=== PATIENT | female | born 1950 | race Caucasian/White ===

== ENCOUNTER → 2019-03-15 | Outpatient (CLI) | payer BC, MEDICARE ==
[~2019-03-15] MED LIST: *MAMMOGRAM; /ZOLP6ER; ACET65TA; ADVA1AER2; ADVAIR100 INHALATION; ALBUTEROL INHALATION; AMBIEN5 PO; AMBIENCR PO; AMITRIP25 PO; AMITRIP50 PO; AMITRIP75 PO; AMOXIL875 PO; ATEN25TA; ATROVENTIN INHALATION; BACTRIMDS PO; CALCTAB22; CARDURA8 PO; CIPRO500 PO; COUM1TAB17; COUM1TAB18; COUMADIN5 PO; DARVOCET-N PO; DIGO0.257; DURATUSS-G PO; DYAZIDE PO; FLAGYL500 PO; FLEC50TA2; FLOVENT44 INHALATION; FLOVENT44 PO; FOSI; FOSI40TA; Fish oil; KLORCON20 PO; LASI40TA; LASI80TA; LASIX PO; LEXA1TAB; LEXAPRO10 PO; MONOPRIL40 PO; NORVASC10 PO; PHENERGA25 PO; POTA20TA; POTASSIU10 PO; PREMARIVAG VAGINALLY; PREMPRO2.5 PO; PRILOSEC40 PO; PROV90AE; RHINOAEROS; THERGRAN; TOPAMAX100 PO; TOPI100T; TUSSI12TAB PO; VAGIFEM VAGINALLY; VIOXX25 PO; ZOCOR10 PO
[2019-03-15 19:54] LABS: RED BLOOD COUNT 3.64 10^6/uL (4.00-5.40); WHITE BLOOD COUNT 7.1 10^3/uL (4.0-10.0)
[2019-03-15 19:55] LABS: BASO # 0.1 10^3/uL (0.0-0.2); EOS # 0.2 10^3/uL (0.0-0.50); EOS % 2.7 % (0.0-3.0); HEMATOCRIT 36.9 % (36.0-47.0); HEMOGLOBIN 11.6 g/dl (12.0-15.5); LYMPH # 2.3 10^3/uL (1.5-4.5); LYMPH % 32.4 % (24.0-44.0); MEAN CORPUSCULAR HEMOGLOBIN 31.9 pg (27.0-33.0); MEAN CORPUSCULAR HGB CONC 31.4 g/dl (32.0-36.5); MEAN CORPUSCULAR VOLUME 101.4 fl (80.0-96.0); MONO # 0.6 10^3/uL (0.0-0.8); MONO % 7.9 % (0.0-5.0); NEUTROPHILS % 55.7 % (36.0-66.0); PLATELET COUNT, AUTOMATED 276 10^3/uL (150-450)
[2019-03-15 20:21] LABS: C REACTIVE PROTEIN QUANTITATIV < 0.30 MG/DL (0.00-0.30); RHEUMATOID FACTOR QUANT < 10.0 IU/ML (<15.0)
[2019-03-15 21:30] LABS: ERYTHROCYTE SEDIMENTATION RATE 36 mm/hr (0-30)
== END ==
LOC: M LABDRWAD 13:42
PROVIDERS: ATTEND Physician Assistant
DX: M17.11 Unilateral primary osteoarthritis, right knee (principal)

== ENCOUNTER → 2019-04-19 | Outpatient (REF) | payer MEDICARE | LOC: M LABDRWAD 12:52 | PROVIDERS: ATTEND Physical Medicine & Rehabilitation | DX: M47.896 Other spondylosis, lumbar region (principal) ==

== ENCOUNTER → 2019-04-29 | Outpatient (CLI) | payer MEDICARE ==
--- NOTE | 2019-04-29 15:11 | REP ---
CT lumbar spine without contrast History: Spinal stenosis A diffuse disc bulge is present at the L1-2 level. There is minimal compression of the thecal sac. The L1 nerves exit the neural foramina without compression. A diffuse disc bulge is present at in the L2-3 level. There is minimal compression of the thecal sac. The L2 nerves exit the neural foramina without compression. A diffuse disc bulge is present at the L3-4 level. There is minimal compression of the thecal sac. There is hypertrophy of the posterior articulating facets. The L3 nerves exit the neural foramina without compression. A diffuse disc bulge is present at the L4-5 level. There is minimal compression of the thecal sac. There is hypertrophy of the ligamenta flava and posterior articulating facets. There are 12 mm of grade 2 spondylolisthesis of L4 and L5. This is associated with L4 pars defects. There is compression of the L4 nerves in the neural foramina. A diffuse disc bulge is present at the L5-L1 level. There is minimal compression of the thecal sac. There is hypertrophy of the posterior articulating facets. The L5 nerves exit the neural foramina without compression. The L1-2 and L4-5 intervertebral discs are decreased in height. Vacuum phenomenon is present at the L4-5 level. These findings are consistent with disc degeneration. Impression 1. Diffuse disc bulges at the L1-2 through L3-4 and L5-L1 levels with minimal thecal sac compression. 2. Diffuse disc bulge at the L4-5 level with minimal thecal sac compression. There is grade 2 spondylolisthesis of L4 and L5 with associated L4 pars defects. There is compression of the L5 nerves in the neural foramina. Electronically Signed by Delvis Moy MD 04/29/2019 03:02 P
== END ==
LOC: M RAD 14:21
PROVIDERS: ATTEND Physical Medicine & Rehabilitation
DX: M47.817 Spondylosis without myelopathy or radiculopathy, lumbosacral region (principal); M51.37 Other intervertebral disc degeneration, lumbosacral region; M48.07 Spinal stenosis, lumbosacral region; I73.9 Peripheral vascular disease, unspecified; G20 Parkinson's disease

== ENCOUNTER → 2019-04-29 | Outpatient (CLI) | payer MEDICARE ==
--- NOTE | 2019-04-29 14:46 | REP ---
CT Head without contrast HISTORY: Parkinson's disease COMPARISON: None Areas of decreased attenuation are present in the periventricular white matter. This represents small-vessel ischemic disease. There is no intraparenchymal hemorrhage, acute infarct, mass or midline shift. The ventricular system and cortical sulci are dilated consistent with minimal volume loss. There is no extra cerebral collection. There is no fracture. Mucosal thickening is present in the right ethmoid sinus. IMPRESSION: 1. Small vessel ischemic disease. 2. Minimal volume loss. Electronically Signed by Delvis Moy MD 04/29/2019 02:37 P
== END ==
LOC: M RAD 14:18
PROVIDERS: ATTEND Psychiatry & Neurology Neurology
DX: I73.9 Peripheral vascular disease, unspecified (principal); G20 Parkinson's disease

== ENCOUNTER → 2019-05-03 | Outpatient (REF) | payer MEDICARE ==
[2019-05-03 19:51] LABS: BASO # 0.1 10^3/uL (0.0-0.2); BASO % 0.8 % (0.0-1.0); EOS # 0.2 10^3/uL (0.0-0.50); EOS % 1.9 % (0.0-3.0); HEMOGLOBIN 12.5 g/dl (12.0-15.5); LYMPH # 2.1 10^3/uL (1.5-4.5); LYMPH % 22.1 % (24.0-44.0); MEAN CORPUSCULAR HEMOGLOBIN 31.4 pg (27.0-33.0); MEAN CORPUSCULAR HGB CONC 30.5 g/dl (32.0-36.5); MONO # 0.6 10^3/uL (0.0-0.8); MONO % 6.5 % (0.0-5.0); NEUTROPHILS # 6.6 10^3/uL (1.8-7.7); NEUTROPHILS % 68.2 % (36.0-66.0); PLATELET COUNT, AUTOMATED 411 10^3/uL (150-450); RED BLOOD COUNT 3.98 10^6/uL (4.00-5.40); WHITE BLOOD COUNT 9.6 10^3/uL (4.0-10.0)
[2019-05-03 19:55] LABS: ALBUMIN 3.6 GM/DL (3.2-5.2); ALT/SGPT 30 U/L (12-78); BILIRUBIN,TOTAL 0.3 MG/DL (0.2-1.0); BLOOD UREA NITROGEN 26 MG/DL (7-18); CALCIUM LEVEL 9.1 MG/DL (8.8-10.2); CARBON DIOXIDE LEVEL 24 MEQ/L (21-32); CHLORIDE LEVEL 110 MEQ/L (98-107); GLOMERULAR FILTRATION RATE 52.7 (>45); GLUCOSE, FASTING 87 MG/DL (70-100); POTASSIUM SERUM 4.1 MEQ/L (3.5-5.1); RHEUMATOID FACTOR QUANT < 10.0 IU/ML (<15.0); SODIUM LEVEL 143 MEQ/L (136-145); THYROID STIMULATING HORMONE 0.907 uIU/ML (0.358-3.740); TOTAL PROTEIN 7.5 GM/DL (6.4-8.2)
[2019-05-03 20:15] LABS: ERYTHROCYTE SEDIMENTATION RATE 77 mm/hr (0-30)
[2019-05-06 00:08] LABS: ANTINUCLEAR ANTIBODIES DIRECT Negative (Negative)
== END ==
LOC: M LABDRWAD 19:14
PROVIDERS: ATTEND Psychiatry & Neurology Neurology
DX: G40.909 Epilepsy, unspecified, not intractable, without status epilepticus (principal); E07.9 Disorder of thyroid, unspecified

== ENCOUNTER → 2019-05-19 | Outpatient (CLI) | payer MEDICARE ==
--- NOTE | 2019-05-19 14:41 | REP ---
Whole body radionuclide bone scan: The study is performed with 21.6 mCi of technetium 99m radiolabeled MDP. There are bilateral asymmetric foci of uptake in the mid cervical spine, nonspecific but likely degenerative. There is a bilaterally symmetric pattern of uptake in the shoulders, elbows and wrists, likely degenerative. Uptake in the thoracic spine, lumbar spine, pelvis and hips is unremarkable. There is increased uptake in the lateral condyle of the distal right femur, right patellofemoral articulation and right knee lateral compartment. There is increased uptake in the ankles and tarsal ossicles bilaterally, likely degenerative. Impression: There is a degenerative pattern of uptake in the shoulders, elbows, wrists, angles and tarsal ossicles. The uptake pattern in the cervical spine as likely degenerative. Depending on symptomatology consider follow-up MRI for more assurance. The there is increased uptake in the lateral compartment of the right knee including the lateral femoral condyle. Plain films and MRI follow-up might be considered. Electronically Signed by Angel Holman MD 05/19/2019 02:32 P
== END ==
LOC: M RAD 09:12
PROVIDERS: ATTEND Physical Medicine & Rehabilitation
DX: M48.061 Spinal stenosis, lumbar region without neurogenic claudication (principal); M47.896 Other spondylosis, lumbar region; M51.37 Other intervertebral disc degeneration, lumbosacral region
CPT/HCPCS: 78306; A9503

== ENCOUNTER → 2019-06-03 | Outpatient (REF) | payer MEDICARE ==
[2019-06-03 19:32] LABS: ALBUMIN 3.3 GM/DL (3.2-5.2); ALT/SGPT 36 U/L (12-78); BILIRUBIN,TOTAL 0.2 MG/DL (0.2-1.0); BLOOD UREA NITROGEN 32 MG/DL (7-18); CALCIUM LEVEL 9.1 MG/DL (8.8-10.2); CARBON DIOXIDE LEVEL 26 MEQ/L (21-32); CHLORIDE LEVEL 113 MEQ/L (98-107); CHOLESTEROL LEVEL 180 MG/DL (<200); CHOLESTEROL RISK RATIO 3.461 (<5); FREE T4 0.81 NG/DL (0.76-1.46); GLOMERULAR FILTRATION RATE 52.7 (>45); GLUCOSE, FASTING 89 MG/DL (70-100); HDL CHOLESTEROL 52 MG/DL (>40); LDL CHOLESTEROL 99 MG/DL (<100); NON-HDL-C 128 MG/DL; POTASSIUM SERUM 4.2 MEQ/L (3.5-5.1); SODIUM LEVEL 144 MEQ/L (136-145); TRIGLYCERIDES LEVEL 146 MG/DL (<150)
[2019-06-03 19:34] LABS: FOLATE > 24.0 NG/ML (>5.4); VITAMIN B12 LEVEL 1183 PG/ML (247-911)
[2019-06-07 11:49] LABS: ALBUMIN % 51.7 % (55.8-66.1); ALPHA-1-GLOBULIN % 6.1 % (2.9-4.9); BETA-2-GLOBULINS % 7.2 % (3.2-6.5)
[2019-06-07 11:50] LABS: ALBUMIN 3.62 GM/DL (3.29-5.55); ALPHA-1-GLOBULINS 0.43 GM/DL (0.17-0.41); ALPHA-2-GLOBULINS 1.12 GM/DL (0.42-0.99); BETA-1-GLOBULINS 0.42 GM/DL (0.28-0.60); GAMMA GLOBULINS 0.91 GM/DL (0.65-1.58)
[2019-06-08 00:06] LABS: FREE LAMBDA LIGHT CHAINS SERUM 30.3 mg/L (5.7-26.3); KAPPA/LAMBDA RATIO SERUM 1.32 (0.26-1.65)
== END ==
LOC: M SFHCADAM 16:14
PROVIDERS: ATTEND Family Medicine
DX: E78.5 Hyperlipidemia, unspecified (principal); F43.23 Adjustment disorder with mixed anxiety and depressed mood; D75.89 Other specified diseases of blood and blood-forming organs
CPT/HCPCS: 80053; 80061; 82607; 82746; 83883; 84165; 84439; 84443; G0463

== ENCOUNTER 2019-07-14 11:26 | Inpatient (IN) | payer MEDICARE ==
[2019-07-14] MEDS ORDERED: ROPI0.5T PO (12:01)
[2019-07-14] MEDS ORDERED: LAMO25TA4 PO (12:01)
[2019-07-14] MEDS ORDERED: METO25TA4 PO (12:01)
[2019-07-14] MEDS ORDERED: FLON1SPR NARES (12:01)
[2019-07-14] MEDS ORDERED: GABA-1171 PO (12:01)
[2019-07-14] MEDS ORDERED: FLUT1BLS INH (12:01)
[2019-07-14] MEDS ORDERED: VENTAER INH (12:01)
[2019-07-14] MEDS ORDERED: EZET10TA21 PO (12:01)
[2019-07-14] MEDS ORDERED: TOPI200T7 PO (12:01)
[2019-07-14] MEDS ORDERED: CITA40TA4 PO (12:01)
[2019-07-14] MEDS ORDERED: ELIQ5TAB PO (12:01)
[2019-07-14 13:00] LABS: BASO # 0.1 10^3/uL (0.0-0.2); BASO % 0.5 % (0.0-1.0); EOS # 0.1 10^3/uL (0.0-0.50); EOS % 1.1 % (0.0-3.0); HEMATOCRIT 34.3 % (36.0-47.0); LYMPH # 1.2 10^3/uL (1.5-4.5); LYMPH % 11.2 % (24.0-44.0); MEAN CORPUSCULAR HEMOGLOBIN 32.3 pg (27.0-33.0); MEAN CORPUSCULAR HGB CONC 32.1 g/dl (32.0-36.5); MEAN CORPUSCULAR VOLUME 100.6 fl (80.0-96.0); MONO # 0.9 10^3/uL (0.0-0.8); MONO % 7.8 % (0.0-5.0); NEUTROPHILS # 8.8 10^3/uL (1.8-7.7); PLATELET COUNT, AUTOMATED 193 10^3/uL (150-450); RED BLOOD COUNT 3.41 10^6/uL (4.00-5.40); WHITE BLOOD COUNT 11.1 10^3/uL (4.0-10.0)
[2019-07-14 13:38] LABS: BLOOD UREA NITROGEN 30 MG/DL (7-18); CALCIUM LEVEL 8.9 MG/DL (8.8-10.2); CARBON DIOXIDE LEVEL 23 MEQ/L (21-32); CHLORIDE LEVEL 114 MEQ/L (98-107); CK-MB VALUE MASS 1.1 NG/ML (<3.6); CPK CREATINE PHOSPHOKINASE 72 U/L (26-192); GLOMERULAR FILTRATION RATE > 60.0 (>45); GLUCOSE, FASTING 89 MG/DL (70-100); MB/CK RELATIVE INDEX 1.53 (< OR =4); POTASSIUM SERUM 3.7 MEQ/L (3.5-5.1); SODIUM LEVEL 141 MEQ/L (136-145); THYROID STIMULATING HORMONE 0.967 uIU/ML (0.358-3.740); TROPONIN I 0.03 NG/ML (< 0.10)
--- NOTE | 2019-07-14 13:45 | ECGEPIP ---
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
[2019-07-14] MEDS ORDERED: ROPI0.5T32 PO (13:57)
[2019-07-14] MEDS ORDERED: MULTCAP PO (13:57)
[2019-07-14] MEDS ORDERED: ROPI0.253 PO (13:57)
[2019-07-14] MEDS ORDERED: OMEG10002 PO (13:57)
[2019-07-14] MEDS ORDERED: GLUC750T13 PO (14:00)
--- NOTE | 2019-07-14 15:25 | REP ---
PA and lateral chest: Comparison is 08/24/2008. There are no infiltrates or pleural effusions. There are no masses or nodules. Lung saucedo otherwise clear and unchanged. Cardiac size is normal. There is a dual-chamber pacemaker. This is present previously, however, there appears to be a new pacemaker power pack. The hari, mediastinum, skeletal structures are unremarkable. Impression: There are no acute cardiopulmonary findings. Electronically Signed by Angel Holman MD 07/14/2019 03:16 P
[2019-07-14] MEDS ORDERED: ALBUTEROL 90 MCG/ACT 8GM HFA INHALER INH PRN (17:00)
[2019-07-14] MEDS ORDERED: FLUTICASONE PROP 0.05% NASAL SPRAY 16 GM (FLONASE) NARES PRN (17:00)
--- NOTE | 2019-07-14 17:07 | HPEPDOC ---
General Date of Admission 07/14/19. Date of Service: Jul 14, 2019 Primary Care Physician: Orlando Pacheco MD Chief Complaint The patient is a 69-year-old female admitted with a reason for visit of Tremors. History of Present Illness 69-year-old female with past medical history Parkinson's disease, asthma, degenerative joint disease, atrial fibrillation, diastolic heart failure presents to the ER with chief complaint of worsening tremors since 10 AM this morning. The patient has also endorsed generalized weakness during this time. She reports having a worsening cough over the last 3 days. She denies any sputum production. She also denies any fevers, chills, chest pain, palpitations, abdominal pain, orthopnea, or any N/V/D. She denied any dysuria. In the ER, the patient was noted to have an elevated white blood cell count. She was also noted to be significantly weak when working with physical therapy. She will be admitted under the [facility] service for treatment of possible URI vs PNA. Home Medications Scheduled Apixaban (Eliquis) 5 Mg Tablet, 5 MG PO BID, (Reported) Citalopram Hydrobromide (Citalopram HBr) 40 Mg Tablet, 40 MG PO DAILY, (Reported) Ezetimibe (Ezetimibe) 10 Mg Tablet, 10 MG PO DAILY, (Reported) Fluticasone Propion/Salmeterol ([place]ixela 100-50 Inhub) 1 Each Blst.w.dev, 1 PUFF INH BID, (Reported) Gabapentin (Gabapentin) 100 Mg Capsule, 100 MG PO DAILY, (Reported) TAKES @1500 DAILY Glucosa Ramos 2Kcl/Chondroitin Ramos (Glucosamine-Chondroitin Tablet) 1 Each Tablet, 2 TAB PO BID, (Reported) Lamotrigine (Lamotrigine) 25 Mg Tablet, 50 MG PO BID, (Reported) Metoprolol Tartrate (Metoprolol Tartrate) 25 Mg Tablet, 25 MG PO BID, (Reported) Multivitamin (Multivitamins) 1 Each Capsule, 1 CAP PO DAILY, (Reported) Byron-3/Dha/Epa/Fish Oil (Fish Oil 1,000 mg Softgel) 1 Each Capsule, 2 CAP PO DAILY, (Reported) Ropinirole HCl (Ropinirole HCl) 0.5 Mg Tablet, 0.5 MG PO TID, (Reported) TAKE ONE IM AM, @1500 AND HS Topiramate (Topiramate) 200 Mg Tablet, 200 MG PO BID, (Reported) Scheduled PRN Albuterol Sulfate (Ventolin Hfa) 18 Gm Hfa.aer.ad, 2 PUFF INH Q4-6HP PRN for wheezing, (Reported) Fluticasone Propionate (Flonase Allergy Relief) 9.9 Ml [place].susp, 2 SPRAY NARES DAILY PRN for SEASONAL ALLERGIES, (Reported) Allergies Coded Allergies: atorvastatin (Verified Allergy, Unknown, itch, 07/14/19) carbidopa (Verified Allergy, Unknown, severe diarrhea, 07/14/19) entacapone (Verified Allergy, Unknown, severe diarrhea, 07/14/19) levetiracetam (Verified Allergy, Unknown, muscle spasms, 07/14/19) pramipexole (Verified Allergy, Unknown, syncope, 07/14/19) simvastatin (Verified Allergy, Unknown, itch, 07/14/19) Past Medical History Medical History As noted in HPI. Surgical History LEFT KNEE 1997 LEFT ANKLE FUSION 1994 PACEMAKER 2007 TUBAL LIGATION 1980 Social History * Smoker: former Smoker Alcohol: Denies Drugs: denies Review of Systems Other systems 10 point review of systems negative unless otherwise specified in HPI. Physical Examination General Exam: Positive: Alert, Cooperative, No Acute Distress ENT Exam: Positive: Atraumatic, Mucous membr. moist/pink Chest Exam: Positive: Clear to auscultation, Normal air movement Heart Exam: Positive: Rate Normal, Normal S1, Normal S2 Abdomen Exam: Positive: Soft; Negative: Tenderness Extremity Exam: Negative: Tenderness, Swelling Vital Signs Vital Signs Date Time Temp Pulse Resp B/P (MAP) Pulse Ox O2 Delivery O2 Flow Rate FiO2 07/14/19 14:30 129/61 (83) 07/14/19 14:26 69 98 07/14/19 11:37 97.8 18 Room Air Laboratory Data Labs 24H Laboratory Tests 2 07/14/19 12:27: Urine Color YELLOW, Urine Appearance HAZY, Urine pH 6.0, Urine Specific [place] 1.019, Urine Protein NEGATIVE, Urine Glucose (UA) NEGATIVE, Urine Ketones NEGATIVE, Urine Blood NEGATIVE, Urine Nitrite NEGATIVE, Urine Bilirubin NEGATIVE, Urine Urobilinogen 0.2, Urine Leukocyte Esterase 1+H, Urine WBC (Auto) 12H, Urine RBC (Auto) 3, Urine Hyaline Casts (Auto) 0, Urine Bacteria (Auto) N EGATIVE, Urine Squamous Epithelial Cells 0, Urine Mucus (Auto) SMALL, Urine Sperm (Auto) 07/14/19 12:49: Immature Granulocyte % (Auto) 0.4, White Blood Count 11.1H, Red Blood Count 3.41L, Hemoglobin 11.0L, Hematocrit 34.3L, Mean Corpuscular Volume 100.6H, Mean Corpuscular Hemoglobin 32.3, Mean Corpuscular Hemoglobin Concent 32.1, Red Cell Distribution Width 13.9, Platelet Count 193, Neutrophils (%) (Auto) 79.0H, Lymphocytes (%) (Auto) 11.2L, Monocytes (%) (Auto) 7.8H, Eosinophils (%) (Auto) 1.1, Basophils (%) (Auto) 0.5, Neutrophils # (Auto) 8.8H, Lymphocytes # (Auto) 1.2L, Monocytes # (Auto) 0.9H, Eosinophils # (Auto) 0.1, Basophils # (Auto) 0.1, Nucleated Red Blood Cells % (auto) 0.0, Anion Gap 4L, Glomerular Filtration Rate > 60.0, Blood Urea Nitrogen 30H, Creatinine 0.90, Sodium Level 141, Potassium Level 3.7, Chloride Level 114H, Carbon Dioxide Level 23, Calcium Level 8.9, Total Creatine Kinase 72, Creatine Kinase MB 1.1, Creatine Kinase MB Relative Index 1.53, Troponin I 0.03, Thyroid Stimulating Hormone (TSH) 0.967 CBC/BMP Laboratory Tests 07/14/19 12:49 Red Blood Count 3.41 L, Mean Corpuscular Volume 100.6 H, Mean Corpuscular Hemo globin 32.3, Mean Corpuscular Hemoglobin Concent 32.1, Red Cell Distribution Width 13.9, Neutrophils (%) (Auto) 79.0 H, Lymphocytes (%) (Auto) 11.2 L, Monocytes (%) (Auto) 7.8 H, Eosinophils (%) (Auto) 1.1, Basophils (%) (Auto) 0.5, Neutrophils # (Auto) 8.8 H, Lymphocytes # (Auto) 1.2 L, Monocytes # (Auto) 0.9 H, Eosinophils # (Auto) 0.1, Basophils # (Auto) 0.1, Calcium Level 8.9, Total Creatine Kinase 72 Microbiology Microbiology 07/14/19 Urine Culture, Received Pending Plan / VTE VTE Prophylaxis Ordered?: Yes Plan Plan Generalized Weakness, Worsening Tremors in a Parkinson's Pt possibly 2/2 URI vs PNA CXR with no acute findings. CT Chest ordered for further evaluation Patient with no urinary symptoms Respiratory panel pending Rocephin ordered Physical therapy ordered functional optimization History of atrial fibrillation Cont Eliquis History of asthma, stable Chest x-ray with no acute findings CT of the chest ordered to rule out possible pneumonia History of degenerative joint disease DVT prophylaxis On DiquIVY Fragoso MD Jul 14, 2019 17:07
--- NOTE | 2019-07-14 17:48 | REPVR ---
EXAM: CT Chest Without Contrast EXAM DATE/TIME: 07/14/2019 5:04 PM CLINICAL HISTORY: 69 years old, female; Shortness of breath; Additional info: R/O pna TECHNIQUE: Imaging protocol: Computed tomography images of the chest without contrast. 3D rendering: MIP reconstructed images were created and reviewed. Radiation optimization: All CT scans at this facility use at least one of these dose optimization techniques: automated exposure control; mA and/or kV adjustment per patient size (includes targeted exams where dose is matched to clinical indication); or iterative reconstruction. COMPARISON: CR Chest, 2 view PA, Lat 07/14/2019 3:09 PM FINDINGS: Tubes, catheters and devices: A dual lead cardiac pacer is present with lead tips in the right atrium and right ventricle. Lungs: There is patchy consolidation within the medial basilar segment and anterior basilar segment of the left lower lobe consistent with multifocal pneumonia in the proper clinical setting. There is a pulmonary nodule measuring 7 mm in the lingula on axial image 63 of series 201. There is a small focal area of reticular opacities within the anterior right upper lobe on images 27 through 30 of series 201, nonspecific. Pleural space: Unremarkable. No pneumothorax. No pleural effusion. Heart: No cardiomegaly or pericardial effusion. Moderate coronary atherosclerosis is present. Aorta: There is mild atherosclerosis of the thoracic aorta without aneurysm. Lymph nodes: Unremarkable. No enlarged lymph nodes. Bones/joints: There are degenerative changes throughout the lower cervical and thoracic spine. No acute fracture or suspicious bone lesion. Soft tissues: Unremarkable. IMPRESSION: 1. Multifocal patchy consolidation within the left lower lobe consistent with multifocal pneumonia in the proper clinical setting. 2. 7 mm diameter pulmonary nodule within the lingula. Followup CT scan of the chest is recommended in 6 months as per Fleischner criteria guidelines. Consider shorter term followup CT scan of the chest for evaluation of the left lower lobe consolidation as clinically indicated. Fleischner criteria guidelines for solitary 7 mm diameter pulmonary nodule states: For patients at low risk (minimal or absent history of smoking and of other known risk factors), recommend CT at 6-12 months, then consider CT at 18-24 months. For patients at high risk (history of smoking or of other known risk factors), recommend CT at 6-12 months, then CT at 18-24 months. (Paulina et al., Fleischner Society, 2017). Electronically signed by: Harsh Banks On 07/14/2019 17:47:57 PM
[2019-07-14] MEDS: cefTRIAXone SOD 1 GM in D5W MINI-BAG PLUS 50 ML IV SCH (18:11)
[2019-07-14] MEDS: rOPINIRole 0.25 MG TAB(REQUIP) PO SCH ×2 (18:45→21:57)
[2019-07-14] MEDS: ADVAIR HFA 45/21MCG INHALER INH SCH (20:44)
[2019-07-14 20:48] VITALS: BP 120/51
[2019-07-14] MEDS ORDERED: FLUTICASONE HFA 110 MCG 12 GM INHALER (FLOVENT) INH SCH (21:00)
[2019-07-14] MEDS: TOPIRAMATE (TopAMAX) 100 MG TAB PO SCH (21:57)
[2019-07-14] MEDS: APIXABAN 5 MG TAB (ELIQUIS) PO SCH (21:57)
[2019-07-14] MEDS: lamoTRIgine 25 MG TAB PO SCH (21:57)
[2019-07-14] MEDS: METOPROLOL TART 25 MG TABLET PO SCH (22:54)
[2019-07-14] MEDS: GABAPENTIN 300 MG CAP PO SCH (23:07)
[2019-07-15 05:46] VITALS: BP 121/67
[2019-07-15 07:24] LABS: HEMATOCRIT 30.7 % (36.0-47.0); HEMOGLOBIN 9.7 g/dl (12.0-15.5); MEAN CORPUSCULAR HEMOGLOBIN 31.2 pg (27.0-33.0); MEAN CORPUSCULAR HGB CONC 31.6 g/dl (32.0-36.5); MEAN CORPUSCULAR VOLUME 98.7 fl (80.0-96.0); PLATELET COUNT, AUTOMATED 175 10^3/uL (150-450); RED BLOOD COUNT 3.11 10^6/uL (4.00-5.40); WHITE BLOOD COUNT 9.7 10^3/uL (4.0-10.0)
[2019-07-15 07:55] LABS: ALBUMIN 2.6 GM/DL (3.2-5.2); ALT/SGPT 21 U/L (12-78); BILIRUBIN,TOTAL 0.3 MG/DL (0.2-1.0); BLOOD UREA NITROGEN 24 MG/DL (7-18); CALCIUM LEVEL 8.3 MG/DL (8.8-10.2); CARBON DIOXIDE LEVEL 24 MEQ/L (21-32); CHLORIDE LEVEL 113 MEQ/L (98-107); CREATININE FOR GFR 0.94 MG/DL (0.55-1.30); GLOMERULAR FILTRATION RATE > 60.0 (>45); GLUCOSE, FASTING 89 MG/DL (70-100); MAGNESIUM LEVEL 2.2 MG/DL (1.8-2.4); POTASSIUM SERUM 3.6 MEQ/L (3.5-5.1); SODIUM LEVEL 144 MEQ/L (136-145)
[2019-07-15] MEDS: ADVAIR HFA 45/21MCG INHALER INH SCH ×2 (08:10→19:21)
[2019-07-15] MEDS: TOPIRAMATE (TopAMAX) 100 MG TAB PO SCH ×2 (08:31→21:44)
[2019-07-15] MEDS: OMEGA-3 1000MG CAPSULE PO SCH (08:31)
[2019-07-15] MEDS: MULTIVITAMINS/MINERALS THERAP 1 TAB PO SCH (08:31)
[2019-07-15] MEDS: GABAPENTIN 300 MG CAP PO SCH (08:31)
[2019-07-15] MEDS: METOPROLOL TART 25 MG TABLET PO SCH ×2 (08:32→21:47)
[2019-07-15] MEDS: CitaloPRAM (CeleXA) 20 MG TAB PO SCH (08:32)
[2019-07-15] MEDS: EZETIMIBE 10 MG TAB (ZETIA) PO SCH (08:32)
[2019-07-15] MEDS: rOPINIRole 0.25 MG TAB(REQUIP) PO SCH ×2 (08:32→16:33)
[2019-07-15] MEDS: APIXABAN 5 MG TAB (ELIQUIS) PO SCH ×2 (08:32→21:44)
[2019-07-15] MEDS: lamoTRIgine 25 MG TAB PO SCH ×2 (08:32→21:44)
[2019-07-15] MEDS ORDERED: GABAPENTIN 100 MG CAP PO SCH ×2 (09:00→15:00)
--- NOTE | 2019-07-15 09:11 | IPNPDOC ---
Subjective Date Seen The patient was seen on 07/15/19. Subjective Chief Complaint/HPI Slightly less tremor today. Constitutional: Denies: Chills, Fever Pulmonary: Denies: Dyspnea, Cough Cardiovascular: Denies: Chest Pain, Palpitations Gastrointestinal: Denies: Nausea, Vomiting, Abdominal Pain, Diarrhea, Constipation Objective Physical Examination General Exam: Positive: Alert, Cooperative, No Acute Distress ENT Exam: Positive: Atraumatic, Mucous membr. moist/pink Chest Exam: Positive: Clear to auscultation, Normal air movement Heart Exam: Positive: Rate Normal, Normal S1, Normal S2 Abdomen Exam: Positive: Soft; Negative: Tenderness Extremity Exam: Negative: Tenderness, Swelling Neuro Exam: Positive: Other (significant resting tremor right hand.) Assessment /Plan Problems (1) Multifocal pneumonia Status: Acute Problem Text: Cont Rocephin Resp status stable (2) Parkinson disease Status: Chronic Problem Text: Follows with Dr. Hampton Intolerant of Sinemet (diarrhea and depression) Recently started on REquip abot a month ago and has been titrating up the dose also started on Gabapentin a few weeks ago by Dr. Frye at ortho for her DDD L-S spine symptoms - I consulted Neurology (Dr. Garza) He recommends holding Gabapentin for now as her increased tremor may be side effect especially in combo with all her other meds. He will see her in consult this evening (3) Lung nodule Problem Text: Will need f/u as outpatient CT:multifocal pneumonia in the proper clinical setting. 2. 7 mm diameter pulmonary nodule within the lingula. Followup CT scan of the chest is recommended in 6 months as per Fleischner criteria guidelines. Consider shorter term followup CT scan of the chest for evaluation of the left lower lobe consolidation as clinically indicated. (4) Atrial fibrillation Status: Chronic Response to Treatment: Stable Problem Text: rate controlled on Metoprolol Cont Eliquis (5) DDD (degenerative disc disease), lumbosacral Status: Chronic Problem Text: See above (6) Asthma Status: Chronic Response to Treatment: Stable (7) Diastolic CHF, chronic Status: Chronic Response to Treatment: Stable (8) Tremors of nervous system Status: Acute Problem Text: see above (9) Physical deconditioning Status: Chronic Problem Text: Get PT/OT Plan/VTE VTE Prophylaxis Ordered?: Yes (Eliquis) Disposition Change to full admission status VS, I&O, 24H, Fishbone Vital Signs/I&O Vital Signs Date Time Temp Pulse Resp B/P (MAP) Pulse Ox O2 Delivery O2 Flow Rate FiO2 07/15/19 08:32 74 121/67 07/15/19 05:46 96.9 18 94 07/14/19 11:37 Room Air I&O- Last 24 Hours up to 6 AM 07/15/19 06:00 Intake Total 650 ml Output Total 0 ml Balance 650 ml Laboratory Data 24H LABS Laboratory Tests 2 07/14/19 12:27: Urine Color YELLOW, Urine Appearance HAZY, Urine pH 6.0, Urine Specific [place] 1.019, Urine Protein NEGATIVE, Urine Glucose (UA) NEGATIVE, Urine Ketones NEGATIVE, Urine Blood NEGATIVE, Urine Nitrite NEGATIVE, Urine Bilirubin NEGATIVE, Urine Urobilinogen 0.2, Urine Leukocyte Esterase 1+H, Urine WBC (Auto) 12H, Urine RBC (Auto) 3, Urine Hyaline Casts (Auto) 0, Urine Bacteria (Auto) NEGATIVE, Urine Squamous Epithelial Cells 0, Urine Mucus (Auto) SMALL, Urine Sperm (Auto) 07/14/19 12:49: Immature Granulocyte % (Auto) 0.4, White Blood Count 11.1H, Red Blood Count 3.41L, Hemoglobin 11.0L, Hematocrit 34.3L, Mean Corpuscular Volume 100.6H, Mean Corpuscular Hemoglobin 32.3, Mean Corpuscular Hemoglobin Concent 32.1, Red Cell Distribution Width 13.9, Platelet Count 193, Neutrophils (%) (Auto) 79.0H, Lymphocytes (%) (Auto) 11.2L, Monocytes (%) (Auto) 7.8H, Eosinophils (%) (Auto) 1.1, Basophils (%) (Auto) 0.5, Neutrophils # (Auto) 8.8H, Lymphocytes # (Auto) 1.2L, Monocytes # (Auto) 0.9H, Eosinophils # (Auto) 0.1, Basophils # (Auto) 0.1, Nucleated Red Blood Cells % (auto) 0.0, Anion Gap 4L, Glomerular Filtration Rate > 60.0, Blood Urea Nitrogen 30H, Creatinine 0.90, Sodium Level 141, Potassium Level 3.7, Chloride Level 114H, Carbon Dioxide Level 23, Calcium Level 8.9, Total Creatine Kinase 72, Creatine Kinase MB 1.1, Creatine Kinase MB Relative Index 1.53, Troponin I 0.03, Thyroid Stimulating Hormone (TSH) 0.967 07/15/19 06:50: Nucleated Red Blood Cells % (auto) 0.0, Anion Gap 7L, Glomerular Filtration Rate > 60.0, Blood Urea Nitrogen 24H, Creatinine 0.94, Sodium Level 144, Potassium Level 3.6, Chloride Level 113H, Carbon Dioxide Level 24, Calcium Level 8.3L, Aspartate Amino Transf (AST/SGOT) 20, Alanine Aminotransferase (ALT/SGPT) 21, Alkaline Phosphatase 85, Total Bilirubin 0.3, Total Protein 6.0L, Albumin 2.6L, Magnesium Level 2.2, Albumin/Globulin Ratio 0.76L CBC/BMP Laboratory Tests 07/14/19 12:49 Red Blood Count 3.41 L, Mean Corpuscular Volume 100.6 H, Mean Corpuscular Hemoglobin 32.3, Mean Corpuscular Hemoglobin Concent 32.1, Red Cell Distribution Width 13.9, Neutrophils (%) (Auto) 79.0 H, Lymphocytes (%) (Auto) 11.2 L, Monocytes (%) (Auto) 7.8 H, Eosinophils (%) (Auto) 1.1, Basophils (%) (Auto) 0.5, Neutrophils # (Auto) 8.8 H, Lymphocytes # (Auto) 1.2 L, Monocytes # (Auto) 0.9 H, Eosinophils # (Auto) 0.1, Basophils # (Auto) 0.1, Calcium Level 8.9, Total Creatine Kinase 72 07/15/19 06:50 Red Blood Count 3.11 L, Mean Corpuscular Volume 98.7 H, Mean Corpuscular Hemoglobin 31.2, Mean Corpuscular Hemoglobin Concent 31.6 L, Red Cell Distribution Width 14.1, Calcium Level 8.3 L, Aspartate Amino Transf (AST/SGOT) 20, Alanine Aminotransferase (ALT/SGPT) 21, Alkaline Phosphatase 85, Total Bilirubin 0.3, Total Protein 6.0 L, Albumin 2.6 L Microbiology Microbiology 07/14/19 Urine Culture - Final, Complete MAMADOU FORD PA-C Jul 15, 2019 09:11
[2019-07-15 12:00] VITALS: BP 118/57
[2019-07-15 14:00] VITALS: BP 120/58
[2019-07-15] MEDS: cefTRIAXone SOD 1 GM in D5W MINI-BAG PLUS 50 ML IV SCH (18:22)
[2019-07-15 20:53] VITALS: BP 114/60
[2019-07-15] MEDS: rOPINIRole 1MG TAB PO SCH (21:44)
[2019-07-16 06:01] VITALS: BP 112/56
[2019-07-16 06:09] LABS: HEMATOCRIT 30.4 % (36.0-47.0); HEMOGLOBIN 9.6 g/dl (12.0-15.5); MEAN CORPUSCULAR HEMOGLOBIN 31.2 pg (27.0-33.0); MEAN CORPUSCULAR HGB CONC 31.6 g/dl (32.0-36.5); MEAN CORPUSCULAR VOLUME 98.7 fl (80.0-96.0); PLATELET COUNT, AUTOMATED 181 10^3/uL (150-450); RED BLOOD COUNT 3.08 10^6/uL (4.00-5.40); WHITE BLOOD COUNT 8.6 10^3/uL (4.0-10.0)
[2019-07-16 06:34] LABS: CALCIUM LEVEL 8.4 MG/DL (8.8-10.2); CREATININE FOR GFR 1.19 MG/DL (0.55-1.30); GLOMERULAR FILTRATION RATE 48.2 (>45); POTASSIUM SERUM 3.8 MEQ/L (3.5-5.1)
[2019-07-16 06:35] LABS: ALBUMIN 2.6 GM/DL (3.2-5.2); BILIRUBIN,TOTAL 0.2 MG/DL (0.2-1.0)
[2019-07-16] MEDS: ADVAIR HFA 45/21MCG INHALER INH SCH ×2 (08:26→19:28)
[2019-07-16] MEDS: MULTIVITAMINS/MINERALS THERAP 1 TAB PO SCH (09:00)
[2019-07-16] MEDS ORDERED: PREVNAR 13 VACCINE SYRINGE (CPT CODE:90670) IM ONE (09:00)
--- NOTE | 2019-07-16 10:13 | IPN ---
DATE: 07/16/2019 Arlet's tremor seems to be a little better. She apparently saw Dr. Garza yesterday. We are waiting for his consultation. Medications have been adjusted. She is being treated for pneumonia. She denies significant shortness of breath, cough, or significant sputum production. She is on Rocephin for her pneumonia. PHYSICAL EXAM: Afebrile. Vital signs stable. Oxygen saturation 95%. LUNGS: Clear. HEART: Regular rate and rhythm. ABDOMEN: Soft. Nontender. No peripheral edema. She has coarse tremor both hands. LABS: CBC unremarkable electrolytes. Sodium is 146, potassium 3.8, BUN 30, creatinine 1.1, glucose 100. IMPRESSION: 1. Multifocal pneumonia. She is on Rocephin, which we will continue. 2. Parkinson disease with tremor. Waiting for Dr. Garza's consultation. Meds have been adjusted. 3. Lung nodule. Outpatient workup will be performed. 4. Atrial fibrillation. Continue metoprolol for rate control and Eliquis for thromboembolic prophylaxis. 5. History of diastolic congestive heart failure. She seems well compensated on exam. 6. Physical deconditioning. Physical therapy has been ordered.
[2019-07-16] MEDS: lamoTRIgine 25 MG TAB PO SCH ×2 (10:15→21:41)
[2019-07-16] MEDS: TOPIRAMATE (TopAMAX) 100 MG TAB PO SCH ×2 (10:15→21:41)
[2019-07-16] MEDS: OMEGA-3 1000MG CAPSULE PO SCH (10:15)
[2019-07-16] MEDS: CitaloPRAM (CeleXA) 20 MG TAB PO SCH (10:16)
[2019-07-16] MEDS: EZETIMIBE 10 MG TAB (ZETIA) PO SCH (10:16)
[2019-07-16] MEDS: rOPINIRole 1MG TAB PO SCH ×3 (10:16→21:43)
[2019-07-16] MEDS: APIXABAN 5 MG TAB (ELIQUIS) PO SCH ×2 (10:17→21:41)
[2019-07-16] MEDS: METOPROLOL TART 25 MG TABLET PO SCH ×2 (10:17→21:00)
--- NOTE | 2019-07-16 11:01 | CR ---
DATE OF CONSULTATION: 07/15/2019 REFERRING PHYSICIAN: Dr. Orlando Pacheco. REASON FOR CONSULTATION: Parkinsonism. HISTORY OF PRESENT ILLNESS: Arlet Camargo is a 69-year-old woman with history of parkinsonism, seizures, atrial fibrillation, diastolic heart failure who presented to [facility] due to worsening of tremor, decreased mobility, difficulty walking and freezing episodes lasting for up to 20 minutes. The patient states that she has history of seizures for many years. She used to fall down and pass out. She has been taking Topamax and Lamictal for a number of years. She has history of chronic back pain. She follows with orthopedics who has started her on gabapentin in addition to her Topamax and lamotrigine. She has off-and-on neck pain. She denies any headaches. She has been using a walker for last 2 years. The patient states that she was diagnosed with Parkinson's 3 years ago when she saw a neurologist in [place]. They tried Sinemet and then change it to Sinemet plus Entacapone which caused diarrhea so she stopped taking it. She also felt depressed at some point and thought that it was related to her medications. She is following with Dr. Hampton at our office who has started ropinirole slowly and is planning to titrate it up. The patient denies any hallucinations. She feels sometimes forgetful but is able to tell me day, date, month, year, name of city, state, country, president and day of week. She also has a pacemaker and cannot have MRI scan of brain. DIAGNOSTIC STUDIES: CT scan of her head showed small vessel ischemic disease of brain and atrophy. I will review this scan to see any evidence of multiple system atrophy. Hemoglobin was 9.7, platelet count 175 with normal metabolic profile. PAST MEDICAL HISTORY: Atrial fibrillation. Dyslipidemia. Chronic back pain. History of seizures. Hypertension. Depression. CURRENT MEDICATIONS: - Eliquis 5 mg by mouth twice daily - Celexa 40 mg by mouth daily - Zetia 10 mg by mouth daily - gabapentin 100 mg by mouth daily - lamotrigine 50 mg by mouth twice daily - Topamax 1 mg by mouth twice daily - Requip 0.5 mg by mouth three times daily - gabapentin 300+200+300 mg per day which was stopped due to concern for polypharmacy today. - metoprolol 25 mg by mouth twice daily - multivitamin one tablet by mouth daily - fish oil 2000 mg by mouth daily - Wixela one puff inhalation twice daily - Zetia 10 mg by mouth daily - Celexa 40 mg by mouth daily - Flonase nasal spray - albuterol inhaler ALLERGIES: ENTACAPONE caused diarrhea, KEPPRA caused muscles spasms, PRAMIPEXOLE, SIMVASTATIN, LIPITOR, CARBIDOPA-LEVODOPA as listed as allergy with severe diarrhea but I believe entacapone in the same capsule might have caused her diarrhea. REVIEW OF SYSTEMS: All systems were reviewed and found to be noncontributory except as mentioned is present illness. She is a former smoker. She denies alcohol or illicit drugs. PAST SURGICAL HISTORY: Pacemaker placement. Tubal ligation. Left ankle and knee surgery. Parkinson's disease. PHYSICAL EXAMINATION: Temperature 97.8, pulse 69, respiratory 18, blood pressure 129/61. Heart irregularly irregular. Lungs: Clear to auscultation. Abdomen: Soft, nontender, nondistended. No pedal edema. No musculoskeletal abnormalities. No rash. No signs of meningeal irritation. The patient is awake, alert, oriented to place, person and time. Normal speech, comprehension and repetition. Extraoral muscles are intact. No facial weakness. Tongue and uvula are midline. 5/5 strength in all four extremities. She has prominent resting and postural tremor of both arms. Her gait is shuffling and her posture is stooped while walking. She had a freezing episode when she stood up. She uses a walker for ambulation. She has bilateral cogwheeling rigidity. ASSESSMENT: 1. Suspected Parkinson's disease. 2. Parkinsonism due to multiple system atrophy is in differential diagnosis and is less likely to respond to treatment. The patient states that her left side was always more affected which does favor diagnosis of Parkinson's disease. 3. Atrial fibrillation and pacemaker placement. 4. History of seizures. 5. Chronic back pain due to lumbosacral disc disease. PLAN: 1. I had detailed discussion with the patient and Dr. Hampton. We plan to increase the Requip to 1 mg by mouth three times daily. 2. We will retry Sinemet 25/100 mg, half a tablet by mouth three times daily starting Thursday and slowly increase it.. I believe her diarrhea was due to an entacapone in a combination capsule that she had tried in [place]. Combination capsule contained entacapone and Sinemet. We can retry just Sinemet this time. 3. The patient asked what she can take for pain if gabapentin is stopped. I am concerned about three different antiepileptic medications. It is possible that we can discontinue Lamictal and use gabapentin for pain and add on for her seizures in addition to Topamax. In that case, we may start gabapentin 300 mg by mouth three times daily and discontinue Lamictal. 4. Physical and occupational therapy and rehabilitation. 5. Follow with orthopedics and Dr. Hampton as planned. NADEEM
[2019-07-16 14:00] VITALS: BP 134/63
[2019-07-16] MEDS: GABAPENTIN 300 MG CAP PO SCH ×2 (15:53→21:41)
[2019-07-16] MEDS: cefTRIAXone SOD 1 GM in D5W MINI-BAG PLUS 50 ML IV SCH (18:25)
[2019-07-16] MEDS: ACETAMINOPHEN TAB 650MG DOSE (2X325MG) PO PRN (21:42)
[2019-07-16 22:00] VITALS: BP 109/70
[2019-07-17 06:00] VITALS: BP 124/65
[2019-07-17] MEDS: ADVAIR HFA 45/21MCG INHALER INH SCH ×2 (07:35→19:47)
[2019-07-17] MEDS: lamoTRIgine 25 MG TAB PO SCH ×2 (09:24→21:52)
[2019-07-17] MEDS: GABAPENTIN 300 MG CAP PO SCH ×3 (09:26→21:52)
[2019-07-17] MEDS: OMEGA-3 1000MG CAPSULE PO SCH (09:26)
[2019-07-17] MEDS: rOPINIRole 1MG TAB PO SCH ×3 (09:26→21:52)
[2019-07-17] MEDS: ACETAMINOPHEN TAB 650MG DOSE (2X325MG) PO PRN ×2 (09:26→21:52)
[2019-07-17] MEDS: CitaloPRAM (CeleXA) 20 MG TAB PO SCH (09:26)
[2019-07-17] MEDS: TOPIRAMATE (TopAMAX) 100 MG TAB PO SCH ×2 (09:26→21:53)
[2019-07-17] MEDS: SINEMET 25-100 MG TAB PO SCH ×3 (09:27→22:56)
[2019-07-17] MEDS: EZETIMIBE 10 MG TAB (ZETIA) PO SCH (09:27)
[2019-07-17] MEDS: MULTIVITAMINS/MINERALS THERAP 1 TAB PO SCH (09:27)
[2019-07-17] MEDS: METOPROLOL TART 25 MG TABLET PO SCH ×2 (09:27→21:53)
[2019-07-17] MEDS: APIXABAN 5 MG TAB (ELIQUIS) PO SCH ×2 (09:28→21:53)
--- NOTE | 2019-07-17 11:00 | IPN ---
DATE OF SERVICE: 07/17/2019 Arlet is seen on [address]. She feels better, coughing less. She saw Dr. Garza. Medication adjustments were made for her Parkinson's. Overall she is feeling a little better each day. Afebrile. Vital signs stable. Lungs: Clear. Abdomen: Soft, nontender. No peripheral edema. Parkinsonian tremor noted. IMPRESSION: 1. Multifocal pneumonia, continue Rocephin. Probably will be ready for discharge in a day or two. 2. Parkinson's disease with tremor. Medication adjustments have been made. 3. Lung nodule, outpatient followup will be performed. 4. Atrial fibrillation on metoprolol and Eliquis.
[2019-07-17 14:00] VITALS: BP 132/60
[2019-07-17] MEDS: cefTRIAXone SOD 1 GM in D5W MINI-BAG PLUS 50 ML IV SCH (18:54)
[2019-07-17 21:51] VITALS: BP 126/58
[2019-07-18 06:00] VITALS: BP 121/61
[2019-07-18 06:12] LABS: HEMATOCRIT 31.6 % (36.0-47.0); HEMOGLOBIN 9.9 g/dl (12.0-15.5); MEAN CORPUSCULAR HEMOGLOBIN 31.7 pg (27.0-33.0); MEAN CORPUSCULAR HGB CONC 31.3 g/dl (32.0-36.5); MEAN CORPUSCULAR VOLUME 101.3 fl (80.0-96.0); PLATELET COUNT, AUTOMATED 184 10^3/uL (150-450); RED BLOOD COUNT 3.12 10^6/uL (4.00-5.40)
[2019-07-18 06:35] LABS: CALCIUM LEVEL 8.4 MG/DL (8.8-10.2); CREATININE FOR GFR 1.03 MG/DL (0.55-1.30); GLOMERULAR FILTRATION RATE 56.9 (>45); POTASSIUM SERUM 3.8 MEQ/L (3.5-5.1)
[2019-07-18] MEDS: rOPINIRole 1MG TAB PO SCH ×3 (08:22→20:59)
[2019-07-18] MEDS: OMEGA-3 1000MG CAPSULE PO SCH (08:22)
[2019-07-18] MEDS: GABAPENTIN 300 MG CAP PO SCH ×3 (08:22→20:59)
[2019-07-18] MEDS: CitaloPRAM (CeleXA) 20 MG TAB PO SCH (08:22)
[2019-07-18] MEDS: TOPIRAMATE (TopAMAX) 100 MG TAB PO SCH ×2 (08:22→20:59)
[2019-07-18] MEDS: lamoTRIgine 25 MG TAB PO SCH (08:23)
[2019-07-18] MEDS: SINEMET 25-100 MG TAB PO SCH ×3 (08:23→20:59)
[2019-07-18] MEDS: EZETIMIBE 10 MG TAB (ZETIA) PO SCH (08:23)
[2019-07-18] MEDS: APIXABAN 5 MG TAB (ELIQUIS) PO SCH ×2 (08:23→20:59)
[2019-07-18] MEDS: MULTIVITAMINS/MINERALS THERAP 1 TAB PO SCH (08:23)
[2019-07-18] MEDS: METOPROLOL TART 25 MG TABLET PO SCH ×2 (08:24→20:59)
[2019-07-18] MEDS: DOCUSATE SODIUM 100 MG CAP PO SCH (09:00)
[2019-07-18] MEDS: ADVAIR HFA 45/21MCG INHALER INH SCH ×2 (09:45→21:55)
--- NOTE | 2019-07-18 10:43 | IPNPDOC ---
Subjective Date Seen The patient was seen on 07/18/19. Subjective Chief Complaint/HPI shaky, weak Constitutional: Denies: Chills ENT: Denies: Head Aches Skin: Denies: Rash Pulmonary: Denies: Dyspnea, Cough Cardiovascular: Denies: Chest Pain, Orthopnea Gastrointestinal: Denies: Nausea, Vomiting Genitourinary: Denies: Dysuria Hematologic: Denies: Bruising Neurological: Reports: Weakness, Other Symptoms (tremors ) Objective Physical Examination General Exam: Positive: Alert, Cooperative, No Acute Distress ENT Exam: Positive: Atraumatic, Mucous membr. moist/pink Chest Exam: Positive: Clear to auscultation, Normal air movement Heart Exam: Positive: Rate Normal, Normal S1, Normal S2 Abdomen Exam: Positive: Soft; Negative: Tenderness Extremity Exam: Negative: Tenderness, Swelling Neuro Exam: Positive: Other (significant resting tremor right hand. B radykinesia, L>R) Assessment /Plan Problems (1) Multifocal pneumonia Status: Acute Response to Treatment: Stable Problem Text: Cont Rocephin Resp status stable (2) Parkinson disease Status: Chronic Problem Text: now back on sinemet and requip. Follows with Dr. Hampton Intolerant of Sinemet/entacapone (diarrhea and depression) Recently started on REquip abot a month ago and has been titrating up the dose also started on Gabapentin a few weeks ago by Dr. Frye at ortho for her DDD L-S spine symptoms - I consulted Neurology (Dr. Garza) He recommends holding Gabapentin for now as her increased tremor may be side effect especially in combo with all her other meds. He will see her in consult this evening (3) Lung nodule Problem Text: Will need f/u as outpatient CT:multifocal pneumonia in the proper clinical setting. 2. 7 mm diameter pulmonary nodule within the lingula. Followup CT scan of the chest is recommended in 6 months as per Fleischner criteria guidelines. Consider shorter term followup CT scan of the chest for evaluation of the left lower lobe consolidation as clinically indicated. (4) Atrial fibrillation Status: Chronic Response to Treatment: Stable Problem Text: rate controlled on Metoprolol Cont Eliquis (5) DDD (degenerative disc disease), lumbosacral Status: Chronic Problem Text: See above (6) Asthma Status: Chronic Response to Treatment: Stable (7) Diastolic CHF, chronic Status: Chronic Response to Treatment: Stable (8) Tremors of nervous system Status: Acute Response to Treatment: Stable Problem Text: see above (9) Physical deconditioning Status: Chronic Problem Text: Get PT/OT Plan/VTE VTE Prophylaxis Ordered?: Yes (Eliquis) VS, I&O, 24H, Fishbone Vital Signs/I&O Vital Signs Date Time Temp Pulse Resp B/P (MAP) Pulse Ox O2 Delivery O2 Flow Rate FiO2 07/18/19 08:24 77 121/61 07/18/19 06:00 99.0 18 93 07/14/19 11:37 Room Air I&O- Last 24 Hours up to 6 AM 07/18/19 06:00 Intake Total 1140 ml Output Total 300 ml Balance 840 ml Laboratory Data 24H LABS Laboratory Tests 2 07/18/19 05:48: Nucleated Red Blood Cells % (auto) 0.0, Anion Gap 7L, Glomerular Filtration Rate 56.9, Blood Urea Nitrogen 27H, Creatinine 1.03, Sodium Level 144, Potassium Level 3.8, Chloride Level 113H, Carbon Dioxide Level 24, Calcium Level 8.4L CBC/BMP Laboratory Tests 07/18/19 05:48 Red Blood Count 3.12 L, Mean Corpuscular Volume 101.3 H, Mean Corpuscular Hemoglobin 31.7, Mean Corpuscular Hemoglobin Concent 31.3 L, Red Cell Distribution Width 14.2, Calcium Level 8.4 L Microbiology Microbiology 07/14/19 Urine Culture - Final, Complete Ashkan Marroquin MD Jul 18, 2019 10:43
[2019-07-18 14:00] VITALS: BP 113/55
[2019-07-18] MEDS ORDERED: BISACODYL 10 MG SUPP PR PRN (17:15)
[2019-07-18] MEDS ORDERED: FLEET ENEMA PR PRN (17:15)
[2019-07-18] MEDS: cefTRIAXone SOD 1 GM in D5W MINI-BAG PLUS 50 ML IV SCH (18:28)
[2019-07-18 22:00] VITALS: BP 125/89
[2019-07-19] MEDS: ACETAMINOPHEN TAB 650MG DOSE (2X325MG) PO PRN ×2 (00:02→17:41)
[2019-07-19 06:00] VITALS: BP 114/52
[2019-07-19] MEDS: ADVAIR HFA 45/21MCG INHALER INH SCH ×2 (07:50→20:26)
[2019-07-19] MEDS: CitaloPRAM (CeleXA) 20 MG TAB PO SCH (09:06)
[2019-07-19] MEDS: TOPIRAMATE (TopAMAX) 100 MG TAB PO SCH ×2 (09:06→21:09)
[2019-07-19] MEDS: DOCUSATE SODIUM 100 MG CAP PO SCH (09:06)
[2019-07-19] MEDS: MULTIVITAMINS/MINERALS THERAP 1 TAB PO SCH (09:07)
[2019-07-19] MEDS: METOPROLOL TART 25 MG TABLET PO SCH ×2 (09:07→21:10)
[2019-07-19] MEDS: EZETIMIBE 10 MG TAB (ZETIA) PO SCH (09:07)
[2019-07-19] MEDS: SINEMET 25-100 MG TAB PO SCH ×3 (09:07→21:08)
[2019-07-19] MEDS: GABAPENTIN 300 MG CAP PO SCH ×3 (09:07→21:09)
[2019-07-19] MEDS: APIXABAN 5 MG TAB (ELIQUIS) PO SCH ×2 (09:07→21:09)
[2019-07-19] MEDS: rOPINIRole 1MG TAB PO SCH ×3 (09:07→21:08)
[2019-07-19] MEDS: OMEGA-3 1000MG CAPSULE PO SCH (12:32)
[2019-07-19 14:00] VITALS: BP 114/54
[2019-07-19] MEDS: cefTRIAXone SOD 1 GM in D5W MINI-BAG PLUS 50 ML IV SCH (17:40)
[2019-07-19 22:00] VITALS: BP 116/53
[2019-07-20] MEDS: ACETAMINOPHEN TAB 650MG DOSE (2X325MG) PO PRN ×2 (03:55→17:36)
[2019-07-20 06:00] VITALS: BP 123/80
[2019-07-20 06:51] LABS: BASO # 0.1 10^3/uL (0.0-0.2); BASO % 0.8 % (0.0-1.0); EOS # 0.3 10^3/uL (0.0-0.50); EOS % 3.6 % (0.0-3.0); HEMOGLOBIN 9.4 g/dl (12.0-15.5); LYMPH # 1.4 10^3/uL (1.5-4.5); LYMPH % 15.5 % (24.0-44.0); MEAN CORPUSCULAR HEMOGLOBIN 30.8 pg (27.0-33.0); MEAN CORPUSCULAR HGB CONC 31.3 g/dl (32.0-36.5); MEAN CORPUSCULAR VOLUME 98.4 fl (80.0-96.0); MONO # 0.9 10^3/uL (0.0-0.8); MONO % 9.9 % (0.0-5.0); NEUTROPHILS # 6.1 10^3/uL (1.8-7.7); NEUTROPHILS % 69.7 % (36.0-66.0); PLATELET COUNT, AUTOMATED 208 10^3/uL (150-450); RED BLOOD COUNT 3.05 10^6/uL (4.00-5.40); WHITE BLOOD COUNT 8.7 10^3/uL (4.0-10.0)
[2019-07-20 07:09] LABS: BLOOD UREA NITROGEN 26 MG/DL (7-18); CALCIUM LEVEL 8.3 MG/DL (8.8-10.2); CARBON DIOXIDE LEVEL 25 MEQ/L (21-32); CHLORIDE LEVEL 114 MEQ/L (98-107); CREATININE FOR GFR 0.82 MG/DL (0.55-1.30); GLOMERULAR FILTRATION RATE > 60.0 (>45); GLUCOSE, FASTING 80 MG/DL (70-100); POTASSIUM SERUM 4.2 MEQ/L (3.5-5.1); SODIUM LEVEL 143 MEQ/L (136-145)
[2019-07-20] MEDS: ADVAIR HFA 45/21MCG INHALER INH SCH ×2 (07:56→21:49)
--- NOTE | 2019-07-20 08:27 | IPNPDOC ---
Subjective Date Seen The patient was seen on 07/19/19. Subjective Chief Complaint/HPI Patient sitting in chair eating breakfast as I entered the room. Patient reports to be feeling well Constitutional: Denies: Chills, Fever Pulmonary: Denies: Dyspnea, Cough, Pleuritic Chest Pain Cardiovascular: Denies: Chest Pain, Palpitations, Orthopnea, Edema Gastrointestinal: Denies: Nausea, Vomiting, Abdominal Pain Psych: Reports: Mood Normal Objective Physical Examination General Exam: Positive: Alert, Cooperative, No Acute Distress ENT Exam: Positive: Atraumatic, Mucous membr. moist/pink Chest Exam: Positive: Clear to auscultation, Normal air movement Heart Exam: Positive: Rate Normal, Normal S1, Normal S2 Abdomen Exam: Positive: Soft; Negative: Tenderness Extremity Exam: Negative: Tenderness, Swelling Neuro Exam: Positive: Other (significant resting tremor right hand. Bradykinesia, L>R) Assessment /Plan Problems (1) Multifocal pneumonia Status: Acute Response to Treatment: Stable Problem Text: 07/19/19: Remains on Rocephin, D#6 Cont Rocephin Resp status stable (2) Parkinson disease Status: Chronic Problem Text: 07/19/19: Stable now back on sinemet and requip. Follows with Dr. Hampton Intolerant of Sinemet/entacapone (diarrhea and depression) Recently started on REquip abot a month ago and has been titrating up the dose also started on Gabapentin a few weeks ago by Dr. Frye at ortho for her DDD L-S spine symptoms - I consulted Neurology (Dr. Garza) He recommends holding Gabapentin for now as her increased tremor may be side effect especially in combo with all her other meds. He will see her in consult this evening (3) Lung nodule Problem Text: Will need f/u as outpatient CT:multifocal pneumonia in the proper clinical setting. 2. 7 mm diameter pulmonary nodule within the lingula. Followup CT scan of the chest is recommended in 6 months as per Fleischner criteria guidelines. Consider shorter term followup CT scan of the chest for evaluation of the left lower lobe consolidation as clinically indicated. (4) Atrial fibrillation Status: Chronic Response to Treatment: Stable Problem Text: rate controlled on Metoprolol Cont Eliquis (5) DDD (degenerative disc disease), lumbosacral Status: Chronic Problem Text: See above (6) Asthma Status: Chronic Response to Treatment: Stable (7) Diastolic CHF, chronic Status: Chronic Response to Treatment: Stable (8) Tremors of nervous system Status: Acute Response to Treatment: Stable Problem Text: see above (9) Physical deconditioning Status: Chronic Problem Text: 07/19/19: Continues to work with PT. She is not safe for discharge Plan/VTE VTE Prophylaxis Ordered?: Yes (Eliquis) VS, I&O, 24H, Fishbone Vital Signs/I&O Vital Signs Date Time Temp Pulse Resp B/P (MAP) Pulse Ox O2 Delivery O2 Flow Rate FiO2 07/19/19 06:00 98.6 70 18 114/52 (72) 94 07/14/19 11:37 Room Air I&O- Last 24 Hours up to 6 AM 07/19/19 06:00 Intake Total 1180 ml Output Total 700 ml Balance 480 ml Laboratory Data Microbiology Microbiology 07/14/19 Urine Culture - Final, Complete SHANI BARONE Jul 19, 2019 08:36
[2019-07-20] MEDS: CitaloPRAM (CeleXA) 20 MG TAB PO SCH (08:42)
[2019-07-20] MEDS: rOPINIRole 1MG TAB PO SCH ×3 (08:42→21:18)
[2019-07-20] MEDS: METOPROLOL TART 25 MG TABLET PO SCH ×2 (08:42→21:18)
[2019-07-20] MEDS: DOCUSATE SODIUM 100 MG CAP PO SCH (08:42)
[2019-07-20] MEDS: GABAPENTIN 300 MG CAP PO SCH ×3 (08:42→21:18)
[2019-07-20] MEDS: MULTIVITAMINS/MINERALS THERAP 1 TAB PO SCH (08:42)
[2019-07-20] MEDS: SINEMET 25-100 MG TAB PO SCH ×3 (08:42→21:18)
[2019-07-20] MEDS: OMEGA-3 1000MG CAPSULE PO SCH (08:43)
[2019-07-20] MEDS: TOPIRAMATE (TopAMAX) 100 MG TAB PO SCH ×2 (08:43→21:18)
[2019-07-20] MEDS: APIXABAN 5 MG TAB (ELIQUIS) PO SCH ×2 (08:43→21:18)
[2019-07-20] MEDS: EZETIMIBE 10 MG TAB (ZETIA) PO SCH (08:43)
--- NOTE | 2019-07-20 08:50 | IPNPDOC ---
Subjective Date Seen The patient was seen on 07/20/19. Subjective Chief Complaint/HPI Patient sitting in chair comfortably as I entered the room. She offers no complaints today. She continues to work with PT Constitutional: Denies: Chills, Fever Pulmonary: Denies: Dyspnea, Cough, Pleuritic Chest Pain Cardiovascular: Denies: Chest Pain, Palpitations, Orthopnea, Edema Gastrointestinal: Denies: Nausea, Vomiting, Abdominal Pain Psych: Reports: Mood Normal Objective Physical Examination General Exam: Positive: Alert, Cooperative, No Acute Distress ENT Exam: Positive: Atraumatic, Mucous membr. moist/pink Chest Exam: Positive: Clear to auscultation, Normal air movement Heart Exam: Positive: Rate Normal, Normal S1, Normal S2 Abdomen Exam: Positive: Soft; Negative: Tenderness Extremity Exam: Negative: Tenderness, Swelling Neuro Exam: Positive: Other (significant resting tremor right hand. Bradykinesia, L>R) Assessment /Plan Problems (1) Multifocal pneumonia Status: Acute Response to Treatment: Stable Problem Text: 07/20/19: D#7 Rocephin 07/19/19: Remains on Rocephin, D#6 Cont Rocephin Resp status stable (2) Parkinson disease Status: Chronic Problem Text: 07/20/19: Stable 07/19/19: Stable now back on sinemet and requip. Follows with Dr. Hampton Intolerant of Sinemet/entacapone (diarrhea and depression) Recently started on REquip abot a month ago and has been titrating up the dose also started on Gabapentin a few weeks ago by Dr. Frye at ortho for her DDD L-S spine symptoms - I consulted Neurology (Dr. Garza) He recommends holding Gabapentin for now as her increased tremor may be side effect especially in combo with all her other meds. He will see her in consult this evening (3) Lung nodule Problem Text: Will need f/u as outpatient CT:multifocal pneumonia in the proper clinical setting. 2. 7 mm diameter pulmonary nodule within the lingula. Followup CT scan of the chest is recommended in 6 months as per Fleischner criteria guidelines. Consider shorter term followup CT scan of the chest for evaluation of the left lower lobe consolidation as clinically indicated. (4) Atrial fibrillation Status: Chronic Response to Treatment: Stable Problem Text: rate controlled on Metoprolol Cont Eliquis (5) DDD (degenerative disc disease), lumbosacral Status: Chronic Problem Text: See above (6) Asthma Status: Chronic Response to Treatment: Stable (7) Diastolic CHF, chronic Status: Chronic Response to Treatment: Stable (8) Tremors of nervous system Status: Acute Response to Treatment: Stable Problem Text: see above (9) Physical deconditioning Status: Chronic Problem Text: 07/20/19: She has not been cleared for discharge. She will continue to work with PT. Hopefully patient will continue to progress and be ready for D/C tomorrow 07/19/19: Continues to work with PT. She is not safe for discharge Plan/VTE VTE Prophylaxis Ordered?: Yes (Kervin) VS, I&O, 24H, Fishbone Vital Signs/I&O Vital Signs Date Time Temp Pulse Resp B/P (MAP) Pulse Ox O2 Delivery O2 Flow Rate FiO2 07/20/19 08:42 74 123/80 07/20/19 06:00 97.9 18 97 07/14/19 11:37 Room Air I&O- Last 24 Hours up to 6 AM 07/20/19 06:00 Intake Total 2100 ml Output Total 950 ml Balance 1150 ml Laboratory Data 24H LABS Laboratory Tests 2 07/20/19 06:25: Immature Granulocyte % (Auto) 0.5, White Blood Count 8.7, Red Blood Count 3.05L, Hemoglobin 9.4L, Hematocrit 30.0L, Mean Corpuscular Volume 98.4H, Mean Corpuscular Hemoglobin 30.8, Mean Corpuscular Hemoglobin Concent 31.3L, Red Cell Distribution Width 14.1, Platelet Count 208, Neutrophils (%) (Auto) 69.7H, Lymphocytes (%) (Auto) 15.5L, Monocytes (%) (Auto) 9.9H, Eosinophils (%) (Auto) 3.6H, Basophils (%) (Auto) 0.8, Neutrophils # (Auto) 6.1, Lymphocytes # (Auto) 1.4L, Monocytes # (Auto) 0.9H, Eosinophils # (Auto) 0.3, Basophils # (Auto) 0.1, Nucleated Red Blood Cells % (auto) 0.0, Anion Gap 4L, Glomerular Filtration Rate > 60.0, Blood Urea Nitrogen 26H, Creatinine 0.82, Sodium Level 143, Potassium Level 4.2, Chloride Level 114H, Carbon Dioxide Level 25, Calcium Level 8.3L CBC/BMP Laboratory Tests 07/20/19 06:25 Red Blood Count 3.05 L, Mean Corpuscular Volume 98.4 H, Mean Corpuscular Hemoglobin 30.8, Mean Corpuscular Hemoglobin Concent 31.3 L, Red Cell Distribution Width 14.1, Neutrophils (%) (Auto) 69.7 H, Lymphocytes (%) (Auto) 15.5 L, Monocytes (%) (Auto) 9.9 H, Eosinophils (%) (Auto) 3.6 H, Basophils (%) (Auto) 0.8, Neutrophils # (Auto) 6.1, Lymphocytes # (Auto) 1.4 L, Monocytes # (Auto) 0.9 H, Eosinophils # (Auto) 0.3, Basophils # (Auto) 0.1, Calcium Level 8. 3 L Microbiology Microbiology 07/14/19 Urine Culture - Final, Complete SHANI BARONE [facility] Jul 20, 2019 08:50
[2019-07-20 14:41] VITALS: BP 134/72
[2019-07-20] MEDS: cefTRIAXone SOD 1 GM in D5W MINI-BAG PLUS 50 ML IV SCH (17:36)
[2019-07-20 21:18] VITALS: BP 134/72
[2019-07-20 22:00] VITALS: BP 133/67
[2019-07-21] MEDS: ACETAMINOPHEN TAB 650MG DOSE (2X325MG) PO PRN (00:26)
[2019-07-21 06:00] VITALS: BP 142/77
[2019-07-21 06:46] LABS: BASO # 0.1 10^3/uL (0.0-0.2); BASO % 0.8 % (0.0-1.0); EOS # 0.3 10^3/uL (0.0-0.50); EOS % 4.5 % (0.0-3.0); HEMATOCRIT 30.2 % (36.0-47.0); HEMOGLOBIN 9.6 g/dl (12.0-15.5); LYMPH # 1.5 10^3/uL (1.5-4.5); LYMPH % 20.4 % (24.0-44.0); MEAN CORPUSCULAR HEMOGLOBIN 31.1 pg (27.0-33.0); MEAN CORPUSCULAR HGB CONC 31.8 g/dl (32.0-36.5); MEAN CORPUSCULAR VOLUME 97.7 fl (80.0-96.0); MONO # 0.7 10^3/uL (0.0-0.8); MONO % 9.5 % (0.0-5.0); NEUTROPHILS # 4.8 10^3/uL (1.8-7.7); NEUTROPHILS % 64.1 % (36.0-66.0); PLATELET COUNT, AUTOMATED 262 10^3/uL (150-450); RED BLOOD COUNT 3.09 10^6/uL (4.00-5.40); WHITE BLOOD COUNT 7.5 10^3/uL (4.0-10.0)
[2019-07-21 07:14] LABS: BLOOD UREA NITROGEN 20 MG/DL (7-18); CALCIUM LEVEL 8.8 MG/DL (8.8-10.2); CARBON DIOXIDE LEVEL 24 MEQ/L (21-32); CHLORIDE LEVEL 115 MEQ/L (98-107); CREATININE FOR GFR 0.88 MG/DL (0.55-1.30); GLOMERULAR FILTRATION RATE > 60.0 (>45); GLUCOSE, FASTING 83 MG/DL (70-100); SODIUM LEVEL 145 MEQ/L (136-145)
[2019-07-21] MEDS: ADVAIR HFA 45/21MCG INHALER INH SCH (08:03)
[2019-07-21] MEDS: TOPIRAMATE (TopAMAX) 100 MG TAB PO SCH (09:17)
[2019-07-21] MEDS: APIXABAN 5 MG TAB (ELIQUIS) PO SCH (09:17)
[2019-07-21] MEDS: GABAPENTIN 300 MG CAP PO SCH (09:17)
[2019-07-21] MEDS: CitaloPRAM (CeleXA) 20 MG TAB PO SCH (09:17)
[2019-07-21] MEDS: OMEGA-3 1000MG CAPSULE PO SCH (09:17)
[2019-07-21] MEDS: rOPINIRole 1MG TAB PO SCH (09:17)
[2019-07-21] MEDS: MULTIVITAMINS/MINERALS THERAP 1 TAB PO SCH (09:17)
[2019-07-21] MEDS: EZETIMIBE 10 MG TAB (ZETIA) PO SCH (09:18)
[2019-07-21] MEDS: METOPROLOL TART 25 MG TABLET PO SCH (09:18)
[2019-07-21] MEDS: DOCUSATE SODIUM 100 MG CAP PO SCH (09:18)
[2019-07-21] MEDS: SINEMET 25-100 MG TAB PO SCH (09:18)
[2019-07-21] MEDS ORDERED: CARB25TA9 PO (11:50)
[2019-07-21] MEDS ORDERED: GABA-843 PO (11:50)
[2019-07-21] MEDS ORDERED: ROPI1TAB PO (11:50)
[2019-07-21] MEDS ORDERED: CEFD1CAP8 PO (11:50)
--- NOTE | 2019-07-21 14:24 | DS.PDOC ---
Discharge Summary General Date of Admission Jul 16, 2019 at 08:52 Date of Discharge 07/21/19 Primary Care Physician: Orlando Pacheco MD Attending Physician: Orlando Pacheco MD Specialist/Consultants Involve: GILMAR MILLS MD Discharge Summary PROCEDURES PERFORMED DURING STAY:None DIAGNOSES: 1. Mutilfocal Pneumonia 2. Parkinson disease 3. Lung Nodule 4. Diastolic CHF, chronic 5. Atrial Fibrillation 6. DDD 7. Asthma 8. Physical deconditioning COMPLICATIONS/CHIEF COMPLAINT: Tremors Of Nervous System. HISTORY OF PRESENT ILLNESS: 69-year-old female with past medical history Parkinson's disease, asthma, degenerative joint disease, atrial fibrillation, diastolic heart failure presented to the ER with chief complaint of worsening t remors since 10 AM the morning of admission. The patient has also endorsed generalized weakness during that time. She reported having a worsening cough over the last 3 days. She denied any sputum production. She also denied any fevers, chills, chest pain, palpitations, abdominal pain, orthopnea, or any N/V/D. She denied any dysuria. In the ER, the patient was noted to have an elevated white blood cell count. She was also noted to be significantly weak when working with physical therapy. She was admitted for treatment of pneumonia and weakness HOSPITAL COURSE: Her pneumonia was treated with Rocephin IV. She was transitioned to oral Cefdinir 300mg po bid for another 3 days upon discharge. Neurology was consulted and made adjustments in her parkinson medications. Sinemet 25/100 mg was restarted with a slow titration. Her Requip was increased to 1mg po tid. Her Lamictal was d/c and her Gabapentin was increased to 300mg TID. She worked with physical therapy. She will f/u with Neurology upon discharge. As of note, there was a 2. 7 mm diameter pulmonary nodule within the lingula. Followup CT scan of the chest is recommended in 6 months as per Fleischner criteria guidelines. Her rate remained well controlled. She remained on Eliquis for her a-fib. She worked with PT and was cleared to be discharged home with services on 07/21/19 DISCHARGE MEDICATIONS: Please see below. ALLERGIES: Please see below. PHYSICAL EXAMINATION ON DISCHARGE: VITAL SIGNS: Please see below. GENERAL: AOx3, NAD HEENT: unremarkable NECK: soft, supple CARDIOVASCULAR EXAMINATION:Regular rate RESPIRATORY EXAMINATION: CTA ABDOMINAL EXAMINATION:soft, non-tender, non-distended EXTREMITIES: no edema SKIN: warm, dry NEUROLOGICAL EXAMINATION:tremors noted LABORATORY DATA: Please see below. IMAGING: Chest CT: IMPRESSION: 1. Multifocal patchy consolidation within the left lower lobe consistent with multifocal pneumonia in the proper clinical setting. 2. 7 mm diameter pulmonary nodule within the lingula. Followup CT scan of the chest is recommended in 6 months as per Fleischner criteria guidelines. Consider shorter term followup CT scan of the chest for evaluation of the left lower lobe consolidation as clinically indicated. Fleischner criteria guidelines for solitary 7 mm diameter pulmonary nodule states: For patients at low risk (minimal or absent history of smoking and of other known risk factors), recommend CT at 6-12 months, then consider CT at 18-24 months. For patients at high risk (history of smoking or of other known risk factors), recommend CT at 6-12 months, then CT at 18-24 months. (Paulina et al., Fleischner Society, 2017). PROGNOSIS: Good ACTIVITY: As tolerated DIET: Regular DISCHARGE PLAN:Home with services DISCHARGE INSTRUCTIONS: 1. Follow-up with PCP within one week 2. Follow-up with Neurology upon discharge as scheduled by nursing 3. Home with services ITEMS TO FOLLOWUP ON ON OUTPATIENT: 1. Lung nodules-See CT scan report 2. There was an error on the discharge med list. Lamictal was discontinued during hospital admission. The medication was marked as "continued" at time of discharge. I did speak with the patient and her son Mandeep and clarified that error. He verbalized understanding that the Lamictal was to be stopped. DISCHARGE CONDITION: Stable Vital Signs/I&Os Vital Signs Date Time Temp Pulse Resp B/P (MAP) Pulse Ox O2 Delivery O2 Flow Rate FiO2 07/21/19 06:00 97.9 79 16 142/77 (98) 99 I&O- Last 24 Hours up to 6 AM 07/21/19 06:00 Intake Total 1310 ml Output Total 2250 ml Balance -940 ml Laboratory Data Labs 24H Laboratory Tests 2 07/21/19 06:33: Immature Granulocyte % (Auto) 0.7, White Blood Count 7.5, Red Blood Count 3.09L, Hemoglobin 9.6L, Hematocrit 30.2L, Mean Corpuscular Volume 97.7H, Mean Corpuscular Hemoglobin 31.1, Mean Corpuscular Hemoglobin Concent 31.8L, Red Cell Distribution Width 14.0, Platelet Count 262, Neutrophils (%) (Auto) 64.1, Lymphocytes (%) (Auto) 20.4L, Monocytes (%) (Auto) 9.5H, Eosinophils (%) (Auto) 4.5H, Basophils (%) (Auto) 0.8, Neutrophils # (Auto) 4.8, Lymphocytes # (Auto) 1.5, Monocytes # (Auto) 0.7, Eosinophils # (Auto) 0.3, Basophils # (Auto) 0.1, Nucleated Red Blood Cells % (auto) 0.0, Anion Gap 6L, Glomerular Filtration Rate > 60.0, Blood Urea Nitrogen 20H, Creatinine 0.88, Sodium Level 145, Potassium Level 4.0, Chloride Level 115H, Carbon Dioxide Level 24, Calcium Level 8.8 CBC/BMP Laboratory Tests 07/21/19 06:33 Red Blood Count 3.09 L, Mean Corpuscular Volume 97.7 H, Mean Corpuscular Hemoglobin 31.1, Mean Corpuscular Hemoglobin Concent 31.8 L, Red Cell Distribution Width 14.0, Neutrophils (%) (Auto) 64.1, Lymphocytes (%) (Auto) 20.4 L, Monocytes (%) (Auto) 9.5 H, Eosinophils (%) (Auto) 4.5 H, Basophils (%) (Auto) 0.8, Neutrophils # (Auto) 4.8, Lymphocytes # (Auto) 1.5, Monocytes # (Auto) 0.7, Eosinophils # (Auto) 0.3, Basophils # (Auto) 0.1, Calcium Level 8.8 Microbiology Microbiology 07/14/19 Urine Culture - Final, Complete Discharge Medications Scheduled Apixaban (Eliquis) 5 Mg Tablet, 5 MG PO BID, (Reported) Carbidopa/Levodopa (Carbidopa-Levodopa 25-100 Tab) 1 Each Tablet, 1 TAB PO TID Cefdinir (Cefdinir) 300 Mg Capsule, 1 CAP PO BID Citalopram Hydrobromide (Citalopram HBr) 40 Mg Tablet, 40 MG PO DAILY, (Report ed) Ezetimibe (Ezetimibe) 10 Mg Tablet, 10 MG PO DAILY, (Reported) Fluticasone Propion/Salmeterol (Wixela 100-50 Inhub) 1 Each Blst.w.dev, 1 PUFF I NH BID, (Reported) Gabapentin (Gabapentin) 300 Mg Capsule, 300 MG PO TID Glucosa Ramos 2Kcl/Chondroitin Ramos (Glucosamine-Chondroitin Tablet) 1 Each Tablet, 2 TAB PO BID, (Reported) Lamotrigine (Lamotrigine) 25 Mg Tablet, 50 MG PO BID, (Reported) Metoprolol Tartrate (Metoprolol Tartrate) 25 Mg Tablet, 25 MG PO BID, (Reported) Multivitamin (Multivitamins) 1 Each Capsule, 1 CAP PO DAILY, (Reported) Fluker-3/Dha/Epa/Fish Oil (Fish Oil 1,000 mg Softgel) 1 Each Capsule, 2 CAP PO DAILY, (Reported) Ropinirole HCl (Ropinirole HCl) 1 Mg Tablet, 1 MG PO TID Topiramate (Topiramate) 200 Mg Tablet, 200 MG PO BID, (Reported) Scheduled PRN Albuterol Sulfate (Ventolin Hfa) 18 Gm Hfa.aer.ad, 2 PUFF INH Q4-6HP PRN for wheezing, (Reported) Fluticasone Propionate (Flonase Allergy Relief) 9.9 Ml Osmond.susp, 2 SPRAY NARES DAILY PRN for SEASONAL ALLERGIES, (Reported) Allergies Coded Allergies: atorvastatin (Verified Allergy, Unknown, itch, 07/14/19) carbidopa (Verified Allergy, Unknown, severe diarrhea, 07/14/19) entacapone (Verified Allergy, Unknown, severe diarrhea, 07/14/19) levetiracetam (Verified Allergy, Unknown, muscle spasms, 07/14/19) pramipexole (Verified Allergy, Unknown, syncope, 07/14/19) simvastatin (Verified Allergy, Unknown, itch, 07/14/19) SHANI BARONE Jul 21, 2019 11:55
[2019-07-21] MEDS ORDERED: SINEMET 25-100 MG TAB PO SCH (16:00)
[2019-07-22] MEDS ORDERED: CEFD1CAP8 PO (01:34)
[2019-07-22] MEDS ORDERED: VENTAER INH (01:34)
[2019-07-22] MEDS ORDERED: VITMTA PO (01:34)
[2019-07-22] MEDS ORDERED: GABA-843 PO (01:34)
[2019-07-22] MEDS ORDERED: ROPI1TAB PO (01:34)
== END 2019-07-21 14:20 | disposition home health service (06) | DRG 194 ==
LOC: EDSEX 11:26 → M ED 11:26 → EDBD 11:26 → M ED INP 16:52 → M MS5PR 18:50 → OBSVTOIN 07-16 08:52
PROVIDERS: ADMIT Internal Medicine; ATTEND Family Medicine
DX: J18.9 Pneumonia, unspecified organism (principal); I50.32 Chronic diastolic (congestive) heart failure; G20 Parkinson's disease; I48.91 Unspecified atrial fibrillation; J45.909 Unspecified asthma, uncomplicated; R91.1 Solitary pulmonary nodule; Z79.899 Other long term (current) drug therapy; Z88.8 Allergy status to other drugs, medicaments and biological substances; Z79.01 Long term (current) use of anticoagulants; E78.5 Hyperlipidemia, unspecified; M51.26 Other intervertebral disc displacement, lumbar region; R25.1 Tremor, unspecified

== ENCOUNTER 2019-07-21 23:02 | Inpatient (IN) | payer MEDICARE ==
[~2019-07-21] VITALS: Ht 162.6 cm; Wt 66.8 kg
[~2019-07-21 23:02] MED LIST changes: +CARB25TA9 PO; +CEFD1CAP8 PO; +CITA40TA4 PO; +ELIQ5TAB PO; +EZET10TA21 PO; +FLON1SPR NARES; +FLUT1BLS INH; +GABA-1171 PO; +GABA-843 PO; +GLUC750T13 PO; +LAMO25TA4 PO; +METO25TA4 PO; +MULTCAP PO; +OMEG10002 PO; +ROPI0.253 PO; +ROPI0.5T PO; +ROPI0.5T32 PO; +ROPI1TAB PO; +TOPI200T7 PO; +VENTAER INH
[2019-07-22 01:20] LABS: BASO # 0.1 10^3/uL (0.0-0.2); BASO % 0.5 % (0.0-1.0); EOS # 0.2 10^3/uL (0.0-0.50); EOS % 1.5 % (0.0-3.0); HEMATOCRIT 32.4 % (36.0-47.0); HEMOGLOBIN 10.3 g/dl (12.0-15.5); LYMPH # 1.6 10^3/uL (1.5-4.5); LYMPH % 12.9 % (24.0-44.0); MEAN CORPUSCULAR HEMOGLOBIN 31.7 pg (27.0-33.0); MEAN CORPUSCULAR HGB CONC 31.8 g/dl (32.0-36.5); MEAN CORPUSCULAR VOLUME 99.7 fl (80.0-96.0); MONO # 1.2 10^3/uL (0.0-0.8); MONO % 9.2 % (0.0-5.0); NEUTROPHILS # 9.5 10^3/uL (1.8-7.7); NEUTROPHILS % 75.3 % (36.0-66.0); PLATELET COUNT, AUTOMATED 307 10^3/uL (150-450); RED BLOOD COUNT 3.25 10^6/uL (4.00-5.40); WHITE BLOOD COUNT 12.6 10^3/uL (4.0-10.0)
[2019-07-22] MEDS ORDERED: GABA-843 PO (01:34)
[2019-07-22] MEDS ORDERED: VENTAER INH (01:34)
[2019-07-22] MEDS ORDERED: ROPI1TAB PO (01:34)
[2019-07-22] MEDS ORDERED: CEFD1CAP8 PO (01:34)
[2019-07-22] MEDS ORDERED: VITMTA PO (01:34)
[2019-07-22 02:05] LABS: BLOOD UREA NITROGEN 28 MG/DL (7-18); CALCIUM LEVEL 8.3 MG/DL (8.8-10.2); CARBON DIOXIDE LEVEL 23 MEQ/L (21-32); CHLORIDE LEVEL 114 MEQ/L (98-107); CREATININE FOR GFR 0.97 MG/DL (0.55-1.30); GLOMERULAR FILTRATION RATE > 60.0 (>45); GLUCOSE, FASTING 94 MG/DL (70-100); POTASSIUM SERUM 4.4 MEQ/L (3.5-5.1); SODIUM LEVEL 144 MEQ/L (136-145)
[2019-07-22] MEDS ORDERED: ACETAMINOPHEN 500 MG TAB PO PRN (02:30)
[2019-07-22] MEDS ORDERED: ALBUTEROL 90 MCG/ACT 8GM HFA INHALER INH PRN (02:30)
[2019-07-22] MEDS ORDERED: FLUTICASONE PROP 0.05% NASAL SPRAY 16 GM (FLONASE) NARES PRN (02:30)
--- NOTE | 2019-07-22 02:58 | HPEPDOC ---
[facility] Medical History & Physical Date of Admission Jul 22, 2019 Date of Service: Jul 22, 2019 Primary Care Physician: Orlando Pacheco MD Attending Physician: AMELIA CALHOUN MD History and Physical PRIMARY CARE PROVIDER: Dr. Orlando Pacheco ATTENDING: Dr. Amelia Calhoun CHIEF COMPLAINT: Weakness HISTORY OF PRESENT ILLNESS: Patient is a 69 year old female who was discharged in the morning from [facility] on 07/21/19 and, per the patient, was at her normal baseline functioning without any of the complaints specified. Dates that sometime in the early evening she began to feel weak and tired. When asked for clarification on this she stated that she was unable to move from her bed to the bathroom because of pain in her bilateral knees. He states that this is a chronic issue and that intermittently her knee pain will become worse and take a day or 2 to self resolve. She notes that this particular occasion is not worse than any of the other prior occasions. She states that since this has happened pain in her knees has not gotten better or worse but has stayed the sa me. She continues to describe herself as feeling "tired and weak", but when pushed for further clarification this tiredness and weakness status from her knee pain. Date of her discharge, her baseline functional status consisted of her being able to walk independently with a walker. Her family became concerned about her ability to function on her own and brought her to the emergency department. PAST MEDICAL HISTORY: Multifocal Pneumonia Parkinson's disease Lung Nodule Chronic diastolic CHF Atrial Fibrillation DDD Asthma Seizures Chronic back pain due to Lumbosacral disc disease OA PAST SURGICAL HISTORY: Left knee replacement 1997 Left ankle fusion 1994 Pacemaker 2007 Tubal ligation 1980 SOCIAL HISTORY: Denies alcohol use, denies use of tobacco products, denies any m arijuana, heroin, cocaine, or PCP use. Lives alone. FAMILY HISTORY: Noncontributory ALLERGIES: Please see below. REVIEW OF SYSTEMS: GENERAL: Denies fevers, chills, recent unexpected weight change, night sweats, hemoptysis HEENT: Denies headache, dizziness, vision changes, hearing loss, sore throat CARDIOVASCULAR: Denies chest pain, palpitations, orthopnea RESPIRATORY: Denies shortness of breath, wheezing, cough GASTROINTESTINAL: denies nausea, vomiting, abdominal pain, constipation, diarrhea, bloody stool GENITOURINARY: Denies dysuria,urinary urgency, hematuria. MUSCULOSKELETAL: Denies stiffness. Admits to bilateral knee pain and bilateral lower extremity weakness NEUROLOGICAL: Denies any numbness/tingling, focal weakness, or syncope HOME MEDICATIONS: Please see below. PHYSICAL EXAMINATION: Vitals: (see below) General: No acute distress, laying comfortably in bed. HEENT: Normocephalic, atraumatic. EOMI. No scleral icterus. Moist mucous membranes. No pharyngeal erythema or uvular deviation. Neck: No JVD, lymphadenopathy, or thyromegaly. Cardiac: RRR, Normal S1 and S2, No murmurs, gallops, rubs. Pulm: Clear to auscultation b/l. Symmetric thorax. No wheezing, crackles, rhonchi Abd: Abdomen is soft, non-tender, non-distended. Bowel sounds normal Ext: No edema or cyanosis, bilateral lower extremities tender to palpation along calf. Positive Homans sign. Bilateral knees tender to palpation along anterior and posterior areas Neuro: Strength +5/5 BUE and BLE. CN 3-12 grossly intact. F to N intact. Sensation to fine touch intact in BLE and BUE. LABORATORY DATA: See below. IMAGING: None MICROBIOLOGY: Please see below. ASSESSMENT/PLAN: #. Bilateral knee pain - due to OA Starting patient on Tylenol and Flector for her knee pain. Consulted PT and OT for evaluation. tax services intern for potential placement if necessary Since patient also has calf pain and a Wells score for DVT of 1, we will order a d-dimer if it is positive we will get a bilateral ultrasound of the lower extremities. # Decreased Mobility -due to knee pain and Parkinson's disease and generalized physical deconditioning. -PT and OT eval #. 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 Asthma -Stable, continue with home medication #. Parkinson's disease with hallucinations. - Question about MSA causing Parinson's disease -Continue with neurology's recommendations (Sinemet, Requip) #. Resolving Pneumonia -Continue with cefdinir with stop date of 07/24 #. Degenerative disc disease -Continue with new gabapentin dosing #. Dyslipidemia Continue with ezetimibe # Seizure disorder -continue topamax and gabapentin. Lamictal recently stopped as per neurology recommendation during prior admission DVT prophy: Teds, on eliquis Vital Signs Vital Signs Date Time Temp Pulse Resp B/P (MAP) Pulse Ox O2 Delivery O2 Flow Rate FiO2 07/22/19 01:45 69 16 124/70 (88) 95 Room Air 07/21/19 23:03 97.9 Laboratory Data Labs 24H Laboratory Tests 2 07/22/19 01:11: Immature Granulocyte % (Auto) 0.6, White Blood Count 12.6H, Red Blood Count 3.25L, Hemoglobin 10.3L, Hematocrit 32.4L, Mean Corpuscular Volume 99.7H, Mean Corpuscular Hemoglobin 31.7, Mean Corpuscular Hemoglobin Concent 31.8L, Red Cell Distribution Width 14.0, Platelet Count 307, Neutrophils (%) (Auto) 75.3H, L ymphocytes (%) (Auto) 12.9L, Monocytes (%) (Auto) 9.2H, Eosinophils (%) (Auto) 1.5, Basophils (%) (Auto) 0.5, Neutrophils # (Auto) 9.5H, Lymphocytes # (Auto) 1.6, Monocytes # (Auto) 1.2H, Eosinophils # (Auto) 0.2, Basophils # (Auto) 0.1, Nucleated Red Blood Cells % (auto) 0.0, Anion Gap 7L, Glomerular Filtration Rate > 60.0, Blood Urea Nitrogen 28H, Creatinine 0.97, Sodium Level 144, Potassium Level 4.4, Chloride Level 114H, Carbon Dioxide Level 23, Calcium Level 8.3L CBC/BMP Laboratory Tests 07/22/19 01:11 Red Blood Count 3.25 L, Mean Corpuscular Volume 99.7 H, Mean Corpuscular Hemoglobin 31.7, Mean Corpuscular Hemoglobin Concent 31.8 L, Red Cell Distribution Width 14.0, Neutrophils (%) (Auto) 75.3 H, Lymphocytes (%) (Auto) 12.9 L, Monocytes (%) (Auto) 9.2 H, Eosinophils (%) (Auto) 1.5, Basophils (%) (Auto) 0.5, Neutrophils # (Auto) 9.5 H, Lymphocytes # (Auto) 1.6, Monocytes # (Auto) 1.2 H, Eosinophils # (Auto) 0.2, Basophils # (Auto) 0.1, Calcium Level 8.3 L Home Medications Scheduled Apixaban (Eliquis) 5 Mg Tablet, 5 MG PO BID Cefdinir (Cefdinir) 300 Mg Capsule, 300 MG PO BID FOR 3 DAYS: STARTING 07/21/19 Citalopram Hydrobromide (Citalopram HBr) 40 Mg Tablet, 40 MG PO DAILY Ezetimibe (Ezetimibe) 10 Mg Tablet, 10 MG PO QHS Fluticasone Propion/Salmeterol (Wixela 100-50 Inhub) 1 Each Blst.w.dev, 1 PUFF INH BID Gabapentin (Gabapentin) 300 Mg Capsule, 300 MG PO TID Glucosa Ramos 2Kcl/Chondroitin Ramos (Glucosamine-Chondroitin Tablet) 1 Each Tablet, 2 TAB PO BID Lamotrigine (Lamotrigine) 25 Mg Tablet, 50 MG PO BID Metoprolol Tartrate (Metoprolol Tartrate) 25 Mg Tablet, 25 MG PO BID Multivitamins (Thera M Plus Tablet) 1 Each Tablet, 1 TAB PO DAILY Volcano-3/Dha/Epa/Fish Oil (Fish Oil 1,000 mg Softgel) 1 Each Capsule, 1 CAP PO BID Ropinirole HCl (Ropinirole HCl) 1 Mg Tablet, 1 MG PO TID Topiramate (Topiramate) 200 Mg Tablet, 200 MG PO BID Scheduled PRN Albuterol Sulfate (Ventolin Hfa) 18 Gm Hfa.aer.ad, 2 PUFF INH Q4H PRN for SHORTNESS OF BREATH Fluticasone Propionate (Flonase Allergy Relief) 9.9 Ml Ragan.susp, 2 SPRAY NARES DAILY PRN for SEASONAL ALLERGIES Allergies Coded Allergies: atorvastatin (Verified Allergy, Unknown, itch, 07/22/19) entacapone (Verified Allergy, Unknown, severe diarrhea, 07/22/19) levetiracetam (Verified Allergy, Unknown, muscle spasms, 07/22/19) pramipexole (Verified Allergy, Unknown, syncope, 07/22/19) simvastatin (Verified Allergy, Unknown, itch, 07/22/19) A-FIB/CHADSVASC A-FIB History Current/History of A-Fib/PAF?: Yes Current PO Anticoag Therapy: Yes GME ATTESTATION GME ATTESTATION My faculty preceptor for this patient encounter was physically present during the encounter and was fully available. All aspects of the patient interview, examination, medical decision making process, and medical care plan development were reviewed and approved by the faculty preceptor. The faculty preceptor is aware and concurs with the plan as stated in the body of this note and will attest to such by his/her cosignature. ATTENDING NOTE I personally performed a history and physical examination of the patient and discussed the management with the resident. I reviewed the resident's note and agree with the documented findings and plan of care. YENI TRIVEDI DO Jul 22, 2019 02:58 AMELIA CALHOUN MD Jul 22, 2019 05:49
[2019-07-22 03:42] VITALS: BP 127/67
[2019-07-22 06:00] VITALS: BP 123/58
[2019-07-22] MEDS: DICLOFENAC EPOLAMINE 1.3 % PATCH TOP SCH ×2 (06:04→17:31)
[2019-07-22] MEDS: ADVAIR HFA 115/21MCG INHALER INH SCH ×2 (08:15→19:45)
[2019-07-22] MEDS: GABAPENTIN 300 MG CAP PO SCH ×3 (09:35→21:10)
[2019-07-22] MEDS: rOPINIRole 1MG TAB PO SCH ×3 (09:35→21:10)
[2019-07-22] MEDS: CitaloPRAM (CeleXA) 20 MG TAB PO SCH (09:35)
[2019-07-22] MEDS: SINEMET 25-100 MG TAB PO SCH ×3 (09:35→21:10)
[2019-07-22] MEDS: CEFDINIR 300 MG CAP (OMNICEF) PO SCH ×2 (09:35→21:10)
[2019-07-22] MEDS: TOPIRAMATE (TopAMAX) 100 MG TAB PO SCH ×2 (09:35→21:10)
[2019-07-22] MEDS: APIXABAN 5 MG TAB (ELIQUIS) PO SCH ×2 (09:35→21:10)
[2019-07-22] MEDS: ACETAMINOPHEN 500 MG TAB PO SCH ×2 (09:36→21:12)
[2019-07-22] MEDS: METOPROLOL TART 25 MG TABLET PO SCH ×2 (09:38→21:11)
--- NOTE | 2019-07-22 11:48 | IPN ---
DATE: 07/22/2019 This note supplements the note by Altagracia Mesa NP today. Arlet was readmitted basically as a social admission. She was stable on discharge yesterday, passed her home safety evaluation and told me that she felt ready for discharge. She does have visual hallucinations and this reflects her Parkinson's disease, as well as her Sinemet therapy. I had spoken to her yesterday that unfortunately visual hallucinations are a troubling aspect of advancing Parkinson's disease and we really do not have any way to prevent them other than reducing the dose of the medicine that she needs for Parkinson's disease. She did have an elevated D-dimer. Sign out from the admitting provider indicated that she had ultrasound of her legs and that was done on , but I do not see a report anywhere so we will have to get that this morning.
[2019-07-22 14:00] VITALS: BP 129/65
--- NOTE | 2019-07-22 15:34 | REP ---
Bilateral lower extremity deep vein duplex ultrasound: The deep veins demonstrate normal compression, normal Doppler color flow and normal Doppler waveforms with respiration and augmentation from the popliteal veins to the common femoral veins laterally . 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 Impression: There is no deep vein thrombus. The right or left lower extremities. Electronically Signed by Angel Holman MD 07/22/2019 03:26 P
[2019-07-22] MEDS: EZETIMIBE 10 MG TAB (ZETIA) PO SCH (21:09)
[2019-07-22 22:00] VITALS: BP 131/65
[2019-07-23] MEDS: DICLOFENAC EPOLAMINE 1.3 % PATCH TOP SCH ×2 (05:57→17:57)
[2019-07-23 06:00] VITALS: BP 105/39
[2019-07-23 06:24] LABS: HEMATOCRIT 30.5 % (36.0-47.0); HEMOGLOBIN 9.4 g/dl (12.0-15.5); MEAN CORPUSCULAR HEMOGLOBIN 30.1 pg (27.0-33.0); MEAN CORPUSCULAR HGB CONC 30.8 g/dl (32.0-36.5); MEAN CORPUSCULAR VOLUME 97.8 fl (80.0-96.0); PLATELET COUNT, AUTOMATED 281 10^3/uL (150-450); RED BLOOD COUNT 3.12 10^6/uL (4.00-5.40); WHITE BLOOD COUNT 9.4 10^3/uL (4.0-10.0)
[2019-07-23 06:41] LABS: BLOOD UREA NITROGEN 26 MG/DL (7-18); CARBON DIOXIDE LEVEL 25 MEQ/L (21-32); CHLORIDE LEVEL 114 MEQ/L (98-107); CREATININE FOR GFR 0.86 MG/DL (0.55-1.30); GLOMERULAR FILTRATION RATE > 60.0 (>45); GLUCOSE, FASTING 71 MG/DL (70-100); POTASSIUM SERUM 4.5 MEQ/L (3.5-5.1); SODIUM LEVEL 144 MEQ/L (136-145)
[2019-07-23] MEDS: ADVAIR HFA 115/21MCG INHALER INH SCH ×2 (08:02→19:46)
[2019-07-23] MEDS: GABAPENTIN 300 MG CAP PO SCH ×3 (09:36→21:18)
[2019-07-23] MEDS: CitaloPRAM (CeleXA) 20 MG TAB PO SCH (09:36)
[2019-07-23] MEDS: SINEMET 25-100 MG TAB PO SCH ×3 (09:36→21:19)
[2019-07-23] MEDS: ACETAMINOPHEN 500 MG TAB PO SCH ×2 (09:36→21:19)
[2019-07-23] MEDS: CEFDINIR 300 MG CAP (OMNICEF) PO SCH ×2 (09:36→21:19)
[2019-07-23] MEDS: TOPIRAMATE (TopAMAX) 100 MG TAB PO SCH ×2 (09:36→21:18)
[2019-07-23] MEDS: APIXABAN 5 MG TAB (ELIQUIS) PO SCH ×2 (09:36→21:18)
[2019-07-23] MEDS: rOPINIRole 1MG TAB PO SCH ×3 (09:37→21:19)
[2019-07-23] MEDS: METOPROLOL TART 25 MG TABLET PO SCH ×2 (09:37→21:34)
[2019-07-23 14:00] VITALS: BP 111/59
--- NOTE | 2019-07-23 16:50 | IPN ---
DATE: 07/23/2019 SUBJECTIVE: Patient is alert, pleasant, conversant. No acute distress. She denies discomfort. At this time she is not experiencing any hallucinations. OBJECTIVE: Vital signs: 114/54 pressure, pulse 71 and irregular, oxygen saturation 96% on room air, and she is afebrile with a temperature of 98.0. Bilateral tremors are noted as are bilateral cogwheel rigidity and bradykinesia in general. Lungs are clear. Heart: Irregular rhythm. No murmurs. She has Parkinson's disease, which has been complicated by hallucinatory behavior at home, likely side effect of her antiparkinsonian drug regimen. At this point we are facing really a conundrum of whether to sustain her treatments so she can be mobile or reduce her treatments, which would impair mobility but might relieve the hallucinations. I think the better part future care would be to have her learn to cope with the hallucinations and keep her medicines at current dosing level so that she can move successfully. ASSESSMENT: 1. Parkinson's disease with hallucinatory side effects. 2. Atrial fibrillation, on anticlotting regimen to prevent stroke. PLAN: Continue current antiparkinsonian regimen. Continue cefdinir for resolving pneumonia with a stop date tomorrow. Physical therapy (PT)/occupational therapy (OT) have been consulted. Consider neurology consult.
[2019-07-23] MEDS: EZETIMIBE 10 MG TAB (ZETIA) PO SCH (21:18)
[2019-07-23 22:00] VITALS: BP 120/60
[2019-07-24 06:00] VITALS: BP 115/57
[2019-07-24] MEDS: DICLOFENAC EPOLAMINE 1.3 % PATCH TOP SCH ×2 (06:18→17:27)
[2019-07-24] MEDS: ADVAIR HFA 115/21MCG INHALER INH SCH ×2 (08:00→19:49)
[2019-07-24] MEDS: rOPINIRole 1MG TAB PO SCH ×3 (08:10→20:50)
[2019-07-24] MEDS: CEFDINIR 300 MG CAP (OMNICEF) PO SCH ×2 (08:10→20:50)
[2019-07-24] MEDS: METOPROLOL TART 25 MG TABLET PO SCH ×2 (08:11→20:51)
[2019-07-24] MEDS: ACETAMINOPHEN 500 MG TAB PO SCH ×2 (08:11→20:52)
[2019-07-24] MEDS: APIXABAN 5 MG TAB (ELIQUIS) PO SCH ×2 (08:11→20:51)
[2019-07-24] MEDS: GABAPENTIN 300 MG CAP PO SCH ×3 (08:11→20:51)
[2019-07-24] MEDS: SINEMET 25-100 MG TAB PO SCH ×3 (08:11→20:51)
[2019-07-24] MEDS: TOPIRAMATE (TopAMAX) 100 MG TAB PO SCH ×2 (08:11→20:51)
[2019-07-24] MEDS: CitaloPRAM (CeleXA) 20 MG TAB PO SCH (08:11)
[2019-07-24 14:00] VITALS: BP 129/61
--- NOTE | 2019-07-24 18:56 | IPNPDOC ---
Subjective Date Seen The patient was seen on 07/24/19. Subjective Chief Complaint/HPI baseline MS Constitutional: Denies: Chills Eyes: Denies: Pain ENT: Denies: Head Aches Skin: Denies: Rash Pulmonary: Denies: Dyspnea, Cough Cardiovascular: Denies: Chest Pain Gastrointestinal: Denies: Nausea, Vomiting Genitourinary: Denies: Dysuria Objective Physical Examination General Exam: Positive: Alert Eye Exam: Positive: PERRLA ENT Exam: Positive: Atraumatic Neck Exam: Negative: JVD Chest Exam: Positive: Clear to auscultation Heart Exam: Positive: Irregular Rhythm Abdomen Exam: Positive: Normal bowel sounds Extremity Exam: Negative: Edema Skin Exam: Negative: Rash Psych Exam: Positive: Mental status NL Assessment /Plan Problems (1) Anemia Status: Chronic Problem Text: caution on DOAC 07/24 9.4 baseline hgb 10s 05/2019 SPEP s M spike, B12 1183 (2) Diastolic CHF, chronic Status: Chronic Problem Text: Euvolemic (3) Unable to ambulate Status: Acute Problem Text: 07/22 PT not safe to dc home, [facility] home [facility] services (4) Atrial fibrillation Status: Chronic Problem Text: AC apix RC met tar 25 BID (5) Parkinson disease Status: Chronic Problem Text: as per ataxia (6) Multifocal pneumonia Status: Chronic Problem Text: D3 cefdinir (prior 7D ceftriaxone) 07/25 CXR P 07/14 CT chest: IMPRESSION: 1. Multifocal patchy consolidation within the left lower lobe consistent with multifocal pneumonia in the proper clinical setting. 2. 7 mm diameter pulmonary nodule within the lingula. Followup CT scan of the chest is recommended in 6 months as per Fleischner criteria guidelines. Consider shorter term followup CT scan of the chest for evaluation of the left lower lobe consolidation as clinically indicated. (7) Seizure disorder Status: Chronic Response to Treatment: Stable Problem Text: stable on HD topir, don Plan/VTE VTE Prophylaxis Ordered?: Yes VS, I&O, 24H, Fishbone Vital Signs/I&O Vital Signs Date Time Temp Pulse Resp B/P (MAP) Pulse Ox O2 Delivery O2 Flow Rate FiO2 07/24/19 14:00 97.4 72 17 129/61 (83) 98 07/22/19 03:26 Room Air I&O- Last 24 Hours up to 6 AM 07/24/19 05:59 Intake Total 1420 ml Output Total 700 ml Balance 720 ml Lam Combs M.D. Jul 24, 2019 18:56
[2019-07-24] MEDS: EZETIMIBE 10 MG TAB (ZETIA) PO SCH (20:51)
[2019-07-24 22:00] VITALS: BP 125/55
[2019-07-25] MEDS: DICLOFENAC EPOLAMINE 1.3 % PATCH TOP SCH ×2 (05:29→17:19)
[2019-07-25 06:00] VITALS: BP 140/75
--- NOTE | 2019-07-25 08:31 | REP ---
Clinical: Chest pain. Pneumonia. Technique: PA and lateral. Comparison: 07/14/2019. Findings: Left lower lobe infiltrate compatible with acute pneumonia. Chronic COPD/interstitial changes. No effusion. No pneumothorax. Mediastinum is within normal limits and stable. Dual lead pacemaker in satisfactory stable position. Skeletal structures are intact. Impression: Left lower lobe pneumonia. Follow-up to resolution recommended. Electronically Signed by Bradley Miles MD 07/25/2019 08:22 A
[2019-07-25] MEDS: CitaloPRAM (CeleXA) 20 MG TAB PO SCH (09:35)
[2019-07-25] MEDS: APIXABAN 5 MG TAB (ELIQUIS) PO SCH ×2 (09:36→20:49)
[2019-07-25] MEDS: METOPROLOL TART 25 MG TABLET PO SCH ×2 (09:36→20:49)
[2019-07-25] MEDS: rOPINIRole 1MG TAB PO SCH ×3 (09:36→20:49)
[2019-07-25] MEDS: GABAPENTIN 300 MG CAP PO SCH ×3 (09:36→20:49)
[2019-07-25] MEDS: TOPIRAMATE (TopAMAX) 100 MG TAB PO SCH ×2 (09:36→20:49)
[2019-07-25] MEDS: ACETAMINOPHEN 500 MG TAB PO SCH ×2 (09:36→20:50)
[2019-07-25] MEDS: SINEMET 25-100 MG TAB PO SCH ×3 (09:37→20:49)
[2019-07-25] MEDS: CEFDINIR 300 MG CAP (OMNICEF) PO SCH ×2 (09:40→20:49)
[2019-07-25] MEDS: ADVAIR HFA 115/21MCG INHALER INH SCH ×2 (11:09→20:50)
--- NOTE | 2019-07-25 12:53 | IPNPDOC ---
Subjective Date Seen The patient was seen on 07/25/19. Subjective Chief Complaint/HPI inability to ambulate Events since last encounter Feeling well. denies c/o. Constitutional: Denies: Chills, Fever, Night Sweats Pulmonary: Denies: Dyspnea, Cough Cardiovascular: Denies: Chest Pain, Palpitations, Orthopnea, Paroxysmal Noc. Dyspnea, Lt Headedness Gastrointestinal: Denies: Nausea, Vomiting, Abdominal Pain, Diarrhea, Constipation Psych: Reports: Mood Normal; Denies: Depression, Memory Issues Objective Physical Examination General Exam: Positive: Alert Eye Exam: Positive: PERRLA ENT Exam: Positive: Atraumatic Neck Exam: Negative: JVD Chest Exam: Positive: Clear to auscultation Heart Exam: Positive: Irregular Rhythm Abdomen Exam: Positive: Normal bowel sounds Extremity Exam: Negative: Edema Skin Exam: Negative: Rash Psych Exam: Positive: Mental status NL Assessment /Plan Problems (1) Anemia Status: Chronic Problem Text: caution on DOAC 07/24 9.4 baseline hgb 10s 05/2019 SPEP s M spike, B12 1183 (2) Diastolic CHF, chronic Status: Chronic Problem Text: Euvolemic (3) Unable to ambulate Status: Acute Problem Text: 07/22 PT not safe to dc home, [place] [facility] c [facility] (4) Atrial fibrillation Status: Chronic Problem Text: AC apix RC met tar 25 BID (5) Parkinson disease Status: Chronic Problem Text: as per ataxia (6) Multifocal pneumonia Status: Chronic Problem Text: D3 cefdinir (prior 7D ceftriaxone) 07/25 CXR P 07/14 CT chest: IMPRESSION: 1. Multifocal patchy consolidation within the left lower lobe consistent with multifocal pneumonia in the proper clinical setting. 2. 7 mm diameter pulmonary nodule within the lingula. Followup CT scan of the chest is recommended in 6 months as per Fleischner criteria guidelines. Consider shorter term followup CT scan of the chest for evaluation of the left lower lobe consolidation as clinically indicated. (7) Seizure disorder Status: Chronic Response to Treatment: Stable Problem Text: stable on HD topir, don Plan/VTE VTE Prophylaxis Ordered?: Yes VS, I&O, 24H, Fishbone Vital Signs/I&O Vital Signs Date Time Temp Pulse Resp B/P (MAP) Pulse Ox O2 Delivery O2 Flow Rate FiO2 07/25/19 09:36 72 140/75 9/2/19 06:00 98.3 16 100 07/22/19 03:26 Room Air I&O- Last 24 Hours up to 6 AM 07/25/19 06:00 Intake Total 900 ml Output Total 1200 ml Balance -300 ml Jayne Greene CENTER ADMINISTRATOR Jul 25, 2019 12:53
[2019-07-25] MEDS: EZETIMIBE 10 MG TAB (ZETIA) PO SCH (20:49)
[2019-07-25 22:00] VITALS: BP 145/77
[2019-07-26] MEDS: DICLOFENAC EPOLAMINE 1.3 % PATCH TOP SCH ×2 (05:30→17:13)
[2019-07-26 06:00] VITALS: BP 146/74
[2019-07-26] MEDS: CitaloPRAM (CeleXA) 20 MG TAB PO SCH (08:25)
[2019-07-26] MEDS: rOPINIRole 1MG TAB PO SCH ×3 (08:26→21:42)
[2019-07-26] MEDS: APIXABAN 5 MG TAB (ELIQUIS) PO SCH ×2 (08:26→21:40)
[2019-07-26] MEDS: SINEMET 25-100 MG TAB PO SCH ×3 (08:26→21:41)
[2019-07-26] MEDS: TOPIRAMATE (TopAMAX) 100 MG TAB PO SCH ×2 (08:26→21:42)
[2019-07-26] MEDS: GABAPENTIN 300 MG CAP PO SCH ×3 (08:26→21:40)
[2019-07-26] MEDS: CEFDINIR 300 MG CAP (OMNICEF) PO SCH ×2 (08:26→21:42)
[2019-07-26] MEDS: ACETAMINOPHEN 500 MG TAB PO SCH ×2 (08:26→21:42)
[2019-07-26] MEDS: METOPROLOL TART 25 MG TABLET PO SCH ×2 (08:26→21:41)
[2019-07-26] MEDS: ADVAIR HFA 115/21MCG INHALER INH SCH ×2 (08:59→20:20)
--- NOTE | 2019-07-26 11:14 | IPNPDOC ---
Subjective Date Seen The patient was seen on 07/26/19. Subjective Chief Complaint/HPI Parkinson's disease Events since last encounter Didn't pass PT eval today, unsafe for DC home. Patient denies c/o Constitutional: Denies: Chills, Fever, Malaise, Night Sweats, Weakness, Fat igue, Weight Loss, Lethargy, Other Pulmonary: Denies: Dyspnea, Cough Cardiovascular: Denies: Chest Pain, Palpitations, Orthopnea, Paroxysmal Noc. Dyspnea, Lt Headedness Gastrointestinal: Denies: Nausea, Vomiting, Abdominal Pain, Diarrhea, Constipation Objective Physical Examination General Exam: Positive: Alert Eye Exam: Positive: PERRLA ENT Exam: Positive: Atraumatic Neck Exam: Negative: JVD Chest Exam: Positive: Clear to auscultation Heart Exam: Positive: Irregular Rhythm Abdomen Exam: Positive: Normal bowel sounds Extremity Exam: Negative: Edema Skin Exam: Negative: Rash Psych Exam: Positive: Mental status NL Assessment /Plan Problems (1) Anemia Status: Chronic Problem Text: caution on DOAC 07/24 9.4 baseline hgb 10s 05/2019 SPEP s M spike, B12 1183 (2) Diastolic CHF, chronic Status: Chronic Problem Text: Euvolemic (3) Unable to ambulate Status: Acute Problem Text: 07/22 PT not safe to dc home, [facility] (4) Atrial fibrillation Status: Chronic Problem Text: AC apix RC met tar 25 BID (5) Parkinson disease Status: Chronic Problem Text: as per ataxia (6) Multifocal pneumonia Status: Chronic Problem Text: D3 cefdinir (prior 7D ceftriaxone) 07/25 CXR P 07/14 CT chest: IMPRESSION: 1. Multifocal patchy consolidation within the left lower lobe consistent with multifocal pneumonia in the proper clinical setting. 2. 7 mm diameter pulmonary nodule within the lingula. Followup CT scan of the chest is recommended in 6 months as per Fleischner criteria guidelines. Consider shorter term followup CT scan of the chest for evaluation of the left lower lobe consolidation as clinically indicated. (7) Seizure disorder Status: Chronic Response to Treatment: Stable Problem Text: stable on HD topir, don Plan/VTE VTE Prophylaxis Ordered?: Yes VS, I&O, 24H, Fishbone Vital Signs/I&O Vital Signs Date Time Temp Pulse Resp B/P (MAP) Pulse Ox O2 Delivery O2 Flow Rate FiO2 07/26/19 08:26 75 147/80 07/26/19 06:00 97.7 20 96 07/22/19 03:26 Room Air I&O- Last 24 Hours up to 6 AM 07/26/19 06:00 Intake Total 1410 ml Output Total 2000 ml Balance -590 ml Jayne Greene RN VISITING Jul 26, 2019 11:14
[2019-07-26] MEDS: EZETIMIBE 10 MG TAB (ZETIA) PO SCH (21:40)
[2019-07-26 21:41] VITALS: BP 138/57
[2019-07-26 22:00] VITALS: BP 138/57
[2019-07-26 23:20] VITALS: BP 146/64
[2019-07-27] MEDS: DICLOFENAC EPOLAMINE 1.3 % PATCH TOP SCH (05:13)
[2019-07-27 06:00] VITALS: BP 123/67
[2019-07-27] MEDS: ADVAIR HFA 115/21MCG INHALER INH SCH (07:41)
[2019-07-27] MEDS: METOPROLOL TART 25 MG TABLET PO SCH (09:00)
[2019-07-27] MEDS: CEFDINIR 300 MG CAP (OMNICEF) PO SCH (09:32)
[2019-07-27] MEDS: ACETAMINOPHEN 500 MG TAB PO SCH (09:34)
[2019-07-27] MEDS: SINEMET 25-100 MG TAB PO SCH (09:35)
[2019-07-27] MEDS: CitaloPRAM (CeleXA) 20 MG TAB PO SCH (09:35)
[2019-07-27] MEDS: APIXABAN 5 MG TAB (ELIQUIS) PO SCH (09:36)
[2019-07-27] MEDS: GABAPENTIN 300 MG CAP PO SCH (09:36)
[2019-07-27] MEDS: TOPIRAMATE (TopAMAX) 100 MG TAB PO SCH (09:36)
[2019-07-27] MEDS: rOPINIRole 1MG TAB PO SCH (09:36)
--- NOTE | 2019-07-27 18:32 | DSES ---
DATE OF ADMISSION: 07/23/2019 DATE OF DISCHARGE: 07/27/2019 PRIMARY CARE PROVIDER: Dr. Orlando Pacheco ATTENDING PHYSICIAN: Dr. Orlando Pacheco HISTORY OF PRESENT ILLNESS: This is a 69-year-old female who had a prior admission and was discharged on 07/21/2019, was at her normal functioning baseline with no complaints specified and presented back to [facility] Emergency Department (ED) on 07/22/2019 for complaints of inability to ambulate and severe weakness and fatigue. The patient was subsequently admitted to the family medicine service. Physical therapy was consulted. The patient was noted to have significant weakness and unsafe for discharge to home. The patient has continued to progress well throughout her hospitalization and has been determined safe for discharge to home with physical therapy today. Occupational therapy (OT) is providing the patient with assistive devices within the home as well today. The patient is agreeable to home with home health. PHYSICAL EXAMINATION: VITAL SIGNS: Stable. She is afebrile. CARDIOVASCULAR: Heart rate and rhythm are regular. PULMONARY: Lungs are clear. ASSESSMENT: 1. Parkinson's disease. 2. Inability to ambulate. 3. Chronic anemia. 4. Chronic diastolic congestive heart failure (CHF). 5. Atrial fibrillation. 6. Multifocal pneumonia, treatment finished. PLAN: The patient had finished her prior antibiotic course while she was inpatient. She will not need any further cefdinir after discharge. It was noted on CT scan of the chest that she did have a 7 mm pulmonary nodule that will need to be followed up within the next six months and the patient can followup with her primary care provider (PCP) regarding this. Diet is as tolerated. Activity is as tolerated. Followup with PCP within the next 5-7 days. The patient will have home health within the home. MEDICATIONS: Are as follows: - albuterol sulfate HFA every four hours as needed for shortness of breath - Eliquis 5 mg by mouth twice a day - citalopram 40 mg daily - Zetia 10 mg at bedtime - fluticasone with salmeterol 100/50 one puff twice a day - Flonase two sprays to each nostril daily - gabapentin 300 mg by mouth three times a day - glucosamine chondroitin two tablets by mouth twice a day - metoprolol tartrate 25 mg by mouth twice a day - multivitamin one tablet daily - omega-3 one capsule by mouth twice a day - ropinirole 1 mg by mouth three times a day - topiramate 200 mg by mouth twice a day Medications that were stopped include the cefdinir as already stated and her lamotrigine which was stopped by neurology prior to this admission. The patient is discharged in stable and satisfactory condition with no further questions at the time of discharge
== END 2019-07-27 15:30 | disposition home health service (06) | DRG 56 ==
LOC: M ED 23:02 → M ED INP 07-22 01:49 → M MSPAV 07-22 03:37
PROVIDERS: ADMIT Internal Medicine Nephrology; ATTEND Family Medicine
DX: G20 Parkinson's disease (principal); J18.9 Pneumonia, unspecified organism; I50.32 Chronic diastolic (congestive) heart failure; M25.561 Pain in right knee; M25.562 Pain in left knee; R53.1 Weakness; I48.91 Unspecified atrial fibrillation; Z79.899 Other long term (current) drug therapy; Z79.01 Long term (current) use of anticoagulants; R91.1 Solitary pulmonary nodule; J45.909 Unspecified asthma, uncomplicated; M51.36 Other intervertebral disc degeneration, lumbar region; Z95.0 Presence of cardiac pacemaker; Z96.652 Presence of left artificial knee joint; E78.5 Hyperlipidemia, unspecified; G40.909 Epilepsy, unspecified, not intractable, without status epilepticus; Z88.8 Allergy status to other drugs, medicaments and biological substances

== ENCOUNTER → 2019-08-17 | Outpatient (CLI) | payer MEDICARE ==
[~2019-08-17] MED LIST changes: +VITMTA PO
--- NOTE | 2019-08-18 07:50 | REP ---
Bar spine five views: Comparison is a lumbar spine CT dated 04/29/2019. Vertebral body heights are normal. There are is advanced degenerative disc disease with disc vacuum phenomenon L4-5. The there are bilateral L4 pars interarticularis defects and there is grade II spondylolisthesis of L4-5. There is moderate degenerative disc disease at T12-L1, and L1-2. There is osteoarthritis in the posterior facets, particularly at the lower lumbar levels. The pedicles and sacroiliac articulations are unremarkable. Impression: Degenerative disc disease as described. Bilateral spondylolysis of L4. Grade 2 spondylolisthesis at L4-5. Facet osteoarthritis, vertically at the lower lumbar levels. Electronically Signed by Angel Holman MD 08/18/2019 07:42 A
--- NOTE | 2019-08-18 07:50 | REP ---
AP pelvis: There are no comparisons. The sacroiliac articulations are not left hip articulations are unremarkable. There are pelvic calcifications, likely phleboliths. There is advanced degenerative disc disease at L4-5. Right hip two views: There is no joint space narrowing. There is no femoral head deformity. There is no fracture or dislocation. There is demineralization. There are no calcifications. Impression: Demineralization, otherwise negative right hip. Electronically Signed by Angel Holman MD 08/18/2019 07:42 A
--- NOTE | 2019-08-18 07:51 | REP ---
Right hip two views: There is demineralization. There is no joint space narrowing or femoral head deformity. No calcifications. There is no fracture or dislocation. Impression: Demineralization, otherwise negative right hip. Electronically Signed by Angel Holman MD 08/18/2019 07:43 A
== END ==
LOC: M ADAMS 16:27
PROVIDERS: ATTEND Physician Assistant
DX: M51.36 Other intervertebral disc degeneration, lumbar region (principal); M43.16 Spondylolisthesis, lumbar region; M53.3 Sacrococcygeal disorders, not elsewhere classified
CPT/HCPCS: 72110; 72170; 73502; G0463

== ENCOUNTER → 2019-10-05 | Outpatient (CLI) | payer MEDICARE ==
--- NOTE | 2019-10-05 13:19 | REP ---
Two-view chest: 10/05/2019. Indication: Pulmonary mass. Comparison: 07/25/2019. Findings: The left lower lobe air space consolidation has resolved. The recently described left lingular 7 mm pulmonary nodule is better demonstrated on the recent CT. There is no new air space consolidation. There is no pleural effusion or pneumothorax. Left-sided dual lead pacer is unchanged. Impression: Resolution of the new left lower lobe pneumonia. Electronically Signed by Dion Barroso DO 10/05/2019 01:11 P
== END ==
LOC: M ADAMS 10:31
PROVIDERS: ATTEND Physician Assistant
DX: J45.20 Mild intermittent asthma, uncomplicated (principal); R91.1 Solitary pulmonary nodule

== ENCOUNTER → 2019-10-31 | Outpatient (REF) | payer MEDICARE ==
[2019-10-31 13:01] LABS: BASO # 0.1 10^3/uL (0.0-0.2); EOS # 0.3 10^3/uL (0.0-0.5); EOS % 4.1 % (0.0-3.0); HEMATOCRIT 38.4 % (36.0-47.0); HEMOGLOBIN 11.5 g/dl (12.0-15.5); LYMPH # 1.8 10^3/uL (1.5-5.0); LYMPH % 21.7 % (24.0-44.0); MEAN CORPUSCULAR HEMOGLOBIN 29.9 pg (27.0-33.0); MEAN CORPUSCULAR HGB CONC 29.9 g/dl (32.0-36.5); MEAN CORPUSCULAR VOLUME 99.7 fl (80.0-96.0); MONO # 0.7 10^3/uL (0.0-0.8); MONO % 8.9 % (0.0-5.0); NEUTROPHILS # 5.3 10^3/uL (1.5-8.5); NEUTROPHILS % 63.8 % (36.0-66.0); PLATELET COUNT, AUTOMATED 319 10^3/uL (150-450); RED BLOOD COUNT 3.85 10^6/uL (4.00-5.40); WHITE BLOOD COUNT 8.3 10^3/uL (4.0-10.0)
[2019-10-31 13:10] LABS: ALBUMIN 3.1 GM/DL (3.2-5.2); ALT/SGPT 12 U/L (12-78); BILIRUBIN,TOTAL 0.3 MG/DL (0.2-1.0); BLOOD UREA NITROGEN 26 MG/DL (7-18); C REACTIVE PROTEIN QUANTITATIV 0.58 MG/DL (0.00-0.30); CALCIUM LEVEL 8.9 MG/DL (8.8-10.2); CARBON DIOXIDE LEVEL 26 MEQ/L (21-32); CHLORIDE LEVEL 111 MEQ/L (98-107); GLOMERULAR FILTRATION RATE > 60.0 (>45); GLUCOSE, FASTING 74 MG/DL (70-100); SODIUM LEVEL 142 MEQ/L (136-145); TOTAL PROTEIN 7.2 GM/DL (6.4-8.2)
[2019-10-31 13:19] LABS: URINE TOTAL PROTEIN 28.5 MG/DL (0-12)
[2019-10-31 14:04] LABS: ERYTHROCYTE SEDIMENTATION RATE 69 mm/hr (0-30)
[2019-11-01 10:38] LABS: ALBUMIN 3.68 GM/DL (3.29-5.55); ALBUMIN % 51.1 % (55.8-66.1); ALPHA-1-GLOBULIN % 5.7 % (2.9-4.9); ALPHA-1-GLOBULINS 0.41 GM/DL (0.17-0.41); ALPHA-2-GLOBULINS 1.04 GM/DL (0.42-0.99); ALPHA-2-GLOBULINS % 14.4 % (7.1-11.8); BETA-1-GLOBULINS % 5.5 % (4.7-7.2); BETA-2-GLOBULINS % 7.6 % (3.2-6.5); GAMMA GLOBULIN % 15.7 % (11.1-18.8); GAMMA GLOBULINS 1.13 GM/DL (0.65-1.58)
== END ==
LOC: M SFHCADAM 09:23
PROVIDERS: ATTEND Internal Medicine Rheumatology
DX: R89.9 Unspecified abnormal finding in specimens from other organs, systems and tissues (principal); M15.9 Polyosteoarthritis, unspecified

== ENCOUNTER → 2019-11-01 | Outpatient (REF) | payer MEDICARE ==
[2019-11-04 00:06] LABS: FREE LAMBDA LIGHT CHAINS URINE 11.2 mg/L (0.24-6.66); KAPPA/LAMBDA RATIO URINE 27.59 (2.04-10.37)
== END ==
LOC: M SFHCADAM 17:24
PROVIDERS: ATTEND Physician Assistant
DX: R70.0 Elevated erythrocyte sedimentation rate (principal)
CPT/HCPCS: 83883; 86335; G0463

== ENCOUNTER → 2019-12-07 | Outpatient (REF) | payer MEDICARE ==
[2019-12-07 18:11] LABS: C REACTIVE PROTEIN QUANTITATIV 1.17 MG/DL (0.00-0.30); RHEUMATOID FACTOR QUANT < 10.0 IU/ML (<15.0)
== END ==
LOC: M SFHCRHEU 15:14
PROVIDERS: ATTEND Internal Medicine
DX: M35.3 Polymyalgia rheumatica (principal)

== ENCOUNTER → 2019-12-07 | Outpatient (REF) | payer MEDICARE | LOC: M LAB REF 16:59 | PROVIDERS: ATTEND Physician Assistant Medical | DX: R56.9 Unspecified convulsions (principal); Z51.81 Encounter for therapeutic drug level monitoring; M35.3 Polymyalgia rheumatica ==

== ENCOUNTER → 2019-12-23 | Outpatient (CLI) | payer MEDICARE ==
[~2019-12-23] MED LIST changes: -ROPI0.5T PO; +ROPI0.5T3 PO; -ROPI1TAB PO; +ROPI1TAB3 PO
--- NOTE | 2019-12-23 09:04 | REP ---
RIGHT FOOT: 12/23/2019. Clinical history: No recent injury. Pain right foot. Findings: Four views were provided. There are no prior studies. The bones are demineralized. There is a fracture of the distal shaft and diametaphysis of the fifth metatarsal. There is no involvement of the joint. I do not see any angulation or displacement. The other metatarsals are intact. Phalanges show degenerative changes at all of the IP joints with narrowing and marginal osteophytes. There are degenerative changes at the TMT joints without tarsal bone fracture. There is a plantar calcaneal heal spur. There are advanced degenerative changes at the ankle. Subtalar joint evaluation is difficult as the lateral view is angled. Impression: 1. Nondisplaced fracture of the distal shaft and metadiaphysis of the fifth metatarsal without angulation. 2. Bones demineralized with advanced degenerative changes at the ankle and some in the midfoot. IP joints also with degenerative change. Electronically Signed by Edwardo Bustamante MD 12/23/2019 08:56 A
--- NOTE | 2019-12-23 09:07 | REP ---
RIGHT KNEE, COMPLETE: 12/23/2019. Clinical history: Right knee pain. No recent injury. Findings: Five views are provided. There are advanced degenerative changes with marginal osteophytes laterally and tibial spines. Smaller marginal osteophytes medial joint line and large patellofemoral joint spurs. There is narrowing of the patellofemoral joint. I do not see a definite suprapatellar joint effusion. There is severe demineralization. The medial compartment shows no joint space narrowing. No loose body or osteochondral defect. There are some scattered areas with soft tissue calcification as benign findings. Impression: 1. Severe osteoporosis with advanced tricompartment osteoarthritis and chondromalacia, greatest in the patellofemoral joint, least in the medial compartment. No visible or displaced fracture, avulsion, loose body or other acute finding. Electronically Signed by Edwardo Bustamante MD 12/23/2019 08:59 A
== END ==
LOC: M ADAMS 08:02
PROVIDERS: ATTEND Physician Assistant
DX: S92.354A Nondisplaced fracture of fifth metatarsal bone, right foot, initial encounter for closed fracture (principal); X58.XXXA Exposure to other specified factors, initial encounter; Y92.9 Unspecified place or not applicable; M80.071A Age-related osteoporosis with current pathological fracture, right ankle and foot, initial encounter for fracture; M25.561 Pain in right knee; M79.671 Pain in right foot
CPT/HCPCS: 73564; 73620; 80053; 84550; 85025; G0463

== ENCOUNTER → 2019-12-23 | Outpatient (REF) | payer MEDICARE ==
[~2019-12-23] MED LIST changes: +ROPI0.5T PO; -ROPI0.5T3 PO; +ROPI1TAB PO; -ROPI1TAB3 PO
[2019-12-23 13:37] LABS: BASO # 0.1 10^3/uL (0.0-0.2); BASO % 0.8 % (0.0-1.0); EOS # 0.3 10^3/uL (0.0-0.5); EOS % 3.1 % (0.0-3.0); HEMATOCRIT 40.4 % (36.0-47.0); HEMOGLOBIN 12.2 g/dl (12.0-15.5); LYMPH # 2.5 10^3/uL (1.5-5.0); LYMPH % 22.9 % (24.0-44.0); MEAN CORPUSCULAR HEMOGLOBIN 30.2 pg (27.0-33.0); MEAN CORPUSCULAR HGB CONC 30.2 g/dl (32.0-36.5); MONO # 0.9 10^3/uL (0.0-0.8); MONO % 7.9 % (0.0-5.0); NEUTROPHILS % 64.3 % (36.0-66.0); PLATELET COUNT, AUTOMATED 337 10^3/uL (150-450); RED BLOOD COUNT 4.04 10^6/uL (4.00-5.40); WHITE BLOOD COUNT 10.9 10^3/uL (4.0-10.0)
[2019-12-23 13:57] LABS: ALBUMIN 3.4 GM/DL (3.2-5.2); BILIRUBIN,TOTAL 0.3 MG/DL (0.2-1.0); CALCIUM LEVEL 8.8 MG/DL (8.8-10.2); CREATININE FOR GFR 1.01 MG/DL (0.55-1.30); GLOMERULAR FILTRATION RATE 58.2 (>45); POTASSIUM SERUM 3.5 MEQ/L (3.5-5.1); TOTAL PROTEIN 7.5 GM/DL (6.4-8.2); URIC ACID 3.7 MG/DL (2.6-6.0)
== END ==
LOC: M SFHCADAM 07:50
PROVIDERS: ATTEND Physician Assistant
DX: M79.671 Pain in right foot (principal)

== ENCOUNTER → 2019-12-26 | Outpatient (REF) | payer MEDICARE | LOC: M LABDRAW1 13:27 | PROVIDERS: ATTEND Orthopaedic Surgery | DX: M79.671 Pain in right foot (principal); Z79.51 Long term (current) use of inhaled steroids; Z79.899 Other long term (current) drug therapy ==

== ENCOUNTER → 2020-01-31 | Outpatient (CLI) | payer MEDICARE ==
[~2020-01-31] MED LIST changes: -ROPI0.5T PO; +ROPI0.5T3 PO; -ROPI1TAB PO; +ROPI1TAB3 PO
--- NOTE | 2020-01-31 13:35 | REP ---
CT CHEST WITHOUT CONTRAST: HISTORY: Followup nodule seen on imaging study. Comparison chest x-ray October 05, 2019. Comparison CT study July 14, 2019. CT FINDINGS: Preliminary digital compliance field technician radiograph demonstrates a multilead pacemaker. Hyperinflated lungs are evident. Bibasilar streaky fibrotic or atelectatic changes are noted. On axial CT images. This patient has bronchiectasis in the lower lobes particularly but also in the upper lobes and the right middle lobe. There are bilateral lower lobe areas of atelectasis with air bronchograms. There is some bronchial wall thickening. There are atelectatic and nodular changes in the lingula which actually appear to obscure the previously noted nodular opacity. Indeed the previously noted nodular opacity may have been inflammatory also. There is tree-in-bud type nodularity in the left lower lobe and lingula suggesting inflammatory and atelectatic change. Similar changes are noted anteriorly in the right middle lobe where there are air bronchograms. There is atelectasis with chronic air bronchograms in the right lower lobe anteromedially. No lung mass lesion is seen. There is no mediastinal or hilar adenopathy. Vascular calcification is observed. No pleural or pericardial effusion is seen. Normal adrenal glands are noted. Visualized upper abdominal structures are unremarkable. IMPRESSION: Hyperinflation. Bronchiectasis with inflammatory changes in the lung bases bilaterally including the lingula. These are more prominent than on the July 14, 2019 study. No lung mass lesion is seen. The area where the prior study showed a 7 mm lingular nodule shows inflammatory changes now. Electronically Signed by Edwin Man MD 01/31/2020 03:44 P
== END ==
LOC: M RAD 10:02
PROVIDERS: ATTEND Physician Assistant
DX: R91.1 Solitary pulmonary nodule (principal)

== ENCOUNTER → 2020-04-02 | Outpatient (CLI) | payer MEDICARE ==
[~2020-04-02] MED LIST changes: +MEDR4TAB PO
== END ==
LOC: M LABSMTC 09:26
PROVIDERS: ATTEND Anesthesiology
DX: Z01.818 Encounter for other preprocedural examination (principal); Z11.59 Encounter for screening for other viral diseases
CPT/HCPCS: C9803; U0003

== ENCOUNTER 2020-04-05 06:54 | Day surgery (SDC) | payer MEDICARE ==
[~2020-04-05] VITALS: Ht 157.5 cm; Wt 63.0 kg
[2020-04-05] MEDS: NS 1,000 ML IV ONE (07:14)
[2020-04-05] MEDS ORDERED: propofoL 500 MG/50 ML VIAL As Ordered ONE (08:05)
[2020-04-05] MEDS ORDERED: LIDOCAINE 2% 100MG/5ML SDV (FOR ANES.) As Ordered ONE (08:05)
--- NOTE | 2020-04-05 08:25 | ROOR ---
Patient Name: Arlet Camargo Procedure Date: 04/05/2020 8:00 AM Date of : 1950 Age: 69 Room: [facility] Gender: Female Note Status: Finalized Procedure: Colonoscopy Indications: High risk colon cancer surveillance: Personal history of colonic polyps, Family history of colon cancer Providers: Mandeep BARTHOLOMEW MD Referring MD: Orlando Pacheco MD Requesting Provider: Medicines: Monitored Anesthesia Care Complications: No immediate complications. Procedure: Pre-Anesthesia Assessment: - The heart rate, respiratory rate, oxygen saturations, blood pressure, adequacy of pulmonary ventilation, and response to care were monitored throughout the procedure. The Colonoscope was introduced through the anus and advanced to the cecum, identified by appendiceal orifice and ileocecal valve. The colonoscopy was performed without difficulty. The patient tolerated the procedure well. The quality of the bowel preparation was good. Findings: The perianal and digital rectal examinations were normal. A diminutive polyp was found in the splenic flexure. The polyp was sessile. The polyp was removed with a jumbo cold forceps. Resection and retrieval were complete. Mild sigmoid diverticulosis and small internal hemorrhoids. The exam was otherwise without abnormality on direct and retroflexion views. Impression: - One diminutive polyp at the splenic flexure, removed with a jumbo cold forceps. Resected and retrieved. - Mild sigmoid diverticulosis and small internal hemorrhoids. - The examination was otherwise normal on direct and retroflexion views. Recommendation: - Repeat colonoscopy in 5 years for surveillance. Mandeep Bartholomew MD Mandeep BARTHOLOMEW MD 04/05/2020 8:24:51 AM Electronically signed by Mandeep BARTHOLOMEW MD Number of Addenda: 0 Note Initiated On: 04/05/2020 8:00 AM Estimated Blood Loss: Estimated blood loss: none.
[2020-04-05 08:55] VITALS: BP 171/77
== END 2020-04-05 09:05 | disposition home or self-care (01) ==
LOC: M OPP 06:54
PROVIDERS: ATTEND Internal Medicine Gastroenterology
DX: D12.3 Benign neoplasm of transverse colon (principal); K64.8 Other hemorrhoids; K57.30 Diverticulosis of large intestine without perforation or abscess without bleeding; Z86.010 Personal history of colon polyps; Z80.0 Family history of malignant neoplasm of digestive organs; I50.9 Heart failure, unspecified; I48.91 Unspecified atrial fibrillation; Z09 Encounter for follow-up examination after completed treatment for conditions other than malignant neoplasm; Z95.0 Presence of cardiac pacemaker; Z79.899 Other long term (current) drug therapy; Z88.8 Allergy status to other drugs, medicaments and biological substances

== ENCOUNTER → 2020-06-04 | Outpatient (REF) | payer MEDICARE ==
[~2020-06-04] MED LIST changes: +ULTR50TA8 PO
[2020-06-04 13:33] LABS: BASO # 0.1 10^3/uL (0.0-0.2); BASO % 0.5 % (0.0-1.0); EOS # 0.2 10^3/uL (0.0-0.5); EOS % 1.2 % (0.0-3.0); HEMATOCRIT 36.5 % (36.0-47.0); LYMPH # 1.7 10^3/uL (1.5-5.0); LYMPH % 13.2 % (24.0-44.0); MEAN CORPUSCULAR HEMOGLOBIN 31.3 pg (27.0-33.0); MEAN CORPUSCULAR HGB CONC 30.1 g/dl (32.0-36.5); MONO # 1.2 10^3/uL (0.0-0.8); NEUTROPHILS # 9.7 10^3/uL (1.5-8.5); NEUTROPHILS % 75.2 % (36.0-66.0); PLATELET COUNT, AUTOMATED 283 10^3/uL (150-450); RED BLOOD COUNT 3.51 10^6/uL (4.00-5.40); WHITE BLOOD COUNT 12.9 10^3/uL (4.0-10.0)
[2020-06-04 14:02] LABS: ERYTHROCYTE SEDIMENTATION RATE 79 mm/hr (0-30)
[2020-06-04 14:52] LABS: ALBUMIN 2.9 GM/DL (3.2-5.2); BILIRUBIN,TOTAL 0.4 MG/DL (0.2-1.0); C REACTIVE PROTEIN QUANTITATIV 4.04 MG/DL (0.00-0.30); CALCIUM LEVEL 8.9 MG/DL (8.8-10.2); CREATININE FOR GFR 1.04 MG/DL (0.55-1.30); FREE T4 0.82 NG/DL (0.76-1.46); GLOMERULAR FILTRATION RATE 56.1 (>45); THYROID STIMULATING HORMONE 0.936 uIU/ML (0.358-3.740)
== END ==
LOC: M SFHCADAM 09:44 → M SFHCRHEU 09:44
PROVIDERS: ATTEND Internal Medicine
DX: R53.82 Chronic fatigue, unspecified (principal); M35.3 Polymyalgia rheumatica

== ENCOUNTER 2020-07-18 12:02 | Emergency (ER) | payer MEDICARE ==
[~2020-07-18] VITALS: Ht 157.5 cm; Wt 62.3 kg
[~2020-07-18 12:02] MED LIST changes: -ULTR50TA8 PO
--- NOTE | 2020-07-18 13:21 | REPVR ---
PROCEDURE INFORMATION: Exam: US Duplex Left Lower Extremity Veins, Limited Exam date and time: 07/18/2020 1:13 PM Age: 70 years old Clinical indication: Screening exam; R/O dvt TECHNIQUE: Imaging protocol: Real-time Duplex ultrasound of the Left Lower Extremity with 2-D jones scale, color Doppler flow and spectral waveform analysis with image documentation. Limited exam focused on the left lower extremity veins. COMPARISON: US Duplex, Ext LOWER veins, bilat 07/22/2019 2:12 PM FINDINGS: Left deep veins: Unremarkable. The common femoral, femoral, proximal profunda femoral and popliteal veins are patent without thrombus. Normal Doppler waveforms. Normal compressibility and/or augmentation response. Left superficial veins: Unremarkable as visualized. Saphenofemoral junction is patent without thrombus. Soft tissues: Unremarkable. IMPRESSION: No sonographic evidence of deep vein thrombosis. Electronically signed by: Angela Moser On 07/18/2020 13:21:32 PM
[2020-07-18 13:48] LABS: BASO # 0.1 10^3/uL (0.0-0.2); BASO % 0.6 % (0.0-1.0); EOS # 0.1 10^3/uL (0.0-0.5); EOS % 0.9 % (0.0-3.0); LYMPH # 1.8 10^3/uL (1.5-5.0); LYMPH % 15.5 % (24.0-44.0); MEAN CORPUSCULAR HEMOGLOBIN 31.7 pg (27.0-33.0); MEAN CORPUSCULAR HGB CONC 31.6 g/dl (32.0-36.5); MEAN CORPUSCULAR VOLUME 100.5 fl (80.0-96.0); MONO # 0.8 10^3/uL (0.0-0.8); MONO % 6.7 % (0.0-5.0); NEUTROPHILS # 8.8 10^3/uL (1.5-8.5); NEUTROPHILS % 75.6 % (36.0-66.0); PLATELET COUNT, AUTOMATED 292 10^3/uL (150-450); RED BLOOD COUNT 3.78 10^6/uL (4.00-5.40); WHITE BLOOD COUNT 11.7 10^3/uL (4.0-10.0)
[2020-07-18 14:14] LABS: BLOOD UREA NITROGEN 34 MG/DL (7-18); C REACTIVE PROTEIN QUANTITATIV 1.06 MG/DL (0.00-0.30); CALCIUM LEVEL 9.6 MG/DL (8.8-10.2); CARBON DIOXIDE LEVEL 26 MEQ/L (21-32); CHLORIDE LEVEL 111 MEQ/L (98-107); GLOMERULAR FILTRATION RATE > 60.0 (>45); GLUCOSE, FASTING 83 MG/DL (70-100); POTASSIUM SERUM 3.9 MEQ/L (3.5-5.1); SODIUM LEVEL 142 MEQ/L (136-145)
--- NOTE | 2020-07-18 14:32 | REPVR ---
PROCEDURE INFORMATION: Exam: CT Left Lower Extremity Without Contrast, Knee Exam date and time: 07/18/2020 1:56 PM Age: 70 years old Clinical indication: Pain; Knee; Left; Additional info: Pain and swelling TECHNIQUE: Imaging protocol: CT of the Left lower extremity without contrast was performed. Exam focused on the knee. Radiation optimization: All CT scans at this facility use at least one of these dose optimization techniques: automated exposure control; mA and/or kV adjustment per patient size (includes targeted exams where dose is matched to clinical indication); or iterative reconstruction. COMPARISON: DX KNEE COMPLETE 12/23/2019 8:03 AM FINDINGS: Bones/joints: Bones are diffusely osteopenic. Curvilinear band of sclerosis in the posterolateral tibial plateau extending slightly across midline with overlying minimal periosteal reaction most likely reflects a stress fracture, less likely a slightly impacted acute or subacute posttraumatic fracture. No other evidence of fracture. There is tricompartmental osteoarthritis which is moderate to severe in degree. Chondrocalcinosis is seen in the medial and lateral femorotibial compartments. There are multiple small corticated bodies measuring 1-3 mm within the knee joint. Mild lateral patellar tilt without lateral subluxation. Soft tissues: Minimal hypodense knee joint fluid. Small popliteal cyst. Mild fatty atrophy in the proximal soleus muscle and distal vastus medialis and vastus lateralis muscles. Mild soft tissue swelling anteriorly at the knee. Vasculature: Atherosclerotic vascular calcifications are present. IMPRESSION: 1. Incomplete stress fracture primarily in the posterolateral tibial plateau, less likely an acute or subacute impacted posttraumatic fracture. 2. Osteopenia. 3. Tricompartmental osteoarthritis. Electronically signed by: Angela Moser On 07/18/2020 14:32:52 PM
[2020-07-18 15:35] LABS: ERYTHROCYTE SEDIMENTATION RATE 68 mm/hr (0-30)
[2020-07-18] MEDS ORDERED: ULTR50TA8 PO (15:53)
[2020-07-18 16:19] VITALS: BP 147/72
== END 2020-07-18 16:15 | disposition home or self-care (01) ==
LOC: M ED 12:02
DX: M84.362A Stress fracture, left tibia, initial encounter for fracture (principal); I11.0 Hypertensive heart disease with heart failure; I50.9 Heart failure, unspecified; J45.909 Unspecified asthma, uncomplicated; I48.91 Unspecified atrial fibrillation; G20 Parkinson's disease; Z95.0 Presence of cardiac pacemaker; Z79.899 Other long term (current) drug therapy; Z79.01 Long term (current) use of anticoagulants; Z88.8 Allergy status to other drugs, medicaments and biological substances

== ENCOUNTER → 2020-10-09 | Outpatient (CLI) | payer MEDICARE ==
[~2020-10-09] MED LIST changes: +ULTR50TA8 PO
--- NOTE | 2020-10-09 16:29 | REP ---
INDICATION: DYSPNEA ON EXERTION. COMPARISON: None. FINDINGS: The superior mediastinal structures are midline. The cardiac silhouette is unremarkable in size, shape, and position. The diaphragmatic surfaces of the lungs are regular, and the costophrenic angles are clear. The lung saucedo are hyperexpanded. There are no new abnormal opacities. The dual chamber bipolar pacemaker devices unchanged.. The imaged osseous structures are intact. IMPRESSION: There is no acute cardiopulmonary disease. <Electronically signed by Arsh Mariano > 10/09/20 [id number]
== END ==
LOC: M ADAMS 15:42
PROVIDERS: ATTEND Family Medicine
DX: R06.00 Dyspnea, unspecified (principal); M35.3 Polymyalgia rheumatica; E78.5 Hyperlipidemia, unspecified; R23.2 Flushing; I48.20 Chronic atrial fibrillation, unspecified; D89.89 Other specified disorders involving the immune mechanism, not elsewhere classified; Z95.0 Presence of cardiac pacemaker
CPT/HCPCS: 71046; 80053; 80061; 83883; 84439; 84443; 85027; 85652; G0463

== ENCOUNTER → 2020-10-09 | Outpatient (REF) | payer MEDICARE ==
[2020-10-09 19:12] LABS: HEMATOCRIT 39.4 % (36.0-47.0); HEMOGLOBIN 11.7 g/dl (12.0-15.5); MEAN CORPUSCULAR HEMOGLOBIN 30.9 pg (27.0-33.0); MEAN CORPUSCULAR HGB CONC 29.7 g/dl (32.0-36.5); PLATELET COUNT, AUTOMATED 276 10^3/uL (150-450); RED BLOOD COUNT 3.79 10^6/uL (4.00-5.40); WHITE BLOOD COUNT 8.1 10^3/uL (4.0-10.0)
[2020-10-09 19:45] LABS: ALBUMIN 3.4 GM/DL (3.2-5.2); BILIRUBIN,TOTAL 0.3 MG/DL (0.2-1.0); CALCIUM LEVEL 9.2 MG/DL (8.8-10.2); CHOLESTEROL RISK RATIO 3.359 (<5); CREATININE FOR GFR 1.15 MG/DL (0.55-1.30); FREE T4 0.71 NG/DL (0.76-1.46); POTASSIUM SERUM 4.5 MEQ/L (3.5-5.1); THYROID STIMULATING HORMONE 1.15 uIU/ML (0.358-3.740); TOTAL PROTEIN 7.3 GM/DL (6.4-8.2)
[2020-10-09 19:47] LABS: ERYTHROCYTE SEDIMENTATION RATE 59 mm/hr (0-30)
== END ==
LOC: M SFHCADAM 15:36
PROVIDERS: ATTEND Family Medicine
DX: M35.3 Polymyalgia rheumatica (principal); E78.5 Hyperlipidemia, unspecified; R23.2 Flushing; I48.20 Chronic atrial fibrillation, unspecified; D89.89 Other specified disorders involving the immune mechanism, not elsewhere classified

== ENCOUNTER → 2020-10-25 | Outpatient (CLI) | payer MEDICARE ==
--- NOTE | 2020-10-25 16:31 | DEXAMM ---
INDICATION: Z13.820 SCR FOR OSTEOPOROSIS. COMPARISON: None. TECHNIQUE: Bone density was measured using dual-energy x-ray absorptionmetry (DEXA). FINDINGS: AP SPINE L1-L4 BMD 1.011 g/cm2 Young Adult T-Score -1.5 Age Matched Z-Score 0.2. LT FEMUR, TOTAL BMD 0.568 g/cm2 Young Adult T-Score -3.5 Age Matched Z-Score -2.1. LT NECK BMD 0.592 g/cm2 Young Adult T-Score -3.2 Age Matched Z-Score -1.6. RT FEMUR, TOTAL BMD 0.546 g/cm2 Young Adult T-Score -3.7 Age Matched Z-Score -2.3. RT NECK BMD 0.610 g/cm2 Young Adult T-Score -3.1 Age Matched Z-Score -1.5. IMPRESSION: There is low bone density of the spine. There is osteoporosis of the left hip. There is osteoporosis of the right hip. FOLLOW-UP: Recommendation for the next bone density exam: 2 years. <Electronically signed by Owen Man > 10/25/20 [id number]
== END ==
LOC: M WHC 12:46
PROVIDERS: ATTEND Family Medicine
DX: Z13.820 Encounter for screening for osteoporosis (principal); M85.88 Other specified disorders of bone density and structure, other site; M85.851 Other specified disorders of bone density and structure, right thigh; M85.852 Other specified disorders of bone density and structure, left thigh

== ENCOUNTER → 2020-12-10 | Outpatient (REF) | payer MEDICARE ==
[~2020-12-10] MED LIST changes: +ACET-653 PO; +CALCTAB41 PO; +GABA-282 PO; -GABA-843 PO; +[UNRECOGNIZED DRUG - CODE] PO
[2020-12-10 14:10] LABS: CALCIUM LEVEL 9.4 MG/DL (8.8-10.2); CREATININE FOR GFR 1.15 MG/DL (0.55-1.30)
[2020-12-10 15:34] LABS: TOTAL 25(OH) VITAMIN D 35.7 NG/ML (30.0-100.0)
== END ==
LOC: M LABDRWAD 12:36
PROVIDERS: ATTEND Internal Medicine Endocrinology, Diabetes & Metabolism
DX: M81.0 Age-related osteoporosis without current pathological fracture (principal); E55.9 Vitamin D deficiency, unspecified

== ENCOUNTER 2020-12-17 12:31 | Outpatient (CLI) | payer MEDICARE ==
[~2020-12-17 12:31] MED LIST changes: -ACET-653 PO; -CALCTAB41 PO; -[UNRECOGNIZED DRUG - CODE] PO
[2020-12-17 12:45] VITALS: BP 116/63
[2020-12-17] MEDS ORDERED: ZOLEDRONIC ACID 5 MG in IV 1 EA IV ONE (13:00)
[2020-12-17] MEDS ORDERED: CALCTAB41 PO (13:20)
[2020-12-17] MEDS ORDERED: [UNRECOGNIZED DRUG - CODE] PO (13:30)
[2020-12-17 14:00] VITALS: BP 135/66
== END 2020-12-17 14:00 | disposition home or self-care (01) ==
LOC: M INFU 12:31
PROVIDERS: ATTEND Internal Medicine Endocrinology, Diabetes & Metabolism
DX: M81.0 Age-related osteoporosis without current pathological fracture (principal); Z88.8 Allergy status to other drugs, medicaments and biological substances
CPT/HCPCS: 96365; J3489

== ENCOUNTER 2020-12-20 13:54 | Emergency (ER) | payer MEDICARE ==
[~2020-12-20] VITALS: Ht 157.5 cm; Wt 62.3 kg
[~2020-12-20 13:54] MED LIST changes: +CALCTAB41 PO; +[UNRECOGNIZED DRUG - CODE] PO
--- OUTSIDE RECORDS SUMMARY | 2020-12-20 13:59 | CCD | Continuity of Care Document ---
Author Author Arlet BOATENG MD Organization Unknown Address [address] [place] [address], [address] [address] Phone [phone] Care Team Providers Care Lock Stitch Channeler Name Role Phone Lo Lilly MD AUTM [phone] Orlando Pacheco MD AUTM [phone] Problems Active Problems Provider Date Pure hypercholesterolemia Onset: 020 Osteoporosis Leia Boateng MD Onset: 11/20/2020 Vitamin D deficiency Leia Boateng MD Onset: 11/20/2020 Long-term current use of systemic steroid Gallito Lemus Onset: 11/20/2020 Social History Type Date Description Comments Sex Unknown Cigarette Use Former Cigarette Smoker 3 Packs Daily quit: 1979 ETOH Use Never used alcohol Allergies, Adverse Reactions, Alerts Active Allergies Reaction Severity Comments Date Mirapex pass out 11/14/2020 Keppra muscle spasms 11/14/2020 Simvastatin itching 11/14/2020 Lipitor ithcing 11/14/2020 Medications Active Medications SIG Qnty Indications Ordering Provide r Date Zoledronic Acid 5mg/100ML Solution once yearly at [facility] infusion center M81.0 Gallito Lemus 11/20/2020 Proair HFA 108(90Base) mcg/Act Aer osol prn Unknown Topiramate 200mg Tablets 1 po bid Unknown Carbidopa-Levodopa 25-100mg Tablet s 2 po bid Unknown Metoprolol Tartrate 25mg Tablets 1 po bid Unknown Ezetimibe 10mg Tablets 1 po q d Unknown Glucosamine Chondroitin Advanced Triple Strength Tablets 2 po qd Unknown Methylprednisolone 4mg Tablets 1 po qd Unknown Citalopram Hydrobromide 40mg Table ts 1 po qd Unknown Fish Oil 1000mg Capsules 1 by mouth every day Unknown Ropinirole HCL 1mg Tablets 1 po tid Unknown Eliquis 5mg Tablets 1 po bid Unknown Stool Softener 100mg Capsules 1 by mouth every day Unknown Wixela Inhub 250-50mcg/Dose Aeroso l 1 puff twice daily Unknown [facility] Senior Women 50+ 1 po qd Unknown 0 Immunizations Description No Information Available Vital Signs Date Vital Result Comment 11/20/2020 2:52pm BP Systolic 124 mmHg BP Diastolic 60 mmHg Heart Rate 122 /min Body Temperature 97.1 F Height 62 inches 5'2" Weight 140.12 lb BMI (Body Mass Index) 25.6 kg/m2 O2 % BldC Oximetry 74 % Results Test Acquired Date Facility Test Result H/L Range Note Basic Metabolic Profile 12/10/2020 [facility] [address] [place] [address] [phone])- - Glucose, Fasting 95 mg/dL Normal 70-100 Blood Urea Nitrogen 41 mg/dL High 7-18 Creatinine For GFR 1.15 mg/dL Normal 0.55-1.30 Glomerular Filtration Rate 50.0 Normal >45 1 Sodium Level 143 mEq/L Normal 136-145 Potassium Serum 4.0 mEq/L Normal 3.5-5.1 Chloride Level 111 mEq/L High 98-107 Carbon Dioxide Level 26 mEq/L Normal 21-32 Anion Gap 6 mEq/L Low 8-16 Calcium Level 9.4 mg/dL Normal 8.8-10.2 Laboratory test finding 12/10/2020 [facility] [address] [place] [address] (315)- - Total 25(Oh) Vitamin D 35.7 NG/ML Normal 30.0-100.0 1 Units are mL/min/1.73 m2 Chronic Kidney Disease Staging per NKF: Stage I & II GFR >=60 Normal to Mildly Decreased Stage III GFR 30-59 Moderately Decreased Stage IV GFR 15-29 Severely Decreased Stage V GFR <15 Very Little GFR Left ESRD GFR <15 on 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 Leia Boateng MD M 81.0 Age- related osteoporosis w/o current pathological fracture Z79.52 parts counterman (current) use of s ystemic steroids E55.9 Vitamin D deficiency, unspec ified E58 Dietary calcium deficiency D47.2 Monoclonal gammopathy Assessments Date Code Description Provider 11/20/2020 M81.0 Age-related osteoporosis without current pathological fracture Leia Boateng MD 11/20/2020 Z79.52 parts counterman (current) use of syste kristi steroids Leia Boateng MD 11/20/2020 E55.9 Vitamin D deficiency, unspecifie d Leia Boateng MD 11/20/2020 E58 Dietary calcium deficiency Gavin Boateng MD 11/20/2020 D47.2 Monoclonal gammopathy Leia Boateng MD Plan of Treatment Future Appointment(s):* 03/19/2021 1:45 pm - Leia Boateng MD at DR. Leia Boateng 11/20/2020 - Leia Boateng MD* M81.0 Age-related osteoporosis without current pathological fracture* New Medication:* Zoledronic Acid 5 mg/100ML - once yearly at [facility] infusion center * Comments:* Patient has multiple medical problems including PMR for which she is taking Medrol and has been for greater than 12 months. She suffered a spontaneous fracture of the right foot, a tibial plateau fracture on the left. She is having chronic right-sided girdle and low back pain. She has been unable to reduce her steroids.She just had her first bone density test which shows marked osteoporosis.She was initially prescribed once monthly oral Boniva by her PCP but rheumatology felt she should have consideration given to taking the drug Prolia.Unfortunately she does not have adequate medical coverage for Prolia. She would have a greater than $500 out of pocket expense for that medication.I do not think she is a great candidate for oral bisphosphonates in light of the potential for GERD, ulcer disease, erosive esophagitis.I recommend that she consider once yearly IV zoledronic acid which will be much easier past for her and give her the same clinical benefit and decrease in future fractures.She agrees to receive once yearly IV t herapy.Written instructions provided. Patient advised that she may have total body pain and she is to take Tylenol the morning of the procedure and a couple days thereafter.In addition she needs to start taking calcium supplements which she has not been doing. Written instructions were provided. * Z79.52 parts counterman (current) use of systemic steroids* Comments:* Patient reports that she has been on 4 mg of Medrol since 2019. This is treatment for her PMR. She's been unable to decrease on the dose without increase in s ymptoms. * E55.9 Vitamin D deficiency, unspecified* Comments:* Patient was instructed to immediately start 5000 units of vitamin D daily. There is decreased absorption of vitamin D and patient's on chronic steroid therapy.We will also check a baseline vitamin D level.Written instructions provided. * E58 Dietary calcium deficiency* Comments:* Was instructed to take in a minimum of 1000 mg of calcium in divided doses with food. * D47.2 Monoclonal gammopathy* Comments:* Per records reviewed from her PCP off the [facility] website and also we reviewed her rheumatology notes. She has a kapa 's light chain monoclonal gammopathy. Functional Status Description No Information Available Mental Status Description No Information Available Referrals Refer to Reason for Referral Status Appt Date Leia Boateng MD RECLAST NO AUTH REQUIRED PER WEB. LS Create d [facility], [address] [place] [address] [phone]
--- OUTSIDE RECORDS SUMMARY | 2020-12-20 14:00 | CCD | Continuity of Care Document ---
Author Author Arlet RIZZO P.A.-C. Organization Unknown Address [address] [place] [address] Phone [phone] Care Team Providers Care Brake Operator Heavy Duty Name Role Phone Orlando Pacheco M.D. AUTM [phone] Problems Description No Information Available Social History Type Date Description Comments Sex Unknown Allergies, Adverse Reactions, Alerts Active Allergies Reaction Severity Comments Date Comtan 08/12/2019 Keppra muscle spasm 08/12/2019 Lipitor itch 08/12/2019 Zocor itch 08/12/2019 Mirapex syncope 11/25/2019 Medications Active Medications SIG Qnty Indications Ordering Provide r Date Topiramate 200mg Tablets Take 1 Tablet By Mouth Twice A Day. Max Of 2 Tablets Per Day 180tabs G40.89 Ab srinivas Hampton M.D. 03/27/2020 Ropinirole HCL 1mg Tablets Take 1 Tablet By Mouth 3 Times Daily 270tabs G20 Nicholas Hampton M.D. Carbidopa-Levodopa 25-100mg Tablet s 1 1/2 tabs po qid 540tabs G20 Nicholas Hampton M.D. Immunizations Description No Information Available Vital Signs Date Vital Result Comment 09/06/2020 6:19am BP Systolic 110 mmHg BP Diastolic 64 mmHg Heart Rate 64 /min Respiratory Rate 16 /min 06/05/2020 6:31am BP Systolic 110 mmHg BP Diastolic 60 mmHg Heart Rate 64 /min Respiratory Rate 16 /min Height 62 inches 5'2" Weight 143.00 lb BMI (Body Mass Index) 26.2 kg/m2 [place] Body Weight 110 lb Results Description No Information Available Procedures Description No Information Available Medical Devices Description No Information Available Encounters Type Date Location Provider Dx Diagnosis Office Visit 09/06/2020 1:45p Main office - [place] Rosangela haskins P.A.-C. G20 Parkinson's disease G43.709 Chronic migraine w/o aura, n ot intractable, w/o stat migr G40.89 Other seizures G47.8 Other sleep disorders K59.09 Other constipation Assessments Date Code Description Provider 12/10/2020 G40.89 Other seizures Gonzales Alatorre.A.-CMay 12/10/2020 G43.709 Chronic migraine wit hout aura, not intractable, without status migrainosus Rosangela Rizzo P.A.-C. 12/10/2020 G20 Parkinson's disease Gonzales Ugalde.A.-C. 12/10/2020 K59.09 Other constipation Rosangela delcid P.A.-C. 09/06/2020 G20 Parkinson's disease Rosangela haskins P.A.-C. 09/06/2020 G43.709 Chronic migraine wit hout aura, not intractable, without status migrainosus Rosangela Rizzo P.A.-C. 09/06/2020 G40.89 Other seizures Rosangela Rizzo P.A.-C. 09/06/2020 G47.8 Other sleep disorders Rosangela leger P.A.-C. 09/06/2020 K59.09 Other constipation Rosangela delcid P.A.-C. Plan of Treatment No Information Available Functional Status Description No Information Available Mental Status Description No Information Available Referrals Description No Information Available
--- OUTSIDE RECORDS SUMMARY | 2020-12-20 14:00 | CCD | Continuity of Care Document ---
Author Author Arlet RIZZO P.A.-C. Organization Unknown Address [address] [place] [address] Phone [phone] Care Team Providers Care Stock Lifter Name Role Phone Orlando Pacheco M.D. AUTM [phone] Problems Description No Information Available Social History [...] Nicholas Hampton M.D. Carbidopa-Levodopa 25-100mg Tablet s tabs po qid G20 Nicholas Hampton M.D. Immunizations Description No [...] lb BMI (Body Mass Index) 26.2 kg/m2 [place] Body Weight 110 lb Results Description No Information Available Procedures Description No Information Available Medical Devices Description No Information Available Encounters Type Date Location Provider Dx Diagnosis Office Visit 12/10/2020 1:30p Main office - [place] Gonzales Ugaled.A.-C. G40.89 Other seizures G43.709 Chronic migraine w/o aura, n ot intractable, w/o stat migr G20 Parkinson's disease K59.09 Other constipation M54.5 Low back pain Office Visit 09/06/2020 1:45p Main office - [place] Rosangela haskins P.A.-C. G20 Parkinson's disease G43.709 Chronic migraine w/o aura, n ot intractable, w/o stat migr G40.89 Other seizures G47.8 Other sleep disorders K59.09 Other constipation Assessments Date Code Description Provider 12/10/2020 G40.89 Other seizures Rosangela Rizzo P.A.-C. 12/10/2020 G43.709 Chronic migraine wit hout aura, not intractable, without status migrainosus Rosangela Rizzo P.A.-C. 12/10/2020 G20 Parkinson's disease Gonzales Ugalde.A.-C. 12/10/2020 K59.09 Other constipation Rosangela delcid P.A.-C. 12/10/2020 M54.5 Low back pain Rosangela Rizzo P.A.-C. 09/06/2020 G20 Parkinson's disease Rosangela haskins P.A.-C. 09/06/2020 G43.709 Chronic migraine wit hout aura, not intractable, without status migrainosus Rosangela Rizzo P.A.-C. 09/06/2020 G40.89 Other seizures Rosangela Rizzo P.A.-C. 09/06/2020 G47.8 Other sleep disorders Rosangela leger P.A.-CMay 09/06/2020 K59.09 Other constipation Gonzales Griffin.A.-CMay Plan of Treatment Future Appointment(s):* 03/14/2021 2:30 pm - Kathy Alatorre.-CMay at Main office - [place] 12/10/2020 - Gonzales Alatorre.A.-C.* G40.89 Other seizures* Comments:* Controlled. Continue Topamax. Repeat level at next appt. * G43.709 Chronic migraine without aura, not intractable, without status migrainosus* Comments:* Controlled with Topamax. * G20 Parkinson's disease* Comments:* She will try to slowly increase Sinemet to 2 tabs qid. Continue Requip. * K59.09 Other constipation* Comments:* Continue Colace. * M54.5 Low back pain* Comments:* She declines lumbar CT at this time. She cannot have MRI due to pacemaker. * Follow up:* 3 months Functional Status Description No Information Available Mental Status Description No Information Available Referrals Description No Information Available
--- OUTSIDE RECORDS SUMMARY | 2020-12-20 14:00 | CCD ---
Author Author [facility] Organization [facility] Address Unknown Phone Unavailable Care Team Providers Care Upkeep Worker Name Role Phone Lo Lilly Unavailable PROBLEMS Type Condition ICD9-CM Code [id number] Code Onset Dates Condition S tatus SNOMED Code Notes Problem Adjustment disorder with mixed anxiety and depressed mood F43.23 Active 590046107 Problem Macrocytosis without anemia D75.89 Active 2343 95539 Problem Acquired hyperlipoproteinemia E78.5 Active 37 31909 intolerant of several statins Problem Other chronic pain G89.29 Active 88730809 Problem Parkinsons disease G20 Active 47214164 Problem Degenerative disc disease, lumbar M51.36 Active 21877632 Problem Other secondary kyphosis, 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 Active 396715932 Problem Unsteady gait R26.81 Active 511312640 Problem Parkinson disease G20 Active 86559575 Problem Trochanteric bursitis of right hip M70.61 Activ e 3054692 Problem Lung nodule seen on imaging study R91.1 Active 217322778 Problem Osteoarthritis of multiple joints, unspecified o steoarthritis type M15.9 Active 634832086 Problem Abnormal laboratory test R89.9 Active 9317814 00 Problem PMR (polymyalgia rheumatica) M35.3 Active 653 53098 Problem [place]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 20 Active 056855890 Problem Chronic fatigue R53.82 Active 70665205 Problem Primary osteoarthritis of right knee M17.11 Act haile [id number] Problem Lumbar spondylosis M47.816 Active 590236496 Problem Osteoporosis without current pathological fracture, unspecified osteoporosis type M81.0 Active 57188844 ALLERGIES Allergen (clinical drug ingredient) Drug/Non Drug Allergy do cumented on EMR Reaction Allergy Type Onset Date Status Mirapex syncope Non Drug Allergy Active statins (simva, atorva) myalgias, itching Non Drug Allergy Active Keppra muscle cramps Non Drug Allergy Activ e carbidopa/levadopa diarrhea, depression Non Drug Allergy Active ENCOUNTERS from 1950 to 2020-11-14 Encounter Location Date Provider Diagnosis [facility] Rheumatology [address] [place] [address] Oct, Lo Lilly PMR (polymyalgia rheumatica) M35.3 ; Lois timoteo osteoarthritis of right knee M17.11 ; Lumbar spondylosis M47.816 and Osteoporosis without current pathological fracture, unspecified osteoporosis type M81.0 IMMUNIZATIONS No Information SOCIAL HISTORY Tobacco Use: Social History Observation Description Date Details (start date - stop date) Former Smoker Sex Assigned At : Social History Observation Description Sex Assigned At Unknown Audit Question Answer Notes Total Score: 0 Interpretation: Alcohol Education Presybeterian: Question Answer Notes Presybeterian No anglican beliefs that would impact health care. Drug and Alcohol Question Answer Notes Total Score: 0 Interpretation: No problems reported Alcohol Screening: Question Answer Notes Did you have a drink containing alcohol in the past year? No Points 0 Interpretation Negative Tobacco Use: Question Answer Notes Are you a: former smoker How long has it been since you last smoked? > 10 years REASON FOR REFERRAL No Information VITAL SIGNS Weight 140.4 lbs Oct, Weight-kg 63.4 kg Oct, Height 62 in Oct, BMI 25.68 kg/m2 Oct, Heart Rate 74 /min Oct, Respiratory Rate 18 /min Oct, Temperature 98.2 degrees Fahrenheit Oct, Oximetry 97% Oct, Blood pressure systolic 128 mm Hg Oct, Blood pressure diastolic 82 mm Hg Oct, MEDICATIONS Medication SIG (Take, Route, Frequency, Duration) Notes Start Da te End Date Status Topiramate 200 MG 1 tablet Orally twice daily Active Ventolin HFA 90 MCG/ACT 2 puffs as needed Inhalation every 4 hrs Active Flonase 50 MCG/DOSE 1 spray in each nostril Nasally Once a day as nee ded Active PredniSONE 5 MG TAKE TWO TABLETS BY MOUTH EV CHASITY MORNING AFTER BREAKFAST Oral for 30 Not-Taking Glucosamine Chondro Complex - 1 capsule Orally twice a day Active Medrol 4 MG 2 tablet in the morning with food or milk Orally Daily fo r 30 Not-Taking Ibandronate Sodium 150 MG 1 tablet Orally monthly for 90 day(s) Oct, Active Tylenol Arthritis Pain 650 mg 2 capsules orally every 8 hours as needed for pain. no more than 6 capsules in 24 hours. Active Carbidopa-Levodopa 25-100 MG 1 1/2 tablet Orally four times a day Active Ropinirole HCl 1 MG 2 tab Orally three times daily Active Wixela Inhub 250-50 MCG/DOSE 1 puff Inhalation Twice a day for 90 Active Metoprolol Tartrate 25 mg 1 tablet with food Orally Twice a day Active Gabapentin 100 MG 3 capsules in am, 2 in jeremy, 3 at hs Orally Active Medrol 4 MG 1 tab Orally Daily May, Act haile Colace Active Fish Oil 1000 MG 1 capsule Orally Twice a day Active Ezetimibe 10 MG 1 tablet Orally before bedtime Active Glucosamine Chondr Complex 500-400 MG 2 capsules with a meal Orally twice daily Active Citalopram Hydrobromide 40 MG 1 tablet Orally Once a day for 90 Active Multi Complete - 1 cap Orally Daily Active Colchicine 0.6 MG 1 tablet Orally twice a day for 5 day(s) Nov, Not-Taking Eliquis 5 MG as directed Orally twice daily Active PROCEDURES No Information RESULTS No Results REASON FOR VISIT October f/u MEDICAL (GENERAL) HISTORY Type Description Date Medical History Parkinsons-- sees Dr Jerry Hampton/[facility] Medical History asthma Medical History degenerative joint disease-- alejandro rt hip/knee; bone scan for [facility] 05/11 (lots of atrthritis, no mets) Medical History atrial fib Medical History diastolic CHF-- echo 12/12: E F 70%, aortic sclerosis w/o stenosis Medical History pacemaker Medical History DDD/DJD L/s spine 05/11 Medical History CKD 3, GFR 50s (stable 3417-8745) Medical History L/S DDD/DJD, sees ortho [facility] Medical History bronciectasis CT chest 12/12 Medical History ?. PMR--seen by rheum 12/12, started on Medrol, weaning intiated 06/11 by rheum, on Medrol 11/11 Medical History abnl light chain assay 12/12, referred to heme/onc Medical History osteoporos, DEXA 11/11, started rx 11/11 Surgical History left knee 1997 Surgical History left ankle fusion 1994 Surgical History pacemaker 2007 Surgical History tubal ligation 1980 Surgical History Colonoscopy-- tubulovillous adenoma 04/11 20 Hospitalization History pneumonia 07/2019 Goals Section No Information Health Concerns No Information MEDICAL EQUIPMENT No Information MENTAL STATUS No Information FUNCTIONAL STATUS No Information ASSESSMENTS Encounter Date Diagnosis Assessment Notes Treatment Notes Treatm ent Clinical Notes Oct, PMR (polymyalgia rheumatica) (ICD-10 - M35.3) Right now, I think the steroids are treating mechanical back pain, I'm not sure that PMR is very active despite the high ESR which is a nonspecific test. For now, she can continue Medrol 4 mg daily since when she reduced previously she had a lot more pain. Follow-up visit in late December with lab before. Oct, Primary osteoarthritis of right knee (ICD-10 - M 17.11) She has significant tricompartmental right knee osteoarthritis. She has not had response previously to Visco supplementation or steroid injections. her knee is really bothering her a lot, so I suggested that she see orthopedics again to review this issue and determine if she might be a candidate for total knee replacement. We reviewed that given her comorbidities, her recovery time from total knee replacement would be longer, and she would need to have medical clearance from her PCP if she were to have any operation. She prefers to see a different orthopedic provider, so I'm referring her to see Dr. Calderon. Oct, Lumbar spondylosis (ICD-10 - M47.816) She has a long history of degenerative arthritis at the spine, she states she was previously offered back surgery. She had injections previously that were helpful, and then others that were not as helpful. Right now, I think the main pain that she is experiencing is coming from the lumbar spine, I would like to see if orthopedics can treat that with some local injections. If so, I may be able to taper her off the Medrol, because I think she is currently experiencing pain that is strictly related to lumbar issues. I note that she cannot have MRI because she has a pacemaker, she thinks she had a back CT fairly recently. I will hold off on rechecking any other imaging at this time. Oct, Osteoporosis without current pathological fracture, unspecified osteoporosis type (ICD-10 - M81.0) She has severe osteoporosis with T-scores in the 3's at the hips. PCP prescribed Boniva, but she was told she needs to have a dental exam before initiating this. That would be a financial burden for her. I suggested that she have a consultation with endocrinology to clarify what the best treatment for her might be, and also to determine if she really needs a dental exam before initiating therapy. Given the severity of her issues, I wonder if Prolia would be a better choice than Boniva. Oct, Other Patient instructions : Refer to endocrine re - severe osteoporosis - PCP started Boniva but told her she needs to have dental exam first which is a financial burden - please evaluate and treat with the agent you think will be best for the patient's severe OP Refer to orthopedics - re back and knee - requests to see Dr. Calderon only Continue Medrol 4 mg daily for now Follow up late December with lab before PLAN OF TREATMENT Treatment Notes Assessment Notes Clinical Notes PMR (polymyalgia rheumatica) Right now, I think the [facility] are treating mechanical back pain, I'm not sure that PMR is very active despite the high ESR which is a nonspecific test.For now, she can continue Medrol 4 mg daily since when she reduced previously she had a lot more pain.Follow-up visit in late December with lab before. Primary osteoarthritis of right knee She has significa nt tricompartmental right knee osteoarthritis.She has not had response previously to Visco supplementation or steroid injections.her knee is really bothering her a lot, so I suggested t hat she see orthopedics again to review this issue and determine if she might be a candidate for total knee replacement.We reviewed that given her comorbidities, her recovery time from total knee replacement would be longer, and she would need to have medical clearance from her PCP if she were to have any operation.She prefers to see a different orthopedic provider, so I'm referring her to see Dr. Calderon. Lumbar spondylosis She has a long history of de generative arthritis at the spine, she states she was previously offered back surgery.She had injections previously that were helpful, and then others that were not as helpful.Right now, I think the main pain that she is experiencing is coming from the lumbar spine, I would like to see if orthopedics can treat that with some local injections.If so, I may be able to taper her off the Medrol, because I think she is currently experiencing pain that is strictly related to lumbar issues.I note that she cannot have MRI because she has a pacemaker, she thinks she had a back CT fairly recently.I will hold off on rechecking any other imaging at this time. Osteoporosis without current pathologica l fracture, unspecified osteoporosis type She has severe osteoporosis with T-score s in the 3's at the hips.PCP prescribed Boniva, but she was told she needs to have a dental exam before initiating this. That would be a financial burden for her.I suggested that she have a consultation with endocrinology to clarify what the best treatment for her might be, and also to determine if she really needs a dental exam before initiating therapy.Given the severity of her issues, I wonder if Prolia would be a better choice than Boniva. Future Test Test Name Order Date C REACTIVE PROTEIN QUANTITATIV (At [facility]) [id number] ERYTHROCYTE SEDIMENTATION RATE [id number] Next Appt Details late December Reason: Provider Name:Lo Lilly, 2020-12 01:00:00 PM, [address] [place] [address], [address], Insurance Providers Payer Name Payer Address Payer Phone Insured Name Patient Relati onship to Insured Coverage Start Date Coverage End Date MEDICARE COMPLETE [employer] [address] [address] [facility] [id number] HAKAN TAYLOR self
--- OUTSIDE RECORDS SUMMARY | 2020-12-20 14:00 | CCD ---
Author Author [facility] Organization [facility] Address Unknown Phone Unavailable Care Team Providers Care Vegetable Buncher Name Role Phone Orlando Pacheco Unavailable PROBLEMS Type Condition ICD9-CM Code [id number] Code Onset Dates Condition S tatus SNOMED Code Notes Problem Other secondary kyphosis, 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 Active 072306936 Problem Screening for osteoporosis Z13.820 Active 83118 8001 Problem Degenerative disc disease, lumbar M51.36 Active 71824249 Problem Mild intermittent asthma without complication J45. 20 Active 124050924 Problem Parkinson disease G20 Active 44122167 Problem Adjustment disorder with mixed anxiety and depressed mood F43.23 Active 200431886 Problem Lung nodule seen on imaging study R91.1 Active 218117123 Problem Unsteady gait R26.81 Active 748820346 Problem Osteoarthritis of multiple joints, unspecified o steoarthritis type M15.9 Active 856488392 Problem PMR (polymyalgia rheumatica) M35.3 Active 653 41940 Problem Parkinsons disease G20 Active 47548574 Problem Chronic fatigue R53.82 Active 37365490 Problem Abnormal laboratory test R89.9 Active 1652447 00 Problem Macrocytosis without anemia D75.89 Active 2343 23587 Problem Chronic atrial fibrillation I48.20 Active 4267 08552 Problem Trochanteric bursitis of right hip M70.61 Activ e 0846031 Problem Acquired hyperlipoproteinemia E78.5 Active 37 50675 intolerant of several statins Problem Generalized osteoarthrosis, involving multiple sites M15.9 Active 724359012 Problem Other chronic pain G89.29 Active 84932579 Problem [place]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 Active 471208 07 Problem Elevated sed rate R70.0 Active 819319172 Problem Primary osteoarthritis of right knee M17.11 Act haile [id number] ALLERGIES Allergen (clinical drug ingredient) Drug/Non Drug Allergy do cumented on EMR Reaction Allergy Type Onset Date Status Mirapex syncope Non Drug Allergy Active statins (simva, atorva) myalgias, itching Non Drug Allergy Active Keppra muscle cramps Non Drug Allergy Activ e carbidopa/levadopa diarrhea, depression Non Drug Allergy Active ENCOUNTERS from 1950 to 2020-10-11 Encounter Location Date Provider Diagnosis [facility] [address] [place] [address] Sep, Ian Pacheco Encounter for Medicare annual wellness exam Z00.00 ; ORDAZ (dyspnea on exertion) R06.00 ; Hot flashes R23.2 ; Chronic atrial fibrillation I48.20 ; Acquired hyperlipoproteinemia E78.5 ; Parkinson disease G20 ; Screening for osteoporosis Z13.820 ; [place]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 Drug [...] FOR REFERRAL No Information VITAL SIGNS Weight 142 lbs Sep, Height 62 in Sep, BMI 25.97 kg/m2 Sep, Heart Rate 76 /min Sep, Respiratory Rate 18 /min Sep, Temperature 97.4 degrees Fahrenheit Sep, Oximetry 97 Sep, Blood pressure systolic 132 mm Hg Sep, Blood pressure diastolic 74 mm Hg Sep, MEDICATIONS Medication SIG (Take, Route, Frequency, Duration) Notes Start Da te End Date Status Medrol 4 MG 1 tab Orally Daily May, Act haile Ezetimibe 10 MG 1 tablet Orally before bedtime Active Multi Complete - 1 cap Orally Daily Active Glucosamine Chondr Complex 500-400 MG 2 capsules with a meal Orally twice daily Active Ventolin HFA 90 MCG/ACT 2 puffs as needed Inhalation every 4 hrs Active Topiramate 200 MG 1 tablet Orally twice daily Active Citalopram Hydrobromide 40 MG 1 tablet Orally Once a day for 90 Active Carbidopa-Levodopa 25-100 MG 1 1/2 tablet Orally four times a day Active Eliquis 5 MG as directed Orally twice daily Active Tylenol Arthritis Pain 650 mg 2 capsules orally every 8 hours as needed for pain. no more than 6 capsules in 24 hours. Active Gabapentin 100 MG 3 capsules in am, 2 in jeremy, 3 at hs Orally Active Colace Active Glucosamine Chondro Complex - 1 capsule Orally twice a day Active Fish Oil 1000 MG 1 capsule Orally Twice a day Active Wixela Inhub 250-50 MCG/DOSE 1 puff Inhalation Twice a day for 90 Active PredniSONE 5 MG TAKE TWO TABLETS BY MOUTH EV CHASITY MORNING AFTER BREAKFAST Oral for 30 Not-Taking Medrol 4 MG 2 tablet in the morning with food or milk Orally Daily fo r 30 Not-Taking Metoprolol Tartrate 25 mg 1 tablet with food Orally Twice a day Active Ropinirole HCl 1 MG 2 tab Orally three times daily Active Flonase 50 MCG/DOSE 1 spray in each nostril Nasally Once a day as nee ded Active Colchicine 0.6 MG 1 tablet Orally twice a day for 5 day(s) Nov, Not-Taking PROCEDURES No Information RESULTS REASON FOR VISIT 3 month MEDICAL (GENERAL) HISTORY Type Description Date Medical [...] Medical History CKD 3, GFR 50s (stable 1799-5645) Medical History L/S DDD/DJD, sees ortho [facility] Medical History bronciectasis CT chest 12/12 Medical History ?. PMR--seen by rheum 12/12, started on Medrol, weaning intiated 06/11 by rheum Medical History abnl light chain assay 12/12, referred to heme/onc Surgical History left knee 1997 Surgical History left ankle fusion 1994 Surgical History pacemaker 2007 Surgical History tubal ligation 1980 Surgical History Colonoscopy-- tubulovillous adenoma 04/11 20 Hospitalization History pneumonia 07/2019 Goals Section No Information Health Concerns No Information MEDICAL EQUIPMENT No Information MENTAL STATUS No Information FUNCTIONAL STATUS No Information ASSESSMENTS Encounter Date Diagnosis Assessment Notes Treatment Notes Treatm ent Clinical Notes Sep, Encounter for Medicare annual wellness exam (ICD -10 - Z00.00) Sep, ORDAZ (dyspnea on exertion) (ICD-10 - R06.00) Sep, Hot flashes (ICD-10 - R23.2) Sep, Chronic atrial fibrillation (ICD-10 - I48.20) Sep, Acquired hyperlipoproteinemia (ICD-10 - E78.5) intolerant of several statins Sep, Parkinson disease (ICD-10 - G20) Sep, Screening for osteoporosis (ICD-10 - Z13.820) Sep, [place] light chain disease (ICD-10 - D89.89) Sep, PMR (polymyalgia rheumatica) (ICD-10 - M35.3) PLAN OF TREATMENT Treatment Notes Test Name Order Date Chest X-ray PA and lateral 2020-10-11 FREE KAPPA & LAMBDA LT CHAIN S 2020-10-11 Future Test Test Name Order Date DEXA Hip and Spine [id number] Next Appt Details 2-3 months Reason: Provider Name:Lo Lilly, 2020-10 01:00:00 PM, [address] [place] [address], [address], Provider Name:Orlando Pacheco, 2020-12 03:45:00 PM, [address], [address], Insurance Providers Payer Name Payer Address Payer Phone Insured Name Patient Relati onship to Insured Coverage Start Date Coverage End Date MEDICARE COMPLETE [employer] [address] [address] [facility] [phone] HAKAN TAYLOR self
--- OUTSIDE RECORDS SUMMARY | 2020-12-20 14:00 | CCD ---
Author Author [facility] Organization [facility] Address Unknown Phone Unavailable Care Team Providers Care Band Nailer Name Role Phone Orlando Pacheco Unavailable PROBLEMS Type Condition ICD9-CM Code [id number] Code Onset Dates Condition S tatus SNOMED Code Notes Problem Other secondary kyphosis, 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 Active 926603341 Problem Screening for osteoporosis Z13.820 Active 16742 8001 Problem Degenerative disc disease, lumbar M51.36 Active 83281574 Problem Mild intermittent asthma without complication J45. 20 Active 516688963 Problem Parkinson disease G20 Active 92076141 Problem Adjustment disorder with mixed anxiety and depressed mood F43.23 Active 410634880 Problem Lung nodule seen on imaging study R91.1 Active 582913872 Problem Unsteady gait R26.81 Active 418041513 Problem Osteoarthritis of multiple joints, unspecified o steoarthritis type M15.9 Active 046774932 Problem PMR (polymyalgia rheumatica) M35.3 Active 653 07410 Problem Parkinsons disease G20 Active 26698848 Problem Chronic fatigue R53.82 Active 14675646 Problem Abnormal laboratory test R89.9 Active 5489857 00 Problem Macrocytosis without anemia D75.89 Active 2343 01066 Problem Chronic atrial fibrillation I48.20 Active 4267 46762 Problem Trochanteric bursitis of right hip M70.61 Activ e 0455847 Problem Acquired hyperlipoproteinemia E78.5 Active 37 26337 intolerant of several statins Problem Generalized osteoarthrosis, involving multiple sites M15.9 Active 174587227 Problem Other chronic pain G89.29 Active 10945791 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 Active 168581 07 Problem Elevated sed rate R70.0 Active 396517304 Problem Primary osteoarthritis of right knee M17.11 Act haile [id number] ALLERGIES Allergen (clinical drug ingredient) Drug/Non Drug Allergy do cumented on EMR Reaction Allergy Type Onset Date Status Mirapex syncope Non Drug Allergy Active statins (simva, atorva) myalgias, itching Non Drug Allergy Active Keppra muscle cramps Non Drug Allergy Activ e carbidopa/levadopa diarrhea, depression Non Drug Allergy Active ENCOUNTERS from 1950 to 2020-10-27 Encounter Location Date Provider Diagnosis [facility] [address] [place] [address] Sep, Ian elis Wetterlaura IMMUNIZATIONS No Information SOCIAL HISTORY Tobacco Use: Social History Observation Description Date Details (start date - stop date) Former Smoker Sex Assigned At : Social History Observation Description Sex Assigned At Unknown Audit Question Answer Notes Total Score: 0 Interpretation: Alcohol Education Oriental Orthodox: Question Answer Notes Oriental Orthodox No baptist beliefs that would impact health care. Drug [...] REASON FOR REFERRAL No Information VITAL SIGNS No information MEDICATIONS Medication SIG (Take, Route, Frequency, Duration) [...] day(s) Nov, Not-Taking PROCEDURES No Information RESULTS No Results REASON FOR VISIT call back MEDICAL (GENERAL) HISTORY Type Description Date Medical [...] Medical History CKD 3, GFR 50s (stable 8172-2497) Medical History L/S DDD/DJD, sees [facility] [...] No Information FUNCTIONAL STATUS No Information ASSESSMENTS No Information PLAN OF TREATMENT Next Appt Details Provider Name:Orlando Pacheco, 2020-10 01:00:00 PM, [address] [place] [address], [phone], Provider Name:Lo Lilly 2020-10 01:00:00 PM, [address] [place] [address], [address], Provider Name:Orlando Pacheco, 2020-12 03:45:00 PM, [address], [place], [address], Insurance Providers Payer Name Payer Address Payer Phone Insured Name Patient Relati onship to Insured Coverage Start Date Coverage End Date MEDICARE COMPLETE [facility] [address] [address] [facility] [id number] HAKAN TAYLOR self
--- OUTSIDE RECORDS SUMMARY | 2020-12-20 14:00 | CCD | Continuity of Care Document ---
Author Author Arlet BOATENG MD Organization Unknown Address [address] [place] [address], [address] [address] Phone [phone] Care Team Providers Care Mortgage Protection Specialist Name Role Phone Lo Lilly MD AUTM [phone] Orlando Pacheco MD AUTM [phone] Problems Active Problems Provider Date Pure hypercholesterolemia [...] SIG Qnty Indications Ordering Provide r Date Proair HFA 108(90Base) mcg/Act Aer osol prn [...] O2 % BldC Oximetry 74 % Results Description No Information Available Procedures Description No Information Available Medical Devices Description No Information Available Encounters Description No Information Available Assessments Date Code Description Provider 11/20/2020 M81.0 Age-related osteoporosis without current pathological fracture Leia Boateng MD 11/20/2020 Z79.52 longterm (current) use of syste kristi steroids Leia Boateng MD 11/20/2020 E55.9 Vitamin D deficiency, unspecifie d Leia Boateng MD Plan of Treatment No Information Available Functional Status Description No Information Available Mental Status Description No Information Available Referrals Description No Information Available
--- OUTSIDE RECORDS SUMMARY | 2020-12-20 14:00 | CCD ---
Author Author [facility] Organization [facility] Address Unknown Phone Unavailable Care Team Providers Care Extension Clerk Name Role Phone Orlando Pacheco Unavailable PROBLEMS Type Condition ICD9-CM Code [id number] Code Onset Dates Condition S tatus SNOMED Code Notes Problem Adjustment disorder with mixed anxiety and depressed mood F43.23 Active 168440505 Problem Macrocytosis without anemia D75.89 Active 2343 78477 Problem Acquired hyperlipoproteinemia E78.5 Active 37 88377 intolerant of several statins Problem Other chronic pain G89.29 Active 39494710 Problem Parkinsons disease G20 Active 74034905 Problem Degenerative disc disease, lumbar M51.36 Active 18265600 Problem Other secondary kyphosis, 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 Active 406162442 Problem Unsteady gait R26.81 Active 363211833 Problem Parkinson disease G20 Active 26215130 Problem Trochanteric bursitis of right hip M70.61 Activ e 5601902 Problem Lung nodule seen on imaging study R91.1 Active 444600237 Problem Osteoarthritis of multiple joints, unspecified o steoarthritis type M15.9 Active 078350914 Problem Abnormal laboratory test R89.9 Active 2171322 00 Problem PMR (polymyalgia rheumatica) M35.3 Active 653 85579 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 20 Active 703950326 Problem Chronic fatigue R53.82 Active 51984096 Problem Primary osteoarthritis of right knee M17.11 Act haile 040007221312280 Problem Lumbar spondylosis M47.816 Active 149744224 Problem Osteoporosis without current pathological fracture, unspecified osteoporosis type M81.0 Active 19815717 ALLERGIES Allergen (clinical drug ingredient) Drug/Non Drug Allergy do cumented on EMR Reaction Allergy Type Onset Date Status Mirapex syncope Non Drug Allergy Active statins (simva, atorva) myalgias, itching Non Drug Allergy Active Keppra muscle cramps Non Drug Allergy Activ e carbidopa/levadopa diarrhea, depression Non Drug Allergy Active ENCOUNTERS from 1950 to 2020-12-04 Encounter Location Date Provider Diagnosis [facility] [address] [place] [address] Nov, Ian Pacheco IMMUNIZATIONS No Information SOCIAL HISTORY Tobacco Use: Social History Observation Description Date Details (start date - stop date) Former Smoker Sex Assigned At : Social History Observation Description Sex Assigned At Unknown Audit Question Answer Notes Total Score: 0 Interpretation: Alcohol Education Evangelical: Question Answer Notes Evangelical No adventist beliefs that would impact health care. Drug [...] Notes Start Da te End Date Status Glucosamine Chondro Complex - 1 capsule Orally twice a day Active Topiramate 200 MG 1 tablet Orally twice daily Active Citalopram Hydrobromide 40 MG 1 tablet Orally Once a day for 90 Active PredniSONE 5 MG TAKE TWO TABLETS BY MOUTH EV CHASITY MORNING AFTER BREAKFAST Oral for 30 Not-Taking Wixela Inhub 250-50 MCG/DOSE 1 puff Inhalation Twice a day for 90 Active Medrol 4 MG 2 tablet in the morning with food or milk Orally Daily fo r 30 Not-Taking Flonase 50 MCG/DOSE 1 spray in each nostril Nasally Once a day as nee ded Active Tylenol Arthritis Pain 650 mg 2 capsules orally every 8 hours as needed for pain. no more than 6 capsules in 24 hours. Active Carbidopa-Levodopa 25-100 MG 1 1/2 tablet Orally four times a day Active Ropinirole HCl 1 MG 2 tab Orally three times daily Active Ezetimibe 10 MG 1 tablet Orally before bedtime Active Metoprolol Tartrate 25 mg 1 tablet with food Orally Twice a day Active Gabapentin 100 MG 3 capsules in am, 2 in jeremy, 3 at hs Orally Active Eliquis 5 MG as directed Orally twice daily Active Glucosamine Chondr Complex 500-400 MG 2 capsules with a meal Orally twice daily Active Fish Oil 1000 MG 1 capsule Orally Twice a day Active Medrol 4 MG 1 tab Orally Daily May, Act haile Ibandronate Sodium 150 MG 1 tablet Orally monthly for 90 day(s) Oct, Active Colace Active Multi Complete - 1 cap Orally Daily Active Colchicine 0.6 MG 1 tablet Orally twice a day for 5 day(s) Nov, Not-Taking Ventolin HFA 90 MCG/ACT 2 puffs as needed Inhalation every 4 hrs Active PROCEDURES No Information RESULTS No Results REASON FOR VISIT siezure history/C19 vacc MEDICAL (GENERAL) HISTORY Type Description Date Medical [...] Medical History CKD 3, GFR 50s (stable 3903-8823) Medical History L/S DDD/DJD, sees ortho [facility] [...] Information ASSESSMENTS No Information PLAN OF TREATMENT Medication Medication Name Sig Start Date Stop Date Citalopram Hydrobromide 40 MG 1 tablet Orally Once a day for 90 Wixela Inhub 250-50 MCG/DOSE 1 puff Inhalation Twice a day for 9 0 Next Appt Details Provider Name:Lo Lilly, 2020-12 01:00:00 PM, [address] [place] [address], [id number], Insurance Providers Payer Name Payer Address Payer Phone Insured Name Patient Relati onship to Insured Coverage Start Date Coverage End Date MEDICARE COMPLETE UNITED [employer] [address] [address] [facility] [phone] HAKAN TAYLOR self
--- OUTSIDE RECORDS SUMMARY | 2020-12-20 14:00 | CCD | Continuity of Care Document ---
Author Author Arlet BOATENG MD Organization Unknown Address [address] [place] [address], [address] [address] Phone [phone] Care Team Providers Care Rabbler Name Role Phone Lo Lilly MD AUTM [phone] Orlando Pacheco MD AUTM [phone] Problems Active Problems Provider Date Pure hypercholesterolemia [...] Zoledronic Acid 5mg/100ML Solution once yearly at [facility] infusion center M81.0 Gallito Lemus 11/20/2020 Proair [...] Aeroso l 1 puff twice daily Unknown [facility] Senior Women 50+ 1 po qd Unknown [...] related osteoporosis w/o current pathological fracture Z79.52 joint terminal attack controller (current) use of s ystemic steroids E55.9 Vitamin D deficiency, unspec ified E58 Dietary calcium deficiency D47.2 Monoclonal gammopathy Assessments Date Code Description Provider 11/20/2020 M81.0 Age-related osteoporosis without current pathological fracture Leia Boateng MD 11/20/2020 Z79.52 prison (current) use of syste kristi steroids Leia Boateng MD 11/20/2020 E55.9 Vitamin D deficiency, unspecifie d Leia Boateng MD 11/20/2020 E58 Dietary calcium deficiency Gavin Boateng MD 11/20/2020 D47.2 Monoclonal gammopathy Leia Boateng MD Plan of Treatment 11/20/2020 - Leia Boateng MD* M81.0 Age-related osteoporosis without current pathological fracture* New Medication:* Zoledronic Acid 5 mg/100ML - once yearly at [facility] infusion center * New Labs:* Basic Metabolic Profile, Ordered: 11/20/20 * Comments:* Patient has multiple medical problems [...] doing. Written instructions were provided. * Z79.52 prison (current) use of systemic steroids* Comments:* Patient reports that she has been on 4 mg of Medrol since 2019. This is treatment for her PMR. She's been unable to decrease on the dose without increase in s ymptoms. * E55.9 Vitamin D deficiency, unspecified* New Labs:* Vitamin D 25-Hydroxy, Ordered: 11/20/20 * Comments:* Patient was instructed to immediately start [...] records reviewed from her PCP off the [facility] website and also we reviewed her rheumatology notes. She has a kapa 's light chain monoclonal gammopathy. Functional Status Description No Information Available Mental Status Description No Information Available Referrals Description No Information Available
--- OUTSIDE RECORDS SUMMARY | 2020-12-20 14:00 | CCD ---
Author Author [facility] Organization [facility] Address Unknown Phone Unavailable Care Team Providers Care Shake Splitter Name Role Phone Orlando Pacheco Unavailable PROBLEMS Type Condition ICD9-CM Code ODD48-PG Code Onset Dates Condition S tatus SNOMED Code Notes Problem Adjustment disorder with mixed anxiety and depressed mood F43.23 Active 973311258 Problem Macrocytosis without anemia D75.89 Active 2343 66247 Problem Acquired hyperlipoproteinemia E78.5 Active 37 79927 intolerant of several statins Problem Other chronic pain G89.29 Active 57611198 Problem Parkinsons disease G20 Active 84864040 Problem Degenerative disc disease, lumbar M51.36 Active 77151484 Problem Other secondary kyphosis, 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 Active 027227656 Problem Unsteady gait R26.81 Active 070611307 Problem Parkinson disease G20 Active 98462096 Problem Trochanteric bursitis of right hip M70.61 Activ e 5382462 Problem Lung nodule seen on imaging study R91.1 Active 008924873 Problem Osteoarthritis of multiple joints, unspecified o steoarthritis type M15.9 Active 860826808 Problem Abnormal laboratory test R89.9 Active 2901230 00 Problem PMR (polymyalgia rheumatica) M35.3 Active 653 91904 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 20 Active 890159084 Problem Chronic fatigue R53.82 Active 28374275 Problem Primary osteoarthritis of right knee M17.11 Act haile 125247886572549 Problem Lumbar spondylosis M47.816 Active 015093059 Problem Osteoporosis without current pathological fracture, unspecified osteoporosis type M81.0 Active 56814647 ALLERGIES Allergen (clinical drug ingredient) Drug/Non Drug Allergy do cumented on EMR Reaction Allergy Type Onset Date Status Mirapex syncope Non Drug Allergy Active statins (simva, atorva) myalgias, itching Non Drug Allergy Active Keppra muscle cramps Non Drug Allergy Activ e carbidopa/levadopa diarrhea, depression Non Drug Allergy Active ENCOUNTERS from 1950 to 2020-11-20 Encounter Location Date Provider Diagnosis [facility] [address] [place] [address] Oct, Ian Pacheco Other osteoporosis without current pathological fracture M81.8 ; Chronic atrial fibrillation I48.20 ; Acquired hyperlipoproteinemia E78.5 ; Parkinson disease G20 ; [place]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 Drug [...] Information RESULTS No Results REASON FOR VISIT discuss Dexa and new order MEDICAL (GENERAL) HISTORY Type Description Date Medical [...] Medical History CKD 3, GFR 50s (stable 9900-6828) Medical History L/S DDD/DJD, sees ortho [facility] [...] Treatment Notes Treatm ent Clinical Notes Oct, Other osteoporosis without c urrent pathological fracture (ICD-10 - M81.8) Medication instuctions and Education provided to patient, and pt verbalized understanding of same. I advised a dental evaluation before initiating tx, she understands Oct, Chronic atrial fibrillation (ICD-10 - I48.20) Oct, Acquired hyperlipoproteinemia (ICD-10 - E78.5) intolerant of several statins Oct, Parkinson disease (ICD-10 - G20) Oct, [place] light chain disease (ICD-10 - D89.89) Oct, PMR (polymyalgia rheumatica) (ICD-10 - M35.3) PLAN OF TREATMENT Treatment Notes Assessment Notes Clinical Notes Other osteoporosis without current pathological fracture Medication instuctions and Education provided to patient, and pt verbalized understanding of same. I advised a dental evaluation before initiating tx, she understands Future Test Test Name Order Date VITAMIN D 25-HYDROXY [id number] PTH INTACT [id number] Next Appt Details 4 Months Reason: Provider Name:Lo Lilly, 2020-12 01:00:00 PM, [address] [place] [address], [id number], Insurance Providers Payer Name Payer Address Payer Phone Insured Name Patient Relati onship to Insured Coverage Start Date Coverage End Date MEDICARE COMPLETE UNITED [employer] [address] [address] [facility] [phone] HAKAN TAYLOR self
--- OUTSIDE RECORDS SUMMARY | 2020-12-20 14:01 | CCD ---
Author Author [facility] Organization [facility] Address Unknown Phone Unavailable Care Team Providers Care Sales Assistant Name Role Phone Trickey, J Rosangela PA Unavailable Unavailable Trickey, J Rosangela PA Unavailable Unavailable Trickey, J Rosangela PA Unavailable Unavailable Trickey, J Rosangela PA Unavailable Unavailable Trickey, J Rosangela PA Unavailable Unavailable Trickey, J Rosangela PA Unavailable Unavailable Trickey, J Rosangela PA Unavailable Unavailable Trickey, J Rosangela PA Unavailable Unavailable Trickey, J Rosangela PA Unavailable Unavailable Trickey, J Rosangela PA Unavailable Unavailable Trickey, J Rosangela PA Unavailable Unavailable Trickey, J Rosangela PA Unavailable Unavailable Trickey, J Rosangela PA Unavailable Unavailable Trickey, J Rosangela PA Unavailable Unavailable Trickey, J Rosangela PA Unavailable Unavailable Trickey, J Rosangela PA Unavailable Unavailable Trickey, J Rosangela PA Unavailable Unavailable Trickey, J Rosangela PA Unavailable Unavailable Trickey, J Rosangela PA Unavailable Unavailable Trickey, J Rosangela PA Unavailable Unavailable Trickey, J Rosangela PA Unavailable Unavailable Trickey, J Rosangela PA Unavailable Unavailable Trickey, J Rosangela PA Unavailable Unavailable Trickey, J Rosangela PA Unavailable Unavailable Trickey, J Rosangela PA Unavailable Unavailable Trickey, J Rosangela PA Unavailable Unavailable Trickey, J Rosangela PA Unavailable Unavailable Trickey, J Rosangela PA Unavailable Unavailable Trickey, J Rosangela PA Unavailable Unavailable Trickey, J Rosangela PA Unavailable Unavailable Trickey, J Rosangela PA Unavailable Unavailable Trickey, J Rosangela PA Unavailable Unavailable Trickey, J Rosangela PA Unavailable Unavailable Trickey, J Rosangela PA Unavailable Unavailable Trickey, J Rosangela PA Unavailable Unavailable Trickey, J Rosangela PA Unavailable Unavailable Trickey, J Rosangela PA Unavailable Unavailable Trickey, J Rosangela PA Unavailable Unavailable Trickey, J Rosangela PA Unavailable Unavailable Trickey, J Rosangela PA Unavailable Unavailable Trickey, J Rosangela PA Unavailable Unavailable Trickey, J Rosangela PA Unavailable Unavailable Trickey, J Rosangela PA Unavailable Unavailable Trickey, J Rosangela PA Unavailable Unavailable Trickey, J Rosangela PA Unavailable Unavailable Trickey, J Rosangela PA Unavailable Unavailable Trickey, J Rosangela PA Unavailable Unavailable Trickey, J Rosangela PA Unavailable Unavailable Trickey, J Roasngela PA Unavailable Unavailable Trickey, J Rosangela PA Unavailable Unavailable Trickey, J Rosangela PA Unavailable Unavailable Trickey, J Rosangela PA Unavailable Unavailable Fish B Leia LEE Unavailable Unavailable Fish B Leia LEE Unavailable Unavailable Fish B Leia LEE Unavailable Unavailable Fish B Leia LEE Unavailable Unavailable Fish B Leia LEE Unavailable Unavailable Fish B Leia LEE Unavailable Unavailable Fish B Leia LEE Unavailable Unavailable Fish B Leia LEE Unavailable Unavailable Fish B Leia LEE Unavailable Unavailable Satya B Leia LEE Unavailable Unavailable Satya B Leia LEE Unavailable Unavailable Fish B Leia LEE Unavailable Unavailable Fish B Leia LEE Unavailable Unavailable Fish B Leia LEE Unavailable Unavailable Fish B Leia LEE Unavailable Unavailable Fish B Leia LEE Unavailable Unavailable Fish B Leia LEE Unavailable Unavailable Fish B Leia LEE Unavailable Unavailable Fish B Leia LEE Unavailable Unavailable Fish B Leia LEE Unavailable Unavailable Fish B Leia LEE Unavailable Unavailable Fish B Leia LEE Unavailable Unavailable Fish B Leia LEE Unavailable Unavailable Fish B Leia LEE Unavailable Unavailable Fish B Leia LEE Unavailable Unavailable Fish B Leia LEE Unavailable Unavailable Fish B Leia LEE Unavailable Unavailable Fish B Leia LEE Unavailable Unavailable Fish B Leia LEE Unavailable Unavailable Fish B Leia LEE Unavailable Unavailable Fish B Leia LEE Unavailable Unavailable Fish B Leia MD Unavailable Unavailable Fish, B Leia MD Unavailable Unavailable Fish, B Leia MD Unavailable Unavailable Fish, B Leia MD Unavailable Unavailable Fish, B Leia MD Unavailable Unavailable Fish, B Leia MD Unavailable Unavailable Fish, B Leia MD Unavailable Unavailable Fish, B Leia MD Unavailable Unavailable Fish, B Leia MD Unavailable Unavailable Fish, B Leia MD Unavailable Unavailable Fish, B Leia MD Unavailable Unavailable Fish, B Leia MD Unavailable Unavailable Fish, B Leia MD Unavailable Unavailable Fish, B Leia MD Unavailable Unavailable Fish, B Leia MD Unavailable Unavailable Fish, B Leia MD Unavailable Unavailable Fish, B Leia MD Unavailable Unavailable Fish, B Leia MD Unavailable Unavailable Fish, B Leia MD Unavailable Unavailable Fish, B Leia MD Unavailable Unavailable Fish, B Leia MD Unavailable Unavailable Fish, B Leia MD Unavailable Unavailable Fish, B Leia MD Unavailable Unavailable Fish, B Leia MD Unavailable Unavailable Fish, B Leia MD Unavailable Unavailable Fish, B Leia MD Unavailable Unavailable Fish, B Leia MD Unavailable Unavailable Fish, B Leia MD Unavailable Unavailable Fish, B Leia MD Unavailable Unavailable Fish, B Leia MD Unavailable Unavailable Fish, B Leia MD Unavailable Unavailable Fish, B Leia MD Unavailable Unavailable Fish, B Leia MD Unavailable Unavailable Re-disclosure Warning The records that you are about to access may contain information from federally-assisted alcohol or drug abuse programs. If such information is present, then the following federally mandated warning applies: This information has been disclosed to you from records protected by federal confidentiality rules (42 CFR part 2). The federal rules prohibit you from making any further disclosure of this information unless further disclosure is expressly permitted by the written consent of the person to whom it pertains or as otherwise permitted by 42 CFR part 2. A general authorization for the release of medical or other information is NOT sufficient for this purpose. The Federal rules restrict any use of the information to criminally investigate or prosecute any alcohol or drug abuse patient.The records that you are about to access may contain highly sensitive health information, the redisclosure of which is protected by Article 27-F of the [facility] Public Health law. If you continue you may have access to information: Regarding HIV / AIDS; Provided by facilities licensed or operated by the [facility] Office of Mental Health; or Provided by the [facility] Office for People With Developmental Disabilities. If such information is present, then the following [facility] mandated warning applies: This information has been disclosed to you from confidential records which are protected by state law. State law prohibits you from making any further disclosure of this information without the specific written consent of the person to whom it pertains, or as otherwise permitted by law. Any unauthorized further disclosure in violation of state law may result in a fine or prison sentence or both. A general authorization for the release of medical or other information is NOT sufficient authorization for further disc losure. Allergies and Adverse Reactions Type Description Substance Reaction Status Data Source(s ) carbidopa/levadopa carbidopa/levadopa carbidopa/levadopa diarrhea, depression Active eCW1 ([facility]) statins (simva, atorva) statins (simva, atorva) statins (simva, atorva) myalgias, itching Active eCW1 ([facility]) Keppra Keppra Levetiracetam 100 MG/ML Injectab le Solution [Keppra] muscle cramps Active eCW1 ([facility]) Mirapex Mirapex Pramipexole dihydrochloride 0.75 MG Oral Tablet [Mirapex] syncope Active eCW1 ([facility]) carbidopa/levadopa carbidopa/levadopa carbidopa/levadopa diarrhea, depression Active eCW1 ([facility]) statins (simva, atorva) statins (simva, atorva) statins (simva, atorva) myalgias, itching Active eCW1 ([facility]) Keppra Keppra Levetiracetam 100 MG/ML Injectab le Solution [Keppra] muscle cramps Active eCW1 ([facility]) Mirapex Mirapex Pramipexole dihydrochloride 0.75 MG Oral Tablet [Mirapex] syncope Active eCW1 ([facility]) statins (simva, atorva) statins (simva, atorva) statins (simva, atorva) myalgias, itching Active eCW1 ([facility]) Keppra Keppra Levetiracetam 100 MG/ML Injectab le Solution [Keppra] muscle cramps Active eCW1 ([facility]) Mirapex Mirapex Pramipexole dihydrochloride 0.75 MG Oral Tablet [Mirapex] syncope Active eCW1 ([facility]) carbidopa/levadopa carbidopa/levadopa carbidopa/levadopa diarrhea, depression Active eCW1 ([facility]) statins (simva, atorva) statins (simva, atorva) statins (simva, atorva) myalgias, itching Active eCW1 ([facility]) Keppra Keppra Levetiracetam 100 MG/ML Injectab le Solution [Keppra] muscle cramps Active eCW1 ([facility]) Mirapex Mirapex Pramipexole dihydrochloride 0.75 MG Oral Tablet [Mirapex] syncope Active eCW1 ([facility]) carbidopa/levadopa carbidopa/levadopa carbidopa/levadopa diarrhea, depression Active eCW1 ([facility]) carbidopa/levadopa carbidopa/levadopa carbidopa/levadopa diarrhea, depression Active eCW1 ([facility]) statins (simva, atorva) statins (simva, atorva) statins (simva, atorva) myalgias, itching Active eCW1 ([facility]) Keppra Keppra Levetiracetam 100 MG/ML Injectab le Solution [Keppra] muscle cramps Active eCW1 ([facility]) Mirapex Mirapex Pramipexole dihydrochloride 0.75 MG Oral Tablet [Mirapex] syncope Active eCW1 ([facility]) Family History Family Member Name Family Member Gender Family Member Status Date o f Status Description Data Source(s) Unknown Unknown Problem [facility] ([facility]) Encounters Encounter Providers Location Date Indications Data Source(s ) Office Visit Attender: Rosangela AGUILAR Main office [facility] 12/10/2020 12:30:00 PM EST MEDENT ([facility]) [place] [address] [facility] [address] 12/03/2020 12:00:00 AM EST eCW1 [facility]) Outpatient Attender: Leia Hernadez MD Physical Therapy 11/20 01:45:00 PM EST MEDENT ([facility]) Office Visit, Est Pt., Level 4 PC [address] [place] [address] 11/12/2020 12:00:00 AM EST eCW1 ([facility]) TeleMedicine Est. Pt. Level 3 [address] [place] [address] 11/08/2020 12:00:00 AM EST eCW1 ([facility]) Unknown [address] [facility] [place] [address] 10/22/2020 12:00:00 AM EST eCW1 ([facility]) Outpatient [address] [facility] [id number] 10/09/2020 12:00:00 AM EST eCW1 ([facility]) Outpatient Attender: Rosangela AGUILAR [facility] office - [facility] 09/06/2020 01:45:00 PM EDT MEDENT ([facility]) Outpatient [address] [facility] [place] [address] 06/07/2020 12:00:00 AM EDT eCW1 ([facility]) Outpatient Attender: Rosangela AGUILAR Main office - [facility] 06/05/2020 01:30:00 PM EDT MEDENT ([facility]) Outpatient [address] [facility] [place] [address] 05/29/2020 12:00:00 AM EDT eCW1 ([facility]) [facility] [address] [facility] [place] [address] 03/05/2020 12:00:00 AM EDT eCW1 ([facility]) Outpatient 02/23/2020 05:38:00 AM EDT [facility] [address] [facility] [place] [address] 02/09/2020 12:00:00 AM EDT eCW1 ([facility]) [facility] Rheumatology Center [address] [place] [phone] 01/19/2020 12:00:00 AM EST eCW1 ([facility]) Outpatient 01/03/2020 01:51:00 PM EST [facility] Rheumatology [address] [place] [phone] 12/30/2019 12:00:00 AM EST eCW1 ([facility]) [facility] [address] [place] [address] Y [address] 12/27/2019 12:00:00 AM EST eCW1 ([facility]) [facility] [address] [place] [address] Y [address] 12/23/2019 12:00:00 AM EST eCW1 ([facility]) [facility] [address] [place] [address] N [place] [address] 12/23/2019 12:00:00 AM EST eCW1 ([facility]) [address] [place] [address] 12/21/2019 12:00:00 AM EST eCW1 ([facility]) [facility] Rheumatology [address] [place] [phone] 12/07/2019 12:00:00 AM EST eCW1 ([facility]) Outpatient Attender: Rosangela Rizzo [facility] office [facility] 11/25/2019 11:15:00 AM EST MEDENT ([facility]) [facility] Rheumatology Center [address] [place] [phone] 11/10/2019 12:00:00 AM EST eCW1 ([facility]) [address] [place] [address] 11/08/2019 12:00:00 AM EST eCW1 ([facility]) [facility] Rheumatology [address] [place] [phone] 11/01/2019 12:00:00 AM EST eCW1 ([facility]) [facility] [address] [facility] [place] [address] 11/01/2019 12:00:00 AM EST eCW1 ([facility]) [facility] [address] [facility] [place] [address] 11/01/2019 12:00:00 AM EST eCW1 ([facility]) [facility] Rheumatology [address] [place] [address] 10/27/2019 12:00:00 AM EST eCW1 ([facility]) [facility] [address] [facility] [place] [address] 10/24/2019 12:00:00 AM EST eCW1 ([facility]) Medications Medication Brand Name Start Date Product Form Dose Route Admi nistrative Instructions Pharmacy Instructions Status Indications Reaction Description Data Source(s) zoledronic acid 0.05 MG/ML Injectable Solution Zoledronic Ac id 11/20/2020 12:00:00 AM EST active M EDENT ([facility]) ibandronic acid 150 MG Oral Tablet Ibandronate Sodium 150 MG Ibandronate Sodium 150 MG 11/08/2020 12:00:00 AM EST 1.0 {tablet} activ e Ibandronate Sodium 150 MG eCW1 ([facility]) ibandronic acid 150 MG Oral Tablet Ibandronate Sodium 150 MG Ibandronate Sodium 150 MG 11/08/2020 12:00:00 AM EST 1.0 {tablet} activ e Ibandronate Sodium 150 MG eCW1 ([facility]) ibandronic acid 150 MG Oral Tablet Ibandronate Sodium 150 MG Ibandronate Sodium 150 MG 11/08/2020 12:00:00 AM EST 1.0 {tablet} activ e Ibandronate Sodium 150 MG eCW1 ([facility]) 50 mg 07/25/2020 12:00:00 AM EDT tablet 20 TAKE ONE TABLET BY MOUTH EVERY 4 TO 6 HOURS NEEDED FOR PAIN MAXIMUM DAILY DOSE = 4 TABLETS TAKE ONE TABLET BY MOUTH EVERY 4 TO 6 HOURS NEEDED FOR PAIN MAXIMUM DAILY DOSE = 4 TABLETS SOLD: 07/25/2020 [facility] tramadol hydrochloride 50 MG Oral Tablet Tramadol HCL 07/24/2020 12:00:00 AM EDT active [facility] 50 mg 07/18/2020 12:00:00 AM EDT tablet 15 TAKE ONE TABLET BY MOUTH EVERY 8 HOURS NEEDED FOR PAIN * MAXIMUM DAILY DOSE = 3 TAKE ONE TABLET BY MOUTH EVERY 8 HOURS NEEDED FOR PAIN * MAXIMUM DAILY DOSE = 3 SOLD: 07/18/2020 [facility] 4 mg 07/13/2020 12:00:00 AM EDT tablet 90 TAKE ONE TABLET BY MOUTH ONCE DAILY TAKE ONE TABLET BY MOUTH ONCE DAILY SOLD: 10/12/2020 [facility] 4 mg 07/13/2020 12:00:00 AM EDT tablet 90 TAKE ONE TABLET BY MOUTH ONCE DAILY TAKE ONE TABLET BY MOUTH ONCE DAILY SOLD: 07/15/2020 [facility] 4 mg 07/02/2020 12:00:00 AM EDT tablet 28 TAKE ONE TABLET BY MOUTH TWO TIMES A DAY FOR 14 DAYS TAKE ONE TABLET BY MOUTH TWO TIMES A DAY FOR 14 DAYS S OLD: 07/03/2020 [facility] Rolling Walker With Seat And Hand Brakes 06/05/2020 12:00:00 AM EDT completed MEDENT ([facility]) Methylprednisolone 4 MG Oral Tablet Methylprednisolone 05/2020 12:00:00 AM EDT ORAL active MEDENT ([facility]) docosahexaenoic acid 120 MG / Eicosapentaenoic Acid 18 0 MG Oral Capsule Fish Oil 05/29/2020 12:00:00 AM EDT ORAL active MEDENT ([facility]) gabapentin 100 MG Oral Capsule Gabapentin 05/29/2020 12:00:00 AM EDT ORAL active MEDENT ([facility]) Wixela Inhub Wixela Inhub 05/29/2020 12:00:00 AM EDT RESPIR ATORY active MEDENT ([facility]) Methylprednisolone 4 MG Oral Tablet [Medrol] Medrol 4 MG Med rol 4 MG 05/23/2020 12:00:00 AM EDT active Medrol 4 MG eCW1 ([facility]) Methylprednisolone 4 MG Oral Tablet [Medrol] Medrol 4 MG Med rol 4 MG 05/23/2020 12:00:00 AM EDT active Medrol 4 MG eCW1 ([facility]) 4 mg 05/23/2020 12:00:00 AM EDT tablet 60 TAKE 1-2 TABLETS BY MOUTH DAILY NEEDED TAKE 1-2 TABLETS BY MOUTH DAILY NEEDED SOLD: 05/25/2020 [facility] Methylprednisolone 4 MG Oral Tablet [Medrol] Medrol 4 MG Med rol 4 MG 05/23/2020 12:00:00 AM EDT active Medrol 4 MG eCW1 ([facility]) Methylprednisolone 4 MG Oral Tablet [Medrol] Medrol 4 MG Med rol 4 MG 05/23/2020 12:00:00 AM EDT active Medrol 4 MG eCW1 ([facility]) Methylprednisolone 4 MG Oral Tablet [Medrol] Medrol 4 MG Med rol 4 MG 05/23/2020 12:00:00 AM EDT active Medrol 4 MG eCW1 ([facility]) Methylprednisolone 4 MG Oral Tablet [Medrol] Medrol 4 MG Med rol 4 MG 05/23/2020 12:00:00 AM EDT active Medrol 4 MG eCW1 ([facility]) Methylprednisolone 4 MG Oral Tablet [Medrol] Medrol 4 MG Med rol 4 MG 05/23/2020 12:00:00 AM EDT active Medrol 4 MG eCW1 ([facility]) topiramate 200 MG Oral Tablet Topiramate 03/27/2020 12:00:00 AM EDT active MEDENT ([facility] ) 100 mg 02/08/2020 12:00:00 AM EDT capsule 240 TAKE THREE CAPSULES BY MOUTH EVERY MORNING 2 IN THE AFTERNOON AND THREE AT BEDTIME TAKE THREE CAPSULES BY MOUTH EVERY MORNING 2 IN THE AFTERNOON AND THREE AT BEDTIME SOLD: 02/13/2020 [facility] POLYETHYLENE GLYCOL 3350 142 MG/ML Oral Solution [Miralax] M iralax 01/16/2020 12:00:00 AM EST active M EDENT ([facility] ) Bisacodyl 5 MG Delayed Release Oral Tablet [Dulcolax] Dulcol ax 01/16/2020 12:00:00 AM EST ORAL active M EDENT ([facility] ) Colchicine 0.6 MG Oral Tablet Colchicine 0.6 MG 12/23/2019 12:00:00 AM EST 1.0 {tablet} suspended Colchicine 0.6 MG eC W1 ([facility]) Colchicine 0.6 MG Oral Tablet Colchicine 0.6 MG 12/23/2019 12:00:00 AM EST 1.0 {tablet} suspended Colchicine 0.6 MG eC W1 ([facility]) 0.6 mg 12/23/2019 12:00:00 AM EST tablet 10 TAKE ONE TABLET BY MOUTH TWICE A DAY FOR 5 DAYS TAKE ONE TABLET BY MOUTH TWICE A DAY FOR 5 DAYS SOLD: 12/23/2019 [facility] Colchicine 0.6 MG Oral Tablet Colchicine 0.6 MG 12/23/2019 12:00:00 AM EST 1.0 {tablet} suspended Colchicine 0.6 MG eC W1 ([facility]) Colchicine 0.6 MG Oral Tablet Colchicine 0.6 MG 12/23/2019 12:00:00 A M EST active 1 tablet eCW1 ([facility]) Colchicine 0.6 MG Oral Tablet Colchicine 0.6 MG 12/23/2019 12:00:00 AM EST 1.0 {tablet} suspended Colchicine 0.6 MG eC W1 ([facility]) Colchicine 0.6 MG Oral Tablet Colchicine 0.6 MG 12/23/2019 12:00:00 AM EST 1.0 {tablet} suspended Colchicine 0.6 MG eC W1 ([facility]) Colchicine 0.6 MG Oral Tablet Colchicine 0.6 MG 12/23/2019 12:00:00 AM EST 1.0 {tablet} suspended Colchicine 0.6 MG eC W1 ([facility]) Colchicine 0.6 MG Oral Tablet Colchicine 0.6 MG 12/23/2019 12:00:00 AM EST 1.0 {tablet} suspended Colchicine 0.6 MG eC W1 ([facility]) Colchicine 0.6 MG Oral Tablet Colchicine 0.6 MG 12/23/2019 12:00:00 A M EST active 1 tablet eCW1 ([facility]) Methylprednisolone 4 MG Oral Tablet [Medrol] Medrol 4 MG Med rol 4 MG 12/07/2019 12:00:00 AM EST suspended 2 tablet in the morning with food or milk eCW1 ([facility]) Methylprednisolone 4 MG Oral Tablet [Medrol] Medrol 4 MG Med rol 4 MG 12/07/2019 12:00:00 AM EST active 2 tablet in the morning with food or milk eCW1 ([facility]) Methylprednisolone 4 MG Oral Tablet [Medrol] Medrol 4 MG Med rol 4 MG 12/07/2019 12:00:00 AM EST suspended 2 tablet in the morning with food or milk eCW1 ([facility]) topiramate 200 MG Oral Tablet [Topamax] Topamax 11/25/2019 12:00:0 0 AM EST ORAL active [facility] 5 mg 11/01/2019 12:00:00 AM EST tablet 60 TAKE TWO TABLETS BY MOUTH EVERY MORNING AFTER BREAKFAST TAKE TWO TABLETS BY MOUTH EVERY MORNING AFTER BREAKFAS T SOLD: 11/30/2019 [facility] Wixela Inhub 250-50 MCG/DOSE Wixela Inhub 250-50 MCG/DOSE 12:00:00 AM EST active 1 puff eCW1 ([facility]) Wixela Inhub 250-50 MCG/DOSE Wixela Inhub 250-50 MCG/DOSE 12:00:00 AM EST active 1 puff eCW1 ([facility]) 5 mg 11/01/2019 12:00:00 AM EST tablet 60 TAKE TWO TABLETS BY MOUTH EVERY MORNING AFTER BREAKFAST TAKE TWO TABLETS BY MOUTH EVERY MORNING AFTER BREAKFAS T SOLD: 11/04/2019 [facility] PredniSONE 5 MG UNK 11/01/2019 12:00:00 AM EST ac tive 2 tablets eCW1 ([facility]) Wixela Inhub 250-50 MCG/DOSE Wixela Inhub 250-50 MCG/DOSE 12:00:00 AM EST active 1 puff eCW1 ([facility]) Wixela Inhub 250-50 MCG/DOSE Wixela Inhub 250-50 MCG/DOSE 12:00:00 AM EST active 1 puff eCW1 ([facility]) Prednisone 5 MG Oral Tablet PredniSONE 5 MG PredniSONE 5 MG 11/01/2019 12:00:00 AM EST active 2 tablets eCW1 ([facility]) Insurance Providers Payer name Policy type / Coverage type Policy ID Covered alliance party ID Covered alliance party's relationship to lacy Policy Lacy Plan Information MEDICARE COMPLETE [id number] SP [id number] MEDICARE COMPLETE [id number] SP [id number] MEDICARE COMPLETE [id number] SP [id number] MEDICARE COMPLETE-UHC O [id number] S [id number] MEDICARE COMPLETE [id number] SP [id number] MEDICARE COMPLETE-UHC O [id number] S [id number] MEDICARE COMPLETE [id number] SP [id number] MEDICARE [id number] SP [id number] MEDICARE COMPLETE-UHC O [id number] S [id number] [facility] MCRHMO [id number] SP [id number] MEDICARE COMPLETE [id number] SP [id number] [facility]) Commercial [id number] Self [id number] ANSI-Medicare Part B [id number] ANSI-Medicare Part B [id number] ANSI-Medicare Part B [id number] [facility] MCRO [id number] SP [id number] [facility] MCRO [id number] SP [id number] [facility] (MCR) Commercial [id number] Self [id number] [facility] (MCR) Commercial [id number] Self [id number] [facility] MCRO [id number] SP [id number] [facility] MCRO [id number] SP [id number] [facility] ([facility]) Commercial [id number] Self [id number] Blue Ppo Medigap Part B [id number] Self [id number] BCBS Excellus U/W Medigap Part B [id number] Self [id number] [facility] Commercial [id number] Self [id number] [employer] Commercial [id number] Self [id number] Blue Ppo Medigap Part B [id number] Self ZF [id number] BC[employer] Excell[employer] U/W Medigap Part B [id number] Self [id number] [facility] Commercial [id number] Self [id number] BC[employer] OF [place] WATN [id number] SP [id number] Problems, Conditions, and Diagnoses Code Display Name Description Problem Type Effective Dates Data Source(s) [id number] Long-term current use of systemic steroi d Long-term current use of systemic steroid Problem 11/20/2020 12:00:00 AM EST MED[facility] ([facility] ) [id number] Vitamin D deficiency Vitamin D deficiency Problem 11/20/2020 12:00:00 AM EST [facility] ([facility] ) 19193864 Osteoporosis Osteoporosis Problem 11/20/2020 12:00:00 A M EST [facility] ([facility] ) [id number] Pure hypercholesterolemia Pure hypercholesterolemia Pr oblem 11/14/2020 12:00:00 AM EST MED[facility] ([facility] ) M81.0 85453202 Osteoporosis without current pathological fracture, unspecified osteoporosis type Problem 11/12/2020 12:00:00 AM EST eCW1 ([facility]) M47.816 331665994 Lumbar spondylosis Problem 11/12/2020 12:00: 00 AM EST eCW1 ([facility]) M81.8 [id number] Other osteoporosis without current pathol ogical fracture Problem 11/08/2020 12:00:00 AM EST eCW1 ([facility]) I48.20 195546678 Chronic atrial fibrillation Problem 10/09/20 20 12:00:00 AM EST eCW1 ([facility]) M17.11 [id number] Primary osteoarthritis of right knee P roblem 05/29/2020 12:00:00 AM EDT eCW1 ([facility]) R53.82 61844846 Chronic fatigue Problem 05/29/2020 12:00:00 AM EDT eCW1 ([facility]) 26941711 Allergic asthma without status asthmatic us Allergic asthma without status asthmaticus Problem 01/16/2020 12:00:00 AM EST [facility] 77053102 Essential hypertension Essential hypertension Problem 01/16/2020 12:00:00 AM EST [facility] ([facility] ) G89.29 93207078 Other chronic pain Problem 12/07/2019 12:00: 00 AM EST eCW1 ([facility]) M35.3 48556777 PMR (polymyalgia rheumatica) Problem 12:00:00 AM EST eCW1 ([facility]) M35.3 26440703 PMR (polymyalgia rheumatica) Problem 020 12:00:00 AM EST eCW1 ([facility]) G20 87190975 Parkinsons disease Problem 12/07/2019 12:00: 00 AM EST eCW1 ([facility]) G89.29 67420115 Other chronic pain Problem 12/07/2019 12:00: 00 AM EST eCW1 ([facility]) R70.0 267737981 Elevated sed rate Problem 11/08/2019 12:00:0 0 AM EST eCW1 ([facility]) 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 Problem 11/08/2019 12:00:00 AM EST eCW1 ([facility]) R70.0 936954006 Elevated sed rate Problem 11/08/2019 12:00:0 0 AM EST eCW1 ([facility]) 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 Problem 11/08/2019 12:00:00 AM EST eCW1 ([facility]) R91.1 045319014 Lung nodule seen on imaging study Problem 11/01/2019 12:00:00 AM EST eCW1 ([facility]) R91.1 485682363 Lung nodule seen on imaging study Problem 11/01/2019 12:00:00 AM EST eCW1 ([facility]) R89.9 379972081 Abnormal laboratory test Problem 10/27/2019 12:00:00 AM EST eCW1 ([facility]) M70.61 2054102 Trochanteric bursitis of right hip Proble m 10/27/2019 12:00:00 AM EST eCW1 ([facility]) R89.9 529431015 Abnormal laboratory test Problem 10/27/2019 12:00:00 AM EST eCW1 ([facility]) M15.9 085611131 Osteoarthritis of mu ltiple joints, unspecified osteoarthritis type Problem 10/27/2019 12:00:00 AM EST eCW1 ([facility]) M70.61 4128649 Trochanteric bursitis of right hip Proble m 10/27/2019 12:00:00 AM EST eCW1 ([facility]) Surgeries/Procedures Procedure Description Date Indications Data Source(s) RADIOLOGIC EXAM KNEE COMPLETE 4/MORE VIEWS 07/23/2020 12:00:00 AM EDT MED[facility] ([facility] ) RADIOLOGIC EXAM KNEE COMPLETE 4/MORE VIEWS 07/23/2020 12:00:00 AM EDT MED[facility] ([facility] ) INTERROGATION EVAL REMOTE </90 D 1/2/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 TREE FARMER LEAD PM 04/17 12:00:00 AM EDT MED[facility] ([facility]) INTERROGATION REMOTE </90 D URBAN PLANNING 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 REVIEW 04/17/20 12:00:00 AM EDT MED[facility] ([facility]) Colonoscopy Flexible Proximal To Splenic Flexure W/Biopsy Si ngle/ 04/05/2020 12:00:00 AM EDT [facility] ([facility]) Remote Evaluation with Patient by an MD/QHP 02/09/2020 12:00:00 AM EDT eCW1 ([facility]) RADEX FOOT COMPLETE MINIMUM 3 VIEWS 02/08/2020 12:00:0 0 AM EDT MED[facility] ([facility] ) RADEX FOOT COMPLETE MINIMUM 3 VIEWS 01/18/2020 12:00:0 0 AM EST MEDENT ([facility]) INTERROGATION EVAL REMOTE </90 D 1/2/CHRISTMAS TREE FARMER LEAD PM 01/17 12:00:00 AM EST MED[facility] ([facility]) INTERROGATION REMOTE </90 D URBAN PLANNING PROFESSOR REVIEW 02/25/20 20 12:00:00 AM EST [facility] ([facility]) RADEX FOOT COMPLETE MINIMUM 3 VIEWS 01/04/2020 12:00:0 0 AM EST MED[facility] ([facility] ) FX Metatarsal W/O Manipulation 12/26/2019 12:00:00 AM EST MED[facility] ([facility] ) Office Visit, Est Pt., Level 4 PC 12/23/2019 12:00:00 AM EST eCW1 ([facility]) Office Visit, Est Pt., Level 2 FC 12/23/2019 12:00:00 AM EST eCW1 ([facility]) Office Visit, Est Pt., Level 3 FC 12/07/2019 12:00:00 AM EST eCW1 ([facility]) VENIPUNCT, ROUTINE* 12/07/2019 12:00:00 AM EST eCW1 ([facility]) ECHO TTHRC R-T 2D W/WOM-MODE COMPL SPEC&COLR DOP 12/06 12:00:00 AM EST MED[facility] ([facility]) Office Visit, New Pt., Level 4 PC 10/27/2019 12:00:00 AM EST eCW1 ([facility]) Results ID Date Data Source [id number] 12/10/2020 10:40:00 AM EST [facility] ([facility] ) Name Value Range Interpretation Code Description Data Mary rce(s) Supporting Document(s) Calcidiol [Mass/volume] in Serum or Plasma 35.7 ng/mL 30.0-100.0 [facility] ([facility] ) ID Date Data Source [id number] 12/10/2020 10:40:00 AM EST [facility] ([facility] ) Name Value Range Interpretation Code Description Data Mary rce(s) Supporting Document(s) Glucose, Fasting 95 mg/dL 70-100 MED[facility] ([facility] ) Glomerular Filtration Rate 50.0 MED ENT ([facility] ) <content>Units are mL/min/1.73 m2</content>
<content></content>
<content>Chronic Kidney Disease Staging per NKF:</content>
<content></content>
<content>Stage I & II GFR >=60 Normal to Mildly Decreased</content>
<content>Stage III GFR 30- 59 Moderately Decreased</content>
<content>Stage IV GFR 15-29 Severely Decreased</content>
<content>Stage V GFR <15 Very Little GFR Left</content>
<content>ESRD GFR <15 on BUS TRANSPORTATION MANAGER</content>
<content></content> Creatinine For GFR 1.15 mg/dL 0.55-1.30 [facility] ([facility]) Blood Urea Nitrogen 41 mg/dL 7-18 [facility] ([facility]) Chloride Level 111 meq/L 98-107 [facility] ([facility]) Sodium Level 143 meq/L 136-145 [facility] ([facility]) Potassium Serum 4.0 meq/L 3.5-5.1 [facility] ([facility]) Carbon Dioxide Level 26 meq/L 21-32 [facility] ([facility]) Anion Gap 6 meq/L 8-16 [facility] ([facility]) Calcium Level 9.4 mg/dL 8.8-10.2 [facility] ([facility]) ID Date Data Source FREE T4 & TSH PANEL 10/09/2020 12:00:00 AM EST eCW1 ([facility]) Name Value Range Interpretation Code Description Data Mary rce(s) Supporting Document(s) 1.150 0.358-3.740 THYROID STIMULATING HORM ONE eCW1 ([facility]) 0.71 0.76-1.46 FREE T4 eCW1 ([facility]) ID Date Data Source LIPID PANEL (CARDIAC RISK) 10/09/2020 12:00:00 AM EST eCW1 ( [facility]) Name Value Range Interpretation Code Description Data Mary rce(s) Supporting Document(s) Triglyceride [Mass/volume] in Serum or Plasma by calculation 115 <150 TRIGLYCERIDES LEVEL eCW1 ([facility]) Cholesterol [Moles/volume] in Serum or Plasma 215 <200 CHOLESTEROL LEVEL eCW1 ([facility]) 151 NON-HDL-C eCW1 ([facility]) Cholesterol in LDL [Mass/volume] in Serum or Plasma by calculation 128 <100 LDL CHOLESTEROL eCW1 ([facility]) 3.359 <5 CHOLESTEROL RISK RATIO eCW1 ([facility]) Cholesterol in HDL [Moles/volume] in Serum or Plasma 64 >40 HDL CHOLESTEROL eCW1 ([facility]) ID Date Data Source ERYTHROCYTE SEDIMENTATION RATE 10/09/2020 12:00:00 AM EST eC W1 ([facility]) Name Value Range Interpretation Code Description Data Mary rce(s) Supporting Document(s) 59 0-30 ERYTHROCYTE SEDIMENTATION RATE eCW1 ([facility]) ID Date Data Source Comprehensive Metabolic Profile (CMP) 10/09/2020 12:00:00 AM EST eCW1 ([facility]) Name Value Range Interpretation Code Description Data Mary rce(s) Supporting Document(s) 86 70-100 GLUCOSE, FASTING eCW1 ([facility]) 50.0 >45 GLOMERULAR FILTRATION RATE eCW 1 ([facility]) 31 7-18 BLOOD UREA NITROGEN eCW1 ([facility]) 1.15 0.55-1.30 CREATININE FOR GFR eCW1 ([facility]) 143 136-145 SODIUM LEVEL eCW1 ([facility]) 111 98-107 CHLORIDE LEVEL eCW1 ([facility]) 28 21-32 CARBON DIOXIDE LEVEL eCW1 ([facility]) 4.5 3.5-5.1 POTASSIUM SERUM eCW1 ([facility]) 9.2 8.8-10.2 CALCIUM LEVEL eCW1 ([facility]) 8 12-78 ALT/SGPT eCW1 ([facility]) 0.3 0.2-1.0 BILIRUBIN,TOTAL eCW1 ([facility]) 17 7-37 AST/SGOT eCW1 ([facility]) 7.3 6.4-8.2 TOTAL PROTEIN eCW1 ([facility]) 96 45-117 ALKALINE PHOSPHATASE eCW1 ([facility]) 0.9 1.2-2.2 ALBUMIN/GLOBULIN RATIO eCW1 ([facility]) 3.4 3.2-5.2 ALBUMIN eCW1 ([facility]) ID Date Data Source CBC - Complete Blood Count 10/09/2020 12:00:00 AM EST eCW1 ( [facility]) Name Value Range Interpretation Code Description Data Mary rce(s) Supporting Document(s) 3.79 4.00-5.40 eCW1 ([facility]) 8.1 4.0-10.0 eCW1 ([facility]) 11.7 12.0-15.5 eCW1 ([facility]) 104.0 80.0-96.0 eCW1 ([facility]) 39.4 36.0-47.0 eCW1 ([facility]) 30.9 27.0-33.0 eCW1 ([facility]) 29.7 32.0-36.5 eCW1 ([facility]) 276 150-450 eCW1 ([facility]) 14.6 11.5-14.5 eCW1 ([facility]) ID Date Data Source C REACTIVE PROTEIN QUANTITATIV (At [facility]) 08/21/2020 05:27 :19 AM EDT eCW1 ([facility]) Name Value Range Interpretation Code Description Data Mary rce(s) Supporting Document(s) 4.04 C REACTIVE PROTEIN QUANTITATIV eCW1 ([facility]) ID Date Data Source CBC with Differential 08/21/2020 05:27:18 AM EDT eCW1 ([facility]) Name Value Range Interpretation Code Description Data Mary rce(s) Supporting Document(s) 12.9 WHITE BLOOD COUNT eCW1 ([facility]) 36.5 HEMATOCRIT eCW1 ([facility]) 11.0 HEMOGLOBIN eCW1 ([facility]) 3.51 RED BLOOD COUNT eCW1 ([facility]) 30.1 MEAN CORPUSCULAR HGB CONC eCW1 ([facility]) 31.3 MEAN CORPUSCULAR HEMOGLOBIN eC W1 ([facility]) 14.2 RED CELL DISTRIBUTION WIDTH eC W1 ([facility]) 104.0 MEAN CORPUSCULAR VOLUME eCW1 ( [facility]) 13.2 LYMPH % eCW1 ([facility]) 283 PLATELET COUNT, AUTOMATED eCW1 ([facility]) 75.2 NEUTROPHILS % eCW1 ([facility]) 9.0 MONO % eCW1 ([facility]) 1.2 EOS % eCW1 ([facility]) 9.7 NEUTROPHILS # eCW1 ([facility]) 1.7 LYMPH # eCW1 ([facility]) 0.5 BASO % eCW1 ([facility]) 0.1 BASO # eCW1 ([facility]) 0.2 EOS # eCW1 ([facility]) 1.2 MONO # eCW1 ([facility]) ID Date Data Source [id number] 08/01/2020 12:00:00 AM EDT [facility] AGUILAR Patient Name: HAKAN TAYLOR [id number] [facility] Date of : 1950[place] [address] Date of Exam: 08/01/2020#: Fax: [phone] EXAM: CT LOWER EXTREMITY W/O CONTRASTCLINICAL INFORMATION: Chronic pain.There are no prior right knee CT's for comparison.Low dose 64 slice helical scanning through the right knee was obtainedusing 2 mm increments and reconstructed in both coronal and sagittalplanes. 3D reconstructions were also obtained. Post processing wasperformed at the physician's workstation.There is heavy tricompartmental marginal osteophytosis. There istricompartmental narrowing particularly affecting the patellofemoral jointand lateral compartment. The cortical margins of both femoral and tibialcomponents of the lateral compartment are markedly irregular particularlyaffecting the lateral femoral condyle. Subchondral cyst formation is seeninvolving all three compartments; but again, particularly affecting thelateral compartment. 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 The loose int raarticular bodies are too numerous tocount or individually assess. There is evidence of a slight jointeffusion. CT parameters cannot accurately assess for ligamentous ormeniscal integrity.IMPRESSION:Advanced chronic changes as described above.Accredited by the [place] in [place].BRIAN Hall/Anyi you for referring HAKAN TAYLOR to our office. Electronically Signed - DANIELA HENNESSY DO 08/02/20 14:10 Name Value Range Interpretation Code Description Data Mary rce(s) Supporting Document(s) ID Date Data Source [id number] 04/05/2020 08:18:[facility] Name Value Range Interpretation Code Description Data Mary rce(s) Supporting Document(s) Surgical pathology study Laboratory test result [facility] ([facility], ) FINAL DIAGNOSIS Splenic flexure, polyp, polypectomy: Tubulovillous adenoma fragments. 04/06/2020 - 1542 CLINICAL DIAGNOSIS Colon polyps, family history of colon polyp 04/05/2020 - 1520 GROSS DIAGNOSIS Received in formalin labeled "biopsy polyp @ splenic flexure" is a 0.4 x 0.4 x 0.2 cm aggregate of mucosal fragme nts. All in one. -ERIC 04/05/2020 - 1520 Signed Ashley Grayson MD 04/06/2020 1550 ID Date Data Source [id number] 04/02/2020 09:40:00 AM EDT [facility] Name Value Range Interpretation Code Description Data Mary rce(s) Supporting Document(s) SARS CORONAVIRUS 2 RNA [facility] This lab was ordered by [facility] and reported by [facility]. ID Date Data Source [id number] 12/26/2019 09:07:00 AM EST MED[facility] ([facility]) Name Value Range Interpretation Code Description Data Mary rce(s) Supporting Document(s) Calcitriol [Mass/volume] in Serum or Plasma 56.4 pg/mL 19.9-79.3 [facility] ([facility]) Performed at: [facility] [id number] [employer]vey[employer] Belt Repairer: Dona Fierro MD, Phone: [phone] ID Date Data Source URIC ACID 12/23/2019 12:00:00 AM EST eCW1 ([facility]) Name Value Range Interpretation Code Description Data Mary rce(s) Supporting Document(s) 3.7 2.6-6.0 URIC ACID eCW1 ([facility]) ID Date Data Source [id number] 12/07/2019 03:22:00 PM EST MED[facility] ([facility]) Name Value Range Interpretation Code Description Data Mary rce(s) Supporting Document(s) Topiramate [Mass/volume] in Serum or Plasma 15.8 ug/mL 2.0-25.0 MED[facility] ([facility]) This test was developed and its performa nce characteristics determined by [facility]. It has not been cleared or approved by the Food and Drug Administration. Detection Limit = 1.0 Performed at: [facility] [id number] Conveyor Belt Repairer: Dona Fierro MD, Phone: [phone] ID Date Data Source RHEUMATOID FACTOR QUANT 12/07/2019 12:00:00 AM EST eCW1 ([facility]) Name Value Range Interpretation Code Description Data Mary rce(s) Supporting Document(s) < 10.0 <15.0 RHEUMATOID FACTOR QUANT eCW1 ( [facility]) ID Date Data Source CYCLIC CITRULLINATED PEPTIDE 12/07/2019 12:00:00 AM EST eCW1 ([facility]) Name Value Range Interpretation Code Description Data Mary rce(s) Supporting Document(s) 14 0-19 CYCLIC CITRULLINATED PEPTIDE e CW1 ([facility]) ID Date Data Source FREE KAPPA & LAMBDA LT CHAIN U 11/01/2019 12:00:00 AM EST eC W1 ([facility]) Name Value Range Interpretation Code Description Data Mary rce(s) Supporting Document(s) 309.00 1.35-24.19 FREE KAPPA LIGHT CHAINS U RINE eCW1 ([facility]) 11.20 0.24-6.66 FREE LAMBDA LIGHT CHAINS URINE eCW1 ([facility]) 27.59 2.04-10.37 KAPPA/LAMBDA RATIO URINE eCW1 ([facility]) Procedure Social History Code Duration Value Status Description Data Source(s ) Smoking 11/12/2020 12:00:00 AM EST Former Smoker completed Former Smoker eCW1 ([facility]) Smoking 11/12/2020 12:00:00 AM EST Former Smoker completed Former Smoker eCW1 ([facility]) Smoking 11/12/2020 12:00:00 AM EST Former Smoker completed Former Smoker eCW1 ([facility]) Smoking 10/09/2020 12:00:00 AM EST Former Smoker completed Former Smoker eCW1 ([facility]) Smoking 10/09/2020 12:00:00 AM EST Former Smoker completed Former Smoker eCW1 ([facility]) Smoking 06/07/2020 12:00:00 AM EDT Former Smoker completed Former Smoker eCW1 ([facility]) Smoking 06/07/2020 12:00:00 AM EDT Former Smoker completed Former Smoker eCW1 ([facility]) Smoking 05/30/2020 12:00:00 AM EDT Patient is a former smoker completed Patient is a former smoker [facility] ([facility]) Vital Signs ID Date Data Source UNK Name Value Range Interpretation Code Description Data Source(s) Oxygen saturation in Arterial blood by Pulse oximetry 74 % 74 % [facility] ([facility]) Body mass index (BMI) [Ratio] 25.6 kg/m2 25.6 k g/m2 MED[facility] ([facility]) Body weight 140.12 [lb_av] 140.12 [lb_av] MEDEN T ([facility]) Body height 62 [in_i] 62 [in_i] MED[facility] ([facility]) 5'2" Body temperature 97.1 [degF] 97.1 [degF] [facility] ([facility]) Heart rate 122 /min 122 /min [facility] ([facility]) Diastolic blood pressure 60 mm[Hg] 60 mm[Hg] MED[facility] ([facility]) Systolic blood pressure 124 mm[Hg] 124 mm[Hg] M EDENT ([facility]) Diastolic blood pressure 82 mm[Hg] 82 mm[Hg] eCW1 ([facility]) Systolic blood pressure 128 mm[Hg] 128 mm[Hg] e CW1 ([facility]) Body temperature 98.2 [degF] 98.2 [degF] eCW1 ( [facility]) Respiratory rate 18 /min 18 /min eCW1 ([facility]) Heart rate 74 /min 74 /min eCW1 ([facility]) Body mass index (BMI) [Ratio] 25.68 kg/m2 25.68 kg/m2 W1 ([facility]) Body height 62 [in_i] 62 [in_i] eCW1 ([facility]) Body weight 63.4 kg 63.4 kg W1 ([facility]) Body weight 140.4 [lb_av] 140.4 [lb_av] eCW1 ([facility]) Diastolic blood pressure 74 mm[Hg] 74 mm[Hg] eCW1 ([facility]) Systolic blood pressure 132 mm[Hg] 132 mm[Hg] e CW1 ([facility]) Body temperature 97.4 [degF] 97.4 [degF] eCW1 ( [facility]) Respiratory rate 18 /min 18 /min eCW1 ([facility]) Heart rate 76 /min 76 /min eCW1 ([facility]) Body mass index (BMI) [Ratio] 25.97 kg/m2 25.97 kg/m2 eCW1 ([facility]) Body height 62 [in_i] 62 [in_i] eCW1 ([facility]) Body weight 142 [lb_av] 142 [lb_av] eCW1 ([facility]) Respiratory rate 16 /min 16 /min MEDENT ( [facility] ) Heart rate 64 /min 64 /min MEDENT ([facility] ) Diastolic blood pressure 64 mm[Hg] 64 mm[Hg] MEDENT ([facility] ) Systolic blood pressure 110 mm[Hg] 110 mm[Hg] M EDENT ([facility], ) Body temperature 96.8 [degF] 96.8 [degF] eCW1 ( [facility]) Respiratory rate 18 /min 18 /min eCW1 ([facility]) Heart rate 78 /min 78 /min eCW1 ([facility]) Body mass index (BMI) [Ratio] 26.70 kg/m2 26.70 kg/m2 eCW1 ([facility]) Body height 62 [in_i] 62 [in_i] eCW1 ([facility]) Body weight 146 [lb_av] 146 [lb_av] eCW1 ([facility]) [place] body weight 110 [lb_av] 110 [lb_av] MEDEN T ([facility] ) Body mass index (BMI) [Ratio] 26.2 kg/m2 26.2 k g/m2 MEDENT ([facility] ) Body weight 143.00 [lb_av] 143.00 [lb_av] MEDEN T ([facility] ) Body height 62 [in_i] 62 [in_i] MEDENT ([facility] ) 5'2" Respiratory rate 16 /min 16 /min MED[facility] ( [facility] ) Heart rate 64 /min 64 /min MED[facility] ([facility] ) Diastolic blood pressure 60 mm[Hg] 60 mm[Hg] MEDENT ([facility] ) Systolic blood pressure 110 mm[Hg] 110 mm[Hg] M EDENT ([facility] ) Diastolic blood pressure--sitting 46 mm[Hg] 46 mm[Hg] MEDENT ([facility]) large cuff, Ra Systolic blood pressure--sitting 98 mm[Hg] 98 mm[Hg] MEDENT ([facility]) large cuff, Ra Heart rate 70 /min 70 /min [facility] ([facility]) Body mass index (BMI) [Ratio] 26.3 kg/m2 26.3 k g/m2 MED[facility] ([facility]) Body height 62 [in_i] 62 [in_i] MED[facility] ([facility]) 5'2" Body weight 144.00 [lb_av] 144.00 [lb_av] MEDEN T ([facility]) Diastolic blood pressure 70 mm[Hg] 70 mm[Hg] eCW1 ([facility]) Systolic blood pressure 124 mm[Hg] 124 mm[Hg] e CW1 ([facility]) Body mass index (BMI) [Ratio] 26.77 kg/m2 26.77 kg/m2 eCW1 ([facility]) Body height 62 [in_i] 62 [in_i] eCW1 ([facility]) Body weight 66.4 kg 66.4 kg eCW1 ([facility]) Body weight 146.4 [lb_av] 146.4 [lb_av] eCW1 ([facility]) Body mass index (BMI) [Ratio] 26.6 kg/m2 26.6 k g/m2 MEDENT ([facility] ) Body weight 149.12 [lb_av] 149.12 [lb_av] MEDEN T ([facility]) Body height 62.75 [in_i] 62.75 [in_i] MEDENT ([facility]) 5'2.75" Body temperature 97.8 [degF] 97.8 [degF] MEDENT ([facility]) Diastolic blood pressure 74 mm[Hg] 74 mm[Hg] eCW1 ([facility]) Systolic blood pressure 124 mm[Hg] 124 mm[Hg] e CW1 ([facility]) Body temperature 96.8 [degF] 96.8 [degF] eCW1 ( [facility]) Respiratory rate 18 /min 18 /min eCW1 ([facility]) Heart rate 83 /min 83 /min eCW1 ([facility]) Body mass index (BMI) [Ratio] 26.74 kg/m2 26.74 kg/m2 eCW1 ([facility]) Body height 62 [in_us] 62 [in_us] eCW1 ([facility]) Body weight Measured 146.2 [lb_av] 146.2 [lb_av ] eCW1 ([facility]) Diastolic blood pressure 68 mm[Hg] 68 mm[Hg] eCW1 ([facility]) Systolic blood pressure 112 mm[Hg] 112 mm[Hg] e CW1 ([facility]) Body temperature 97.7 [degF] 97.7 [degF] eCW1 ( [facility]) Respiratory rate 18 /min 18 /min eCW1 ([facility]) Heart rate 72 /min 72 /min eCW1 ([facility]) Body mass index (BMI) [Ratio] 27.58 kg/m2 27.58 kg/m2 eCW1 ([facility]) Body height 62 [in_us] 62 [in_us] eCW1 ([facility]) Body weight Measured 150.8 [lb_av] 150.8 [lb_av ] eCW1 ([facility]) Respiratory rate 20 /min 20 /min MEDENT ( [facility]) Heart rate 76 /min 76 /min MEDENT ([facility] ) Diastolic blood pressure 80 mm[Hg] 80 mm[Hg] MEDENT ([facility]) Systolic blood pressure 110 mm[Hg] 110 mm[Hg] M EDENT ([facility] ) Diastolic blood pressure 62 mm[Hg] 62 mm[Hg] eCW1 ([facility]) Systolic blood pressure 120 mm[Hg] 120 mm[Hg] e CW1 ([facility]) Body temperature 97 [degF] 97 [degF] eCW1 ([facility]) Respiratory rate 18 /min 18 /min eCW1 ([facility]) Heart rate 76 /min 76 /min eCW1 ([facility]) Body mass index (BMI) [Ratio] 27.51 kg/m2 27.51 kg/m2 eCW1 ([facility]) Body height 62 [in_us] 62 [in_us] eCW1 ([facility]) Body weight Measured 150.4 [lb_av] 150.4 [lb_av ] eCW1 ([facility]) Diastolic blood pressure 68 mm[Hg] 68 mm[Hg] eCW1 ([facility]) Systolic blood pressure 112 mm[Hg] 112 mm[Hg] e CW1 ([facility]) Body temperature 97.8 [degF] 97.8 [degF] eCW1 ( [facility]) Respiratory rate 18 /min 18 /min eCW1 ([facility]) Heart rate 75 /min 75 /min eCW1 ([facility]) Body mass index (BMI) [Ratio] 27.47 kg/m2 27.47 kg/m2 eCW1 ([facility]) Body height 62 [in_us] 62 [in_us] eCW1 ([facility]) Body weight Measured 150.2 [lb_av] 150.2 [lb_av ] eCW1 ([facility]) Patient Treatment Plan of Care Planned Activity Planned Date Details Description Data Source (s) Colchicine 0.6 MG Oral Tablet 12/23/2019 12:00:00 AM EST eCW1 ([facility]) Methylprednisolone 4 MG Oral Tablet [Medrol] 12/07/2019 12:00:00 AM EST eCW1 ([facility]) PredniSONE 5 MG 11/01/2019 12:00:00 AM EST eCW1 ([facility]) Wixela Inhub 250-50 MCG/DOSE 11/01/2019 12:00:00 AM EST eCW1 ([facility])
--- NOTE | 2020-12-20 15:11 | REP ---
INDICATION: osteoporosis/cant walk/knee pain/. COMPARISON: 23 December 2019. TECHNIQUE: Eight views. No sunrise view is included on either side. FINDINGS: Four views of the each knee demonstrate advanced diffuse osteopenia. There is 3 compartment osteoarthritis bilaterally. This is most pronounced on the right particularly laterally and in the patellofemoral compartment where severe osteoarthritis is present. There is bilateral chondrocalcinosis. Vascular calcification is observed. No fracture is seen. Clothing artifact is noted over the distal thighs.. . No opaque foreign body noted. IMPRESSION: Bilateral 3 compartment osteoarthritis most pronounced on the right. Diffuse osteoporosis. No fracture or other acute abnormality seen. Changes on the right appears stable compared to the 23 December 2019 study.. <Electronically signed by Owen Man > 12/20/20 1649
[2020-12-20] MEDS ORDERED: NORCO, ANEXSIA 5/325MG TABLET (HYDROcodone/ACETAMINOPHEN) PO ONE (15:30)
--- NOTE | 2020-12-20 16:14 | REP ---
INDICATION: pain. COMPARISON: None. TECHNIQUE: Five views. FINDINGS: Five views of the left femur demonstrate diffuse osteopenia. Patellofemoral osteoarthritis is seen at the knee with joint space narrowing. There is superior acetabular spurring as well at the hip. Vascular calcifications noted.. No fracture or subluxation is seen. No opaque foreign body noted. IMPRESSION: No fracture is seen. Diffuse osteopenia and vascular calcification. Osteoarthritic changes.. <Electronically signed by Owen Man > 12/20/20 [id number]
--- NOTE | 2020-12-20 16:16 | REP ---
INDICATION: pain. COMPARISON: None. TECHNIQUE: Four views FINDINGS: Four views of the left tib fib demonstrate diffuse osteopenia. Chondrocalcinosis and osteoarthritis is seen at the knee. Vascular calcification is noted. There is orthopedic hardware in the distal tibia and fibula at the ankle. There appears to be ankle arthrodesis. Old incompletely united distal fibular fracture is seen above the arthrodesis. There is some clothing artifact.. No acute fracture or subluxation is seen.. . IMPRESSION: No acute fracture seen. Old open reduction internal fixation with pinning of the distal tibia and fibula and tibiotalar arthrodesis. Old incompletely united distal fibular fracture and vascular calcification seen.. <Electronically signed by Owen Man > 12/20/20 [id number]
[2020-12-20] MEDS ORDERED: ACET-653 PO (17:17)
[2020-12-20] MEDS ORDERED: NORCO 5/325MG TABLET (BULK FOR ED) PO ONE (17:30)
[2020-12-20 17:47] VITALS: BP 125/63
== END 2020-12-20 17:50 | disposition home or self-care (01) ==
LOC: M ED 13:54
DX: M85.9 Disorder of bone density and structure, unspecified (principal); I11.0 Hypertensive heart disease with heart failure; J45.909 Unspecified asthma, uncomplicated; I50.9 Heart failure, unspecified; G20 Parkinson's disease; F33.9 Major depressive disorder, recurrent, unspecified; F41.9 Anxiety disorder, unspecified; I48.91 Unspecified atrial fibrillation; K21.9 Gastro-esophageal reflux disease without esophagitis; Z88.8 Allergy status to other drugs, medicaments and biological substances; Z79.01 Long term (current) use of anticoagulants

== ENCOUNTER → 2020-12-24 | Outpatient (REF) | payer MEDICARE ==
[~2020-12-24] MED LIST changes: +ACET-653 PO
== END ==
LOC: M SFHCADAM 10:11
PROVIDERS: ATTEND Internal Medicine
DX: M35.3 Polymyalgia rheumatica (principal)

== ENCOUNTER → 2021-01-01 | Outpatient (REF) | payer MEDICARE ==
[2021-01-01 16:36] LABS: APPEARANCE, URINE HAZY (CLEAR); BACTERIA, URINE AUTO NEGATIVE (NEGATIVE); BILIRUBIN, URINE AUTO NEGATIVE (NEGATIVE); BLOOD, URINE BLOOD NEGATIVE (NEGATIVE); COLOR, URINE YELLOW (YELLOW); GLUCOSE, URINE (UA) AUTO NEGATIVE (NEGATIVE); KETONE, URINE AUTO TRACE mg/dL (NEGATIVE); LEUKOCYTE ESTERASE, URINE AUTO 2+ (NEGATIVE); MUCUS, URINE SMALL (NEGATIVE); NITRITE, URINE AUTO NEGATIVE (NEGATIVE); PROTEIN, URINE AUTO NEGATIVE (NEGATIVE); RBC, URINE AUTO 1 /HPF (0-3); SPECIFIC GRAVITY URINE AUTO 1.021 (1.002-1.035); SQUAMOUS EPITHELIAL CELL UR AU 1 /HPF (0-6); UROBILINOGEN, URINE AUTO 0.2 mg/dL (0.0-2.0); WBC, URINE AUTO 17 /HPF (0-3)
[2021-01-01 16:39] LABS: BASO # 0.1 10^3/uL (0.0-0.2); BASO % 0.6 % (0.0-1.0); EOS # 0.1 10^3/uL (0.0-0.5); EOS % 0.7 % (0.0-3.0); HEMOGLOBIN 12.2 g/dl (12.0-15.5); LYMPH # 2.1 10^3/uL (1.5-5.0); LYMPH % 13.6 % (24.0-44.0); MEAN CORPUSCULAR HEMOGLOBIN 32.1 pg (27.0-33.0); MEAN CORPUSCULAR HGB CONC 31.3 g/dl (32.0-36.5); MEAN CORPUSCULAR VOLUME 102.6 fl (80.0-96.0); MONO % 6.5 % (0.0-5.0); NEUTROPHILS # 11.9 10^3/uL (1.5-8.5); PLATELET COUNT, AUTOMATED 371 10^3/uL (150-450)
[2021-01-01 16:51] LABS: WHITE BLOOD COUNT 15.3 10^3/uL (4.0-10.0)
[2021-01-01 17:07] LABS: TOTAL 25(OH) VITAMIN D 36.1 NG/ML (30.0-100.0)
== END ==
LOC: M SFHCADAM 14:35
PROVIDERS: ATTEND Physician Assistant
DX: M81.8 Other osteoporosis without current pathological fracture (principal); R35.0 Frequency of micturition; D89.89 Other specified disorders involving the immune mechanism, not elsewhere classified
CPT/HCPCS: 81001; 82306; 83970; 85025; 87086; G0463

== ENCOUNTER → 2021-03-04 | Outpatient (REF) | payer MEDICARE ==
[~2021-03-04] MED LIST changes: +CALCCAP4 PO; +COLA100C5 PO; +COVI100V IM; +D31000TA2 PO; +PROA1AER2 INH
[2021-03-04 17:02] LABS: CALCIUM LEVEL 9.7 MG/DL (8.8-10.2); CREATININE FOR GFR 1.04 MG/DL (0.55-1.30); GLOMERULAR FILTRATION RATE 56.1 (>45); POTASSIUM SERUM 4.7 MEQ/L (3.5-5.1)
== END ==
LOC: M LABDRWAD 15:54
PROVIDERS: ATTEND Internal Medicine Endocrinology, Diabetes & Metabolism
DX: M81.0 Age-related osteoporosis without current pathological fracture (principal)

== ENCOUNTER → 2021-03-04 | Outpatient (CLI) | payer MEDICARE ==
--- NOTE | 2021-03-04 15:10 | REP ---
INDICATION: KAPPA DISEASE. COMPARISON: None. FINDINGS: AP and lateral views of the cervical spine: There is degenerative disc disease seen at every level particularly C5-6 and C6-7. There is 3.9 mm of anterolisthesis of C3 on C4. Degenerative facet and uncovertebral joint changes are present at every level bilaterally. There is no evidence of a lytic or blastic osseous lesion. AP and lateral views of the thoracic spine: There is moderate to advanced disc space narrowing at every level and particularly anteriorly seen in conjunction with anterior lipping. The bones are demineralized. There is no evidence of a significant compression deformity, lytic, or blastic lesion. Bridging and near bridging marginal osteophyte formation is seen at multiple levels bilaterally. AP and lateral views of the lumbar spine: There is disc space narrowing at every level. There is a grade 2 L4 upon L5 spondylolisthesis seen in conjunction with marked disc space narrowing at that level. There is no evidence of a definite lytic or blastic osseous lesion. Left femur: No lytic or blastic osseous lesion. Degenerative changes seen involving the hip and knee. Right femur: No evidence of a lytic or blastic osseous lesion. Degenerative changes seen involving the hip and knee. AP and lateral views of the skull: Hyperostosis frontalis interna without evidence of a lytic or blastic osseous lesion. Humerus bilateral: No evidence of a lytic or blastic osseous lesion. IMPRESSION: Skeletal survey as described above. <Electronically signed by Arsh Mariano > 03/04/21 [id number]
== END ==
LOC: M ADAMS 13:11
PROVIDERS: ATTEND Internal Medicine Medical Oncology
DX: D80.8 Other immunodeficiencies with predominantly antibody defects (principal); M81.0 Age-related osteoporosis without current pathological fracture; M50.322 Other cervical disc degeneration at C5-C6 level; M50.323 Other cervical disc degeneration at C6-C7 level; M51.34 Other intervertebral disc degeneration, thoracic region; M51.36 Other intervertebral disc degeneration, lumbar region; M16.0 Bilateral primary osteoarthritis of hip; M17.0 Bilateral primary osteoarthritis of knee

== ENCOUNTER 2021-03-29 17:30 | Emergency (ER) | payer MEDICARE, OTHER ==
--- NOTE | 2021-03-29 20:07 | REP ---
INDICATION: trauma. COMPARISON: None. FINDINGS: No acute fracture or destructive osseous lesion. Bones are demineralized there are degenerative changes IMPRESSION: As above <Electronically signed by Arsh Mariano > 03/29/212003
--- NOTE | 2021-03-29 20:08 | REP ---
INDICATION: trauma COMPARISON: None TECHNIQUE: Four views FINDINGS: The bones are demineralized. There is tricompartmental marginal osteophytosis and tricompartment narrowing. There is no acute fracture. Subchondral sclerosis seen laterally. IMPRESSION: Chronic changes <Electronically signed by Arsh Mariano > 03/29/212003
--- NOTE | 2021-03-29 20:09 | REP ---
INDICATION: trauma. COMPARISON: None. TECHNIQUE: Five views FINDINGS: Degenerative change seen throughout the lumbar spine. There is a grade 2 L4 upon L5 spondylolisthesis. Heavy degenerative facet joint changes are seen bilaterally at L4-5 responsible for the spondylolisthesis. The bones are demineralized. Vertebral body height is within normal limits. There is anterior lipping at every level. There is disc space narrowing at every level. Scattered bilateral marginal osteophytosis is present. IMPRESSION: Chronic changes <Electronically signed by Arsh Mariano > 03/29/212004
--- NOTE | 2021-03-29 20:10 | REP ---
INDICATION: trauma TECHNIQUE: . Technique AP pelvis two views left hip FINDINGS: There are degenerative changes. The bones are demineralized. There is no acute fracture. IMPRESSION: Degenerative changes <Electronically signed by Arsh Mariano > 03/29/212005
[2021-03-29 20:54] VITALS: BP 98/54
== END 2021-03-29 21:25 | disposition home or self-care (01) ==
LOC: M ED 17:30
DX: S63.502A Unspecified sprain of left wrist, initial encounter (principal); S83.91XA Sprain of unspecified site of right knee, initial encounter; W01.0XXA Fall on same level from slipping, tripping and stumbling without subsequent striking against object, initial encounter; Y92.511 Restaurant or cafe as the place of occurrence of the external cause; I11.0 Hypertensive heart disease with heart failure; I50.9 Heart failure, unspecified; J45.909 Unspecified asthma, uncomplicated; I48.91 Unspecified atrial fibrillation; F33.9 Major depressive disorder, recurrent, unspecified; F41.9 Anxiety disorder, unspecified; G20 Parkinson's disease; Z88.8 Allergy status to other drugs, medicaments and biological substances; Z79.899 Other long term (current) drug therapy

== ENCOUNTER → 2021-04-11 | Outpatient (REF) | payer MEDICARE ==
[2021-04-15 15:14] LABS: TOPIRAMATE LEVEL 19.8 ug/mL (2.0-25.0)
== END ==
LOC: M LABDRWAD 16:22
PROVIDERS: ATTEND Physician Assistant Medical
DX: R56.9 Unspecified convulsions (principal); Z51.81 Encounter for therapeutic drug level monitoring
CPT/HCPCS: 36415; 80299; 85652; 86140; G0463

== ENCOUNTER → 2021-04-11 | Outpatient (REF) | payer MEDICARE | LOC: M SFHCADAM 14:08 | PROVIDERS: ATTEND Internal Medicine Rheumatology | DX: M35.3 Polymyalgia rheumatica (principal) ==

== ENCOUNTER → 2021-05-23 | Outpatient (REF) | payer MEDICARE ==
[2021-05-23 17:24] LABS: BASO # 0.1 10^3/uL (0.0-0.2); BASO % 0.6 % (0.0-1.0); EOS # 0.1 10^3/uL (0.0-0.5); HEMATOCRIT 39.2 % (36.0-47.0); HEMOGLOBIN 11.9 g/dl (12.0-15.5); LYMPH # 2.3 10^3/uL (1.5-5.0); LYMPH % 16.2 % (24.0-44.0); MEAN CORPUSCULAR HEMOGLOBIN 30.7 pg (27.0-33.0); MEAN CORPUSCULAR HGB CONC 30.4 g/dl (32.0-36.5); MEAN CORPUSCULAR VOLUME 101.3 fl (80.0-96.0); MONO # 0.8 10^3/uL (0.0-0.8); MONO % 5.8 % (2.0-8.0); NEUTROPHILS # 10.9 10^3/uL (1.5-8.5); NEUTROPHILS % 75.6 % (36.0-66.0); PLATELET COUNT, AUTOMATED 336 10^3/uL (150-450); RED BLOOD COUNT 3.87 10^6/uL (4.00-5.40); WHITE BLOOD COUNT 14.4 10^3/uL (4.0-10.0)
[2021-05-23 17:52] LABS: ALBUMIN 3.5 GM/DL (3.2-5.2); BILIRUBIN,TOTAL 0.4 MG/DL (0.2-1.0); C REACTIVE PROTEIN QUANTITATIV 1.53 MG/DL (0.00-0.30); CALCIUM LEVEL 9.4 MG/DL (8.8-10.2); CREATININE FOR GFR 1.1 MG/DL (0.55-1.30); GLOMERULAR FILTRATION RATE 52.4 (>45); POTASSIUM SERUM 4.4 MEQ/L (3.5-5.1); TOTAL PROTEIN 7.6 GM/DL (6.4-8.2)
[2021-05-23 17:53] LABS: ERYTHROCYTE SEDIMENTATION RATE 65 mm/hr (0-30)
== END ==
LOC: M SFHCADAM 13:33
PROVIDERS: ATTEND Internal Medicine Rheumatology
DX: M35.3 Polymyalgia rheumatica (principal)

== ENCOUNTER → 2021-07-10 | Outpatient (CLI) | payer MEDICARE ==
[~2021-07-10] MED LIST changes: +SPIR12.9
--- NOTE | 2021-07-10 15:53 | REP ---
INDICATION: ORDAZ. COMPARISON: 10/09/2020 the latest prior TECHNIQUE: PA and lateral FINDINGS: A subtle patchy opacity has developed in the left lower lobe partially silhouetting out the left heart border and diaphragmatic surface of the left lung. The pleural angles are sharp. The heart is not enlarged. The dual chamber bipolar pacemaker device is unchanged. The osseous structures are stable. IMPRESSION: New left lower lobe opacity. Subsegmental atelectasis versus developing pneumonia. Follow-up is suggested. <Electronically signed by Arsh Mariano > 07/10/21 [id number]
--- NOTE | 2021-07-10 16:09 | REP ---
INDICATION: RIGHT HIP PAIN. COMPARISON: AP pelvis of 03/29/2021 TECHNIQUE: AP frog-lateral views right hip FINDINGS: There is mild asymmetric right hip joint space narrowing with acetabular marginal osteophytosis status quo. There is no significant buttressing. There is no acute fracture, dislocation, or subluxation. IMPRESSION: Degenerative changes as described above. <Electronically signed by Arsh Mariano > 07/10/21 [id number]
== END ==
LOC: M ADAMS 14:50
PROVIDERS: ATTEND Family Medicine
DX: R91.8 Other nonspecific abnormal finding of lung field (principal); M25.551 Pain in right hip; R06.00 Dyspnea, unspecified; Z95.0 Presence of cardiac pacemaker; Z23 Encounter for immunization
CPT/HCPCS: 71046; 73502; 90732; G0009; G0463

== ENCOUNTER → 2021-07-12 | Outpatient (CLI) | payer MEDICARE | LOC: M RAD 16:32 | PROVIDERS: ATTEND Physician Assistant | DX: R91.8 Other nonspecific abnormal finding of lung field (principal); J47.9 Bronchiectasis, uncomplicated; Z95.0 Presence of cardiac pacemaker ==

== ENCOUNTER → 2021-07-12 | Outpatient (CLI) | payer MEDICARE ==
[2021-07-12 17:09] LABS: BASO # 0.1 10^3/uL (0.0-0.2); BASO % 0.5 % (0.0-1.0); EOS # 0.2 10^3/uL (0.0-0.5); EOS % 1.6 % (0.0-3.0); HEMATOCRIT 36.5 % (36.0-47.0); HEMOGLOBIN 11.4 g/dl (12.0-15.5); LYMPH # 1.9 10^3/uL (1.5-5.0); LYMPH % 18.2 % (24.0-44.0); MEAN CORPUSCULAR HEMOGLOBIN 31.1 pg (27.0-33.0); MEAN CORPUSCULAR HGB CONC 31.2 g/dl (32.0-36.5); MEAN CORPUSCULAR VOLUME 99.5 fl (80.0-96.0); MONO # 0.8 10^3/uL (0.0-0.8); MONO % 7.1 % (2.0-8.0); NEUTROPHILS # 7.7 10^3/uL (1.5-8.5); NEUTROPHILS % 72.1 % (36.0-66.0); PLATELET COUNT, AUTOMATED 305 10^3/uL (150-450); RED BLOOD COUNT 3.67 10^6/uL (4.00-5.40); WHITE BLOOD COUNT 10.6 10^3/uL (4.0-10.0)
[2021-07-12 17:28] LABS: ALBUMIN 3.1 GM/DL (3.2-5.2); ALT/SGPT 7 U/L (12-78); BILIRUBIN,TOTAL 0.6 MG/DL (0.2-1.0); BLOOD UREA NITROGEN 37 MG/DL (7-18); C REACTIVE PROTEIN QUANTITATIV 1.13 MG/DL (0.00-0.30); CALCIUM LEVEL 8.8 MG/DL (8.8-10.2); CARBON DIOXIDE LEVEL 24 MEQ/L (21-32); CHLORIDE LEVEL 113 MEQ/L (98-107); CREATININE FOR GFR 0.95 MG/DL (0.55-1.30); GLOMERULAR FILTRATION RATE > 60.0 (>45); GLUCOSE, FASTING 70 MG/DL (70-100); POTASSIUM SERUM 3.9 MEQ/L (3.5-5.1); SODIUM LEVEL 141 MEQ/L (136-145); TOTAL PROTEIN 7.3 GM/DL (6.4-8.2)
[2021-07-12 17:34] LABS: ERYTHROCYTE SEDIMENTATION RATE 72 mm/hr (0-30)
--- NOTE | 2021-07-12 17:53 | REP ---
INDICATION: OPACITY OF LUNG COMPARISON: None TECHNIQUE: Axial noncontrast images from the thoracic inlet to the upper abdomen with coronal and sagittal reformations. This CT examination was performed using the following dose reduction techniques: Automated exposure control, adjustment of mA and/or kv according to the patient's size, and use of iterative reconstruction technique. FINDINGS: [id number] patchy airspace disease primarily noted in the bilateral lower lobes and lingula consistent with multifocal pneumonia. COVID related pulmonary disease cannot be excluded. No effusion. No pneumothorax. Underlying mild emphysematous changes and bronchiectasis noted. Mediastinum demonstrates stable thoracic aorta and heart/pericardium with atherosclerotic disease and evidence for pacemaker. No cardiomegaly or pericardial effusion. Few reactive mediastinal and hilar lymph nodes are suggested. Musculoskeletal structures intact. IMPRESSION: Findings consistent with multifocal pneumonia. Follow-up to resolution recommended. COVID related lung disease cannot be excluded. <Electronically signed by Bradley Miles > 07/12/21 3022
== END ==
LOC: M LAB 16:36
PROVIDERS: ATTEND Internal Medicine Rheumatology
DX: R91.8 Other nonspecific abnormal finding of lung field (principal); J47.9 Bronchiectasis, uncomplicated; M35.3 Polymyalgia rheumatica; Z95.0 Presence of cardiac pacemaker

== ENCOUNTER 2021-07-14 21:56 | Emergency (ER) | payer MEDICARE ==
[~2021-07-14] VITALS: Ht 157.5 cm; Wt 59.1 kg
--- NOTE | 2021-07-15 01:24 | REPVR ---
PROCEDURE INFORMATION: Exam: XR Chest Exam date and time: 07/15/2021 1:09 AM Age: 71 years old Clinical indication: Cough; Additional info: Dyspnea/cough TECHNIQUE: Imaging protocol: XR of the chest. Views: 1 view. COMPARISON: CT Chest without contrast 07/12/2021 5:02 PM FINDINGS: Tubes, catheters and devices: Pacemaker in position from the left. Lungs: Minimal left base infiltrates and atelectasis which is similar to the prior study. Pleural spaces: Unremarkable. No pleural effusion. No pneumothorax. Heart/Mediastinum: Unremarkable. No cardiomegaly. Bones/joints: Unremarkable. IMPRESSION: There has been little change from 07/12/2021 with minimal left base infiltrate and atelectasis. Electronically signed by: Palomo Lawrence On 07/15/2021 01:23:31 AM
[2021-07-15 01:30] LABS: BASO # 0.1 10^3/uL (0.0-0.2); BASO % 0.7 % (0.0-1.0); EOS # 0.2 10^3/uL (0.0-0.5); EOS % 2.3 % (0.0-3.0); HEMATOCRIT 34.2 % (36.0-47.0); HEMOGLOBIN 10.8 g/dl (12.0-15.5); LYMPH # 2.4 10^3/uL (1.5-5.0); LYMPH % 24.8 % (24.0-44.0); MEAN CORPUSCULAR HEMOGLOBIN 30.9 pg (27.0-33.0); MEAN CORPUSCULAR HGB CONC 31.6 g/dl (32.0-36.5); MEAN CORPUSCULAR VOLUME 97.7 fl (80.0-96.0); MONO # 0.8 10^3/uL (0.0-0.8); MONO % 8.6 % (2.0-8.0); NEUTROPHILS % 62.7 % (36.0-66.0); PLATELET COUNT, AUTOMATED 294 10^3/uL (150-450); WHITE BLOOD COUNT 9.5 10^3/uL (4.0-10.0)
[2021-07-15 02:07] LABS: ALT/SGPT 7 U/L (12-78); BILIRUBIN,DIRECT < 0.1 MG/DL (0.0-0.2); BILIRUBIN,TOTAL 0.3 MG/DL (0.2-1.0); BLOOD UREA NITROGEN 36 MG/DL (7-18); CALCIUM LEVEL 8.6 MG/DL (8.8-10.2); CARBON DIOXIDE LEVEL 22 MEQ/L (21-32); CHLORIDE LEVEL 114 MEQ/L (98-107); CK-MB VALUE MASS 1.4 NG/ML (<3.6); CPK CREATINE PHOSPHOKINASE 65 U/L (26-192); CREATININE FOR GFR 1.01 MG/DL (0.55-1.30); GLOMERULAR FILTRATION RATE 57.9 (>45); GLUCOSE, FASTING 95 MG/DL (70-100); MB/CK RELATIVE INDEX 2.15 (< OR =4); NT-PRO BNP 405 PG/ML (<125); POTASSIUM SERUM 3.9 MEQ/L (3.5-5.1); SODIUM LEVEL 142 MEQ/L (136-145); TROPONIN I < 0.02 NG/ML (< 0.10)
[2021-07-15 02:36] VITALS: BP 133/80
--- NOTE | 2021-07-15 05:39 | ECGEPIP ---
[facility] - ED Test Date: 2021-07-15 Pat Name: HAKAN TAYLOR Department: Room: - Gender: Female Line Service Person: EMRE DONNELLY : 1950 Requested By: FARRAH Arredondo Order Number: [id number] Reading MD: Cr Ruiz Measurements Intervals [place] Rate: 74 P: NC: 208 QRS: 51 QRSD: 80 T: 49 QT: 392 QTc: 435 Interpretive Statements Atrial-paced rhythm with premature atrial complexes Low voltage QRS SIMILAR TO 07/14/19 Electronically Signed on 07-15-2021 5:39:17 EDT by Cr Ruiz
== END 2021-07-15 02:50 | disposition home or self-care (01) ==
LOC: M ED 21:56
DX: R06.02 Shortness of breath (principal); I51.9 Heart disease, unspecified; G20 Parkinson's disease; J45.909 Unspecified asthma, uncomplicated; Z95.0 Presence of cardiac pacemaker; Z87.891 Personal history of nicotine dependence; Z79.01 Long term (current) use of anticoagulants; Z79.899 Other long term (current) drug therapy; Z88.8 Allergy status to other drugs, medicaments and biological substances

== ENCOUNTER → 2021-08-22 | Outpatient (REF) | payer MEDICARE ==
[2021-08-22 17:21] LABS: HEMATOCRIT 36.5 % (36.0-47.0); HEMOGLOBIN 11.3 g/dl (12.0-15.5); MEAN CORPUSCULAR HEMOGLOBIN 30.8 pg (27.0-33.0); MEAN CORPUSCULAR VOLUME 99.5 fl (80.0-96.0); PLATELET COUNT, AUTOMATED 310 10^3/uL (150-450); RED BLOOD COUNT 3.67 10^6/uL (4.00-5.40); WHITE BLOOD COUNT 8.2 10^3/uL (4.0-10.0)
[2021-08-22 17:59] LABS: C REACTIVE PROTEIN QUANTITATIV 1.06 MG/DL (0.00-0.30); CHOLESTEROL RISK RATIO 3.226 (<5); FREE T4 0.82 NG/DL (0.76-1.46); THYROID STIMULATING HORMONE 0.834 uIU/ML (0.358-3.740)
== END ==
LOC: M SFHCADAM 14:55
PROVIDERS: ATTEND Family Medicine
DX: M35.3 Polymyalgia rheumatica (principal); R53.82 Chronic fatigue, unspecified; I48.20 Chronic atrial fibrillation, unspecified; E78.5 Hyperlipidemia, unspecified
CPT/HCPCS: 80061; 84439; 84443; 85027; 86140; G0463

== ENCOUNTER → 2021-11-21 | Outpatient (REF) | payer MEDICARE ==
[~2021-11-21] MED LIST changes: +ALBU83IN NEB; +SODI3NEB NEB
[2021-11-21 13:49] LABS: BASO # 0.1 10^3/uL (0.0-0.2); BASO % 0.8 % (0.0-1.0); EOS # 0.2 10^3/uL (0.0-0.5); EOS % 2.2 % (0.0-3.0); HEMATOCRIT 35.4 % (36.0-47.0); HEMOGLOBIN 10.9 g/dl (12.0-15.5); LYMPH # 1.8 10^3/uL (1.5-5.0); LYMPH % 19.4 % (24.0-44.0); MEAN CORPUSCULAR HEMOGLOBIN 30.4 pg (27.0-33.0); MEAN CORPUSCULAR HGB CONC 30.8 g/dl (32.0-36.5); MEAN CORPUSCULAR VOLUME 98.6 fl (80.0-96.0); MONO # 0.8 10^3/uL (0.0-0.8); MONO % 8.7 % (2.0-8.0); NEUTROPHILS # 6.5 10^3/uL (1.5-8.5); NEUTROPHILS % 68.3 % (36.0-66.0); PLATELET COUNT, AUTOMATED 267 10^3/uL (150-450); RED BLOOD COUNT 3.59 10^6/uL (4.00-5.40); WHITE BLOOD COUNT 9.5 10^3/uL (4.0-10.0)
[2021-11-21 14:07] LABS: PERCENT SATURATION 28.8 % (13.2-45.0)
== END ==
LOC: M LAB REF 13:09 → M LABDRWAD 13:09
PROVIDERS: ATTEND Internal Medicine Medical Oncology
DX: R76.8 Other specified abnormal immunological findings in serum (principal)

== ENCOUNTER → 2022-01-20 | Outpatient (REF) | payer MEDICARE ==
[~2022-01-20] MED LIST changes: -CEFD1CAP8 PO; +CEFD300C41 PO; -CITA40TA4 PO; +CITA40TA7 PO
[2022-01-20 17:34] LABS: BASO # 0.1 10^3/uL (0.0-0.2); BASO % 0.9 % (0.0-1.0); EOS # 0.1 10^3/uL (0.0-0.5); EOS % 1.4 % (0.0-3.0); HEMATOCRIT 36.5 % (36.0-47.0); HEMOGLOBIN 11.1 g/dl (12.0-15.5); LYMPH # 2.4 10^3/uL (1.5-5.0); LYMPH % 26.4 % (24.0-44.0); MEAN CORPUSCULAR HEMOGLOBIN 29.5 pg (27.0-33.0); MEAN CORPUSCULAR HGB CONC 30.4 g/dl (32.0-36.5); MEAN CORPUSCULAR VOLUME 97.1 fl (80.0-96.0); MONO # 0.7 10^3/uL (0.0-0.8); MONO % 7.2 % (2.0-8.0); NEUTROPHILS # 5.8 10^3/uL (1.5-8.5); NEUTROPHILS % 63.5 % (36.0-66.0); PLATELET COUNT, AUTOMATED 296 10^3/uL (150-450); RED BLOOD COUNT 3.76 10^6/uL (4.00-5.40); WHITE BLOOD COUNT 9.1 10^3/uL (4.0-10.0)
[2022-01-20 18:06] LABS: ALBUMIN 3.3 GM/DL (3.2-5.2); BILIRUBIN,TOTAL 0.3 MG/DL (0.2-1.0); C REACTIVE PROTEIN QUANTITATIV 1.15 MG/DL (0.00-0.30); CALCIUM LEVEL 9.3 MG/DL (8.8-10.2); CREATININE FOR GFR 1.02 MG/DL (0.55-1.30); GLOMERULAR FILTRATION RATE 57.2 (>45); POTASSIUM SERUM 4.5 MEQ/L (3.5-5.1); TOTAL PROTEIN 7.2 GM/DL (6.4-8.2)
[2022-01-20 18:28] LABS: ERYTHROCYTE SEDIMENTATION RATE 67 mm/hr (0-30)
== END ==
LOC: M SFHCADAM 15:53
PROVIDERS: ATTEND Internal Medicine Rheumatology
DX: M35.3 Polymyalgia rheumatica (principal); M81.8 Other osteoporosis without current pathological fracture; M17.11 Unilateral primary osteoarthritis, right knee

== ENCOUNTER → 2022-02-11 | Outpatient (CLI) | payer MEDICARE ==
[~2022-02-11] MED LIST changes: -D31000TA2 PO; +VITA100093 PO
== END ==
LOC: M RAD 13:36
PROVIDERS: ATTEND Internal Medicine Pulmonary Disease
DX: R91.8 Other nonspecific abnormal finding of lung field (principal); J44.9 Chronic obstructive pulmonary disease, unspecified

== ENCOUNTER → 2022-02-20 | Outpatient (CLI) | payer MEDICARE | LOC: M RAD 10:58 | PROVIDERS: ATTEND Internal Medicine Medical Oncology | DX: N18.9 Chronic kidney disease, unspecified (principal); D64.9 Anemia, unspecified ==

== ENCOUNTER → 2022-04-07 | Outpatient (CLI) | payer MEDICARE | LOC: M WHC 12:25 | PROVIDERS: ATTEND Family Medicine | DX: Z12.31 Encounter for screening mammogram for malignant neoplasm of breast (principal); M81.0 Age-related osteoporosis without current pathological fracture ==

== ENCOUNTER → 2022-05-28 | Outpatient (REF) | payer MEDICARE ==
[~2022-05-28] MED LIST changes: +ALBU2.5V10 NEB; -ALBU83IN NEB; +OSTETAB2 PO
[2022-05-28 17:47] LABS: BASO # 0.1 10^3/uL (0.0-0.2); BASO % 0.7 % (0.0-1.0); EOS # 0.2 10^3/uL (0.0-0.5); EOS % 2.4 % (0.0-3.0); HEMOGLOBIN 11.1 g/dl (12.0-15.5); LYMPH # 2.3 10^3/uL (1.5-5.0); LYMPH % 25.7 % (24.0-44.0); MEAN CORPUSCULAR HEMOGLOBIN 30.8 pg (27.0-33.0); MEAN CORPUSCULAR HGB CONC 30.8 g/dl (32.0-36.5); MONO # 0.6 10^3/uL (0.0-0.8); MONO % 7.3 % (2.0-8.0); NEUTROPHILS # 5.6 10^3/uL (1.5-8.5); NEUTROPHILS % 63.4 % (36.0-66.0); PLATELET COUNT, AUTOMATED 258 10^3/uL (150-450); WHITE BLOOD COUNT 8.8 10^3/uL (4.0-10.0)
[2022-05-28 18:13] LABS: ALBUMIN 3.2 GM/DL (3.2-5.2); BILIRUBIN,TOTAL 0.3 MG/DL (0.2-1.0); C REACTIVE PROTEIN QUANTITATIV 0.76 MG/DL (0.00-0.30); CALCIUM LEVEL 9.1 MG/DL (8.8-10.2); CHOLESTEROL RISK RATIO 2.982 (<5); CREATININE FOR GFR 1.03 MG/DL (0.55-1.30); FREE T4 0.77 NG/DL (0.76-1.46); GLOMERULAR FILTRATION RATE 56.4 (>39); POTASSIUM SERUM 4.4 MEQ/L (3.5-5.1); THYROID STIMULATING HORMONE 1.07 uIU/ML (0.358-3.740); TOTAL PROTEIN 7.1 GM/DL (6.4-8.2)
[2022-05-28 18:28] LABS: ERYTHROCYTE SEDIMENTATION RATE 63 mm/hr (0-30)
== END ==
LOC: M SFHCADAM 14:14
PROVIDERS: ATTEND Family Medicine
DX: M35.3 Polymyalgia rheumatica (principal); M81.8 Other osteoporosis without current pathological fracture; M17.11 Unilateral primary osteoarthritis, right knee; I48.20 Chronic atrial fibrillation, unspecified; E78.5 Hyperlipidemia, unspecified

== ENCOUNTER 2022-06-06 07:57 | Day surgery (SDC) | payer MEDICARE ==
[~2022-06-06] VITALS: Ht 154.9 cm; Wt 52.3 kg
[2022-06-06] MEDS ORDERED: LR 1,000 ML IV SCH (08:20)
[2022-06-06 09:21] LABS: INR 1.01; PROTHROMBIN TIME 13.7 SECONDS (12.7-14.5)
[2022-06-06] MEDS ORDERED: EPINEPHrine 1MG/10ML SYRINGE 1.5IN As Ordered ONE (09:24)
[2022-06-06] MEDS ORDERED: THROMBIN SOLN 5,000 UNITS VIAL As Ordered ONE (09:25)
[2022-06-06] MEDS ORDERED: CETACAINE SPRAY 5GM As Ordered ONE (09:25)
[2022-06-06] MEDS ORDERED: ALBUTEROL SULFATE 2.5 MG/0.5 ML INH NEB SOLN INH ONE (09:35)
[2022-06-06] MEDS ORDERED: LIDOCAINE 4% INJ 5ML AMP INH ONE (09:35)
[2022-06-06] MEDS ORDERED: LIDOCAINE VISCOUS 2% SOLN 15ML UDC As Ordered ONE (10:10)
[2022-06-06] MEDS ORDERED: LIDOCAINE 1% SDV 30ML VIAL As Ordered ONE (10:13)
[2022-06-06] MEDS ORDERED: LIDOCAINE 4% TOPICAL SOLN 50 ML BTL As Ordered ONE (10:13)
[2022-06-06 11:20] VITALS: BP 101/54
[2022-06-06] MEDS ORDERED: fentaNYL 100 MCG/2 ML INJECTION As Ordered ONE (11:37)
[2022-06-06] MEDS ORDERED: MIDAZOLAM INJ 2MG/2ML VIAL (J2250 PER 1MG) As Ordered ONE (11:37)
== END 2022-06-06 11:39 | disposition home or self-care (01) ==
LOC: M SDC 07:57
PROVIDERS: ATTEND Internal Medicine Pulmonary Disease
DX: R91.8 Other nonspecific abnormal finding of lung field (principal); I48.91 Unspecified atrial fibrillation; Z95.0 Presence of cardiac pacemaker; I10 Essential (primary) hypertension; E78.5 Hyperlipidemia, unspecified; G20 Parkinson's disease; G40.909 Epilepsy, unspecified, not intractable, without status epilepticus; Z79.01 Long term (current) use of anticoagulants; Z79.899 Other long term (current) drug therapy; J45.909 Unspecified asthma, uncomplicated; Z79.51 Long term (current) use of inhaled steroids; K57.92 Diverticulitis of intestine, part unspecified, without perforation or abscess without bleeding; K21.9 Gastro-esophageal reflux disease without esophagitis; Z88.8 Allergy status to other drugs, medicaments and biological substances
CPT/HCPCS: 31624; 36415; 85610; 87070; 87077; 87102; 87116; 87186; 87205; 87206; J2250; J3010

== ENCOUNTER → 2022-06-10 | Outpatient (CLI) | payer MEDICARE | LOC: M CARPUL 14:38 | PROVIDERS: ATTEND Internal Medicine Pulmonary Disease | DX: R91.8 Other nonspecific abnormal finding of lung field (principal) ==

== ENCOUNTER → 2022-06-30 | Outpatient (REF) | payer MEDICARE ==
[2022-06-30 16:20] LABS: BASO # 0.1 10^3/uL (0.0-0.2); BASO % 0.9 % (0.0-1.0); EOS # 0.2 10^3/uL (0.0-0.5); EOS % 2.4 % (0.0-3.0); HEMATOCRIT 37.5 % (36.0-47.0); HEMOGLOBIN 11.3 g/dl (12.0-15.5); LYMPH # 2.3 10^3/uL (1.5-5.0); LYMPH % 30.5 % (24.0-44.0); MEAN CORPUSCULAR HEMOGLOBIN 29.5 pg (27.0-33.0); MEAN CORPUSCULAR HGB CONC 30.1 g/dl (32.0-36.5); MEAN CORPUSCULAR VOLUME 97.9 fl (80.0-96.0); MONO # 0.6 10^3/uL (0.0-0.8); MONO % 8.4 % (2.0-8.0); NEUTROPHILS # 4.2 10^3/uL (1.5-8.5); NEUTROPHILS % 57.4 % (36.0-66.0); PLATELET COUNT, AUTOMATED 256 10^3/uL (150-450); RED BLOOD COUNT 3.83 10^6/uL (4.00-5.40); WHITE BLOOD COUNT 7.4 10^3/uL (4.0-10.0)
[2022-06-30 17:35] LABS: ERYTHROCYTE SEDIMENTATION RATE 49 mm/hr (0-30)
[2022-06-30 23:13] LABS: ALBUMIN 3.4 GM/DL (3.2-5.2); BILIRUBIN,TOTAL 0.3 MG/DL (0.2-1.0); C REACTIVE PROTEIN QUANTITATIV 0.3 MG/DL (0.00-0.30); CALCIUM LEVEL 9.5 MG/DL (8.8-10.2); CREATININE FOR GFR 1.07 MG/DL (0.55-1.30); POTASSIUM SERUM 4.2 MEQ/L (3.5-5.1); TOTAL PROTEIN 6.8 GM/DL (6.4-8.2)
== END ==
LOC: M LABDRWAD 15:51
PROVIDERS: ATTEND Internal Medicine Rheumatology
DX: M35.3 Polymyalgia rheumatica (principal); M81.8 Other osteoporosis without current pathological fracture; M17.11 Unilateral primary osteoarthritis, right knee

== ENCOUNTER 2022-08-02 23:57 | Inpatient (IN) | payer MEDICARE ==
[~2022-08-02] VITALS: Ht 162.6 cm; Wt 51.2 kg
[2022-08-03] MEDS ORDERED: NS 1,000 ML IV ONE (01:15)
[2022-08-03 01:57] LABS: VENOUS HCO3 25.3 MEQ/L (23.0-27.0); VENOUS O2 SATURATION 54.5 % (60.0-80.0); VENOUS PARTIAL PRESSURE CO2 48.6 mmHg (38.0-50.0); VENOUS PARTIAL PRESSURE O2 28.1 mmHg (30.0-50.0); VENOUS PH 7.334 UNITS (7.330-7.430); VENOUS STANDARD HCO3 22.7 MEQ/L; VENOUS TOTAL CO2 26.8 MEQ/L (24.0-28.0)
[2022-08-03 02:15] LABS: BASO # 0.1 10^3/uL (0.0-0.2); BASO % 0.5 % (0.0-1.0); EOS % 0.3 % (0.0-3.0); HEMATOCRIT 36.9 % (36.0-47.0); HEMOGLOBIN 11.9 g/dl (12.0-15.5); LYMPH # 1.9 10^3/uL (1.5-5.0); LYMPH % 13.5 % (24.0-44.0); MEAN CORPUSCULAR HEMOGLOBIN 31.3 pg (27.0-33.0); MEAN CORPUSCULAR HGB CONC 32.2 g/dl (32.0-36.5); MEAN CORPUSCULAR VOLUME 97.1 fl (80.0-96.0); MONO # 1.2 10^3/uL (0.0-0.8); MONO % 8.6 % (2.0-8.0); NEUTROPHILS # 10.5 10^3/uL (1.5-8.5); NEUTROPHILS % 76.7 % (36.0-66.0); PLATELET COUNT, AUTOMATED 266 10^3/uL (150-450); WHITE BLOOD COUNT 13.7 10^3/uL (4.0-10.0)
[2022-08-03 02:52] LABS: ALBUMIN 3.2 GM/DL (3.2-5.2); BILIRUBIN,DIRECT 0.1 MG/DL (0.0-0.2); BILIRUBIN,TOTAL 0.3 MG/DL (0.2-1.0); CALCIUM LEVEL 9.4 MG/DL (8.8-10.2); CK-MB VALUE MASS 11.8 NG/ML (<3.6); CREATININE FOR GFR 1.23 MG/DL (0.55-1.30); MB/CK RELATIVE INDEX 0.51 (< OR =4); POTASSIUM SERUM 3.6 MEQ/L (3.5-5.1); THYROID STIMULATING HORMONE 1.19 uIU/ML (0.358-3.740); TOTAL PROTEIN 6.7 GM/DL (6.4-8.2)
[2022-08-03 04:02] LABS: CK-MB VALUE MASS 10.2 NG/ML (<3.6); MB/CK RELATIVE INDEX 0.51 (< OR =4)
[2022-08-03] MEDS ORDERED: SINEMET 25-100 MG TAB PO ONE (04:30)
[2022-08-03] MEDS ORDERED: FLUT1BLS5 IH (05:10)
[2022-08-03] MEDS ORDERED: HOME MED LIST COMPLETE! XX SCH (05:15)
[2022-08-03] MEDS ORDERED: NS 1,000 ML IV SCH (05:55)
[2022-08-03 06:26] LABS: RSV AMPLIFICATION NEGATIVE (NEGATIVE)
[2022-08-03] MEDS: ACETAMINOPHEN TAB 650MG DOSE (2X325MG) PO PRN ×3 (06:51→20:22)
[2022-08-03] MEDS ORDERED: KETOROLAC 30 MG/ML 1ML VIAL IV ONE (07:00)
[2022-08-03] MEDS: METOPROLOL TART 25 MG TABLET PO SCH ×2 (09:00→20:22)
[2022-08-03] MEDS ORDERED: ACETAMINOPHEN 650MG ER TAB (TYLENOL ARTHRITIS) PO SCH (09:45)
[2022-08-03] MEDS ORDERED: DOCUSATE SODIUM 100MG CAPSULE PO PRN (09:45)
[2022-08-03] MEDS ORDERED: ALBUTEROL 90 MCG/ACT 8GM HFA INHALER INH PRN (09:45)
[2022-08-03 10:06] VITALS: BP 111/47
[2022-08-03] MEDS: OMEGA-3 1000MG CAPSULE PO SCH ×2 (11:06→20:22)
[2022-08-03] MEDS: CitaloPRAM (CeleXA) 20 MG TAB PO SCH (11:06)
[2022-08-03] MEDS: TOPIRAMATE (TopAMAX) 100 MG TAB PO SCH ×2 (11:06→20:23)
[2022-08-03] MEDS: APIXABAN 5 MG TAB (ELIQUIS) PO SCH ×2 (11:07→20:22)
[2022-08-03] MEDS: rOPINIRole 1MG TAB PO SCH ×3 (11:07→20:22)
[2022-08-03] MEDS: VITAMIN D 1,000 INTERNATIONAL UNITS TABLET PO SCH (11:07)
[2022-08-03] MEDS: KCL 20MEQ IN 0.45NS 1000ML 1,000 ML IV SCH ×2 (11:07→23:09)
[2022-08-03] MEDS: SYMBICORT 80/4.5MCG INHALER 6GM INH SCH ×2 (11:12→20:18)
[2022-08-03] MEDS: SINEMET 25-100 MG TAB PO SCH ×3 (13:02→20:22)
[2022-08-03] MEDS: EZETIMIBE 10MG TABLET (ZETIA) PO SCH (20:22)
[2022-08-03 21:43] VITALS: BP 112/46
[2022-08-04 06:00] VITALS: BP 111/60
[2022-08-04 07:11] LABS: HEMATOCRIT 28.4 % (36.0-47.0); MEAN CORPUSCULAR HEMOGLOBIN 31.4 pg (27.0-33.0); MEAN CORPUSCULAR HGB CONC 32.4 g/dl (32.0-36.5); MEAN CORPUSCULAR VOLUME 96.9 fl (80.0-96.0); PLATELET COUNT, AUTOMATED 169 10^3/uL (150-450); RED BLOOD COUNT 2.93 10^6/uL (4.00-5.40); WHITE BLOOD COUNT 9.8 10^3/uL (4.0-10.0)
[2022-08-04 07:18] LABS: HEMOGLOBIN 9.2 g/dl (12.0-15.5)
[2022-08-04] MEDS: SYMBICORT 80/4.5MCG INHALER 6GM INH SCH ×2 (07:30→20:00)
[2022-08-04 07:58] LABS: BLOOD UREA NITROGEN 30 MG/DL (7-18); CALCIUM LEVEL 7.9 MG/DL (8.8-10.2); CARBON DIOXIDE LEVEL 20 MEQ/L (21-32); CHLORIDE LEVEL 116 MEQ/L (98-107); CREATININE FOR GFR 0.82 MG/DL (0.55-1.30); GLOMERULAR FILTRATION RATE > 60.0 (>39); GLUCOSE, FASTING 121 MG/DL (70-100); POTASSIUM SERUM 3.9 MEQ/L (3.5-5.1); SODIUM LEVEL 142 MEQ/L (136-145)
[2022-08-04] MEDS: APIXABAN 5 MG TAB (ELIQUIS) PO SCH ×2 (08:19→21:40)
[2022-08-04] MEDS: VITAMIN D 1,000 INTERNATIONAL UNITS TABLET PO SCH (08:19)
[2022-08-04] MEDS: CitaloPRAM (CeleXA) 20 MG TAB PO SCH (08:19)
[2022-08-04] MEDS: OMEGA-3 1000MG CAPSULE PO SCH ×2 (08:19→21:39)
[2022-08-04] MEDS: rOPINIRole 1MG TAB PO SCH ×3 (08:19→21:40)
[2022-08-04] MEDS: TOPIRAMATE (TopAMAX) 100 MG TAB PO SCH ×2 (08:19→21:40)
[2022-08-04] MEDS: METOPROLOL TART 25 MG TABLET PO SCH ×2 (08:19→21:00)
[2022-08-04] MEDS: SINEMET 25-100 MG TAB PO SCH ×4 (08:20→21:40)
[2022-08-04 14:14] VITALS: BP 101/53
[2022-08-04] MEDS: ACETAMINOPHEN TAB 650MG DOSE (2X325MG) PO PRN (16:27)
[2022-08-04] MEDS ORDERED: AZITHROMYCIN 250MG TABLET PO SCH (21:00)
[2022-08-04] MEDS: EZETIMIBE 10MG TABLET (ZETIA) PO SCH (21:39)
[2022-08-04 22:00] VITALS: BP 105/56
[2022-08-05 05:34] LABS: HEMATOCRIT 29.7 % (36.0-47.0); HEMOGLOBIN 9.6 g/dl (12.0-15.5); MEAN CORPUSCULAR HEMOGLOBIN 30.9 pg (27.0-33.0); MEAN CORPUSCULAR HGB CONC 32.3 g/dl (32.0-36.5); MEAN CORPUSCULAR VOLUME 95.5 fl (80.0-96.0); PLATELET COUNT, AUTOMATED 193 10^3/uL (150-450); RED BLOOD COUNT 3.11 10^6/uL (4.00-5.40); WHITE BLOOD COUNT 9.5 10^3/uL (4.0-10.0)
[2022-08-05 06:17] LABS: BLOOD UREA NITROGEN 23 MG/DL (7-18); CALCIUM LEVEL 8.3 MG/DL (8.8-10.2); CARBON DIOXIDE LEVEL 22 MEQ/L (21-32); CHLORIDE LEVEL 114 MEQ/L (98-107); CREATININE FOR GFR 0.72 MG/DL (0.55-1.30); GLOMERULAR FILTRATION RATE > 60.0 (>39); GLUCOSE, FASTING 77 MG/DL (70-100); POTASSIUM SERUM 4.1 MEQ/L (3.5-5.1); SODIUM LEVEL 139 MEQ/L (136-145)
[2022-08-05 06:19] VITALS: BP 111/50
[2022-08-05 07:07] LABS: IMMUNOGLOBULIN G 719 MG/DL (681-1648)
[2022-08-05 07:31] LABS: ERYTHROCYTE SEDIMENTATION RATE 70 mm/hr (0-30)
[2022-08-05] MEDS: SYMBICORT 80/4.5MCG INHALER 6GM INH SCH ×2 (07:43→20:27)
[2022-08-05 08:00] LABS: IMMUNOGLOBULIN M 18.4 MG/DL (40-230)
[2022-08-05] MEDS: METOPROLOL TART 25 MG TABLET PO SCH ×2 (09:00→21:00)
[2022-08-05] MEDS: OMEGA-3 1000MG CAPSULE PO SCH ×2 (09:11→21:14)
[2022-08-05] MEDS: rOPINIRole 1MG TAB PO SCH ×3 (09:11→21:16)
[2022-08-05] MEDS: CitaloPRAM (CeleXA) 20 MG TAB PO SCH (09:11)
[2022-08-05] MEDS: VITAMIN D 1,000 INTERNATIONAL UNITS TABLET PO SCH (09:11)
[2022-08-05] MEDS: ACETAMINOPHEN TAB 650MG DOSE (2X325MG) PO PRN (09:11)
[2022-08-05] MEDS: APIXABAN 5 MG TAB (ELIQUIS) PO SCH ×2 (09:11→21:15)
[2022-08-05] MEDS: SINEMET 25-100 MG TAB PO SCH ×4 (09:12→21:11)
[2022-08-05] MEDS: TOPIRAMATE (TopAMAX) 100 MG TAB PO SCH ×2 (09:12→21:15)
[2022-08-05 09:15] VITALS: BP 93/75
[2022-08-05 10:00] VITALS: BP 93/45
[2022-08-05] MEDS: NS 0.45% 1,000 ML IV SCH (10:36)
[2022-08-05 10:38] LABS: HIV 1&2 SCREEN CENTAUR NEGATIVE (NEGATIVE)
[2022-08-05 14:00] VITALS: BP 120/66
[2022-08-05 20:23] VITALS: BP 125/39
[2022-08-05] MEDS: EZETIMIBE 10MG TABLET (ZETIA) PO SCH (21:13)
[2022-08-06] MEDS: ACETAMINOPHEN TAB 650MG DOSE (2X325MG) PO PRN ×2 (00:04→14:58)
[2022-08-06] MEDS: NS 0.45% 1,000 ML IV SCH (00:04)
[2022-08-06 04:31] VITALS: BP 128/66
[2022-08-06] MEDS: SYMBICORT 80/4.5MCG INHALER 6GM INH SCH ×2 (07:15→20:08)
[2022-08-06 07:36] LABS: BASO # 0.1 10^3/uL (0.0-0.2); BASO % 0.6 % (0.0-1.0); EOS # 0.2 10^3/uL (0.0-0.5); EOS % 1.8 % (0.0-3.0); HEMATOCRIT 31.4 % (36.0-47.0); HEMOGLOBIN 10.1 g/dl (12.0-15.5); LYMPH # 2.2 10^3/uL (1.5-5.0); LYMPH % 25.5 % (24.0-44.0); MEAN CORPUSCULAR HGB CONC 32.2 g/dl (32.0-36.5); MEAN CORPUSCULAR VOLUME 96.3 fl (80.0-96.0); MONO # 0.9 10^3/uL (0.0-0.8); MONO % 10.5 % (2.0-8.0); NEUTROPHILS # 5.2 10^3/uL (1.5-8.5); PLATELET COUNT, AUTOMATED 250 10^3/uL (150-450); RED BLOOD COUNT 3.26 10^6/uL (4.00-5.40); WHITE BLOOD COUNT 8.5 10^3/uL (4.0-10.0)
[2022-08-06 07:55] LABS: CALCIUM LEVEL 8.6 MG/DL (8.8-10.2); CREATININE FOR GFR 1.12 MG/DL (0.55-1.30); GLOMERULAR FILTRATION RATE 51.2 (>39); POTASSIUM SERUM 4.2 MEQ/L (3.5-5.1)
[2022-08-06] MEDS: METOPROLOL TART 25 MG TABLET PO SCH ×2 (09:00→21:00)
[2022-08-06] MEDS: rOPINIRole 1MG TAB PO SCH ×3 (09:29→21:07)
[2022-08-06] MEDS: TOPIRAMATE (TopAMAX) 100 MG TAB PO SCH ×2 (09:30→21:07)
[2022-08-06] MEDS: SINEMET 25-100 MG TAB PO SCH ×4 (09:30→21:07)
[2022-08-06] MEDS: VITAMIN D 1,000 INTERNATIONAL UNITS TABLET PO SCH (09:30)
[2022-08-06] MEDS: OMEGA-3 1000MG CAPSULE PO SCH ×2 (09:30→21:07)
[2022-08-06] MEDS: CitaloPRAM (CeleXA) 20 MG TAB PO SCH (09:30)
[2022-08-06] MEDS: APIXABAN 5 MG TAB (ELIQUIS) PO SCH ×2 (09:30→21:07)
[2022-08-06 14:00] VITALS: BP 130/63
[2022-08-06] MEDS: EZETIMIBE 10MG TABLET (ZETIA) PO SCH (21:07)
[2022-08-06 22:16] VITALS: BP 93/40
[2022-08-07] MEDS: ACETAMINOPHEN TAB 650MG DOSE (2X325MG) PO PRN ×3 (05:28→21:31)
[2022-08-07 05:40] VITALS: BP 134/58
[2022-08-07 07:03] LABS: HEMATOCRIT 30.1 % (36.0-47.0); HEMOGLOBIN 9.6 g/dl (12.0-15.5); MEAN CORPUSCULAR HEMOGLOBIN 30.6 pg (27.0-33.0); MEAN CORPUSCULAR HGB CONC 31.9 g/dl (32.0-36.5); MEAN CORPUSCULAR VOLUME 95.9 fl (80.0-96.0); PLATELET COUNT, AUTOMATED 261 10^3/uL (150-450); RED BLOOD COUNT 3.14 10^6/uL (4.00-5.40); WHITE BLOOD COUNT 6.8 10^3/uL (4.0-10.0)
[2022-08-07 07:41] LABS: BLOOD UREA NITROGEN 22 MG/DL (7-18); CALCIUM LEVEL 8.4 MG/DL (8.8-10.2); CARBON DIOXIDE LEVEL 21 MEQ/L (21-32); CHLORIDE LEVEL 115 MEQ/L (98-107); CREATININE FOR GFR 0.97 MG/DL (0.55-1.30); GLOMERULAR FILTRATION RATE > 60.0 (>39); GLUCOSE, FASTING 81 MG/DL (70-100); POTASSIUM SERUM 4.3 MEQ/L (3.5-5.1); SODIUM LEVEL 143 MEQ/L (136-145)
[2022-08-07] MEDS: SYMBICORT 80/4.5MCG INHALER 6GM INH SCH ×2 (08:07→21:13)
[2022-08-07] MEDS: METOPROLOL TART 25 MG TABLET PO SCH ×2 (09:00→21:00)
[2022-08-07] MEDS: OMEGA-3 1000MG CAPSULE PO SCH ×2 (09:21→21:28)
[2022-08-07] MEDS: rOPINIRole 1MG TAB PO SCH ×3 (09:21→21:28)
[2022-08-07] MEDS: APIXABAN 5 MG TAB (ELIQUIS) PO SCH ×2 (09:21→21:29)
[2022-08-07] MEDS: TOPIRAMATE (TopAMAX) 100 MG TAB PO SCH ×2 (09:21→21:29)
[2022-08-07] MEDS: VITAMIN D 1,000 INTERNATIONAL UNITS TABLET PO SCH (09:21)
[2022-08-07] MEDS: SINEMET 25-100 MG TAB PO SCH ×4 (09:21→21:29)
[2022-08-07] MEDS: CitaloPRAM (CeleXA) 20 MG TAB PO SCH (09:22)
[2022-08-07] MEDS: EZETIMIBE 10MG TABLET (ZETIA) PO SCH (21:29)
[2022-08-07] MEDS ORDERED: DOXYCYCLINE HYCLATE 100MG TABLET PO ONE (22:05)
[2022-08-08] MEDS: ACETAMINOPHEN TAB 650MG DOSE (2X325MG) PO PRN (04:29)
[2022-08-08 05:22] VITALS: BP 136/58
[2022-08-08 06:22] LABS: HEMATOCRIT 29.7 % (36.0-47.0); HEMOGLOBIN 9.3 g/dl (12.0-15.5); MEAN CORPUSCULAR HGB CONC 31.3 g/dl (32.0-36.5); MEAN CORPUSCULAR VOLUME 95.8 fl (80.0-96.0); PLATELET COUNT, AUTOMATED 262 10^3/uL (150-450); WHITE BLOOD COUNT 6.5 10^3/uL (4.0-10.0)
[2022-08-08 06:55] LABS: BLOOD UREA NITROGEN 23 MG/DL (7-18); CALCIUM LEVEL 8.4 MG/DL (8.8-10.2); CARBON DIOXIDE LEVEL 23 MEQ/L (21-32); CHLORIDE LEVEL 114 MEQ/L (98-107); GLOMERULAR FILTRATION RATE > 60.0 (>39); GLUCOSE, FASTING 83 MG/DL (70-100); POTASSIUM SERUM 4.2 MEQ/L (3.5-5.1); SODIUM LEVEL 141 MEQ/L (136-145)
[2022-08-08] MEDS: SYMBICORT 80/4.5MCG INHALER 6GM INH SCH ×2 (08:06→20:55)
[2022-08-08] MEDS: METOPROLOL TART 25 MG TABLET PO SCH ×3 (09:00→21:54)
[2022-08-08] MEDS: CitaloPRAM (CeleXA) 20 MG TAB PO SCH (10:22)
[2022-08-08] MEDS: OMEGA-3 1000MG CAPSULE PO SCH ×2 (10:25→21:53)
[2022-08-08] MEDS: SINEMET 25-100 MG TAB PO SCH ×4 (10:25→21:53)
[2022-08-08] MEDS: VITAMIN D 1,000 INTERNATIONAL UNITS TABLET PO SCH (10:26)
[2022-08-08] MEDS: APIXABAN 5 MG TAB (ELIQUIS) PO SCH ×2 (10:26→21:54)
[2022-08-08] MEDS: rOPINIRole 1MG TAB PO SCH ×3 (10:26→21:53)
[2022-08-08] MEDS: DOXYCYCLINE HYCLATE 100MG TABLET PO SCH ×2 (10:27→21:53)
[2022-08-08] MEDS: TOPIRAMATE (TopAMAX) 100 MG TAB PO SCH ×2 (10:27→21:54)
[2022-08-08 11:14] LABS: C REACTIVE PROTEIN QUANTITATIV 4.25 MG/DL (0.00-0.30)
[2022-08-08 11:51] LABS: ERYTHROCYTE SEDIMENTATION RATE 84 mm/hr (0-30)
[2022-08-08] MEDS: EZETIMIBE 10MG TABLET (ZETIA) PO SCH (21:53)
[2022-08-09] MEDS: ACETAMINOPHEN TAB 650MG DOSE (2X325MG) PO PRN ×3 (00:26→20:59)
[2022-08-09 06:00] VITALS: BP 117/61
[2022-08-09 06:55] LABS: HEMATOCRIT 32.4 % (36.0-47.0); HEMOGLOBIN 10.1 g/dl (12.0-15.5); MEAN CORPUSCULAR HEMOGLOBIN 30.1 pg (27.0-33.0); MEAN CORPUSCULAR HGB CONC 31.2 g/dl (32.0-36.5); MEAN CORPUSCULAR VOLUME 96.4 fl (80.0-96.0); PLATELET COUNT, AUTOMATED 323 10^3/uL (150-450); RED BLOOD COUNT 3.36 10^6/uL (4.00-5.40); WHITE BLOOD COUNT 7.7 10^3/uL (4.0-10.0)
[2022-08-09] MEDS: SYMBICORT 80/4.5MCG INHALER 6GM INH SCH ×2 (07:19→19:59)
[2022-08-09 07:33] LABS: BLOOD UREA NITROGEN 28 MG/DL (7-18); CALCIUM LEVEL 8.8 MG/DL (8.8-10.2); CARBON DIOXIDE LEVEL 24 MEQ/L (21-32); CHLORIDE LEVEL 112 MEQ/L (98-107); CREATININE FOR GFR 0.81 MG/DL (0.55-1.30); GLOMERULAR FILTRATION RATE > 60.0 (>39); GLUCOSE, FASTING 78 MG/DL (70-100); POTASSIUM SERUM 4.4 MEQ/L (3.5-5.1); SODIUM LEVEL 141 MEQ/L (136-145)
[2022-08-09] MEDS: METOPROLOL TART 25 MG TABLET PO SCH ×2 (09:00→20:59)
[2022-08-09] MEDS: CitaloPRAM (CeleXA) 20 MG TAB PO SCH (09:10)
[2022-08-09] MEDS: VITAMIN D 1,000 INTERNATIONAL UNITS TABLET PO SCH (09:10)
[2022-08-09] MEDS: SINEMET 25-100 MG TAB PO SCH ×4 (09:11→20:58)
[2022-08-09] MEDS: OMEGA-3 1000MG CAPSULE PO SCH ×2 (09:11→20:58)
[2022-08-09] MEDS: rOPINIRole 1MG TAB PO SCH ×3 (09:11→20:59)
[2022-08-09] MEDS: DOXYCYCLINE HYCLATE 100MG TABLET PO SCH ×2 (09:12→20:59)
[2022-08-09] MEDS: APIXABAN 5 MG TAB (ELIQUIS) PO SCH ×2 (09:12→20:58)
[2022-08-09] MEDS: TOPIRAMATE (TopAMAX) 100 MG TAB PO SCH ×2 (09:12→20:58)
[2022-08-09] MEDS: EZETIMIBE 10MG TABLET (ZETIA) PO SCH (20:59)
[2022-08-10] MEDS: ACETAMINOPHEN TAB 650MG DOSE (2X325MG) PO PRN ×3 (01:11→19:55)
[2022-08-10 06:00] VITALS: BP 116/63
[2022-08-10 06:32] LABS: HEMATOCRIT 30.2 % (36.0-47.0); HEMOGLOBIN 9.5 g/dl (12.0-15.5); MEAN CORPUSCULAR HEMOGLOBIN 30.4 pg (27.0-33.0); MEAN CORPUSCULAR HGB CONC 31.5 g/dl (32.0-36.5); MEAN CORPUSCULAR VOLUME 96.8 fl (80.0-96.0); PLATELET COUNT, AUTOMATED 300 10^3/uL (150-450); RED BLOOD COUNT 3.12 10^6/uL (4.00-5.40); WHITE BLOOD COUNT 7.4 10^3/uL (4.0-10.0)
[2022-08-10 07:11] LABS: BLOOD UREA NITROGEN 31 MG/DL (7-18); CALCIUM LEVEL 8.5 MG/DL (8.8-10.2); CARBON DIOXIDE LEVEL 23 MEQ/L (21-32); CHLORIDE LEVEL 113 MEQ/L (98-107); CREATININE FOR GFR 0.87 MG/DL (0.55-1.30); GLOMERULAR FILTRATION RATE > 60.0 (>39); GLUCOSE, FASTING 78 MG/DL (70-100); POTASSIUM SERUM 4.3 MEQ/L (3.5-5.1); SODIUM LEVEL 141 MEQ/L (136-145)
[2022-08-10] MEDS: SYMBICORT 80/4.5MCG INHALER 6GM INH SCH ×2 (07:11→20:51)
[2022-08-10] MEDS: METOPROLOL TART 25 MG TABLET PO SCH ×2 (09:00→19:56)
[2022-08-10] MEDS: rOPINIRole 1MG TAB PO SCH ×3 (09:08→19:58)
[2022-08-10] MEDS: VITAMIN D 1,000 INTERNATIONAL UNITS TABLET PO SCH (09:08)
[2022-08-10] MEDS: OMEGA-3 1000MG CAPSULE PO SCH ×2 (09:08→19:57)
[2022-08-10] MEDS: DOXYCYCLINE HYCLATE 100MG TABLET PO SCH ×2 (09:09→19:56)
[2022-08-10] MEDS: CitaloPRAM (CeleXA) 20 MG TAB PO SCH (09:09)
[2022-08-10] MEDS: TOPIRAMATE (TopAMAX) 100 MG TAB PO SCH ×2 (09:09→19:56)
[2022-08-10] MEDS: APIXABAN 5 MG TAB (ELIQUIS) PO SCH ×2 (09:09→19:57)
[2022-08-10] MEDS: SINEMET 25-100 MG TAB PO SCH ×4 (09:09→19:57)
[2022-08-10] MEDS: EZETIMIBE 10MG TABLET (ZETIA) PO SCH (19:57)
[2022-08-11 06:16] VITALS: BP 120/56
[2022-08-11 06:32] LABS: BLOOD UREA NITROGEN 36 MG/DL (7-18); CALCIUM LEVEL 8.6 MG/DL (8.8-10.2); CARBON DIOXIDE LEVEL 24 MEQ/L (21-32); CHLORIDE LEVEL 112 MEQ/L (98-107); CREATININE FOR GFR 0.93 MG/DL (0.55-1.30); GLOMERULAR FILTRATION RATE > 60.0 (>39); GLUCOSE, FASTING 81 MG/DL (70-100); POTASSIUM SERUM 4.3 MEQ/L (3.5-5.1); SODIUM LEVEL 141 MEQ/L (136-145)
[2022-08-11] MEDS: SYMBICORT 80/4.5MCG INHALER 6GM INH SCH ×2 (07:38→20:30)
[2022-08-11] MEDS: METOPROLOL TART 25 MG TABLET PO SCH ×2 (09:00→20:55)
[2022-08-11] MEDS: DOXYCYCLINE HYCLATE 100MG TABLET PO SCH ×2 (09:46→20:53)
[2022-08-11] MEDS: TOPIRAMATE (TopAMAX) 100 MG TAB PO SCH ×2 (09:46→20:52)
[2022-08-11] MEDS: CitaloPRAM (CeleXA) 20 MG TAB PO SCH (09:46)
[2022-08-11] MEDS: rOPINIRole 1MG TAB PO SCH ×3 (09:46→20:52)
[2022-08-11] MEDS: SINEMET 25-100 MG TAB PO SCH ×4 (09:46→20:52)
[2022-08-11] MEDS: VITAMIN D 1,000 INTERNATIONAL UNITS TABLET PO SCH (09:46)
[2022-08-11] MEDS: APIXABAN 5 MG TAB (ELIQUIS) PO SCH ×2 (09:46→20:57)
[2022-08-11] MEDS: OMEGA-3 1000MG CAPSULE PO SCH ×2 (09:46→20:53)
[2022-08-11] MEDS: ACETAMINOPHEN TAB 650MG DOSE (2X325MG) PO PRN ×2 (09:47→20:57)
[2022-08-11] MEDS: EZETIMIBE 10MG TABLET (ZETIA) PO SCH (20:52)
[2022-08-12] MEDS: ACETAMINOPHEN TAB 650MG DOSE (2X325MG) PO PRN ×2 (01:26→10:54)
[2022-08-12 06:00] VITALS: BP 130/60
[2022-08-12] MEDS: SYMBICORT 80/4.5MCG INHALER 6GM INH SCH (08:03)
[2022-08-12] MEDS: SINEMET 25-100 MG TAB PO SCH ×2 (08:57→12:33)
[2022-08-12] MEDS: CitaloPRAM (CeleXA) 20 MG TAB PO SCH (08:57)
[2022-08-12] MEDS: DOXYCYCLINE HYCLATE 100MG TABLET PO SCH (08:57)
[2022-08-12] MEDS: VITAMIN D 1,000 INTERNATIONAL UNITS TABLET PO SCH (08:57)
[2022-08-12] MEDS: TOPIRAMATE (TopAMAX) 100 MG TAB PO SCH (08:57)
[2022-08-12] MEDS: APIXABAN 5 MG TAB (ELIQUIS) PO SCH (08:57)
[2022-08-12] MEDS: rOPINIRole 1MG TAB PO SCH (08:57)
[2022-08-12] MEDS: OMEGA-3 1000MG CAPSULE PO SCH (08:57)
[2022-08-12 09:00] VITALS: BP 102/62
[2022-08-12] MEDS: METOPROLOL TART 25 MG TABLET PO SCH (09:00)
== END 2022-08-12 15:17 | DRG 557 ==
LOC: M ED 23:57 → M ED INP 08-03 05:51 → EEVIPCON 08-03 05:51 → ENRESERV 08-03 08:39 → M MS5PR 08-03 10:10
PROVIDERS: ADMIT Internal Medicine; ATTEND General Practice
PROC: 8E0ZXY6 Isolation (ICD-10-PCS; principal; 2022-08-08)
DX: M62.82 Rhabdomyolysis (principal); J18.9 Pneumonia, unspecified organism; L89.153 Pressure ulcer of sacral region, stage 3; A31.0 Pulmonary mycobacterial infection; I50.32 Chronic diastolic (congestive) heart failure; N17.9 Acute kidney failure, unspecified; G93.40 Encephalopathy, unspecified; G20 Parkinson's disease; Z79.01 Long term (current) use of anticoagulants; Z79.899 Other long term (current) drug therapy; Z88.8 Allergy status to other drugs, medicaments and biological substances; F32.A Depression, unspecified; I48.91 Unspecified atrial fibrillation; N18.9 Chronic kidney disease, unspecified; Z20.822 Contact with and (suspected) exposure to COVID-19; M35.3 Polymyalgia rheumatica; Z95.0 Presence of cardiac pacemaker; I11.0 Hypertensive heart disease with heart failure; E87.6 Hypokalemia; M19.90 Unspecified osteoarthritis, unspecified site; Z87.891 Personal history of nicotine dependence; E78.5 Hyperlipidemia, unspecified; G25.81 Restless legs syndrome

== ENCOUNTER → 2022-09-19 | Outpatient (CLI) | payer MEDICARE ==
[~2022-09-19] MED LIST changes: +FLUT1BLS5 INH; +METO1TAB87 PO
[2022-09-19 15:51] LABS: BASO # 0.1 10^3/uL (0.0-0.2); BASO % 0.7 % (0.0-1.0); EOS # 0.2 10^3/uL (0.0-0.5); EOS % 1.6 % (0.0-3.0); HEMOGLOBIN 10.8 g/dl (12.0-15.5); LYMPH # 2.2 10^3/uL (1.5-5.0); LYMPH % 21.1 % (24.0-44.0); MEAN CORPUSCULAR HEMOGLOBIN 30.2 pg (27.0-33.0); MEAN CORPUSCULAR VOLUME 100.6 fl (80.0-96.0); MONO # 0.6 10^3/uL (0.0-0.8); MONO % 5.9 % (2.0-8.0); NEUTROPHILS # 7.5 10^3/uL (1.5-8.5); NEUTROPHILS % 70.4 % (36.0-66.0); PLATELET COUNT, AUTOMATED 349 10^3/uL (150-450); RED BLOOD COUNT 3.58 10^6/uL (4.00-5.40); WHITE BLOOD COUNT 10.6 10^3/uL (4.0-10.0)
[2022-09-19 16:40] LABS: ALBUMIN 3.3 GM/DL (3.2-5.2); BILIRUBIN,TOTAL 0.4 MG/DL (0.2-1.0); CALCIUM LEVEL 9.3 MG/DL (8.8-10.2); CREATININE FOR GFR 0.98 MG/DL (0.55-1.30); GLOMERULAR FILTRATION RATE 59.7 (>39); POTASSIUM SERUM 3.9 MEQ/L (3.5-5.1); TOTAL PROTEIN 6.8 GM/DL (6.4-8.2)
== END ==
LOC: M PLAIMG 11:39
PROVIDERS: ATTEND Nurse Practitioner Family
DX: R91.8 Other nonspecific abnormal finding of lung field (principal); R06.02 Shortness of breath; M79.89 Other specified soft tissue disorders; Z95.0 Presence of cardiac pacemaker

== ENCOUNTER 2022-09-20 10:16 | Inpatient (IN) | payer MEDICARE ==
[~2022-09-20] VITALS: Ht 157.5 cm; Wt 53.0 kg
[~2022-09-20 10:16] MED LIST changes: -METO1TAB87 PO
[2022-09-20] MEDS ORDERED: BOOSTRIX/ADACEL VACCINE (DIPHTH/PERTUSS/ACELL/TETANUS) 0.5ML SYR IM.IMMUN ONE (10:35)
[2022-09-20 11:31] LABS: BASO # 0.1 10^3/uL (0.0-0.2); BASO % 0.4 % (0.0-1.0); EOS # 0.1 10^3/uL (0.0-0.5); EOS % 0.8 % (0.0-3.0); HEMATOCRIT 35.2 % (36.0-47.0); LYMPH # 1.2 10^3/uL (1.5-5.0); LYMPH % 8.4 % (24.0-44.0); MEAN CORPUSCULAR HEMOGLOBIN 30.6 pg (27.0-33.0); MEAN CORPUSCULAR HGB CONC 31.3 g/dl (32.0-36.5); MEAN CORPUSCULAR VOLUME 97.8 fl (80.0-96.0); MONO # 0.9 10^3/uL (0.0-0.8); MONO % 6.1 % (2.0-8.0); NEUTROPHILS # 11.9 10^3/uL (1.5-8.5); NEUTROPHILS % 83.6 % (36.0-66.0); PLATELET COUNT, AUTOMATED 329 10^3/uL (150-450); WHITE BLOOD COUNT 14.3 10^3/uL (4.0-10.0)
[2022-09-20 12:04] LABS: RSV AMPLIFICATION NEGATIVE (NEGATIVE)
[2022-09-20 13:10] LABS: CK-MB VALUE MASS 2.2 NG/ML (<3.6); MB/CK RELATIVE INDEX 3.14 (< OR =4)
[2022-09-20 13:16] LABS: BLOOD UREA NITROGEN 29 MG/DL (7-18); CARBON DIOXIDE LEVEL 22 MEQ/L (21-32); CHLORIDE LEVEL 112 MEQ/L (98-107); CREATININE FOR GFR 0.85 MG/DL (0.55-1.30); GLOMERULAR FILTRATION RATE > 60.0 (>39); GLUCOSE, FASTING 96 MG/DL (70-100); POTASSIUM SERUM 3.8 MEQ/L (3.5-5.1); SODIUM LEVEL 140 MEQ/L (136-145)
[2022-09-20] MEDS ORDERED: METO1TAB87 PO (13:24)
[2022-09-20] MEDS ORDERED: HOME MED LIST COMPLETE! XX SCH (13:35)
[2022-09-20] MEDS ORDERED: DOCUSATE SODIUM 100MG CAPSULE PO PRN (14:40)
[2022-09-20] MEDS ORDERED: ALBUTEROL 90 MCG/ACT 8GM HFA INHALER INH PRN (14:40)
[2022-09-20] MEDS: cefTRIAXone SOD 2 GM in D5W MINI-BAG PLUS 50 ML IV SCH (16:43)
[2022-09-20] MEDS: SINEMET 25-100 MG TAB PO SCH ×2 (16:43→20:12)
[2022-09-20] MEDS: rOPINIRole 1MG TAB PO SCH ×2 (16:44→20:12)
[2022-09-20] MEDS: ACETAMINOPHEN TAB 650MG DOSE (2X325MG) PO PRN (16:44)
[2022-09-20 18:00] VITALS: BP 129/59
[2022-09-20] MEDS: AZITHROMYCIN 250MG TABLET PO SCH (18:21)
[2022-09-20] MEDS: TOPIRAMATE (TopAMAX) 100 MG TAB PO SCH (20:12)
[2022-09-20] MEDS: OMEGA-3 1000MG CAPSULE PO SCH (20:12)
[2022-09-20] MEDS: METOPROLOL TART 25 MG TABLET PO SCH (20:13)
[2022-09-20] MEDS: EZETIMIBE 10MG TABLET (ZETIA) PO SCH (20:13)
[2022-09-20] MEDS ORDERED: NS 500 ML IV ONE (20:20)
[2022-09-20] MEDS: SYMBICORT 80/4.5MCG INHALER 6GM INH SCH (20:41)
[2022-09-20 21:00] VITALS: BP 92/50
[2022-09-20] MEDS ORDERED: NS 1,000 ML IV ONE (21:00)
[2022-09-21] MEDS: cefTRIAXone SOD 2 GM in D5W MINI-BAG PLUS 50 ML IV SCH ×2 (05:04→17:31)
[2022-09-21] MEDS: ACETAMINOPHEN TAB 650MG DOSE (2X325MG) PO PRN ×2 (05:05→14:57)
[2022-09-21 05:22] VITALS: BP 94/60
[2022-09-21 05:45] LABS: MEAN CORPUSCULAR HEMOGLOBIN 30.1 pg (27.0-33.0); MEAN CORPUSCULAR HGB CONC 31.1 g/dl (32.0-36.5); MEAN CORPUSCULAR VOLUME 96.9 fl (80.0-96.0); RED BLOOD COUNT 2.89 10^6/uL (4.00-5.40); WHITE BLOOD COUNT 11.2 10^3/uL (4.0-10.0)
[2022-09-21 05:50] LABS: HEMOGLOBIN 8.7 g/dl (12.0-15.5); PLATELET COUNT, AUTOMATED 224 10^3/uL (150-450)
[2022-09-21 06:34] LABS: ALBUMIN 2.4 GM/DL (3.2-5.2); ALT/SGPT 8 U/L (12-78); BILIRUBIN,TOTAL 0.3 MG/DL (0.2-1.0); BLOOD UREA NITROGEN 22 MG/DL (7-18); CALCIUM LEVEL 7.8 MG/DL (8.8-10.2); CARBON DIOXIDE LEVEL 20 MEQ/L (21-32); CHLORIDE LEVEL 113 MEQ/L (98-107); CREATININE FOR GFR 0.87 MG/DL (0.55-1.30); GLOMERULAR FILTRATION RATE > 60.0 (>39); GLUCOSE, FASTING 142 MG/DL (70-100); MAGNESIUM LEVEL 1.8 MG/DL (1.8-2.4); POTASSIUM SERUM 3.4 MEQ/L (3.5-5.1); SODIUM LEVEL 139 MEQ/L (136-145); TOTAL PROTEIN 5.7 GM/DL (6.4-8.2)
[2022-09-21] MEDS: SYMBICORT 80/4.5MCG INHALER 6GM INH SCH ×2 (07:35→19:53)
[2022-09-21] MEDS ORDERED: POTASSIUM CHLORIDE 10MEQ SR TABLET PO ONE (08:00)
[2022-09-21] MEDS: OMEGA-3 1000MG CAPSULE PO SCH ×2 (08:57→21:31)
[2022-09-21] MEDS: rOPINIRole 1MG TAB PO SCH ×3 (08:57→21:30)
[2022-09-21] MEDS: METOPROLOL TART 25 MG TABLET PO SCH ×2 (08:57→21:31)
[2022-09-21] MEDS: VITAMIN D 1,000 INTERNATIONAL UNITS TABLET PO SCH (08:58)
[2022-09-21] MEDS: TOPIRAMATE (TopAMAX) 100 MG TAB PO SCH ×2 (08:58→21:30)
[2022-09-21] MEDS: SINEMET 25-100 MG TAB PO SCH ×4 (08:58→21:29)
[2022-09-21] MEDS: CitaloPRAM (CeleXA) 20 MG TAB PO SCH (08:58)
[2022-09-21] MEDS ORDERED: PREVNAR-20 VACCINE 0.5ML SYRINGE IM.IMMUN ONE (09:00)
[2022-09-21 14:00] VITALS: BP 136/54
[2022-09-21] MEDS: AZITHROMYCIN 250MG TABLET PO SCH (17:31)
[2022-09-21 19:43] VITALS: BP 132/54
[2022-09-21] MEDS: EZETIMIBE 10MG TABLET (ZETIA) PO SCH (21:31)
[2022-09-22] MEDS: ACETAMINOPHEN TAB 650MG DOSE (2X325MG) PO PRN (01:39)
[2022-09-22] MEDS: cefTRIAXone SOD 2 GM in D5W MINI-BAG PLUS 50 ML IV SCH ×2 (05:11→16:15)
[2022-09-22 05:21] VITALS: BP 133/65
[2022-09-22 06:27] LABS: BASO # 0.1 10^3/uL (0.0-0.2); BASO % 0.5 % (0.0-1.0); EOS # 0.2 10^3/uL (0.0-0.5); EOS % 1.5 % (0.0-3.0); HEMATOCRIT 29.2 % (36.0-47.0); LYMPH # 1.7 10^3/uL (1.5-5.0); LYMPH % 16.8 % (24.0-44.0); MEAN CORPUSCULAR HEMOGLOBIN 30.7 pg (27.0-33.0); MEAN CORPUSCULAR HGB CONC 30.8 g/dl (32.0-36.5); MEAN CORPUSCULAR VOLUME 99.7 fl (80.0-96.0); MONO # 0.9 10^3/uL (0.0-0.8); MONO % 9.5 % (2.0-8.0); NEUTROPHILS % 71.2 % (36.0-66.0); PLATELET COUNT, AUTOMATED 244 10^3/uL (150-450); RED BLOOD COUNT 2.93 10^6/uL (4.00-5.40); WHITE BLOOD COUNT 9.8 10^3/uL (4.0-10.0)
[2022-09-22 07:20] LABS: ALBUMIN 2.4 GM/DL (3.2-5.2); ALT/SGPT 9 U/L (12-78); BILIRUBIN,TOTAL 0.2 MG/DL (0.2-1.0); BLOOD UREA NITROGEN 20 MG/DL (7-18); CALCIUM LEVEL 8.2 MG/DL (8.8-10.2); CARBON DIOXIDE LEVEL 21 MEQ/L (21-32); CHLORIDE LEVEL 115 MEQ/L (98-107); CREATININE FOR GFR 0.86 MG/DL (0.55-1.30); GLOMERULAR FILTRATION RATE > 60.0 (>39); GLUCOSE, FASTING 104 MG/DL (70-100); MAGNESIUM LEVEL 1.9 MG/DL (1.8-2.4); POTASSIUM SERUM 4.3 MEQ/L (3.5-5.1); SODIUM LEVEL 142 MEQ/L (136-145); TOTAL PROTEIN 5.8 GM/DL (6.4-8.2)
[2022-09-22] MEDS: SYMBICORT 80/4.5MCG INHALER 6GM INH SCH ×2 (08:01→20:00)
[2022-09-22] MEDS: rOPINIRole 1MG TAB PO SCH ×3 (08:45→20:41)
[2022-09-22] MEDS: CitaloPRAM (CeleXA) 20 MG TAB PO SCH (08:45)
[2022-09-22] MEDS: TOPIRAMATE (TopAMAX) 100 MG TAB PO SCH ×2 (08:45→20:42)
[2022-09-22] MEDS: VITAMIN D 1,000 INTERNATIONAL UNITS TABLET PO SCH (08:45)
[2022-09-22] MEDS: SINEMET 25-100 MG TAB PO SCH ×4 (08:45→20:40)
[2022-09-22] MEDS: OMEGA-3 1000MG CAPSULE PO SCH ×2 (08:46→20:42)
[2022-09-22] MEDS: METOPROLOL TART 25 MG TABLET PO SCH ×2 (08:46→20:41)
[2022-09-22] MEDS ORDERED: ENOXAPARIN 30MG/0.3ML SYRINGE (J1650 PER 10MG) SC SCH (09:00)
[2022-09-22 14:26] VITALS: BP 119/54
[2022-09-22 20:30] VITALS: BP 107/47
[2022-09-22] MEDS: APIXABAN 5 MG TAB (ELIQUIS) PO SCH (20:42)
[2022-09-22] MEDS: EZETIMIBE 10MG TABLET (ZETIA) PO SCH (20:42)
[2022-09-23] MEDS: ACETAMINOPHEN TAB 650MG DOSE (2X325MG) PO PRN (04:11)
[2022-09-23 04:30] VITALS: BP 122/58
[2022-09-23] MEDS: cefTRIAXone SOD 2 GM in D5W MINI-BAG PLUS 50 ML IV SCH (05:29)
[2022-09-23 07:04] LABS: BASO # 0.1 10^3/uL (0.0-0.2); BASO % 0.8 % (0.0-1.0); EOS # 0.3 10^3/uL (0.0-0.5); EOS % 3.7 % (0.0-3.0); HEMATOCRIT 29.9 % (36.0-47.0); HEMOGLOBIN 9.5 g/dl (12.0-15.5); LYMPH # 1.8 10^3/uL (1.5-5.0); LYMPH % 23.4 % (24.0-44.0); MEAN CORPUSCULAR HGB CONC 31.8 g/dl (32.0-36.5); MEAN CORPUSCULAR VOLUME 97.7 fl (80.0-96.0); MONO # 0.9 10^3/uL (0.0-0.8); MONO % 10.8 % (2.0-8.0); NEUTROPHILS # 4.8 10^3/uL (1.5-8.5); NEUTROPHILS % 60.5 % (36.0-66.0); PLATELET COUNT, AUTOMATED 281 10^3/uL (150-450); RED BLOOD COUNT 3.06 10^6/uL (4.00-5.40); WHITE BLOOD COUNT 7.9 10^3/uL (4.0-10.0)
[2022-09-23 07:43] LABS: ALBUMIN 2.3 GM/DL (3.2-5.2); ALT/SGPT 6 U/L (12-78); BILIRUBIN,TOTAL 0.2 MG/DL (0.2-1.0); BLOOD UREA NITROGEN 22 MG/DL (7-18); CALCIUM LEVEL 8.3 MG/DL (8.8-10.2); CARBON DIOXIDE LEVEL 20 MEQ/L (21-32); CHLORIDE LEVEL 114 MEQ/L (98-107); CREATININE FOR GFR 0.69 MG/DL (0.55-1.30); GLOMERULAR FILTRATION RATE > 60.0 (>39); GLUCOSE, FASTING 89 MG/DL (70-100); POTASSIUM SERUM 4.2 MEQ/L (3.5-5.1); SODIUM LEVEL 142 MEQ/L (136-145); TOTAL PROTEIN 5.7 GM/DL (6.4-8.2)
[2022-09-23] MEDS: SYMBICORT 80/4.5MCG INHALER 6GM INH SCH (08:21)
[2022-09-23 08:27] VITALS: BP 116/64
[2022-09-23] MEDS: APIXABAN 5 MG TAB (ELIQUIS) PO SCH (08:55)
[2022-09-23 08:56] VITALS: BP 116/64
[2022-09-23] MEDS: METOPROLOL TART 25 MG TABLET PO SCH (08:56)
[2022-09-23 09:14] LABS: FERRITIN 200 NG/ML (8-252); IRON (FE) 21 UG/DL (50-170); PERCENT SATURATION 14.4 % (13.2-45.0); TOTAL IRON BINDING CAPACITY 146 UG/DL (250-450)
[2022-09-23] MEDS: rOPINIRole 1MG TAB PO SCH (09:32)
[2022-09-23] MEDS: VITAMIN D 1,000 INTERNATIONAL UNITS TABLET PO SCH (09:33)
[2022-09-23] MEDS: CitaloPRAM (CeleXA) 20 MG TAB PO SCH (09:33)
[2022-09-23] MEDS: OMEGA-3 1000MG CAPSULE PO SCH (09:33)
[2022-09-23] MEDS: SINEMET 25-100 MG TAB PO SCH ×2 (09:33→12:02)
[2022-09-23] MEDS: TOPIRAMATE (TopAMAX) 100 MG TAB PO SCH (09:33)
[2022-09-23 14:00] VITALS: BP 89/56
[2022-09-23 15:14] VITALS: BP 102/58
== END 2022-09-23 16:27 | disposition home health service (06) | DRG 157 ==
LOC: EDBD 10:16 → M ED 10:16 → M ED INP 14:37 → ENRESERV 16:07 → M MSPAV 16:58
PROVIDERS: ADMIT Family Medicine; ATTEND Internal Medicine Nephrology
DX: S02.612A Fracture of condylar process of left mandible, initial encounter for closed fracture (principal); J18.9 Pneumonia, unspecified organism; J98.11 Atelectasis; J44.0 Chronic obstructive pulmonary disease with (acute) lower respiratory infection; S02.91XA Unspecified fracture of skull, initial encounter for closed fracture; G20 Parkinson's disease; I48.91 Unspecified atrial fibrillation; N18.9 Chronic kidney disease, unspecified; F32.A Depression, unspecified; G25.81 Restless legs syndrome; R29.6 Repeated falls; M48.02 Spinal stenosis, cervical region; J34.2 Deviated nasal septum; S02.2XXA Fracture of nasal bones, initial encounter for closed fracture; W19.XXXA Unspecified fall, initial encounter; Y92.009 Unspecified place in unspecified non-institutional (private) residence as the place of occurrence of the external cause; Y93.9 Activity, unspecified; S01.81XA Laceration without foreign body of other part of head, initial encounter; Y99.8 Other external cause status; D53.9 Nutritional anemia, unspecified; G31.84 Mild cognitive impairment of uncertain or unknown etiology; M51.36 Other intervertebral disc degeneration, lumbar region; M47.816 Spondylosis without myelopathy or radiculopathy, lumbar region; M15.9 Polyosteoarthritis, unspecified; S02.401A Maxillary fracture, unspecified side, initial encounter for closed fracture; Z79.01 Long term (current) use of anticoagulants; Z88.8 Allergy status to other drugs, medicaments and biological substances; Z95.0 Presence of cardiac pacemaker; Z79.899 Other long term (current) drug therapy

== ENCOUNTER → 2022-10-13 | Outpatient (CLI) | payer MEDICARE ==
[~2022-10-13] MED LIST changes: +METO1TAB87 PO
[2022-10-13 17:27] LABS: INR 1.23; PROTHROMBIN TIME 15.7 SECONDS (12.5-14.5)
[2022-10-13 18:41] LABS: ALBUMIN 3.5 G/DL (3.2-5.2); ALT/SGPT < 9 U/L (7.0-40); BILIRUBIN,TOTAL 0.3 MG/DL (0.3-1.2); BLOOD UREA NITROGEN 37 MG/DL (9-23); CALCIUM LEVEL 9.2 MG/DL (8.3-10.6); CARBON DIOXIDE LEVEL 25 MMOL/L (20-31); CHLORIDE LEVEL 109 MMOL/L (98-107); CREATININE FOR GFR 0.81 MG/DL (0.55-1.30); FERRITIN 119.1 NG/ML (7.3-270.7); GLOMERULAR FILTRATION RATE > 60.0 (>39); GLUCOSE, FASTING 98 MG/DL (74-106); MAGNESIUM LEVEL 1.8 MG/DL (1.8-2.4); POTASSIUM SERUM 4.4 MMOL/L (3.5-5.1); SODIUM LEVEL 142 MMOL/L (136-145); TOTAL PROTEIN 6.7 G/DL (5.7-8.2)
[2022-10-13 20:37] LABS: PARTIAL THROMBOPLASTIN TIME 29.7 SECONDS (24.8-34.2)
== END ==
LOC: M PLALAB 14:32
PROVIDERS: ATTEND Physician Assistant
DX: D64.9 Anemia, unspecified (principal); J18.9 Pneumonia, unspecified organism; Z79.01 Long term (current) use of anticoagulants

== ENCOUNTER → 2022-10-13 | Outpatient (CLI) | payer MEDICARE ==
[~2022-10-13] MED LIST changes: +ALBU8.5H INH; +FLUD0.1T PO; +FURO20TA2 PO; +POTA-141 PO; +RA A650T5 PO; +SODI3NEB3 NEB; -[UNRECOGNIZED DRUG - CODE] PO
== END ==
LOC: M PLAIMG 13:03
PROVIDERS: ATTEND Internal Medicine Pulmonary Disease
DX: R91.8 Other nonspecific abnormal finding of lung field (principal); J47.9 Bronchiectasis, uncomplicated

== ENCOUNTER → 2022-10-27 | Outpatient (CLI) | payer MEDICARE ==
[~2022-10-27] MED LIST changes: -ALBU8.5H INH; -FLUD0.1T PO; -FURO20TA2 PO; -POTA-141 PO; -RA A650T5 PO; -SODI3NEB3 NEB; +[UNRECOGNIZED DRUG - CODE] PO
== END ==
LOC: M WHC 13:56
PROVIDERS: ATTEND Family Medicine
DX: Z13.820 Encounter for screening for osteoporosis (principal); M85.89 Other specified disorders of bone density and structure, multiple sites

== ENCOUNTER → 2022-10-29 | Outpatient (REF) | payer MEDICARE ==
[~2022-10-29] MED LIST changes: +ALBU8.5H INH; +FLUD0.1T PO; +FURO20TA2 PO; +POTA-141 PO; +RA A650T5 PO; +SODI3NEB3 NEB; -[UNRECOGNIZED DRUG - CODE] PO
[2022-10-29 13:56] LABS: HEMATOCRIT 35.6 % (36.0-47.0); HEMOGLOBIN 10.9 g/dl (12.0-15.5); MEAN CORPUSCULAR HEMOGLOBIN 30.9 pg (27.0-33.0); MEAN CORPUSCULAR HGB CONC 30.6 g/dl (32.0-36.5); MEAN CORPUSCULAR VOLUME 100.8 fl (80.0-96.0); PLATELET COUNT, AUTOMATED 200 10^3/uL (150-450); RED BLOOD COUNT 3.53 10^6/uL (4.00-5.40); WHITE BLOOD COUNT 6.8 10^3/uL (4.0-10.0)
[2022-10-29 14:12] LABS: ALBUMIN 3.5 G/DL (3.2-5.2); ALKALINE PHOSPHATASE 74 U/L (46-116); ALT/SGPT < 9 U/L (7.0-40); AST/SGOT 14 U/L (<34); BILIRUBIN,TOTAL 0.4 MG/DL (0.3-1.2); BLOOD UREA NITROGEN 41 MG/DL (9-23); CALCIUM LEVEL 9.3 MG/DL (8.3-10.6); CARBON DIOXIDE LEVEL 25 MMOL/L (20-31); CHLORIDE LEVEL 107 MMOL/L (98-107); CHOLESTEROL LEVEL 172 MG/DL (<200); CHOLESTEROL RISK RATIO 2.67 (<5); CREATININE FOR GFR 0.83 MG/DL (0.55-1.30); FREE T4 0.86 NG/DL (0.89-1.76); GLOMERULAR FILTRATION RATE > 60.0 (>39); GLUCOSE, FASTING 95 MG/DL (74-106); HDL CHOLESTEROL 64.2 MG/DL (>40); LDL CHOLESTEROL 97.8 MG/DL (<100); NON-HDL-C 108 MG/DL; POTASSIUM SERUM 3.8 MMOL/L (3.5-5.1); PTH INTACT 29.8 PG/ML (18.5-88.0); SODIUM LEVEL 140 MMOL/L (136-145); THYROID STIMULATING HORMONE 1.993 uIU/ML (0.55-4.78); TOTAL 25(OH) VITAMIN D 67.8 NG/ML (20.0-100.0); TOTAL PROTEIN 6.8 G/DL (5.7-8.2); TRIGLYCERIDES LEVEL 50 MG/DL (<150)
== END ==
LOC: M SFHCADAM 10:47
PROVIDERS: ATTEND Family Medicine
DX: D75.89 Other specified diseases of blood and blood-forming organs (principal); R60.0 Localized edema; M35.3 Polymyalgia rheumatica; M81.8 Other osteoporosis without current pathological fracture; I48.20 Chronic atrial fibrillation, unspecified; E78.5 Hyperlipidemia, unspecified; Z13.1 Encounter for screening for diabetes mellitus; Z79.899 Other long term (current) drug therapy

== ENCOUNTER 2022-11-15 15:52 | Inpatient (IN) | payer MEDICARE ==
[~2022-11-15] VITALS: Ht 154.9 cm; Wt 50.0 kg
[~2022-11-15 15:52] MED LIST changes: -ALBU8.5H INH; -FLUD0.1T PO; -FURO20TA2 PO; -POTA-141 PO; -SODI3NEB3 NEB
[2022-11-15 17:12] LABS: BASO # 0.1 10^3/uL (0.0-0.2); BASO % 0.3 % (0.0-1.0); EOS # 0.1 10^3/uL (0.0-0.5); EOS % 0.5 % (0.0-3.0); HEMATOCRIT 36.6 % (36.0-47.0); HEMOGLOBIN 11.4 g/dl (12.0-15.5); LYMPH # 1.1 10^3/uL (1.5-5.0); LYMPH % 5.4 % (24.0-44.0); MEAN CORPUSCULAR HEMOGLOBIN 30.7 pg (27.0-33.0); MEAN CORPUSCULAR HGB CONC 31.1 g/dl (32.0-36.5); MEAN CORPUSCULAR VOLUME 98.7 fl (80.0-96.0); MONO # 0.9 10^3/uL (0.0-0.8); MONO % 4.7 % (2.0-8.0); NEUTROPHILS # 17.6 10^3/uL (1.5-8.5); NEUTROPHILS % 88.3 % (36.0-66.0); PLATELET COUNT, AUTOMATED 229 10^3/uL (150-450); RED BLOOD COUNT 3.71 10^6/uL (4.00-5.40); WHITE BLOOD COUNT 19.9 10^3/uL (4.0-10.0)
[2022-11-15 17:33] LABS: RSV AMPLIFICATION NEGATIVE (NEGATIVE)
[2022-11-15 17:37] LABS: CK-MB VALUE MASS 2.2 NG/ML (<3.6)
[2022-11-15 17:39] LABS: BLOOD UREA NITROGEN 40 MG/DL (9-23); CALCIUM LEVEL 9.3 MG/DL (8.3-10.6); CARBON DIOXIDE LEVEL 19 MMOL/L (20-31); CHLORIDE LEVEL 109 MMOL/L (98-107); CREATININE FOR GFR 0.83 MG/DL (0.55-1.30); GLOMERULAR FILTRATION RATE > 60.0 (>39); GLUCOSE, FASTING 102 MG/DL (74-106); POTASSIUM SERUM 4.7 MMOL/L (3.5-5.1); SODIUM LEVEL 141 MMOL/L (136-145)
[2022-11-15 17:41] LABS: FREE T4 1.08 NG/DL (0.89-1.76); THYROID STIMULATING HORMONE 1.446 uIU/ML (0.55-4.78)
[2022-11-15 17:44] LABS: CPK CREATINE PHOSPHOKINASE 171 U/L (34-145); MB/CK RELATIVE INDEX 1.28 (< OR =4)
[2022-11-15] MEDS ORDERED: NS 1,000 ML IV ONE (18:00)
[2022-11-15] MEDS ORDERED: cefTRIAXone SOD 2 GM in D5W MINI-BAG PLUS 50 ML IV ONE (20:25)
[2022-11-15] MEDS ORDERED: FURO20TA2 PO (21:04)
[2022-11-15] MEDS ORDERED: SODI3NEB3 NEB (21:04)
[2022-11-15] MEDS ORDERED: ALBU2.5V10 NEB (21:04)
[2022-11-15] MEDS ORDERED: POTA-141 PO (21:04)
[2022-11-15] MEDS ORDERED: ALBU8.5H INH (21:04)
[2022-11-15] MEDS ORDERED: HOME MED LIST COMPLETE! XX SCH (21:05)
[2022-11-15] MEDS ORDERED: DOCUSATE SODIUM 100MG CAPSULE PO PRN (21:45)
[2022-11-15] MEDS ORDERED: NORCO, ANEXSIA 5/325MG TABLET (HYDROcodone/ACETAMINOPHEN) PO PRN (21:55)
[2022-11-15] MEDS ORDERED: ONDANSETRON 4MG ORAL DISINTEGRATING TAB PO PRN (21:55)
[2022-11-15] MEDS ORDERED: NS 500 ML IV ONE (21:55)
[2022-11-15] MEDS: TOPIRAMATE (TopAMAX) 100 MG TAB PO SCH (22:58)
[2022-11-15] MEDS: rOPINIRole 1MG TAB PO SCH (22:58)
[2022-11-15] MEDS: SINEMET 25-100 MG TAB PO SCH (22:58)
[2022-11-16 06:38] LABS: VENOUS BASE EXCESS -3.6 (-2.0-2.0); VENOUS HCO3 21.8 MEQ/L (23.0-27.0); VENOUS O2 SATURATION 74.7 % (60.0-80.0); VENOUS PARTIAL PRESSURE CO2 40.9 mmHg (38.0-50.0); VENOUS PARTIAL PRESSURE O2 38.8 mmHg (30.0-50.0); VENOUS PH 7.345 UNITS (7.330-7.430); VENOUS TOTAL CO2 23.1 MEQ/L (24.0-28.0)
[2022-11-16 07:15] LABS: BLOOD UREA NITROGEN 29 MG/DL (9-23); CALCIUM LEVEL 7.9 MG/DL (8.3-10.6); CARBON DIOXIDE LEVEL 20 MMOL/L (20-31); CHLORIDE LEVEL 113 MMOL/L (98-107); GLOMERULAR FILTRATION RATE > 60.0 (>39); GLUCOSE, FASTING 100 MG/DL (74-106); POTASSIUM SERUM 3.9 MMOL/L (3.5-5.1); SODIUM LEVEL 142 MMOL/L (136-145)
[2022-11-16 08:00] LABS: BASO # 0.1 10^3/uL (0.0-0.2); BASO % 0.4 % (0.0-1.0); EOS % 0.3 % (0.0-3.0); HEMATOCRIT 30.7 % (36.0-47.0); HEMOGLOBIN 9.8 g/dl (12.0-15.5); LYMPH # 1.4 10^3/uL (1.5-5.0); LYMPH % 10.1 % (24.0-44.0); MEAN CORPUSCULAR HEMOGLOBIN 31.7 pg (27.0-33.0); MEAN CORPUSCULAR HGB CONC 31.9 g/dl (32.0-36.5); MEAN CORPUSCULAR VOLUME 99.4 fl (80.0-96.0); MONO # 0.9 10^3/uL (0.0-0.8); MONO % 6.6 % (2.0-8.0); NEUTROPHILS # 11.4 10^3/uL (1.5-8.5); NEUTROPHILS % 82.1 % (36.0-66.0); PLATELET COUNT, AUTOMATED 148 10^3/uL (150-450); RED BLOOD COUNT 3.09 10^6/uL (4.00-5.40); WHITE BLOOD COUNT 13.9 10^3/uL (4.0-10.0)
[2022-11-16] MEDS: ACETAMINOPHEN 650MG ER TAB (TYLENOL ARTHRITIS) PO SCH ×3 (10:14→20:39)
[2022-11-16] MEDS: SINEMET 25-100 MG TAB PO SCH ×4 (10:14→20:40)
[2022-11-16] MEDS: METOPROLOL TART 25 MG TABLET PO SCH ×2 (10:14→20:38)
[2022-11-16] MEDS: rOPINIRole 1MG TAB PO SCH ×3 (10:16→20:39)
[2022-11-16] MEDS: TOPIRAMATE (TopAMAX) 100 MG TAB PO SCH ×2 (13:05→20:41)
[2022-11-16] MEDS: CitaloPRAM (CeleXA) 20 MG TAB PO SCH (13:05)
[2022-11-16] MEDS: EZETIMIBE 10MG TABLET (ZETIA) PO SCH (20:40)
[2022-11-17] VITALS (7 sets, daily range): BP systolic 94–137; BP diastolic 40–64
[2022-11-17 07:10] LABS: BASO % 0.3 % (0.0-1.0); EOS # 0.2 10^3/uL (0.0-0.5); EOS % 1.7 % (0.0-3.0); HEMATOCRIT 32.2 % (36.0-47.0); HEMOGLOBIN 9.9 g/dl (12.0-15.5); LYMPH # 1.2 10^3/uL (1.5-5.0); LYMPH % 9.9 % (24.0-44.0); MEAN CORPUSCULAR HEMOGLOBIN 30.8 pg (27.0-33.0); MEAN CORPUSCULAR HGB CONC 30.7 g/dl (32.0-36.5); MEAN CORPUSCULAR VOLUME 100.3 fl (80.0-96.0); MONO # 0.9 10^3/uL (0.0-0.8); MONO % 7.1 % (2.0-8.0); NEUTROPHILS # 9.7 10^3/uL (1.5-8.5); NEUTROPHILS % 80.6 % (36.0-66.0); PLATELET COUNT, AUTOMATED 161 10^3/uL (150-450); RED BLOOD COUNT 3.21 10^6/uL (4.00-5.40); WHITE BLOOD COUNT 12.1 10^3/uL (4.0-10.0)
[2022-11-17 07:40] LABS: BLOOD UREA NITROGEN 21 MG/DL (9-23); CALCIUM LEVEL 8.1 MG/DL (8.3-10.6); CARBON DIOXIDE LEVEL 21 MMOL/L (20-31); CHLORIDE LEVEL 111 MMOL/L (98-107); CREATININE FOR GFR 0.72 MG/DL (0.55-1.30); GLOMERULAR FILTRATION RATE > 60.0 (>39); GLUCOSE, FASTING 85 MG/DL (74-106); POTASSIUM SERUM 3.6 MMOL/L (3.5-5.1); SODIUM LEVEL 140 MMOL/L (136-145)
[2022-11-17] MEDS: SYMBICORT 80/4.5MCG INHALER 6GM INH SCH (08:00)
[2022-11-17] MEDS: HEPARIN SOD (PORCINE) 5000UNITS/ML 1ML VIAL/SYRINGE SQ SCH ×3 (09:00→23:00)
[2022-11-17] MEDS: METOPROLOL TART 25 MG TABLET PO SCH ×2 (09:20→21:00)
[2022-11-17] MEDS: SINEMET 25-100 MG TAB PO SCH ×4 (09:20→20:57)
[2022-11-17] MEDS: rOPINIRole 1MG TAB PO SCH ×3 (09:21→20:56)
[2022-11-17] MEDS: ACETAMINOPHEN 650MG ER TAB (TYLENOL ARTHRITIS) PO SCH ×3 (09:21→20:58)
[2022-11-17] MEDS ORDERED: SENNA 8.6 MG TAB (SENOKOT) PO PRN (10:10)
[2022-11-17] MEDS ORDERED: ALBUTEROL 90 MCG/ACT 8GM HFA INHALER INH PRN (10:10)
[2022-11-17] MEDS ORDERED: POLYETHYLENE GLYCOL (MIRALAX) 238GM BOTTLE PO ONE (12:00)
[2022-11-17] MEDS: SENNA 8.6 MG TAB (SENOKOT) PO SCH ×2 (13:24→20:59)
[2022-11-17] MEDS: CitaloPRAM (CeleXA) 20 MG TAB PO SCH (13:25)
[2022-11-17] MEDS ORDERED: MIRALAX *UNIT DOSE* 17GM PACKET PO ONE (13:25)
[2022-11-17] MEDS: TOPIRAMATE (TopAMAX) 100 MG TAB PO SCH ×2 (13:26→20:58)
[2022-11-17] MEDS: EZETIMIBE 10MG TABLET (ZETIA) PO SCH (20:57)
[2022-11-17] MEDS ORDERED: NS 500 ML IV ONE (22:30)
[2022-11-18] VITALS (7 sets, daily range): BP systolic 88–137; BP diastolic 48–71
[2022-11-18] MEDS ORDERED: FLEET ENEMA PR ONE (07:50)
[2022-11-18] MEDS: SYMBICORT 80/4.5MCG INHALER 6GM INH SCH (08:12)
[2022-11-18 08:25] LABS: BASO % 0.4 % (0.0-1.0); EOS # 0.2 10^3/uL (0.0-0.5); EOS % 2.3 % (0.0-3.0); HEMATOCRIT 31.6 % (36.0-47.0); HEMOGLOBIN 10.2 g/dl (12.0-15.5); LYMPH % 12.9 % (24.0-44.0); MEAN CORPUSCULAR HEMOGLOBIN 32.1 pg (27.0-33.0); MEAN CORPUSCULAR HGB CONC 32.3 g/dl (32.0-36.5); MEAN CORPUSCULAR VOLUME 99.4 fl (80.0-96.0); MONO # 0.7 10^3/uL (0.0-0.8); NEUTROPHILS # 5.8 10^3/uL (1.5-8.5); PLATELET COUNT, AUTOMATED 210 10^3/uL (150-450); RED BLOOD COUNT 3.18 10^6/uL (4.00-5.40); WHITE BLOOD COUNT 7.8 10^3/uL (4.0-10.0)
[2022-11-18] MEDS: SINEMET 25-100 MG TAB PO SCH ×4 (08:38→20:16)
[2022-11-18] MEDS: METOPROLOL TART 25 MG TABLET PO SCH ×2 (08:38→20:17)
[2022-11-18] MEDS: SENNA 8.6 MG TAB (SENOKOT) PO SCH ×2 (08:38→20:16)
[2022-11-18] MEDS: ACETAMINOPHEN 650MG ER TAB (TYLENOL ARTHRITIS) PO SCH ×3 (08:38→20:16)
[2022-11-18] MEDS: HEPARIN SOD (PORCINE) 5000UNITS/ML 1ML VIAL/SYRINGE SQ SCH ×2 (08:38→20:17)
[2022-11-18] MEDS: rOPINIRole 1MG TAB PO SCH ×3 (08:38→20:16)
[2022-11-18 08:45] LABS: BLOOD UREA NITROGEN 17 MG/DL (9-23); CARBON DIOXIDE LEVEL 21 MMOL/L (20-31); CHLORIDE LEVEL 113 MMOL/L (98-107); CREATININE FOR GFR 0.71 MG/DL (0.55-1.30); GLOMERULAR FILTRATION RATE > 60.0 (>39); GLUCOSE, FASTING 84 MG/DL (74-106); POTASSIUM SERUM 3.7 MMOL/L (3.5-5.1); SODIUM LEVEL 142 MMOL/L (136-145)
[2022-11-18] MEDS ORDERED: NS 1,000 ML IV ONE (11:50)
[2022-11-18] MEDS: CitaloPRAM (CeleXA) 20 MG TAB PO SCH (12:17)
[2022-11-18] MEDS: TOPIRAMATE (TopAMAX) 100 MG TAB PO SCH ×2 (12:18→20:16)
[2022-11-18] MEDS: FLUDROCORTISONE ACETATE 0.1 MG TAB PO SCH (20:16)
[2022-11-18] MEDS: EZETIMIBE 10MG TABLET (ZETIA) PO SCH (20:17)
[2022-11-19 05:16] VITALS: BP 149/70
[2022-11-19 06:02] VITALS: BP_SYST 131; BP_SYST 134; BP_SYST 146; BP_DIAS 60; BP_DIAS 62; BP_DIAS 72
[2022-11-19 06:36] LABS: BASO # 0.1 10^3/uL (0.0-0.2); BASO % 0.7 % (0.0-1.0); EOS # 0.2 10^3/uL (0.0-0.5); EOS % 3.1 % (0.0-3.0); HEMATOCRIT 31.1 % (36.0-47.0); HEMOGLOBIN 9.8 g/dl (12.0-15.5); LYMPH % 13.9 % (24.0-44.0); MEAN CORPUSCULAR HEMOGLOBIN 30.9 pg (27.0-33.0); MEAN CORPUSCULAR HGB CONC 31.5 g/dl (32.0-36.5); MEAN CORPUSCULAR VOLUME 98.1 fl (80.0-96.0); MONO # 0.6 10^3/uL (0.0-0.8); NEUTROPHILS # 5.2 10^3/uL (1.5-8.5); PLATELET COUNT, AUTOMATED 198 10^3/uL (150-450); RED BLOOD COUNT 3.17 10^6/uL (4.00-5.40); WHITE BLOOD COUNT 7.1 10^3/uL (4.0-10.0)
[2022-11-19 07:09] LABS: BLOOD UREA NITROGEN 14 MG/DL (9-23); CALCIUM LEVEL 7.8 MG/DL (8.3-10.6); CARBON DIOXIDE LEVEL 19 MMOL/L (20-31); CHLORIDE LEVEL 114 MMOL/L (98-107); CREATININE FOR GFR 0.61 MG/DL (0.55-1.30); GLOMERULAR FILTRATION RATE > 60.0 (>39); GLUCOSE, FASTING 87 MG/DL (74-106); POTASSIUM SERUM 3.8 MMOL/L (3.5-5.1); SODIUM LEVEL 142 MMOL/L (136-145)
[2022-11-19] MEDS: SYMBICORT 80/4.5MCG INHALER 6GM INH SCH (07:41)
[2022-11-19] MEDS: METOPROLOL TART 25 MG TABLET PO SCH ×2 (09:00→22:07)
[2022-11-19] MEDS: SINEMET 25-100 MG TAB PO SCH ×4 (10:12→22:07)
[2022-11-19] MEDS: SENNA 8.6 MG TAB (SENOKOT) PO SCH ×2 (10:12→22:07)
[2022-11-19] MEDS: rOPINIRole 1MG TAB PO SCH ×3 (10:13→22:07)
[2022-11-19] MEDS: HEPARIN SOD (PORCINE) 5000UNITS/ML 1ML VIAL/SYRINGE SQ SCH ×2 (10:13→22:08)
[2022-11-19] MEDS: ACETAMINOPHEN 650MG ER TAB (TYLENOL ARTHRITIS) PO SCH ×3 (10:13→22:08)
[2022-11-19] MEDS: CitaloPRAM (CeleXA) 20 MG TAB PO SCH (13:07)
[2022-11-19] MEDS: TOPIRAMATE (TopAMAX) 100 MG TAB PO SCH ×2 (13:07→22:07)
[2022-11-19] MEDS: FLUDROCORTISONE ACETATE 0.1 MG TAB PO SCH (22:06)
[2022-11-19] MEDS: EZETIMIBE 10MG TABLET (ZETIA) PO SCH (22:07)
[2022-11-20 05:45] VITALS: BP 135/66
[2022-11-20 06:24] LABS: BASO % 0.6 % (0.0-1.0); EOS # 0.3 10^3/uL (0.0-0.5); EOS % 4.1 % (0.0-3.0); HEMOGLOBIN 9.9 g/dl (12.0-15.5); LYMPH # 1.4 10^3/uL (1.5-5.0); MEAN CORPUSCULAR HEMOGLOBIN 31.2 pg (27.0-33.0); MEAN CORPUSCULAR HGB CONC 31.9 g/dl (32.0-36.5); MEAN CORPUSCULAR VOLUME 97.8 fl (80.0-96.0); MONO # 0.7 10^3/uL (0.0-0.8); MONO % 11.3 % (2.0-8.0); NEUTROPHILS # 3.9 10^3/uL (1.5-8.5); NEUTROPHILS % 61.4 % (36.0-66.0); PLATELET COUNT, AUTOMATED 227 10^3/uL (150-450); RED BLOOD COUNT 3.17 10^6/uL (4.00-5.40); WHITE BLOOD COUNT 6.4 10^3/uL (4.0-10.0)
[2022-11-20 06:47] LABS: BLOOD UREA NITROGEN 19 MG/DL (9-23); CALCIUM LEVEL 8.4 MG/DL (8.3-10.6); CARBON DIOXIDE LEVEL 20 MMOL/L (20-31); CHLORIDE LEVEL 112 MMOL/L (98-107); CREATININE FOR GFR 0.76 MG/DL (0.55-1.30); GLOMERULAR FILTRATION RATE > 60.0 (>39); GLUCOSE, FASTING 80 MG/DL (74-106); POTASSIUM SERUM 3.9 MMOL/L (3.5-5.1); SODIUM LEVEL 142 MMOL/L (136-145)
[2022-11-20] MEDS: SENNA 8.6 MG TAB (SENOKOT) PO SCH ×2 (08:16→21:40)
[2022-11-20] MEDS: rOPINIRole 1MG TAB PO SCH ×3 (08:17→21:40)
[2022-11-20] MEDS: ACETAMINOPHEN 650MG ER TAB (TYLENOL ARTHRITIS) PO SCH ×3 (08:17→21:38)
[2022-11-20] MEDS: SINEMET 25-100 MG TAB PO SCH ×4 (08:17→21:38)
[2022-11-20] MEDS: METOPROLOL TART 25 MG TABLET PO SCH ×2 (08:18→21:40)
[2022-11-20] MEDS: HEPARIN SOD (PORCINE) 5000UNITS/ML 1ML VIAL/SYRINGE SQ SCH ×2 (08:18→21:38)
[2022-11-20] MEDS: SYMBICORT 80/4.5MCG INHALER 6GM INH SCH (08:36)
[2022-11-20 10:15] VITALS: BP_SYST 113; BP_SYST 80; BP_SYST 95; BP_DIAS 44; BP_DIAS 55; BP_DIAS 61
[2022-11-20] MEDS: CitaloPRAM (CeleXA) 20 MG TAB PO SCH (13:24)
[2022-11-20] MEDS: TOPIRAMATE (TopAMAX) 100 MG TAB PO SCH ×2 (13:25→21:39)
[2022-11-20] MEDS ORDERED: FLUDROCORTISONE ACETATE 0.1 MG TAB PO SCH (21:00)
[2022-11-20] MEDS: EZETIMIBE 10MG TABLET (ZETIA) PO SCH (21:39)
[2022-11-21 06:00] VITALS: BP 145/85
[2022-11-21 06:51] LABS: BASO # 0.1 10^3/uL (0.0-0.2); BASO % 1.2 % (0.0-1.0); EOS # 0.2 10^3/uL (0.0-0.5); EOS % 4.6 % (0.0-3.0); HEMATOCRIT 31.9 % (36.0-47.0); HEMOGLOBIN 10.1 g/dl (12.0-15.5); LYMPH # 1.7 10^3/uL (1.5-5.0); LYMPH % 33.4 % (24.0-44.0); MEAN CORPUSCULAR HEMOGLOBIN 30.8 pg (27.0-33.0); MEAN CORPUSCULAR HGB CONC 31.7 g/dl (32.0-36.5); MEAN CORPUSCULAR VOLUME 97.3 fl (80.0-96.0); MONO # 0.5 10^3/uL (0.0-0.8); MONO % 10.4 % (2.0-8.0); NEUTROPHILS # 2.6 10^3/uL (1.5-8.5); NEUTROPHILS % 49.6 % (36.0-66.0); PLATELET COUNT, AUTOMATED 248 10^3/uL (150-450); RED BLOOD COUNT 3.28 10^6/uL (4.00-5.40); WHITE BLOOD COUNT 5.2 10^3/uL (4.0-10.0)
[2022-11-21 07:18] LABS: BLOOD UREA NITROGEN 22 MG/DL (9-23); CALCIUM LEVEL 8.3 MG/DL (8.3-10.6); CARBON DIOXIDE LEVEL 22 MMOL/L (20-31); CHLORIDE LEVEL 113 MMOL/L (98-107); CREATININE FOR GFR 0.75 MG/DL (0.55-1.30); GLOMERULAR FILTRATION RATE > 60.0 (>39); GLUCOSE, FASTING 78 MG/DL (74-106); POTASSIUM SERUM 3.7 MMOL/L (3.5-5.1); SODIUM LEVEL 141 MMOL/L (136-145)
[2022-11-21] MEDS: SYMBICORT 80/4.5MCG INHALER 6GM INH SCH (07:22)
[2022-11-21 08:06] VITALS: BP 138/86
[2022-11-21] MEDS: SINEMET 25-100 MG TAB PO SCH ×2 (08:07→12:36)
[2022-11-21 08:08] VITALS: BP 138/86
[2022-11-21] MEDS: rOPINIRole 1MG TAB PO SCH (08:08)
[2022-11-21] MEDS: METOPROLOL TART 25 MG TABLET PO SCH (08:08)
[2022-11-21] MEDS: SENNA 8.6 MG TAB (SENOKOT) PO SCH (08:08)
[2022-11-21] MEDS: ACETAMINOPHEN 650MG ER TAB (TYLENOL ARTHRITIS) PO SCH (08:08)
[2022-11-21] MEDS: HEPARIN SOD (PORCINE) 5000UNITS/ML 1ML VIAL/SYRINGE SQ SCH (08:15)
[2022-11-21] MEDS ORDERED: FLUD0.1T PO (12:04)
[2022-11-21] MEDS: CitaloPRAM (CeleXA) 20 MG TAB PO SCH (12:36)
[2022-11-21] MEDS: TOPIRAMATE (TopAMAX) 100 MG TAB PO SCH (12:37)
== END 2022-11-21 14:12 | DRG 312 ==
LOC: EDBD 15:52 → EDSEX 15:52 → M ED 15:52 → M ED INP 21:51 → ENRESERV 11-17 12:48 → M MSPAV 11-17 15:10
PROVIDERS: ADMIT Internal Medicine; ATTEND Internal Medicine
DX: I95.1 Orthostatic hypotension (principal); I50.32 Chronic diastolic (congestive) heart failure; D62 Acute posthemorrhagic anemia; D68.32 Hemorrhagic disorder due to extrinsic circulating anticoagulants; G90.3 Multi-system degeneration of the autonomic nervous system; R29.6 Repeated falls; G20 Parkinson's disease; I11.0 Hypertensive heart disease with heart failure; E78.00 Pure hypercholesterolemia, unspecified; F32.A Depression, unspecified; G40.909 Epilepsy, unspecified, not intractable, without status epilepticus; Z66 Do not resuscitate; S00.83XA Contusion of other part of head, initial encounter; Z79.01 Long term (current) use of anticoagulants; D72.829 Elevated white blood cell count, unspecified; Z95.0 Presence of cardiac pacemaker; F39 Unspecified mood [affective] disorder; J45.909 Unspecified asthma, uncomplicated; I48.91 Unspecified atrial fibrillation; I27.20 Pulmonary hypertension, unspecified; G25.81 Restless legs syndrome; Z79.899 Other long term (current) drug therapy; Z88.8 Allergy status to other drugs, medicaments and biological substances; G89.29 Other chronic pain; W18.30XA Fall on same level, unspecified, initial encounter; Y92.009 Unspecified place in unspecified non-institutional (private) residence as the place of occurrence of the external cause

== ENCOUNTER → 2022-12-05 | Outpatient (REF) | payer MEDICARE ==
[~2022-12-05] MED LIST changes: +ALBU8.5H INH; +FLUD0.1T PO; +FURO20TA2 PO; +POTA-141 PO; +SODI3NEB3 NEB
[2022-12-05 17:31] LABS: BASO # 0.1 10^3/uL (0.0-0.2); BASO % 1.4 % (0.0-1.0); EOS # 0.2 10^3/uL (0.0-0.5); EOS % 4.3 % (0.0-3.0); HEMATOCRIT 33.6 % (36.0-47.0); HEMOGLOBIN 10.2 g/dl (12.0-15.5); LYMPH # 1.9 10^3/uL (1.5-5.0); LYMPH % 34.3 % (24.0-44.0); MEAN CORPUSCULAR HEMOGLOBIN 30.4 pg (27.0-33.0); MEAN CORPUSCULAR HGB CONC 30.4 g/dl (32.0-36.5); MEAN CORPUSCULAR VOLUME 100.3 fl (80.0-96.0); MONO # 0.5 10^3/uL (0.0-0.8); MONO % 9.2 % (2.0-8.0); NEUTROPHILS # 2.8 10^3/uL (1.5-8.5); NEUTROPHILS % 50.4 % (36.0-66.0); PLATELET COUNT, AUTOMATED 354 10^3/uL (150-450); RED BLOOD COUNT 3.35 10^6/uL (4.00-5.40); WHITE BLOOD COUNT 5.5 10^3/uL (4.0-10.0)
[2022-12-05 17:52] LABS: BLOOD UREA NITROGEN 49 MG/DL (9-23); CALCIUM LEVEL 9.2 MG/DL (8.3-10.6); CARBON DIOXIDE LEVEL 25 MMOL/L (20-31); CHLORIDE LEVEL 108 MMOL/L (98-107); CREATININE FOR GFR 0.92 MG/DL (0.55-1.30); GLOMERULAR FILTRATION RATE > 60.0 (>39); GLUCOSE, FASTING 99 MG/DL (74-106); POTASSIUM SERUM 4.3 MMOL/L (3.5-5.1); SODIUM LEVEL 141 MMOL/L (136-145)
== END ==
LOC: M LAB REF 16:48
PROVIDERS: ATTEND Physician Assistant
DX: I95.1 Orthostatic hypotension (principal); I48.20 Chronic atrial fibrillation, unspecified; I50.32 Chronic diastolic (congestive) heart failure

== ENCOUNTER → 2023-03-26 | Outpatient (REF) | payer MEDICARE, MEDICAID | LOC: SKLAB3 11:19 | PROVIDERS: ATTEND Internal Medicine | DX: M17.0 Bilateral primary osteoarthritis of knee (principal); M85.861 Other specified disorders of bone density and structure, right lower leg; M85.862 Other specified disorders of bone density and structure, left lower leg; M25.562 Pain in left knee ==

== ENCOUNTER → 2023-03-31 | Outpatient (REF) | payer MEDICARE, MEDICAID ==
[2023-03-31 07:25] LABS: HEMATOCRIT 27.9 % (36.0-47.0); HEMOGLOBIN 8.7 g/dl (12.0-15.5); MEAN CORPUSCULAR HEMOGLOBIN 29.8 pg (27.0-33.0); MEAN CORPUSCULAR HGB CONC 31.2 g/dl (32.0-36.5); MEAN CORPUSCULAR VOLUME 95.5 fl (80.0-96.0); PLATELET COUNT, AUTOMATED 266 10^3/uL (150-450); RED BLOOD COUNT 2.92 10^6/uL (4.00-5.40); WHITE BLOOD COUNT 8.9 10^3/uL (4.0-10.0)
[2023-03-31 07:54] LABS: ALBUMIN 2.5 G/DL (3.2-5.2); ALKALINE PHOSPHATASE 63 U/L (46-116); ALT/SGPT < 9 U/L (7.0-40); AST/SGOT 9 U/L (<34); BILIRUBIN,TOTAL 0.3 MG/DL (0.3-1.2); BLOOD UREA NITROGEN 43 MG/DL (9-23); CALCIUM LEVEL 8.8 MG/DL (8.3-10.6); CARBON DIOXIDE LEVEL 23 MMOL/L (20-31); CHLORIDE LEVEL 109 MMOL/L (98-107); CHOLESTEROL LEVEL 130 MG/DL (<200); CREATININE FOR GFR 0.75 MG/DL (0.55-1.30); GLOMERULAR FILTRATION RATE > 60.0 (>39); GLUCOSE, FASTING 86 MG/DL (74-106); HDL CHOLESTEROL 51.8 MG/DL (>40); NON-HDL-C 78.2 MG/DL; POTASSIUM SERUM 4.3 MMOL/L (3.5-5.1); SODIUM LEVEL 140 MMOL/L (136-145); TOTAL PROTEIN 6.1 G/DL (5.7-8.2); TRIGLYCERIDES LEVEL 36 MG/DL (<150)
== END ==
LOC: SKLAB3 07:00
PROVIDERS: ATTEND Internal Medicine
DX: G20 Parkinson's disease (principal); Z79.899 Other long term (current) drug therapy

== ENCOUNTER 2023-04-08 03:46 | Inpatient (IN) | payer MEDICARE, MEDICAID ==
[~2023-04-08] VITALS: Ht 154.9 cm; Wt 65.0 kg
[2023-04-08] MEDS ORDERED: BOOSTRIX VACCINE (TETANUS/DIPHTH/ACEL. PERTUSSIS) 0.5ML SYR IM.IMMUN ONE (04:05)
[2023-04-08 04:30] LABS: BASO # 0.1 10^3/uL (0.0-0.2); BASO % 0.7 % (0.0-1.0); EOS # 0.4 10^3/uL (0.0-0.5); EOS % 4.2 % (0.0-3.0); HEMOGLOBIN 9.1 g/dl (12.0-15.5); LYMPH # 3.2 10^3/uL (1.5-5.0); LYMPH % 33.4 % (24.0-44.0); MEAN CORPUSCULAR HEMOGLOBIN 29.6 pg (27.0-33.0); MEAN CORPUSCULAR HGB CONC 31.4 g/dl (32.0-36.5); MEAN CORPUSCULAR VOLUME 94.5 fl (80.0-96.0); MONO # 0.8 10^3/uL (0.0-0.8); MONO % 8.5 % (2.0-8.0); NEUTROPHILS % 52.3 % (36.0-66.0); PLATELET COUNT, AUTOMATED 372 10^3/uL (150-450); RED BLOOD COUNT 3.07 10^6/uL (4.00-5.40); WHITE BLOOD COUNT 9.6 10^3/uL (4.0-10.0)
[2023-04-08 04:34] LABS: INR 1.04; PROTHROMBIN TIME 13.8 SECONDS (12.5-14.5)
[2023-04-08 04:35] LABS: PARTIAL THROMBOPLASTIN TIME 26.9 SECONDS (24.8-34.2)
[2023-04-08] MEDS ORDERED: MORPHINE 4 MG/ML 1ML VIAL IV ONE (04:35)
[2023-04-08] MEDS ORDERED: ONDANSETRON 4MG 2ML VIAL IV ONE (04:35)
[2023-04-08] MEDS ORDERED: ONDANSETRON 4MG 2ML VIAL As Ordered ONE ×2 (04:40→12:38)
[2023-04-08 04:46] LABS: CK-MB VALUE MASS < 1.0 NG/ML (<3.6)
[2023-04-08 04:48] LABS: BLOOD UREA NITROGEN 48 MG/DL (9-23); CALCIUM LEVEL 8.6 MG/DL (8.3-10.6); CARBON DIOXIDE LEVEL 24 MMOL/L (20-31); CHLORIDE LEVEL 108 MMOL/L (98-107); CPK CREATINE PHOSPHOKINASE 31 U/L (34-145); CREATININE FOR GFR 0.81 MG/DL (0.55-1.30); GLOMERULAR FILTRATION RATE > 60.0 (>39); GLUCOSE, FASTING 98 MG/DL (74-106); MB/CK RELATIVE INDEX 3.22 (< OR =4); POTASSIUM SERUM 4.2 MMOL/L (3.5-5.1); SODIUM LEVEL 139 MMOL/L (136-145)
[2023-04-08] MEDS ORDERED: ALBUTEROL SULFATE 2.5MG/0.5ML INH NEB SOLN NEB PRN (06:00)
[2023-04-08 06:12] LABS: RSV AMPLIFICATION NEGATIVE (NEGATIVE)
[2023-04-08] MEDS ORDERED: ACET-897 PO (06:33)
[2023-04-08] MEDS ORDERED: BISA10SU4 PR (06:33)
[2023-04-08] MEDS ORDERED: C 50TAB PO (06:33)
[2023-04-08] MEDS ORDERED: ROPI0.253 PO (06:33)
[2023-04-08] MEDS ORDERED: FLUD0.1T PO (06:33)
[2023-04-08] MEDS ORDERED: GUAI600T54 PO (06:33)
[2023-04-08] MEDS ORDERED: DICL1GEL3 TOP (06:33)
[2023-04-08] MEDS ORDERED: FLEEENE12 PR (06:33)
[2023-04-08] MEDS ORDERED: ASPI-655 PO (06:33)
[2023-04-08] MEDS ORDERED: CALC500T61 PO (06:33)
[2023-04-08] MEDS ORDERED: FLUT1BLS2 INH (06:33)
[2023-04-08] MEDS ORDERED: MIRA1POW3 PO (06:33)
[2023-04-08] MEDS ORDERED: BISA10SU20 PR (06:33)
[2023-04-08] MEDS ORDERED: MILKSUS3 PO (06:33)
[2023-04-08] MEDS ORDERED: HOME MED LIST COMPLETE! XX SCH (06:35)
[2023-04-08] MEDS: SINEMET 25-100 MG TAB PO SCH ×4 (08:00→20:32)
[2023-04-08] MEDS: FLUDROCORTISONE ACETATE 0.1 MG TAB PO SCH ×2 (09:00→20:32)
[2023-04-08] MEDS: DOCUSATE SODIUM 100MG CAPSULE PO SCH ×2 (09:00→20:32)
[2023-04-08] MEDS: HYDROMORPHONE HCL 0.5 MG/ 0.5 ML SYRINGE IV PRN (09:39)
[2023-04-08] MEDS: NS 1,000 ML IV SCH ×2 (09:40→15:21)
[2023-04-08] MEDS ORDERED: ROCURONIUM BROMIDE 50MG/5ML VIAL As Ordered ONE (12:04)
[2023-04-08] MEDS ORDERED: propofoL 200 MG/20 ML VIAL As Ordered ONE (12:04)
[2023-04-08] MEDS ORDERED: fentaNYL 100 MCG/2 ML INJECTION As Ordered ONE (12:04)
[2023-04-08] MEDS ORDERED: LIDOCAINE 2% 100MG/5ML SDV (FOR ANES.) As Ordered ONE (12:04)
[2023-04-08] MEDS ORDERED: MIDAZOLAM INJ 2MG/2ML VIAL As Ordered ONE (12:05)
[2023-04-08] MEDS ORDERED: TRANEXAMIC ACID 100 MG/ML 10ML VIAL As Ordered ONE (12:30)
[2023-04-08] MEDS ORDERED: BUPIVACAINE LIPOSOME/PF 1.3% 20ML VIAL (13.3MG/ML)(EXPAREL) As Ordered ONE (12:31)
[2023-04-08] MEDS ORDERED: BUPIVACAINE HCL 0.5% 30ML VIAL As Ordered ONE (12:31)
[2023-04-08] MEDS ORDERED: ceFAZolin 1GM VIAL As Ordered ONE (12:31)
[2023-04-08] MEDS: IPRATROPIUM 0.5MG/ALBUTEROL 2.5MG INH SOL UD 3ML (DUONEB) NEB SCH ×3 (12:35→19:57)
[2023-04-08] MEDS ORDERED: ceFAZolin 2 GM/D5W 50 ML IV BAG As Ordered ONE (12:48)
[2023-04-08] MEDS ORDERED: ACETAMINOPHEN 1000MG 100ML IV BAG As Ordered ONE (13:24)
[2023-04-08] MEDS ORDERED: SUGAMMADEX SODIUM 500 MG/5 ML VIAL (BRIDION) As Ordered ONE (13:51)
[2023-04-08] MEDS ORDERED: KETOROLAC 60MG 2ML VIAL As Ordered ONE (13:59)
[2023-04-08] MEDS ORDERED: ONDANSETRON 4MG 2ML VIAL IV PRN (14:10)
[2023-04-08] MEDS ORDERED: fentaNYL 100 MCG/2 ML INJECTION IV PRN (14:10)
[2023-04-08] MEDS ORDERED: oxyCODONE 5MG TAB PO PRN (14:10)
[2023-04-08] MEDS ORDERED: HYDROMORPHONE HCL 0.5 MG/ 0.5 ML SYRINGE IV PRN (14:10)
[2023-04-08] MEDS ORDERED: LR 1,000 ML IV SCH (14:10)
[2023-04-08 15:20] VITALS: BP 115/52
[2023-04-08 16:00] VITALS: BP 111/52
[2023-04-08 17:00] VITALS: BP 109/54
[2023-04-08 18:00] VITALS: BP 92/54
[2023-04-08] MEDS ORDERED: NS 500 ML IV ONE (18:35)
[2023-04-08 19:00] VITALS: BP 142/68
[2023-04-08 20:08] VITALS: BP 140/69
[2023-04-08] MEDS: ceFAZolin SOD 1 GM in D5W MINI-BAG PLUS 50 ML IV SCH (20:32)
[2023-04-09] VITALS (10 sets, daily range): BP systolic 92–150; BP diastolic 40–72
[2023-04-09] MEDS: IPRATROPIUM 0.5MG/ALBUTEROL 2.5MG INH SOL UD 3ML (DUONEB) NEB SCH ×4 (01:59→20:00)
[2023-04-09] MEDS: NS 1,000 ML IV SCH ×2 (03:40→22:13)
[2023-04-09] MEDS: ceFAZolin SOD 1 GM in D5W MINI-BAG PLUS 50 ML IV SCH ×2 (05:46→15:33)
[2023-04-09 07:02] LABS: HEMATOCRIT 21.2 % (36.0-47.0); MEAN CORPUSCULAR HEMOGLOBIN 30.3 pg (27.0-33.0); MEAN CORPUSCULAR HGB CONC 31.6 g/dl (32.0-36.5); MEAN CORPUSCULAR VOLUME 95.9 fl (80.0-96.0); PLATELET COUNT, AUTOMATED 284 10^3/uL (150-450); RED BLOOD COUNT 2.21 10^6/uL (4.00-5.40); WHITE BLOOD COUNT 17.7 10^3/uL (4.0-10.0)
[2023-04-09 07:27] LABS: BLOOD UREA NITROGEN 41 MG/DL (9-23); CALCIUM LEVEL 7.6 MG/DL (8.3-10.6); CARBON DIOXIDE LEVEL 20 MMOL/L (20-31); CHLORIDE LEVEL 112 MMOL/L (98-107); CREATININE FOR GFR 0.89 MG/DL (0.55-1.30); GLOMERULAR FILTRATION RATE > 60.0 (>39); GLUCOSE, FASTING 109 MG/DL (74-106); HEMOGLOBIN 6.7 g/dl (12.0-15.5); POTASSIUM SERUM 3.8 MMOL/L (3.5-5.1); SODIUM LEVEL 142 MMOL/L (136-145)
[2023-04-09 08:34] LABS: HEMOGLOBIN 6.6 g/dl (12.0-15.5)
[2023-04-09] MEDS: FLUDROCORTISONE ACETATE 0.1 MG TAB PO SCH ×2 (08:38→20:17)
[2023-04-09] MEDS: SINEMET 25-100 MG TAB PO SCH ×4 (08:38→20:17)
[2023-04-09] MEDS: DOCUSATE SODIUM 100MG CAPSULE PO SCH ×2 (08:39→20:17)
[2023-04-09] MEDS: PANTOPRAZOLE 40MG TAB (PROTONIX) PO SCH (13:20)
[2023-04-09 16:24] LABS: HEMATOCRIT 23.7 % (36.0-47.0); HEMOGLOBIN 7.7 g/dl (12.0-15.5)
[2023-04-09] MEDS: HYDROMORPHONE HCL 0.5 MG/ 0.5 ML SYRINGE IV PRN ×2 (16:47→22:13)
[2023-04-10] VITALS (8 sets, daily range): BP systolic 104–122; BP diastolic 44–65
[2023-04-10 00:08] LABS: HEMATOCRIT 22.4 % (36.0-47.0); HEMOGLOBIN 7.2 g/dl (12.0-15.5)
[2023-04-10] MEDS: IPRATROPIUM 0.5MG/ALBUTEROL 2.5MG INH SOL UD 3ML (DUONEB) NEB SCH ×4 (02:00→19:25)
[2023-04-10] MEDS: HYDROMORPHONE HCL 0.5 MG/ 0.5 ML SYRINGE IV PRN ×2 (04:42→14:55)
[2023-04-10 06:02] LABS: BASO # 0.1 10^3/uL (0.0-0.2); BASO % 0.4 % (0.0-1.0); EOS # 0.6 10^3/uL (0.0-0.5); EOS % 3.6 % (0.0-3.0); HEMATOCRIT 21.6 % (36.0-47.0); LYMPH # 1.3 10^3/uL (1.5-5.0); LYMPH % 8.2 % (24.0-44.0); MEAN CORPUSCULAR HGB CONC 32.4 g/dl (32.0-36.5); MEAN CORPUSCULAR VOLUME 95.6 fl (80.0-96.0); MONO % 6.7 % (2.0-8.0); NEUTROPHILS # 12.6 10^3/uL (1.5-8.5); NEUTROPHILS % 80.6 % (36.0-66.0); PLATELET COUNT, AUTOMATED 190 10^3/uL (150-450); RED BLOOD COUNT 2.26 10^6/uL (4.00-5.40); WHITE BLOOD COUNT 15.6 10^3/uL (4.0-10.0)
[2023-04-10 06:36] LABS: ALBUMIN 1.9 G/DL (3.2-5.2); ALKALINE PHOSPHATASE 51 U/L (46-116); ALT/SGPT < 9 U/L (7.0-40); AST/SGOT 18 U/L (<34); BILIRUBIN,TOTAL 0.4 MG/DL (0.3-1.2); BLOOD UREA NITROGEN 40 MG/DL (9-23); CALCIUM LEVEL 7.5 MG/DL (8.3-10.6); CARBON DIOXIDE LEVEL 22 MMOL/L (20-31); CHLORIDE LEVEL 114 MMOL/L (98-107); GLOMERULAR FILTRATION RATE > 60.0 (>39); GLUCOSE, FASTING 117 MG/DL (74-106); MAGNESIUM LEVEL 1.8 MG/DL (1.8-2.4); POTASSIUM SERUM 3.9 MMOL/L (3.5-5.1); SODIUM LEVEL 143 MMOL/L (136-145); TOTAL PROTEIN 4.8 G/DL (5.7-8.2)
[2023-04-10] MEDS: PANTOPRAZOLE 40MG TAB (PROTONIX) PO SCH (08:32)
[2023-04-10] MEDS: NS 1,000 ML IV SCH (08:32)
[2023-04-10] MEDS: SINEMET 25-100 MG TAB PO SCH ×4 (08:32→20:10)
[2023-04-10] MEDS: DOCUSATE SODIUM 100MG CAPSULE PO SCH ×2 (08:32→20:10)
[2023-04-10] MEDS: guaiFENesin ER 600 MG TAB PO SCH ×2 (09:00→20:10)
[2023-04-10] MEDS: OYSTER SHELL CALCIUM 500 MG TAB PO SCH ×2 (09:00→20:11)
[2023-04-10] MEDS: TOPIRAMATE (TopAMAX) 100 MG TAB PO SCH ×2 (09:00→20:10)
[2023-04-10 12:45] LABS: HEMATOCRIT 26.7 % (36.0-47.0); HEMOGLOBIN 8.5 g/dl (12.0-15.5); MEAN CORPUSCULAR HEMOGLOBIN 30.2 pg (27.0-33.0); MEAN CORPUSCULAR HGB CONC 31.8 g/dl (32.0-36.5); PLATELET COUNT, AUTOMATED 181 10^3/uL (150-450); RED BLOOD COUNT 2.81 10^6/uL (4.00-5.40); WHITE BLOOD COUNT 16.9 10^3/uL (4.0-10.0)
[2023-04-10] MEDS: CitaloPRAM (CeleXA) 20 MG TAB PO SCH (14:57)
[2023-04-10] MEDS: OMEGA-3 1000MG CAPSULE PO SCH (14:57)
[2023-04-10] MEDS: ASCORBIC ACID 500 MG TAB PO SCH (14:57)
[2023-04-10] MEDS: VITAMIN D 1,000 INTERNATIONAL UNITS TABLET PO SCH (14:57)
[2023-04-10] MEDS: ASPIRIN 81MG CHEW TABLET PO SCH (14:57)
[2023-04-10] MEDS: rOPINIRole 1MG TAB PO SCH ×2 (17:12→20:11)
[2023-04-10] MEDS: rOPINIRole 0.25 MG TAB(REQUIP) PO SCH ×2 (17:12→20:11)
[2023-04-10] MEDS: HEPARIN SOD (PORCINE) 5000UNITS/ML 1ML VIAL/SYRINGE SQ SCH (20:10)
[2023-04-10] MEDS: FLUDROCORTISONE ACETATE 0.1 MG TAB PO SCH (20:11)
[2023-04-10] MEDS: METOPROLOL TART 25 MG TABLET PO SCH (20:11)
[2023-04-10] MEDS: EZETIMIBE 10MG TABLET (ZETIA) PO SCH (20:11)
[2023-04-11] MEDS: IPRATROPIUM 0.5MG/ALBUTEROL 2.5MG INH SOL UD 3ML (DUONEB) NEB SCH ×4 (01:17→19:39)
[2023-04-11 05:49] VITALS: BP 124/68
[2023-04-11 06:55] LABS: BASO % 0.3 % (0.0-1.0); EOS # 0.4 10^3/uL (0.0-0.5); EOS % 2.9 % (0.0-3.0); HEMATOCRIT 26.2 % (36.0-47.0); HEMOGLOBIN 8.3 g/dl (12.0-15.5); LYMPH # 1.3 10^3/uL (1.5-5.0); LYMPH % 9.2 % (24.0-44.0); MEAN CORPUSCULAR HEMOGLOBIN 29.7 pg (27.0-33.0); MEAN CORPUSCULAR HGB CONC 31.7 g/dl (32.0-36.5); MEAN CORPUSCULAR VOLUME 93.9 fl (80.0-96.0); MONO # 1.1 10^3/uL (0.0-0.8); MONO % 7.8 % (2.0-8.0); NEUTROPHILS # 11.2 10^3/uL (1.5-8.5); NEUTROPHILS % 79.2 % (36.0-66.0); PLATELET COUNT, AUTOMATED 189 10^3/uL (150-450); RED BLOOD COUNT 2.79 10^6/uL (4.00-5.40); WHITE BLOOD COUNT 14.2 10^3/uL (4.0-10.0)
[2023-04-11 07:10] LABS: ALBUMIN 1.9 G/DL (3.2-5.2); ALKALINE PHOSPHATASE 56 U/L (46-116); ALT/SGPT < 9 U/L (7.0-40); AST/SGOT 18 U/L (<34); BILIRUBIN,TOTAL 0.6 MG/DL (0.3-1.2); BLOOD UREA NITROGEN 32 MG/DL (9-23); CALCIUM LEVEL 7.7 MG/DL (8.3-10.6); CARBON DIOXIDE LEVEL 20 MMOL/L (20-31); CHLORIDE LEVEL 113 MMOL/L (98-107); CREATININE FOR GFR 0.66 MG/DL (0.55-1.30); GLOMERULAR FILTRATION RATE > 60.0 (>39); GLUCOSE, FASTING 102 MG/DL (74-106); MAGNESIUM LEVEL 1.8 MG/DL (1.8-2.4); POTASSIUM SERUM 3.7 MMOL/L (3.5-5.1); SODIUM LEVEL 142 MMOL/L (136-145)
[2023-04-11] MEDS: ASCORBIC ACID 500 MG TAB PO SCH (08:53)
[2023-04-11] MEDS: DOCUSATE SODIUM 100MG CAPSULE PO SCH ×2 (08:53→20:11)
[2023-04-11] MEDS: rOPINIRole 1MG TAB PO SCH ×3 (08:53→20:10)
[2023-04-11] MEDS: rOPINIRole 0.25 MG TAB(REQUIP) PO SCH ×3 (08:53→20:10)
[2023-04-11] MEDS: VITAMIN D 1,000 INTERNATIONAL UNITS TABLET PO SCH (08:54)
[2023-04-11] MEDS: METOPROLOL TART 25 MG TABLET PO SCH ×2 (08:54→20:13)
[2023-04-11] MEDS: SINEMET 25-100 MG TAB PO SCH ×4 (08:55→20:10)
[2023-04-11] MEDS: PANTOPRAZOLE 40MG TAB (PROTONIX) PO SCH (08:55)
[2023-04-11] MEDS: TOPIRAMATE (TopAMAX) 100 MG TAB PO SCH ×2 (08:55→20:11)
[2023-04-11] MEDS: guaiFENesin ER 600 MG TAB PO SCH ×2 (08:56→20:10)
[2023-04-11] MEDS: CitaloPRAM (CeleXA) 20 MG TAB PO SCH (08:56)
[2023-04-11] MEDS: OYSTER SHELL CALCIUM 500 MG TAB PO SCH ×2 (08:56→20:11)
[2023-04-11] MEDS: ASPIRIN 81MG CHEW TABLET PO SCH (08:56)
[2023-04-11] MEDS: OMEGA-3 1000MG CAPSULE PO SCH (08:56)
[2023-04-11] MEDS: HEPARIN SOD (PORCINE) 5000UNITS/ML 1ML VIAL/SYRINGE SQ SCH ×2 (08:57→20:11)
[2023-04-11] MEDS: ACETAMINOPHEN TAB 650MG DOSE (2X325MG) PO PRN (12:06)
[2023-04-11 14:15] VITALS: BP 111/64
[2023-04-11] MEDS: FLUDROCORTISONE ACETATE 0.1 MG TAB PO SCH (20:10)
[2023-04-11] MEDS: EZETIMIBE 10MG TABLET (ZETIA) PO SCH (20:10)
[2023-04-11 22:00] VITALS: BP 114/55
[2023-04-12] MEDS: IPRATROPIUM 0.5MG/ALBUTEROL 2.5MG INH SOL UD 3ML (DUONEB) NEB SCH ×4 (01:10→19:35)
[2023-04-12] MEDS: ACETAMINOPHEN TAB 650MG DOSE (2X325MG) PO PRN ×2 (02:42→16:09)
[2023-04-12 06:00] VITALS: BP 143/69
[2023-04-12 06:08] LABS: BASO # 0.1 10^3/uL (0.0-0.2); BASO % 0.4 % (0.0-1.0); EOS # 0.5 10^3/uL (0.0-0.5); EOS % 4.5 % (0.0-3.0); HEMATOCRIT 23.6 % (36.0-47.0); HEMOGLOBIN 7.7 g/dl (12.0-15.5); LYMPH # 1.4 10^3/uL (1.5-5.0); LYMPH % 12.8 % (24.0-44.0); MEAN CORPUSCULAR HGB CONC 32.6 g/dl (32.0-36.5); MEAN CORPUSCULAR VOLUME 91.8 fl (80.0-96.0); MONO % 8.7 % (2.0-8.0); NEUTROPHILS # 8.2 10^3/uL (1.5-8.5); PLATELET COUNT, AUTOMATED 229 10^3/uL (150-450); RED BLOOD COUNT 2.57 10^6/uL (4.00-5.40); WHITE BLOOD COUNT 11.2 10^3/uL (4.0-10.0)
[2023-04-12] MEDS: HEPARIN SOD (PORCINE) 5000UNITS/ML 1ML VIAL/SYRINGE SQ SCH ×2 (07:52→20:41)
[2023-04-12] MEDS: CitaloPRAM (CeleXA) 20 MG TAB PO SCH (07:53)
[2023-04-12] MEDS: guaiFENesin ER 600 MG TAB PO SCH ×2 (07:53→20:39)
[2023-04-12] MEDS: SINEMET 25-100 MG TAB PO SCH ×4 (07:53→20:39)
[2023-04-12] MEDS: OYSTER SHELL CALCIUM 500 MG TAB PO SCH ×2 (07:54→20:38)
[2023-04-12] MEDS: rOPINIRole 0.25 MG TAB(REQUIP) PO SCH ×3 (07:54→20:38)
[2023-04-12] MEDS: rOPINIRole 1MG TAB PO SCH ×3 (07:54→20:39)
[2023-04-12] MEDS: METOPROLOL TART 25 MG TABLET PO SCH ×2 (07:54→20:40)
[2023-04-12] MEDS: ASPIRIN 81MG CHEW TABLET PO SCH (07:55)
[2023-04-12] MEDS: DOCUSATE SODIUM 100MG CAPSULE PO SCH ×2 (07:55→20:38)
[2023-04-12] MEDS: ASCORBIC ACID 500 MG TAB PO SCH (07:55)
[2023-04-12] MEDS: VITAMIN D 1,000 INTERNATIONAL UNITS TABLET PO SCH (07:55)
[2023-04-12] MEDS: TOPIRAMATE (TopAMAX) 100 MG TAB PO SCH ×2 (07:56→20:39)
[2023-04-12] MEDS: PANTOPRAZOLE 40MG TAB (PROTONIX) PO SCH (07:56)
[2023-04-12] MEDS: OMEGA-3 1000MG CAPSULE PO SCH (07:56)
[2023-04-12 14:30] VITALS: BP 129/60
[2023-04-12] MEDS: traMADol 50 MG TAB PO PRN (18:08)
[2023-04-12 19:58] VITALS: BP 138/65
[2023-04-12] MEDS: EZETIMIBE 10MG TABLET (ZETIA) PO SCH (20:38)
[2023-04-12] MEDS: FLUDROCORTISONE ACETATE 0.1 MG TAB PO SCH (20:40)
[2023-04-13] MEDS: IPRATROPIUM 0.5MG/ALBUTEROL 2.5MG INH SOL UD 3ML (DUONEB) NEB SCH ×4 (01:12→20:21)
[2023-04-13] MEDS: ACETAMINOPHEN TAB 650MG DOSE (2X325MG) PO PRN ×2 (03:13→20:56)
[2023-04-13 04:53] VITALS: BP 112/46
[2023-04-13 06:10] LABS: BASO # 0.1 10^3/uL (0.0-0.2); BASO % 0.7 % (0.0-1.0); EOS # 0.6 10^3/uL (0.0-0.5); EOS % 6.8 % (0.0-3.0); HEMATOCRIT 23.8 % (36.0-47.0); HEMOGLOBIN 7.7 g/dl (12.0-15.5); LYMPH # 1.3 10^3/uL (1.5-5.0); LYMPH % 15.6 % (24.0-44.0); MEAN CORPUSCULAR HEMOGLOBIN 30.2 pg (27.0-33.0); MEAN CORPUSCULAR HGB CONC 32.4 g/dl (32.0-36.5); MEAN CORPUSCULAR VOLUME 93.3 fl (80.0-96.0); MONO # 0.9 10^3/uL (0.0-0.8); MONO % 10.2 % (2.0-8.0); NEUTROPHILS # 5.5 10^3/uL (1.5-8.5); NEUTROPHILS % 66.2 % (36.0-66.0); PLATELET COUNT, AUTOMATED 257 10^3/uL (150-450); RED BLOOD COUNT 2.55 10^6/uL (4.00-5.40); WHITE BLOOD COUNT 8.4 10^3/uL (4.0-10.0)
[2023-04-13] MEDS: HEPARIN SOD (PORCINE) 5000UNITS/ML 1ML VIAL/SYRINGE SQ SCH ×2 (09:26→20:57)
[2023-04-13] MEDS: rOPINIRole 0.25 MG TAB(REQUIP) PO SCH ×3 (09:26→20:57)
[2023-04-13] MEDS: OYSTER SHELL CALCIUM 500 MG TAB PO SCH ×2 (09:26→20:57)
[2023-04-13] MEDS: VITAMIN D 1,000 INTERNATIONAL UNITS TABLET PO SCH (09:26)
[2023-04-13] MEDS: ASPIRIN 81MG CHEW TABLET PO SCH (09:27)
[2023-04-13] MEDS: rOPINIRole 1MG TAB PO SCH ×3 (09:27→20:57)
[2023-04-13] MEDS: PANTOPRAZOLE 40MG TAB (PROTONIX) PO SCH (09:27)
[2023-04-13] MEDS: ASCORBIC ACID 500 MG TAB PO SCH (09:27)
[2023-04-13] MEDS: guaiFENesin ER 600 MG TAB PO SCH ×2 (09:27→20:57)
[2023-04-13] MEDS: OMEGA-3 1000MG CAPSULE PO SCH (09:27)
[2023-04-13] MEDS: DOCUSATE SODIUM 100MG CAPSULE PO SCH ×2 (09:27→20:57)
[2023-04-13] MEDS: CitaloPRAM (CeleXA) 20 MG TAB PO SCH (09:27)
[2023-04-13] MEDS: TOPIRAMATE (TopAMAX) 100 MG TAB PO SCH ×2 (09:27→20:57)
[2023-04-13] MEDS: METOPROLOL TART 25 MG TABLET PO SCH ×2 (09:28→21:00)
[2023-04-13] MEDS: SINEMET 25-100 MG TAB PO SCH ×4 (09:28→20:57)
[2023-04-13 13:15] LABS: HEMATOCRIT 26.4 % (36.0-47.0); HEMOGLOBIN 8.4 g/dl (12.0-15.5)
[2023-04-13 13:40] LABS: PERCENT SATURATION 7.1 % (13.2-45.0)
[2023-04-13 13:43] LABS: FERRITIN 181.7 NG/ML (7.3-270.7); FOLATE 8.62 NG/ML (>5.4)
[2023-04-13 14:00] VITALS: BP 109/46
[2023-04-13] MEDS: traMADol 50 MG TAB PO PRN (19:17)
[2023-04-13 19:36] VITALS: BP 103/44
[2023-04-13] MEDS: FLUDROCORTISONE ACETATE 0.1 MG TAB PO SCH (20:57)
[2023-04-13] MEDS: EZETIMIBE 10MG TABLET (ZETIA) PO SCH (20:57)
[2023-04-14] MEDS: IPRATROPIUM 0.5MG/ALBUTEROL 2.5MG INH SOL UD 3ML (DUONEB) NEB SCH ×2 (01:24→06:06)
[2023-04-14] MEDS: ACETAMINOPHEN TAB 650MG DOSE (2X325MG) PO PRN (05:17)
[2023-04-14 08:43] LABS: HEMATOCRIT 24.9 % (36.0-47.0); HEMOGLOBIN 7.8 g/dl (12.0-15.5); MEAN CORPUSCULAR HGB CONC 31.3 g/dl (32.0-36.5); MEAN CORPUSCULAR VOLUME 95.8 fl (80.0-96.0); PLATELET COUNT, AUTOMATED 276 10^3/uL (150-450); WHITE BLOOD COUNT 9.3 10^3/uL (4.0-10.0)
[2023-04-14] MEDS: VITAMIN D 1,000 INTERNATIONAL UNITS TABLET PO SCH (08:45)
[2023-04-14] MEDS: guaiFENesin ER 600 MG TAB PO SCH (08:45)
[2023-04-14] MEDS: ASPIRIN 81MG CHEW TABLET PO SCH (08:45)
[2023-04-14] MEDS: rOPINIRole 0.25 MG TAB(REQUIP) PO SCH (08:45)
[2023-04-14] MEDS: TOPIRAMATE (TopAMAX) 100 MG TAB PO SCH (08:45)
[2023-04-14] MEDS: PANTOPRAZOLE 40MG TAB (PROTONIX) PO SCH (08:45)
[2023-04-14 08:46] VITALS: BP 138/63
[2023-04-14] MEDS: ASCORBIC ACID 500 MG TAB PO SCH (08:46)
[2023-04-14] MEDS: OYSTER SHELL CALCIUM 500 MG TAB PO SCH (08:46)
[2023-04-14] MEDS: OMEGA-3 1000MG CAPSULE PO SCH (08:46)
[2023-04-14] MEDS: METOPROLOL TART 25 MG TABLET PO SCH (08:46)
[2023-04-14] MEDS: SINEMET 25-100 MG TAB PO SCH ×2 (08:46→12:41)
[2023-04-14] MEDS: DOCUSATE SODIUM 100MG CAPSULE PO SCH (08:46)
[2023-04-14] MEDS: rOPINIRole 1MG TAB PO SCH (08:46)
[2023-04-14] MEDS: CitaloPRAM (CeleXA) 20 MG TAB PO SCH (08:46)
[2023-04-14] MEDS: HEPARIN SOD (PORCINE) 5000UNITS/ML 1ML VIAL/SYRINGE SQ SCH (08:46)
[2023-04-14] MEDS: traMADol 50 MG TAB PO PRN (08:48)
[2023-04-14] MEDS ORDERED: ASPI-655 PO (11:36)
[2023-04-14] MEDS ORDERED: MIRA3350 PO (11:36)
[2023-04-14] MEDS ORDERED: OMEP-173 PO (11:38)
[2023-04-14] MEDS ORDERED: FERR325T3 PO (11:38)
== END 2023-04-14 13:15 | DRG 481 ==
LOC: EDBD 03:46 → M ED 03:46 → M ED INP 05:58 → M MS5PR 15:19
PROVIDERS: ADMIT Internal Medicine; ATTEND Internal Medicine
PROC: 0QS636Z Reposition Right Upper Femur with Intramedullary Internal Fixation Device, Percutaneous Approach (ICD-10-PCS; principal; 2023-04-08 12:00)
PROC: 30233N1 Transfusion of Nonautologous Red Blood Cells into Peripheral Vein, Percutaneous Approach (ICD-10-PCS; 2023-04-09)
DX: S72.141A Displaced intertrochanteric fracture of right femur, initial encounter for closed fracture (principal); E27.40 Unspecified adrenocortical insufficiency; D62 Acute posthemorrhagic anemia; I48.91 Unspecified atrial fibrillation; S01.01XA Laceration without foreign body of scalp, initial encounter; G20 Parkinson's disease; M81.0 Age-related osteoporosis without current pathological fracture; F39 Unspecified mood [affective] disorder; E78.00 Pure hypercholesterolemia, unspecified; I10 Essential (primary) hypertension; Z96.652 Presence of left artificial knee joint; Z95.0 Presence of cardiac pacemaker; Z79.01 Long term (current) use of anticoagulants; Z79.899 Other long term (current) drug therapy; Z88.8 Allergy status to other drugs, medicaments and biological substances; Z20.822 Contact with and (suspected) exposure to COVID-19; W01.0XXA Fall on same level from slipping, tripping and stumbling without subsequent striking against object, initial encounter; Y92.009 Unspecified place in unspecified non-institutional (private) residence as the place of occurrence of the external cause

== ENCOUNTER → 2023-04-21 | Outpatient (REF) | payer MEDICARE, MEDICAID ==
[~2023-04-21] MED LIST changes: +ACET-897 PO; +ASPI-655 PO; +BISA10SU20 PR; +BISA10SU4 PR; +C 50TAB PO; +CALC500T61 PO; +DICL1GEL3 TOP; +FERR325T3 PO; +FLEEENE12 PR; +FLUT1BLS2 INH; +GUAI600T54 PO; +MILKSUS3 PO; +MIRA1POW3 PO; +MIRA3350 PO; +OMEP-173 PO
[2023-04-21 09:30] LABS: HEMATOCRIT 28.4 % (36.0-47.0); HEMOGLOBIN 8.9 g/dl (12.0-15.5); MEAN CORPUSCULAR HEMOGLOBIN 29.9 pg (27.0-33.0); MEAN CORPUSCULAR HGB CONC 31.3 g/dl (32.0-36.5); MEAN CORPUSCULAR VOLUME 95.3 fl (80.0-96.0); PLATELET COUNT, AUTOMATED 633 10^3/uL (150-450); RED BLOOD COUNT 2.98 10^6/uL (4.00-5.40); WHITE BLOOD COUNT 9.4 10^3/uL (4.0-10.0)
== END ==
LOC: SKLAB3 07:00
PROVIDERS: ATTEND Internal Medicine
DX: R71.8 Other abnormality of red blood cells (principal)

== ENCOUNTER → 2023-04-22 | Outpatient (CLI) | payer MEDICARE, MEDICAID | LOC: M SOG 08:13 | PROVIDERS: ATTEND Orthopaedic Surgery | DX: Z47.89 Encounter for other orthopedic aftercare (principal); S72.141D Displaced intertrochanteric fracture of right femur, subsequent encounter for closed fracture with routine healing; M85.851 Other specified disorders of bone density and structure, right thigh; M16.11 Unilateral primary osteoarthritis, right hip ==

== ENCOUNTER → 2023-04-28 | Outpatient (REF) | payer MEDICARE, MEDICAID ==
[2023-04-28 06:57] LABS: HEMATOCRIT 30.7 % (36.0-47.0); HEMOGLOBIN 9.6 g/dl (12.0-15.5); MEAN CORPUSCULAR HEMOGLOBIN 30.3 pg (27.0-33.0); MEAN CORPUSCULAR HGB CONC 31.3 g/dl (32.0-36.5); MEAN CORPUSCULAR VOLUME 96.8 fl (80.0-96.0); PLATELET COUNT, AUTOMATED 604 10^3/uL (150-450); RED BLOOD COUNT 3.17 10^6/uL (4.00-5.40); WHITE BLOOD COUNT 8.2 10^3/uL (4.0-10.0)
== END ==
LOC: SKLAB3 07:04
PROVIDERS: ATTEND Nurse Practitioner
DX: D64.9 Anemia, unspecified (principal)

== ENCOUNTER → 2023-05-05 | Outpatient (REF) | payer MEDICARE, MEDICAID ==
[2023-05-05 07:19] LABS: HEMATOCRIT 33.8 % (36.0-47.0); HEMOGLOBIN 10.5 g/dl (12.0-15.5); MEAN CORPUSCULAR HGB CONC 31.1 g/dl (32.0-36.5); MEAN CORPUSCULAR VOLUME 96.6 fl (80.0-96.0); PLATELET COUNT, AUTOMATED 391 10^3/uL (150-450); WHITE BLOOD COUNT 7.7 10^3/uL (4.0-10.0)
[2023-05-05 07:42] LABS: ALBUMIN 2.8 G/DL (3.2-5.2); BLOOD UREA NITROGEN 35 MG/DL (9-23); CALCIUM LEVEL 8.7 MG/DL (8.3-10.6); CARBON DIOXIDE LEVEL 23 MMOL/L (20-31); CHLORIDE LEVEL 109 MMOL/L (98-107); CREATININE FOR GFR 0.65 MG/DL (0.55-1.30); GLOMERULAR FILTRATION RATE > 60.0 (>39); GLUCOSE, FASTING 91 MG/DL (74-106); PHOSPHORUS LEVEL 3.9 MG/DL (2.4-5.1); SODIUM LEVEL 140 MMOL/L (136-145)
== END ==
LOC: SKLAB3 07:00
PROVIDERS: ATTEND Nurse Practitioner
DX: N18.9 Chronic kidney disease, unspecified (principal)

== ENCOUNTER → 2023-05-12 | Outpatient (REF) | payer MEDICARE, MEDICAID ==
[2023-05-12 07:57] LABS: HEMOGLOBIN 10.1 g/dl (12.0-15.5); MEAN CORPUSCULAR HEMOGLOBIN 30.2 pg (27.0-33.0); MEAN CORPUSCULAR HGB CONC 30.6 g/dl (32.0-36.5); MEAN CORPUSCULAR VOLUME 98.8 fl (80.0-96.0); PLATELET COUNT, AUTOMATED 251 10^3/uL (150-450); RED BLOOD COUNT 3.34 10^6/uL (4.00-5.40); WHITE BLOOD COUNT 9.3 10^3/uL (4.0-10.0)
== END ==
LOC: SKLAB3 08:50
PROVIDERS: ATTEND Nurse Practitioner
DX: D64.9 Anemia, unspecified (principal)

== ENCOUNTER → 2023-05-22 | Outpatient (CLI) | payer MEDICARE, MEDICAID | LOC: M SOG 08:01 | PROVIDERS: ATTEND Orthopaedic Surgery | DX: S72.141D Displaced intertrochanteric fracture of right femur, subsequent encounter for closed fracture with routine healing (principal); Z53.8 Procedure and treatment not carried out for other reasons ==

== ENCOUNTER → 2023-07-07 | Outpatient (REF) | payer MEDICARE, MEDICAID ==
[~2023-07-07] MED LIST changes: +DICL100G10 TOP; -DICL1GEL3 TOP; -ROPI0.253 PO; -ROPI0.5T3 PO; +ROPI0.5T33 PO; -ROPI1TAB3 PO; +ROPI1TAB73 PO; +ROPI5TAB19 PO
== END ==
LOC: SKLAB3 09:11
PROVIDERS: ATTEND Nurse Practitioner Family
DX: S72.401D Unspecified fracture of lower end of right femur, subsequent encounter for closed fracture with routine healing (principal); M79.604 Pain in right leg

== ENCOUNTER → 2023-10-05 | Outpatient (CLI) | payer MEDICARE, MEDICAID ==
[~2023-10-05] MED LIST changes: -CEFD300C41 PO; +CEFD300C42 PO
== END ==
LOC: M RAD 11:15
PROVIDERS: ATTEND Internal Medicine
DX: M43.16 Spondylolisthesis, lumbar region (principal); M54.6 Pain in thoracic spine

== ENCOUNTER → 2023-10-05 | Outpatient (REF) | payer MEDICARE, MEDICAID | LOC: SKLAB4 07:47 | PROVIDERS: ATTEND Internal Medicine | DX: Z53.8 Procedure and treatment not carried out for other reasons (principal) ==

== ENCOUNTER → 2023-10-17 | Outpatient (REF) | payer MEDICARE, MEDICAID ==
[2023-10-18 00:42] LABS: APPEARANCE, URINE CLOUDY (CLEAR); BACTERIA, URINE AUTO 1+ (NEGATIVE); BILIRUBIN, URINE AUTO NEGATIVE (NEGATIVE); BLOOD, URINE BLOOD 2+ (NEGATIVE); COLOR, URINE YELLOW (YELLOW); GLUCOSE, URINE (UA) AUTO NEGATIVE (NEGATIVE); KETONE, URINE AUTO TRACE mg/dL (NEGATIVE); LEUKOCYTE ESTERASE, URINE AUTO 3+ (NEGATIVE); MUCUS, URINE SMALL (NEGATIVE); NITRITE, URINE AUTO POSITIVE (NEGATIVE); PROTEIN, URINE AUTO 1+ mg/dL (NEGATIVE); RBC, URINE AUTO 60 /HPF (0-3); SPECIFIC GRAVITY URINE AUTO 1.023 (1.002-1.035); SQUAMOUS EPITHELIAL CELL UR AU 1 /HPF (0-6); UROBILINOGEN, URINE AUTO 0.2 mg/dL (0.0-2.0); WBC, URINE AUTO TNTC /HPF (0-3)
== END ==
LOC: SKLAB4 23:00
PROVIDERS: ATTEND Internal Medicine
DX: R41.0 Disorientation, unspecified (principal)

== ENCOUNTER → 2023-10-27 | Outpatient (REF) | payer MEDICARE, MEDICAID ==
[2023-10-23 16:33] LABS: HEMATOCRIT 33.7 % (36.0-47.0); HEMOGLOBIN 10.7 g/dl (12.0-15.5); MEAN CORPUSCULAR HEMOGLOBIN 31.8 pg (27.0-33.0); MEAN CORPUSCULAR HGB CONC 31.8 g/dl (32.0-36.5); MEAN CORPUSCULAR VOLUME 100.3 fl (80.0-96.0); PLATELET COUNT, AUTOMATED 330 10^3/uL (150-450); RED BLOOD COUNT 3.36 10^6/uL (4.00-5.40); WHITE BLOOD COUNT 10.9 10^3/uL (4.0-10.0)
[2023-10-23 16:49] LABS: BLOOD UREA NITROGEN 37 MG/DL (9-23); CALCIUM LEVEL 8.7 MG/DL (8.3-10.6); CARBON DIOXIDE LEVEL 22 MMOL/L (20-31); CHLORIDE LEVEL 111 MMOL/L (98-107); CREATININE FOR GFR 0.66 MG/DL (0.55-1.30); GLOMERULAR FILTRATION RATE > 60.0 (>39); GLUCOSE, FASTING 110 MG/DL (74-106); POTASSIUM SERUM 3.9 MMOL/L (3.5-5.1); SODIUM LEVEL 143 MMOL/L (136-145)
[~2023-10-27] MED LIST changes: +CEFD1CAP9 PO; -CEFD300C42 PO
== END ==
LOC: SKLAB4 08:30
PROVIDERS: ATTEND Nurse Practitioner Adult Health
DX: R41.82 Altered mental status, unspecified (principal)

== ENCOUNTER → 2023-11-30 | Outpatient (REF) | payer MEDICARE, MEDICAID ==
[2023-11-18 02:22] LABS: APPEARANCE, URINE MANUAL CLOUDY (CLEAR); BILIRUBIN, URINE MANUAL NEGATIVE (NEGATIVE); BLOOD URINE MANUAL POSITIVE (NEGATIVE); COLOR, URINE MANUAL YELLOW (YELLOW); GLUCOSE, URINE (UA) MANUAL NEGATIVE (NEGATIVE); KETONE, URINE MANUAL NEGATIVE (NEGATIVE); LEUKOCYTE ESTERASE, URINE MAN TRACE (NEGATIVE); NITRITE, URINE MANUAL NEGATIVE (NEGATIVE); PROTEIN, URINE MANUAL NEGATIVE (NEGATIVE); UROBILINOGEN, URINE MANUAL NORMAL (NORMAL)
[2023-11-18 02:37] LABS: BACTERIA, URINE SMALL AMOUNT; CALCIUM OXALATE CRYSTALS,URINE SMALL AMOUNT /hpf; HYALINE CAST, URINE NONE SEEN /lpf (0-1); RBC, URINE 0-1 /hpf (0-3); SQUAMOUS EPITHELIAL CELL URINE LARGE AMOUNT /hpf (SMALL AMT)
[2023-11-18 02:38] LABS: AMORPHOUS SEDIMENT, URINE MOD AMOUNT (NEGATIVE); MUCUS, URINE SMALL AMOUNT (NEGATIVE)
[2023-11-18 07:08] LABS: HEMATOCRIT 34.2 % (36.0-47.0); HEMOGLOBIN 10.7 g/dl (12.0-15.5); MEAN CORPUSCULAR HEMOGLOBIN 31.7 pg (27.0-33.0); MEAN CORPUSCULAR HGB CONC 31.3 g/dl (32.0-36.5); MEAN CORPUSCULAR VOLUME 101.2 fl (80.0-96.0); PLATELET COUNT, AUTOMATED 279 10^3/uL (150-450); RED BLOOD COUNT 3.38 10^6/uL (4.00-5.40); WHITE BLOOD COUNT 9.2 10^3/uL (4.0-10.0)
[2023-11-18 07:36] LABS: ALBUMIN 2.7 G/DL (3.2-5.2); BLOOD UREA NITROGEN 45 MG/DL (9-23); CALCIUM LEVEL 8.7 MG/DL (8.3-10.6); CARBON DIOXIDE LEVEL 23 MMOL/L (20-31); CHLORIDE LEVEL 111 MMOL/L (98-107); CREATININE FOR GFR 0.62 MG/DL (0.55-1.30); GLOMERULAR FILTRATION RATE > 60.0 (>39); GLUCOSE, FASTING 88 MG/DL (74-106); PHOSPHORUS LEVEL 3.4 MG/DL (2.4-5.1); POTASSIUM SERUM 4.1 MMOL/L (3.5-5.1); PTH INTACT 33.5 PG/ML (18.5-88.0); SODIUM LEVEL 141 MMOL/L (136-145)
== END ==
LOC: SKLAB4 14:28
PROVIDERS: ATTEND Nurse Practitioner Adult Health
DX: I48.91 Unspecified atrial fibrillation (principal); N18.9 Chronic kidney disease, unspecified

== ENCOUNTER → 2023-12-08 | Outpatient (CLI) | payer MEDICARE, MEDICAID | LOC: M RAD 08:48 | PROVIDERS: ATTEND Internal Medicine | DX: M79.604 Pain in right leg (principal); W19.XXXA Unspecified fall, initial encounter ==

== ENCOUNTER → 2023-12-10 | Outpatient (CLI) | payer MEDICARE, MEDICAID | LOC: M RAD 11:55 | PROVIDERS: ATTEND Internal Medicine | DX: M17.11 Unilateral primary osteoarthritis, right knee (principal) ==

== ENCOUNTER → 2023-12-10 | Outpatient (REF) | payer MEDICARE, MEDICAID | LOC: SKLAB4 11:24 | PROVIDERS: ATTEND Nurse Practitioner Adult Health | DX: M25.561 Pain in right knee (principal); Z53.8 Procedure and treatment not carried out for other reasons ==

== ENCOUNTER → 2023-12-10 | Outpatient (REF) | payer MEDICARE, MEDICAID | LOC: SKLAB4 11:22 | PROVIDERS: ATTEND Nurse Practitioner Adult Health | DX: Z53.8 Procedure and treatment not carried out for other reasons (principal) ==

== ENCOUNTER → 2024-02-12 | Outpatient (REF) | payer MEDICARE ==
[~2024-02-12] MED LIST changes: -BISA10SU20 PR; +BISA10SU59 PR; +BUSP1TAB PO; +DULC10SU2 PR; -MIRA1POW3 PO; +MIRA33506 PO
[2024-02-12 10:23] LABS: BASO # 0.1 10^3/uL (0.0-0.2); BASO % 0.6 % (0.0-1.0); EOS # 0.6 10^3/uL (0.0-0.5); EOS % 4.9 % (0.0-3.0); HEMATOCRIT 34.8 % (36.0-47.0); HEMOGLOBIN 11.2 g/dl (12.0-15.5); LYMPH # 1.9 10^3/uL (1.5-5.0); MEAN CORPUSCULAR HEMOGLOBIN 31.6 pg (27.0-33.0); MEAN CORPUSCULAR HGB CONC 32.2 g/dl (32.0-36.5); MEAN CORPUSCULAR VOLUME 98.3 fl (80.0-96.0); MONO # 0.8 10^3/uL (0.0-0.8); MONO % 6.9 % (2.0-8.0); NEUTROPHILS # 8.2 10^3/uL (1.5-8.5); NEUTROPHILS % 70.9 % (36.0-66.0); PLATELET COUNT, AUTOMATED 303 10^3/uL (150-450); RED BLOOD COUNT 3.54 10^6/uL (4.00-5.40); WHITE BLOOD COUNT 11.6 10^3/uL (4.0-10.0)
[2024-02-12 10:54] LABS: ALBUMIN 2.9 G/DL (3.2-5.2); ALKALINE PHOSPHATASE 92 U/L (46-116); ALT/SGPT < 9 U/L (7.0-40); AST/SGOT 15 U/L (<34); BILIRUBIN,TOTAL 0.3 MG/DL (0.3-1.2); BLOOD UREA NITROGEN 34 MG/DL (9-23); CALCIUM LEVEL 8.9 MG/DL (8.3-10.6); CARBON DIOXIDE LEVEL 23 MMOL/L (20-31); CHLORIDE LEVEL 113 MMOL/L (98-107); CREATININE FOR GFR 0.67 MG/DL (0.55-1.30); GLOMERULAR FILTRATION RATE > 60.0 (>39); GLUCOSE, FASTING 114 MG/DL (74-106); POTASSIUM SERUM 3.9 MMOL/L (3.5-5.1); SODIUM LEVEL 142 MMOL/L (136-145); TOTAL PROTEIN 6.7 G/DL (5.7-8.2)
== END ==
LOC: SKLAB4 07:00
PROVIDERS: ATTEND Nurse Practitioner Adult Health
DX: N18.9 Chronic kidney disease, unspecified (principal)

== ENCOUNTER → 2024-02-18 | Outpatient (REF) | payer MEDICARE ==
[~2024-02-18] MED LIST changes: +ACET1TAB55 PO; +ACET650T15 PO; +DICL20GE TP; +ROPI2TAB46 PO; +SENN-186 PO; +SERT25TA21 PO; +TRAM50TA2 PO; +VITA1CAP25 PO
== END ==
LOC: M RAD 09:34 → SKLAB4 09:34
PROVIDERS: ATTEND Nurse Practitioner Adult Health
DX: R06.02 Shortness of breath (principal)

== ENCOUNTER → 2024-03-04 | Outpatient (REF) | payer MEDICARE ==
[2024-03-04 08:31] LABS: BASO # 0.1 10^3/uL (0.0-0.2); BASO % 0.7 % (0.0-1.0); EOS # 0.5 10^3/uL (0.0-0.5); EOS % 4.5 % (0.0-3.0); HEMATOCRIT 33.3 % (36.0-47.0); HEMOGLOBIN 10.8 g/dl (12.0-15.5); LYMPH # 2.6 10^3/uL (1.5-5.0); LYMPH % 22.3 % (24.0-44.0); MEAN CORPUSCULAR HEMOGLOBIN 31.7 pg (27.0-33.0); MEAN CORPUSCULAR HGB CONC 32.4 g/dl (32.0-36.5); MEAN CORPUSCULAR VOLUME 97.7 fl (80.0-96.0); MONO % 8.7 % (2.0-8.0); NEUTROPHILS # 7.3 10^3/uL (1.5-8.5); NEUTROPHILS % 63.1 % (36.0-66.0); PLATELET COUNT, AUTOMATED 310 10^3/uL (150-450); RED BLOOD COUNT 3.41 10^6/uL (4.00-5.40); WHITE BLOOD COUNT 11.6 10^3/uL (4.0-10.0)
[2024-03-04 09:02] LABS: VITAMIN B12 LEVEL 1084 PG/ML (211-911)
[2024-03-04 09:03] LABS: FOLATE > 24.00 NG/ML (>5.4)
[2024-03-04 09:05] LABS: ALBUMIN 2.8 G/DL (3.2-5.2); ALKALINE PHOSPHATASE 93 U/L (46-116); ALT/SGPT < 9 U/L (7.0-40); AST/SGOT 17 U/L (<34); BILIRUBIN,TOTAL 0.4 MG/DL (0.3-1.2); BLOOD UREA NITROGEN 28 MG/DL (9-23); CALCIUM LEVEL 9.1 MG/DL (8.3-10.6); CARBON DIOXIDE LEVEL 21 MMOL/L (20-31); CHLORIDE LEVEL 114 MMOL/L (98-107); CREATININE FOR GFR 0.65 MG/DL (0.55-1.30); GLOMERULAR FILTRATION RATE > 60.0 (>39); GLUCOSE, FASTING 75 MG/DL (74-106); SODIUM LEVEL 143 MMOL/L (136-145); THYROID STIMULATING HORMONE 1.365 uIU/ML (0.55-4.78); TOTAL PROTEIN 6.6 G/DL (5.7-8.2)
[2024-03-09 00:07] LABS: VITAMIN B1 LEVEL WHOLE BLOOD 136.4 nmol/L (66.5-200.0); VITAMIN B6,PYRIDOXAL PHOSPHATE 2.1 ug/L (3.4-65.2); VITAMIN E(ALPHA TOCOPHEROL) 11.8 mg/L (9.0-29.0); VITAMIN E(GAMMA TOCOPHEROL) 0.4 mg/L (0.5-4.9)
== END ==
LOC: SKLAB4 07:00
PROVIDERS: ATTEND Nurse Practitioner Adult Health
DX: I48.91 Unspecified atrial fibrillation (principal); I12.9 Hypertensive chronic kidney disease with stage 1 through stage 4 chronic kidney disease, or unspecified chronic kidney disease; N18.9 Chronic kidney disease, unspecified; G20.C Parkinsonism, unspecified; D63.1 Anemia in chronic kidney disease

== ENCOUNTER → 2024-04-14 | Outpatient (REF) | payer MEDICARE ==
[2024-04-14 16:19] LABS: APPEARANCE, URINE HAZY (CLEAR); BACTERIA, URINE AUTO NEGATIVE (NEGATIVE); BILIRUBIN, URINE AUTO NEGATIVE (NEGATIVE); BLOOD, URINE BLOOD NEGATIVE (NEGATIVE); CALCIUM OXALATE CRYSTALS SMALL; COLOR, URINE YELLOW (YELLOW); GLUCOSE, URINE (UA) AUTO NEGATIVE (NEGATIVE); KETONE, URINE AUTO TRACE mg/dL (NEGATIVE); LEUKOCYTE ESTERASE, URINE AUTO NEGATIVE (NEGATIVE); MUCUS, URINE SMALL (NEGATIVE); NITRITE, URINE AUTO NEGATIVE (NEGATIVE); PROTEIN, URINE AUTO NEGATIVE (NEGATIVE); RBC, URINE AUTO 1 /HPF (0-3); SQUAMOUS EPITHELIAL CELL UR AU 12 /HPF (0-6); UROBILINOGEN, URINE AUTO 0.2 mg/dL (0.0-2.0); WBC, URINE AUTO 2 /HPF (0-3)
== END ==
LOC: SKLAB4 15:05
PROVIDERS: ATTEND Internal Medicine
DX: R41.82 Altered mental status, unspecified (principal)

== ENCOUNTER → 2024-04-14 | Outpatient (REF) | payer MEDICARE | LOC: SKLAB4 14:42 | PROVIDERS: ATTEND Internal Medicine | DX: R41.82 Altered mental status, unspecified (principal) ==

== ENCOUNTER → 2024-04-15 | Outpatient (REF) | payer MEDICARE ==
[2024-04-15 12:06] LABS: CHOLESTEROL RISK RATIO 4.74 (<5); HDL CHOLESTEROL 35.6 MG/DL (>40); LDL CHOLESTEROL 111.4 MG/DL (<100); NON-HDL-C 133.4 MG/DL
== END ==
LOC: SKLAB4 07:46
PROVIDERS: ATTEND Internal Medicine
DX: E78.5 Hyperlipidemia, unspecified (principal)

== ENCOUNTER → 2024-06-06 | Outpatient (CLI) | payer MEDICARE, MEDICAID ==
[~2024-06-06] MED LIST changes: +ROPI0.5T21 PO; -ROPI0.5T32 PO
== END ==
LOC: M RAD 11:50
PROVIDERS: ATTEND Internal Medicine
DX: Z53.9 Procedure and treatment not carried out, unspecified reason (principal)

== ENCOUNTER → 2024-06-06 | Outpatient (REF) | payer MEDICARE, MEDICAID | LOC: SKLAB4 11:10 | PROVIDERS: ATTEND Internal Medicine | DX: S72.141D Displaced intertrochanteric fracture of right femur, subsequent encounter for closed fracture with routine healing (principal) ==

== ENCOUNTER → 2024-06-14 | Outpatient (REF) | payer MEDICARE, MEDICAID ==
[~2024-06-14] MED LIST changes: +BUSP10TA; +MIRT-10; +NUPL34CA
[2024-06-14 07:16] LABS: BASO # 0.1 10^3/uL (0.0-0.2); BASO % 0.7 % (0.0-1.0); EOS # 0.2 10^3/uL (0.0-0.5); EOS % 1.3 % (0.0-3.0); HEMATOCRIT 32.2 % (36.0-47.0); HEMOGLOBIN 9.8 g/dl (12.0-15.5); LYMPH # 2.1 10^3/uL (1.5-5.0); LYMPH % 17.1 % (24.0-44.0); MEAN CORPUSCULAR HEMOGLOBIN 28.6 pg (27.0-33.0); MEAN CORPUSCULAR HGB CONC 30.4 g/dl (32.0-36.5); MEAN CORPUSCULAR VOLUME 93.9 fl (80.0-96.0); NEUTROPHILS # 8.6 10^3/uL (1.5-8.5); NEUTROPHILS % 72.1 % (36.0-66.0); PLATELET COUNT, AUTOMATED 352 10^3/uL (150-450); RED BLOOD COUNT 3.43 10^6/uL (4.00-5.40)
[2024-06-14 07:43] LABS: ALBUMIN 2.7 G/DL (3.2-5.2); ALKALINE PHOSPHATASE 82 U/L (46-116); ALT/SGPT < 9 U/L (7.0-40); AST/SGOT 14 U/L (<34); BILIRUBIN,TOTAL 0.3 MG/DL (0.3-1.2); BLOOD UREA NITROGEN 27 MG/DL (9-23); CALCIUM LEVEL 8.6 MG/DL (8.3-10.6); CARBON DIOXIDE LEVEL 20 MMOL/L (20-31); CHLORIDE LEVEL 114 MMOL/L (98-107); CREATININE FOR GFR 0.73 MG/DL (0.55-1.30); GLOMERULAR FILTRATION RATE > 60.0 (>39); GLUCOSE, FASTING 81 MG/DL (74-106); POTASSIUM SERUM 3.8 MMOL/L (3.5-5.1); SODIUM LEVEL 144 MMOL/L (136-145); TOTAL IRON BINDING CAPACITY 189 UG/DL (250-425); TOTAL PROTEIN 6.4 G/DL (5.7-8.2)
[2024-06-14 07:44] LABS: IMMUNOGLOBULIN G 1214 MG/DL (650-1600); IRON (FE) 13 UG/DL (50-170); PERCENT SATURATION 6.9 % (13.2-45.0)
[2024-06-14 07:47] LABS: FERRITIN 293.8 NG/ML (7.3-270.7); FOLATE 8.71 NG/ML (>5.4)
[2024-06-14 07:48] LABS: VITAMIN B12 LEVEL 608 PG/ML (211-911)
[2024-06-14 11:10] LABS: IMMUNOGLOBULIN A > 540.0 MG/DL (40-350)
[2024-06-15 16:02] LABS: T P ELECTROPHORESIS SO 6.4 g/dL (6.1-8.1)
[2024-06-16 14:22] LABS: FREE KAPPA LIGHT CHAINS SERUM 103.3 mg/L (3.3-19.4); FREE LAMBDA LIGHT CHAINS SERUM 67.1 mg/L (5.7-26.3); KAPPA/LAMBDA RATIO SERUM 1.54 (0.26-1.65)
[2024-06-17 07:37] LABS: ALBUMIN SPEP 2.8 g/dL (3.8-4.8); ALPHA-1-GLOBULINS SO 0.4 g/dL (0.2-0.3); BETA 2 GLOBULIN 0.7 g/dL (0.2-0.5); BETA-GLOBULIN SO 0.4 g/dL (0.4-0.6); GAMMA GLOBULINS SO 1.1 g/dL (0.8-1.7)
== END ==
LOC: SKLAB4 06-13 16:02
PROVIDERS: ATTEND Internal Medicine
DX: D64.9 Anemia, unspecified (principal)

== ENCOUNTER → 2024-07-12 | Outpatient (CLI) | payer MEDICARE ==
[~2024-07-12] MED LIST changes: +LIDOCAINE 1% MDV 20ML VIAL As Ordered ONE; +MIDAZOLAM INJ 2MG/2ML VIAL As Ordered ONE; +NS 1,000 ML IV SCH; +fentaNYL 100 MCG/2 ML INJECTION As Ordered ONE
[2024-07-12 08:10] VITALS: TEMP 96.9
[2024-07-12 08:33] LABS: BASO # 0.1 10^3/uL (0.0-0.2); BASO % 0.8 % (0.0-1.0); EOS # 0.2 10^3/uL (0.0-0.5); EOS % 2.7 % (0.0-3.0); HEMATOCRIT 33.6 % (36.0-47.0); HEMOGLOBIN 10.3 g/dl (12.0-15.5); LYMPH % 23.3 % (24.0-44.0); MEAN CORPUSCULAR HEMOGLOBIN 28.2 pg (27.0-33.0); MEAN CORPUSCULAR HGB CONC 30.7 g/dl (32.0-36.5); MEAN CORPUSCULAR VOLUME 92.1 fl (80.0-96.0); MONO # 0.6 10^3/uL (0.0-0.8); MONO % 6.8 % (2.0-8.0); NEUTROPHILS # 5.6 10^3/uL (1.5-8.5); NEUTROPHILS % 65.5 % (36.0-66.0); PLATELET COUNT, AUTOMATED 429 10^3/uL (150-450); RED BLOOD COUNT 3.65 10^6/uL (4.00-5.40); WHITE BLOOD COUNT 8.5 10^3/uL (4.0-10.0)
[2024-07-12 09:21] VITALS: BP 131/60; O2SAT 96
== END ==
LOC: M IRPRO 07:54
PROVIDERS: ATTEND Dietitian, Registered
DX: D72.829 Elevated white blood cell count, unspecified (principal)

== ENCOUNTER → 2024-07-22 | Outpatient (REF) | payer MEDICARE ==
[~2024-07-22] MED LIST changes: -LIDOCAINE 1% MDV 20ML VIAL As Ordered ONE; -MIDAZOLAM INJ 2MG/2ML VIAL As Ordered ONE; -NS 1,000 ML IV SCH; -fentaNYL 100 MCG/2 ML INJECTION As Ordered ONE
[2024-07-22 13:42] LABS: HEMATOCRIT 33.7 % (36.0-47.0); HEMOGLOBIN 10.6 g/dl (12.0-15.5); MEAN CORPUSCULAR HEMOGLOBIN 28.3 pg (27.0-33.0); MEAN CORPUSCULAR HGB CONC 31.5 g/dl (32.0-36.5); MEAN CORPUSCULAR VOLUME 90.1 fl (80.0-96.0); PLATELET COUNT, AUTOMATED 465 10^3/uL (150-450); RED BLOOD COUNT 3.74 10^6/uL (4.00-5.40); WHITE BLOOD COUNT 10.8 10^3/uL (4.0-10.0)
[2024-07-22 14:07] LABS: BLOOD UREA NITROGEN 26 MG/DL (9-23); CALCIUM LEVEL 9.3 MG/DL (8.3-10.6); CARBON DIOXIDE LEVEL 22 MMOL/L (20-31); CHLORIDE LEVEL 111 MMOL/L (98-107); CREATININE FOR GFR 0.68 MG/DL (0.55-1.30); GLOMERULAR FILTRATION RATE > 60.0 (>39); GLUCOSE, FASTING 113 MG/DL (74-106); POTASSIUM SERUM 3.7 MMOL/L (3.5-5.1); SODIUM LEVEL 139 MMOL/L (136-145)
== END ==
LOC: SKLAB4 12:42
PROVIDERS: ATTEND Internal Medicine
DX: J98.11 Atelectasis (principal)

== ENCOUNTER → 2024-07-26 | Outpatient (CLI) | payer MEDICARE | LOC: M RAD 11:55 | PROVIDERS: ATTEND Internal Medicine Medical Oncology | DX: R06.02 Shortness of breath (principal); J98.11 Atelectasis ==

== ENCOUNTER → 2024-07-27 | Outpatient (REF) | payer MEDICARE ==
[2024-07-27 12:28] LABS: BASO # 0.1 10^3/uL (0.0-0.2); BASO % 0.8 % (0.0-1.0); EOS # 0.2 10^3/uL (0.0-0.5); HEMATOCRIT 31.1 % (36.0-47.0); HEMOGLOBIN 9.7 g/dl (12.0-15.5); LYMPH # 2.1 10^3/uL (1.5-5.0); LYMPH % 22.6 % (24.0-44.0); MEAN CORPUSCULAR HEMOGLOBIN 28.6 pg (27.0-33.0); MEAN CORPUSCULAR HGB CONC 31.2 g/dl (32.0-36.5); MEAN CORPUSCULAR VOLUME 91.7 fl (80.0-96.0); MONO # 0.6 10^3/uL (0.0-0.8); MONO % 6.8 % (2.0-8.0); NEUTROPHILS # 6.3 10^3/uL (1.5-8.5); NEUTROPHILS % 67.1 % (36.0-66.0); PLATELET COUNT, AUTOMATED 363 10^3/uL (150-450); RED BLOOD COUNT 3.39 10^6/uL (4.00-5.40); WHITE BLOOD COUNT 9.4 10^3/uL (4.0-10.0)
[2024-07-27 13:03] LABS: IRON (FE) 44 UG/DL (50-170)
[2024-07-27 13:04] LABS: ALBUMIN 2.7 G/DL (3.2-5.2); ALKALINE PHOSPHATASE 99 U/L (46-116); ALT/SGPT < 9 U/L (7.0-40); AST/SGOT 23 U/L (<34); BILIRUBIN,TOTAL 0.2 MG/DL (0.3-1.2); BLOOD UREA NITROGEN 25 MG/DL (9-23); CALCIUM LEVEL 8.7 MG/DL (8.3-10.6); CARBON DIOXIDE LEVEL 20 MMOL/L (20-31); CHLORIDE LEVEL 109 MMOL/L (98-107); CREATININE FOR GFR 0.66 MG/DL (0.55-1.30); GLOMERULAR FILTRATION RATE > 60.0 (>39); GLUCOSE, FASTING 107 MG/DL (74-106); MAGNESIUM LEVEL 1.8 MG/DL (1.8-2.4); PERCENT SATURATION 22.8 % (13.2-45.0); SODIUM LEVEL 138 MMOL/L (136-145); TOTAL IRON BINDING CAPACITY 193 UG/DL (250-425); TOTAL PROTEIN 6.8 G/DL (5.7-8.2)
[2024-07-27 13:06] LABS: FERRITIN 337.3 NG/ML (7.3-270.7)
== END ==
LOC: SKLAB4 10:16
PROVIDERS: ATTEND Internal Medicine
DX: R76.8 Other specified abnormal immunological findings in serum (principal); D50.9 Iron deficiency anemia, unspecified

== ENCOUNTER → 2024-08-18 | Outpatient (REF) | payer MEDICARE | LOC: SKLAB4 12:10 | PROVIDERS: ATTEND Internal Medicine | DX: Z86.14 Personal history of Methicillin resistant Staphylococcus aureus infection (principal) ==

== ENCOUNTER → 2024-09-19 | Outpatient (REF) | payer MEDICARE ==
[~2024-09-19] MED LIST changes: +GABA-1172 PO; -GABA-282 PO
[2024-09-19 13:54] LABS: HEMATOCRIT 37.8 % (36.0-47.0); HEMOGLOBIN 11.6 g/dl (12.0-15.5); MEAN CORPUSCULAR HGB CONC 30.7 g/dl (32.0-36.5); MEAN CORPUSCULAR VOLUME 94.5 fl (80.0-96.0); PLATELET COUNT, AUTOMATED 528 10^3/uL (150-450); WHITE BLOOD COUNT 15.6 10^3/uL (4.0-10.0)
[2024-09-19 14:24] LABS: BLOOD UREA NITROGEN 36 MG/DL (9-23); CALCIUM LEVEL 9.7 MG/DL (8.3-10.6); CARBON DIOXIDE LEVEL 24 MMOL/L (20-31); CHLORIDE LEVEL 113 MMOL/L (98-107); CREATININE FOR GFR 0.66 MG/DL (0.55-1.30); GLOMERULAR FILTRATION RATE > 60.0 (>39); GLUCOSE, FASTING 103 MG/DL (74-106); POTASSIUM SERUM 4.4 MMOL/L (3.5-5.1); SODIUM LEVEL 144 MMOL/L (136-145)
== END ==
LOC: SKLAB4 13:01
PROVIDERS: ATTEND Internal Medicine
DX: R05.9 Cough, unspecified (principal); R06.02 Shortness of breath; G20.C Parkinsonism, unspecified

== ENCOUNTER → 2024-12-14 | Outpatient (REF) | payer MEDICARE ==
[2024-12-14 12:52] LABS: HEMATOCRIT 35.4 % (36.0-47.0); HEMOGLOBIN 11.1 g/dl (12.0-15.5); MEAN CORPUSCULAR HEMOGLOBIN 30.7 pg (27.0-33.0); MEAN CORPUSCULAR HGB CONC 31.4 g/dl (32.0-36.5); MEAN CORPUSCULAR VOLUME 98.1 fl (80.0-96.0); PLATELET COUNT, AUTOMATED 281 10^3/uL (150-450); RED BLOOD COUNT 3.61 10^6/uL (4.00-5.40); WHITE BLOOD COUNT 10.5 10^3/uL (4.0-10.0)
[2024-12-14 13:19] LABS: BLOOD UREA NITROGEN 30 MG/DL (9-23); CALCIUM LEVEL 8.9 MG/DL (8.3-10.6); CARBON DIOXIDE LEVEL 25 MMOL/L (20-31); CHLORIDE LEVEL 112 MMOL/L (98-107); CREATININE FOR GFR 0.66 MG/DL (0.55-1.30); GLOMERULAR FILTRATION RATE > 60.0 (>39); GLUCOSE, FASTING 115 MG/DL (74-106); POTASSIUM SERUM 4.1 MMOL/L (3.5-5.1); SODIUM LEVEL 144 MMOL/L (136-145)
== END ==
LOC: SKLAB4 11:50
PROVIDERS: ATTEND Internal Medicine
DX: R06.02 Shortness of breath (principal); J18.8 Other pneumonia, unspecified organism; J98.11 Atelectasis; Z95.0 Presence of cardiac pacemaker

== ENCOUNTER → 2024-12-28 | Outpatient (CLI) | payer MEDICARE, MEDICAID | LOC: M RAD 08:06 | PROVIDERS: ATTEND Nurse Practitioner Adult Health | DX: J47.9 Bronchiectasis, uncomplicated (principal); R91.8 Other nonspecific abnormal finding of lung field ==

== ENCOUNTER → 2025-02-09 | Outpatient (REF) | payer MEDICARE, MEDICAID ==
[2025-02-09 08:15] LABS: HEMATOCRIT 32.4 % (36.0-47.0); HEMOGLOBIN 10.2 g/dl (12.0-15.5); MEAN CORPUSCULAR HGB CONC 31.5 g/dl (32.0-36.5); MEAN CORPUSCULAR VOLUME 98.5 fl (80.0-96.0); PLATELET COUNT, AUTOMATED 289 10^3/uL (150-450); RED BLOOD COUNT 3.29 10^6/uL (4.00-5.40); WHITE BLOOD COUNT 8.5 10^3/uL (4.0-10.0)
[2025-02-09 08:42] LABS: BLOOD UREA NITROGEN 31 MG/DL (9-23); CALCIUM LEVEL 8.8 MG/DL (8.3-10.6); CARBON DIOXIDE LEVEL 23 MMOL/L (20-31); CHLORIDE LEVEL 111 MMOL/L (98-107); CREATININE FOR GFR 0.61 MG/DL (0.55-1.30); GLOMERULAR FILTRATION RATE > 60.0 (>39); GLUCOSE, FASTING 80 MG/DL (74-106); POTASSIUM SERUM 4.1 MMOL/L (3.5-5.1); SODIUM LEVEL 143 MMOL/L (136-145)
== END ==
LOC: SKLAB4 07:00
PROVIDERS: ATTEND Internal Medicine
DX: G20.C Parkinsonism, unspecified (principal); Z79.899 Other long term (current) drug therapy

== ENCOUNTER → 2025-02-20 | Outpatient (REF) | payer MEDICARE, MEDICAID ==
[~2025-02-20] MED LIST changes: +ALBU2.5V10; +LEVO1TAB40
[2025-02-20 07:55] LABS: BASO # 0.1 10^3/uL (0.0-0.2); BASO % 0.8 % (0.0-1.0); EOS # 0.4 10^3/uL (0.0-0.5); EOS % 4.3 % (0.0-3.0); HEMATOCRIT 33.7 % (36.0-47.0); HEMOGLOBIN 10.6 g/dl (12.0-15.5); LYMPH # 1.7 10^3/uL (1.5-5.0); LYMPH % 19.1 % (24.0-44.0); MEAN CORPUSCULAR HGB CONC 31.5 g/dl (32.0-36.5); MEAN CORPUSCULAR VOLUME 98.5 fl (80.0-96.0); MONO # 0.9 10^3/uL (0.0-0.8); MONO % 9.8 % (2.0-8.0); NEUTROPHILS # 5.8 10^3/uL (1.5-8.5); NEUTROPHILS % 65.5 % (36.0-66.0); PLATELET COUNT, AUTOMATED 312 10^3/uL (150-450); RED BLOOD COUNT 3.42 10^6/uL (4.00-5.40); WHITE BLOOD COUNT 8.8 10^3/uL (4.0-10.0)
[2025-02-20 08:19] LABS: ALBUMIN 2.7 G/DL (3.2-5.2); ALKALINE PHOSPHATASE 67 U/L (35-104); ALT/SGPT < 9 U/L (7.0-40); AST/SGOT 13 U/L (<34); BILIRUBIN,TOTAL 0.2 MG/DL (0.3-1.2); BLOOD UREA NITROGEN 37 MG/DL (9-23); CALCIUM LEVEL 9.1 MG/DL (8.3-10.6); CARBON DIOXIDE LEVEL 22 MMOL/L (20-31); CHLORIDE LEVEL 113 MMOL/L (98-107); CREATININE FOR GFR 0.68 MG/DL (0.55-1.30); GLOMERULAR FILTRATION RATE > 60.0 (>39); GLUCOSE, FASTING 85 MG/DL (74-106); POTASSIUM SERUM 4.2 MMOL/L (3.5-5.1); SODIUM LEVEL 144 MMOL/L (136-145); TOTAL PROTEIN 6.9 G/DL (5.7-8.2)
[2025-02-20 08:24] LABS: FERRITIN 274.9 NG/ML (7.3-270.7)
[2025-02-21 12:33] LABS: FREE KAPPA LIGHT CHAINS SERUM 101.2 mg/L (3.3-19.4); FREE LAMBDA LIGHT CHAINS SERUM 74.7 mg/L (5.7-26.3); KAPPA/LAMBDA RATIO SERUM 1.35 (0.26-1.65)
== END ==
LOC: SKLAB4 07:00
PROVIDERS: ATTEND Internal Medicine
DX: R76.8 Other specified abnormal immunological findings in serum (principal); D64.9 Anemia, unspecified

== ENCOUNTER → 2025-03-22 | Outpatient (CLI) | payer MEDICARE, MEDICAID ==
[~2025-03-22] MED LIST changes: +TOPI-14 PO; -TOPI200T7 PO
== END ==
LOC: M RAD 10:15
PROVIDERS: ATTEND Internal Medicine Pulmonary Disease
DX: R91.8 Other nonspecific abnormal finding of lung field (principal)